=== PATIENT | male | born 1965 | race Caucasian/White ===

== ENCOUNTER → 2016-05-22 | Outpatient (CLI) | payer OTHER ==
[~2016-05-22] MED LIST: ALBUAER2 INH; ATOR-24 PO; BUPR-79 PO; CHOL200010 PO; CHOL20007 PO; CLON0.5T3 PO; CYAN10005 PO; DIPH25CA65 PO; DULO60CA44 PO; FLUT0.15 NAE; GADAVIST IV PRN; HYDR-5688 PO; HYDR1SOL IT; LEUP30IN3; LPT/40 PO; NTRGSL/4 UT; TEST1INJ2 IM; TEST1INJ2 SQ; TRAZ100T29 PO; TRAZ50TA35 PO; VNTHFA/IN INH; WLLSR/150 PO; ZOLP10TA PO; [UNRECOGNIZED DRUG - CODE] IT; [UNRECOGNIZED DRUG - CODE] SC
--- NOTE | 2016-05-22 09:50 | DIAGNOSTIC IMAGING REPORT ---
MRI THE THORACIC SPINE WITHOUT A WITH GADOLINIUM CLINICAL HISTORY: Back pain. History of pain pump catheter. Evaluate for catheter granuloma. COMPARISON STUDY: No previous studies for comparison. FINDINGS: There are no suspicious areas of marrow replacement. No paraspinal masses are visualized. No disc herniations are visualized. There are no pathologically enhancing masses. There is no spinal stenosis. There is a right T4-5 3 mm perineural cyst. The patient's spinal catheter can be visualized to the T8 level. No catheter tip granuloma is visualized. IMPRESSION: 1. No evidence of pathologic marrow replacement 2. No disc herniations identified. No evidence of spinal stenosis 3. Pain pump catheter tip at the T8 level. No catheter tip granuloma is visualized. Electronically signed by: Christian Braswell M.D. 05/22/2016 9:48 AM Dictated Date/Time: 05/22/2016 9:35 AM
--- NOTE | 2016-05-22 13:34 | DIAGNOSTIC IMAGING REPORT ---
CERVICAL SPINE MRI WITH AND WITHOUT CONTRAST HISTORY: Neck pain. 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 COMPARISON STUDY: Cervical spine MRI 12/21/2010. FINDINGS: There is again noted anterior cervical discectomy and fusion from C4 through C7. There is straightening of the cervical spine. Alignment remains intact. No fracture or subluxation. Prevertebral soft tissues and the C1-C2 interval are intact. The visualized posterior fossa is unremarkable. No abnormal enhancement identified within the cervical spine. Mild edema surrounding the right C7-T1 facets is likely due to degenerative change. Tiny foci of increased T2 signal within the cervical spinal cord at the C3-C4 and C4-C5 levels consistent with myelomalacia. This remains unchanged. Minimal disc space narrowing C3-C4. C2-C3: No significant central canal or neural foraminal narrowing. C3-C4: Increase in size in a right paracentral focal disc protrusion which abuts and slightly deforms the right anterior cord. There is associated moderate right and mild left neural foraminal narrowing. The right-sided neural foraminal narrowing has progressed. C4-C5: No significant central canal narrowing. Mild left-sided neural foraminal narrowing, unchanged. C5-C6: No significant central canal narrowing. Mild left-sided neural foraminal narrowing, unchanged. C6-C7: No significant central canal or neural foraminal narrowing. C7-T1: Small broad-based posterior disc osteophyte complex without significant central canal narrowing. There is moderate right-sided neural foraminal narrowing, unchanged. IMPRESSION: 1. Increase in size in the right paracentral focal disc protrusion at C3-C4 which abuts and slightly deforms the right anterior cord. 2. Multilevel bilateral neural foraminal narrowing as described above is not significantly changed. 3. Prior C4-C7 ACDF. 4. No change in the small foci of increased T2 signal within the cervical spinal cord consistent with myelomalacia. No abnormal enhancement. Electronically signed by: Vasu Miramontes M.D. 05/22/2016 1:32 PM Dictated Date/Time: 05/22/2016 1:16 PM
== END | disposition home or self-care (01) ==
LOC: C.MRIBC 06:53
PROVIDERS: ATTEND Anesthesiology
DX: M54.12 Radiculopathy, cervical region (principal); R20.0 Anesthesia of skin; M50.21 Other cervical disc displacement, high cervical region; M48.02 Spinal stenosis, cervical region; R93.7 Abnormal findings on diagnostic imaging of other parts of musculoskeletal system

== ENCOUNTER → 2016-06-20 | Outpatient (CLI) | payer OTHER ==
[~2016-06-20] MED LIST changes: -GADAVIST IV PRN
[2016-06-20 11:12] LABS: HEMATOCRIT 47.5 % (42-52); MEAN CELL VOLUME 91.7 fL (80-100); MEAN CORPUSCULAR HEMOGLOBIN 33.6 pg (25-34); MEAN CORPUSCULAR HGB CONC 36.6 g/dl (32-36); MEAN PLATELET VOLUME 10.4 fL (7.4-10.4); PLATELET COUNT 201 K/uL (130-400); RED BLOOD COUNT 5.18 M/uL (4.7-6.1); WHITE BLOOD COUNT 9.33 K/uL (4.8-10.8)
[2016-06-20 11:21] LABS: BLOOD UREA NITROGEN 10 mg/dl (7-18); BUN/CREATININE RATIO 10.9 (10-20); CALCIUM 8.7 mg/dl (8.5-10.1); CARBON DIOXIDE 28 mmol/L (21-32); CHLORIDE 102 mmol/L (98-107); CREATININE 0.94 mg/dl (0.60-1.40); GLUCOSE 117 mg/dl (70-99); POTASSIUM 4.2 mmol/L (3.5-5.1); SODIUM 137 mmol/L (136-145)
[2016-06-20 11:42] LABS: THYROID STIMULATING HORMONE 0.674 uIu/ml (0.300-4.500)
[2016-06-24 15:17] LABS: ILGF1 Z SCORE MALE 0.3 SD (-2.0 - +2.0)
--- NOTE | 2016-06-26 09:55 | CODING QUERY MEDICAL NECESSITY ---
SUPPORTING DIAGNOSIS NEEDED A supporting diagnosis is required for the test/procedure performed on this patient in order for us to be reimbursed by the patient's insurance. Please provide a supporting diagnosis for the following test/procedure listed below next to the test name along with your signature. *If there is no additional diagnosis for this patient that would support the following test/procedure please document that below next to the test/procedure. Test(s)/Procedure(s) that require a supporting diagnosis: DOS 06/20 * Vitamin D DIAGNOSIS: Provider Signature: Date: Thank you Tiffanie Steel Health Information Management Once completed, please kindly fax back to [phone] For questions please call [phone]
== END | disposition home or self-care (01) ==
LOC: C.LAB1850 09:47
PROVIDERS: ATTEND Internal Medicine Endocrinology, Diabetes & Metabolism
DX: R53.83 Other fatigue (principal); E29.1 Testicular hypofunction; R63.4 Abnormal weight loss; E55.9 Vitamin D deficiency, unspecified

== ENCOUNTER → 2016-07-26 | Day surgery (SDC) | payer OTHER ==
[~2016-07-26] VITALS: Ht 180.3 cm; Wt 91.0 kg
[~2016-07-26] MED LIST changes: +CHN/1 PO; +COSYNTROPIN INJ 1 MCG in SYRINGE 0 ML IV SCH; -DIPH25CA65 PO; -TRAZ100T29 PO
[2016-07-26 07:47] VITALS: BP 131/74; PULSE 70; TEMP 36.7; O2SAT 94; Ht 180.3 cm; Wt 91.0 kg
[2016-07-26 08:35] VITALS: BP 130/74; PULSE 71; TEMP 36.9; O2SAT 93
[2016-07-26 09:06] VITALS: BP 144/71; PULSE 70; TEMP 36.9; O2SAT 95
== END | disposition home or self-care (01) ==
LOC: C.MTU 07:35 → EDSTATUS 08:00
PROVIDERS: ATTEND Internal Medicine Endocrinology, Diabetes & Metabolism
DX: R53.83 Other fatigue (principal); E23.7 Disorder of pituitary gland, unspecified; E23.0 Hypopituitarism

== ENCOUNTER 2016-07-27 12:47 | Emergency (ER) | payer OTHER ==
[~2016-07-27] VITALS: Ht 180.3 cm; Wt 92.0 kg
[~2016-07-27 12:47] MED LIST changes: -ATOR-24 PO; -BUPR-79 PO; -CHN/1 PO; -CHOL20007 PO; -COSYNTROPIN INJ 1 MCG in SYRINGE 0 ML IV SCH; -HYDR-5688 PO; -HYDR1SOL IT; -LEUP30IN3; -TEST1INJ2 IM; -VNTHFA/IN INH; -[UNRECOGNIZED DRUG - CODE] SC
[2016-07-27 12:51] VITALS: TEMP 36.9; Ht 180.3 cm; Wt 92.0 kg
[2016-07-27] MEDS ORDERED: HYDROmorphone INJ 2 MG/ML SYR/VIAL IM STA (13:15)
--- NOTE | 2016-07-27 13:23 | EMERGENCY ROOM VISIT NOTE ---
History Report prepared by Jamee: Myla Douglas Under the Supervision of: Dr. Varghese Magdaleno D.O. First contact with patient: 12:59 Chief Complaint: NECK PAIN Stated Complaint: NECK PAIN History of Present Illness The patient is a 50 year old male who presents to the Emergency Room with complaints of persistent neck pain starting 3 months ago. He rates his discomfort as a 9/10 in severity. He was dropped off by a friend because he is unable to drive from the pain. An MRI has revealed that he has pinched nerves in his neck. He has had 8 neck surgeries with spinal cord stimulators put in. He has contacted surgeons, but they have turned him down. He called pain management this morning, but they said that there was nothing they could do and sent him to the ED. He reports numbness in head and numbness in his left arm. Source of History: patient Onset: 3 months ago Position: neck Symptom Intensity: 9/10 Timing: other (persistent) Associated Symptoms: + numbness (in head and left arm) Review of Systems See HPI for pertinent positives & negatives. A total of 10 systems reviewed and were otherwise negative. Past Medical & Surgical Medical Problems: (1) Neck pain Family History FH: ID (myocardial infarction) Social History Smoking Status: Current Every Day Smoker Drug Use: other Marital Status: Housing Status: lives with family Occupation Status: disabled Current/Historical Medications Scheduled Atorvastatin (Lipitor), 40 MG PO HS Bupropion Hcl (Wellbutrin Sr), 150 MG PO QAM Cholecalciferol (Vitamin D), 2 TAB PO QAM Cyanocobalamin (Vitamin B-12), 1,000 MCG PO QAM Duloxetine Hcl (Cymbalta), 60 MG PO QAM Hydromorphone Hcl (Hydromorphone Hcl), IT CONTINOUS Nitroglycerin (Nitrostat), 0.4 MG UT PRN Testosterone Cypionate (Testosterone Cypionate), 100 SQ WK Trazodone Hcl (Trazodone), 50 MG PO HS Scheduled PRN Albuterol (Ventolin), 1-2 PUFFS INH Q4 PRN for Wheezing Clonazepam (Klonopin), 1-2 TAB PO DAILY PRN for Anxiety Fluticasone Propionate (Nasal) (Flonase Allergy Relief), 1 SPRAY BRIANNE DAILY PRN for PRN Zolpidem Tartrate (Ambien), 10 MG PO HS PRN for Sleep Allergies Coded Allergies: NO KNOWN DRUG ALLERGIES (Verified Allergy, Unknown, ., 07/26/16) Physical Exam Vital Signs Date Time Temp Pulse Resp B/P Pulse Ox O2 Delivery O2 Flow Rate FiO2 07/27/16 12:51 36.9 93 18 183/85 94 Room Air Physical Exam CONSTITUTIONAL/VITAL SIGNS: Reviewed / noted above. GENERAL: Non-toxic in appearance. INTEGUMENTARY: Warm, dry, and [place]. HEAD: Normocephalic. EYES: without scleral icterus or trauma. ENT/OROPHARYNX: clear and moist. LYMPHADENOPATHY/NECK: Is supple without lymphadenopathy or meningismus. RESPIRATORY: Lungs clear and equal. CARDIOVASCULAR: Regular rate and rhythm. GI/ABDOMEN: Soft and nontender. No organomegaly or pulsatile mass. No rebound or guarding. Normal bowel sounds. EXTREMITIES: Warm and well perfused. BACK: No CVA tenderness. NEUROLOGICAL: Intact without focal deficits. PSYCHIATRIC: normal affect. MUSCULOSKELETAL: Normally developed with good muscle tone. Medical Decision & Procedures ED Course 1300: Previous medical records were reviewed. The patient was evaluated in room B9. A complete history and physical examination was performed. 1311: I discussed the patient's case with AD[facility]illi[facility] - Pain Management. He is OK with an IM injection of Dilaudid. 1315: Dilaudid Inj 2 mg IM. 1317: On reevaluation, the patient is resting comfortably. I discussed the results and findings with the patient. He verbalized agreement of the treatment plan. He was discharged home. Medical Decision Differential considered: chronic condition, infection, trauma, herniated disc. This is a 50-year-old male who presents to the ED with a chief complaint of chronic cervical pain. The patient has a history of this. He states that his symptoms have worsened since April. He had an MRI of the cervical spine and has been evaluated by spine surgery in [place]. They had nothing to offer him. He is currently seeing Dr. Cherry for his pain and has an intrathecal hydromorphone pump. This has recently been increased. The patient came here after contacting pain management. They offered him an increasing in his pump and a course of steroids but he was not interested in that, according to Dr. Cherry. Dr. Cherry was okay with me giving him a shot of Dilaudid today. The patient states that he has a ride. He is calling a friend pick him up. He states that his friend dropped him off. He is felt to be stable for discharge. Outpatient follow-up with Dr. Cherry. Consults Time Called: 1306 Consulting Physician: Chilo Cherry PA-C [facility] [place] - Pain Management Returned Call: [phone] Discussed the patient's case. He is OK with an IM injection of Dilaudid. Impression Primary Impression: Chronic cervical pain Scribe Attestation The scribe's documentation has been prepared under my direction and personally reviewed by me in its entirety. I confirm that the note above accurately reflects all work, treatment, procedures, and medical decision making performed by me. Departure Information Dispostion Home / Self-Care Referrals Lucian Mccann M.D. (PCP) Patient Instructions My [facility] Additional Instructions Follow-up with your doctors for continued care of your symptoms.
[2016-07-27 13:48] VITALS: BP 191/98; PULSE 84; O2SAT 95
[2016-11-08] MEDS ORDERED: LEUP30IN3 (08:35)
[2017-01-03] MEDS ORDERED: HYDR-5688 PO (09:11)
[2017-03-25] MEDS ORDERED: CHN/1 PO (10:28)
== END 2016-07-27 13:52 | disposition home or self-care (01) ==
LOC: C.EDB 12:49
DX: M54.2 Cervicalgia (principal); F17.200 Nicotine dependence, unspecified, uncomplicated; Z79.899 Other long term (current) drug therapy; Z82.49 Family history of ischemic heart disease and other diseases of the circulatory system

== ENCOUNTER → 2016-07-30 | Day surgery (SDC) | payer OTHER ==
[2016-07-24 07:35] VITALS: Ht 180.3 cm; Wt 90.9 kg
[~2016-07-30] VITALS: Ht 180.3 cm; Wt 90.9 kg
[~2016-07-30] MED LIST changes: +ATOR-24 PO; +BUPR-79 PO; +CHN/1 PO; +CHOL20007 PO; +HYDR-5688 PO; +HYDR1SOL IT; +LEUP30IN3; +LIDOCAINE HCL 2% 2 ML VIAL (20MG/ML) ONE; +ONDANSETRON INJ 2 MG/ML 2 ML VIAL IV PRN; +PROPOFOL IV EMULSION 10 MG/ML 20 ML VIAL IV ONE; +TEST1INJ2 IM; +VNTHFA/IN INH; +[UNRECOGNIZED DRUG - CODE] SC
--- NOTE | 2016-07-30 08:09 | Endo History and Physical ---
History & Physical Date of Service: Jul 30, 2016. Chief Complaint: Follow-up for an esophageal mass Referring Physician: Dr. 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 patient also with frequent difficulty swallowing which has been attibuted to his prior neck surgeries. Past Medical History Arthritis, Asthma, Male Genitourinary Prob., Reflux, High Cholesterol Past Surgical History Hx Cardiac Surgery: No Hx Internal Defibrillator: No Hx Pacemaker: No Hx Abdominal Surgery: Yes (INGUINAL HERNIA, IMPLANTED PAIN PUMP) Hx Post-Op Nausea and Vomiting: No Hx Cancer Surgery: No Hx Thoracic Surgery: No Hx Orthopedic: Yes (8 TOTAL CERVICAL FUSIONS/DISCECTOMY (C3-C7), LEFT KNEE ARTHROSCOPY) Hx Urinary Tract Surgery: No Family History None Social History Smoking Status: Current Every Day Smoker Hx Substance Use: No Hx Alcohol Use: No Allergies Coded Allergies: NO KNOWN DRUG ALLERGIES (Verified Allergy, Unknown, ., 07/27/16) Current Medications Reported Home Medications Medications Dose Route/Sig Max Daily Dose Days Date Category Trazodone (Trazodone HCl) 50 Mg Tab 50 Mg PO HS 07/26/16 Reported Nitrostat (Nitroglycerin) 0.4 Mg Tab 0.4 Mg UT PRN 07/24/16 Reported Flonase Allergy Relief (Fluticasone Propionate (Nasal)) 50 Mcg/Act Spr 1 [place] BRIANNE DAILY PRN 07/24/16 Reported Klonopin (Clonazepam) 0.5 Mg Tab 1-2 Tab PO DAILY PRN 12/29/15 Reported Hydromorphone Hcl 10 Mg/Ml Inj IT CONTINOUS 10/05/15 Reported Testosterone Cypionate 200 Mg/Ml Inj 100 SQ WK 07/12/15 Reported Vitamin B-12 (Cyanocobalamin) 1,000 Mcg Tab 1,000 Mcg PO QAM 07/08/15 Reported Lipitor (Atorvastatin) 40 Mg Tab 40 Mg PO HS 04/26/15 Reported Wellbutrin Sr (Bupropion Hcl) 150 Mg Tabcr 150 Mg PO QAM 04/26/15 Reported Vitamin D (Cholecalciferol) 2,000 Unit Cap 2 Tab PO QAM 04/26/15 Reported Ventolin (Albuterol) Inh 1-2 Puffs INH Q4 PRN 5 10/21/14 Reported Ambien (Zolpidem Tartrate) 10 Mg Tab 10 Mg PO HS PRN 09/22/13 Reported Cymbalta (Duloxetine Hcl) 60 Mg Cap 60 Mg PO QAM 09/22/13 Reported Vital Signs Weight (Kilograms): 90.91 Height (Feet): 5 Height (Inches): 11 Physical Exam General Appearance: no apparent distress Respiratory/Chest: Auscultation: breath sounds normal Cardiovascular: Heart Auscultation: RRR Abdomen: Inspection & Palpation: soft Assessment and Plan EGD for surveillance of an esophageal granular cell tumor. We will also plan for an empiric dilation due to his frequent dysphagia. Plan EGD today
--- NOTE | 2016-07-30 08:52 | Discharge Instructions ---
Endoscopy Patient Instructions Date / Procedure(s) Performed Jul 30, 2016. EGD Allergy Information Coded Allergies: NO KNOWN DRUG ALLERGIES (Verified Allergy, Unknown, ., 07/27/16) Discharge Date / Findings Jul 30, 2016. Hiatal hernia Mild esophagitis Medication Instructions Reported Home Medications Medications Dose Route/Sig Max Daily Dose Days Date Category Trazodone (Trazodone HCl) 50 Mg Tab 50 Mg PO HS 07/26/16 Reported Nitrostat (Nitroglycerin) 0.4 Mg Tab 0.4 Mg UT PRN 07/24/16 Reported Flonase Allergy Relief (Fluticasone Propionate (Nasal)) 50 Mcg/Act Spr 1 [place] BRIANNE DAILY PRN 07/24/16 Reported Klonopin (Clonazepam) 0.5 Mg Tab 1-2 Tab PO DAILY PRN 12/29/15 Reported Hydromorphone Hcl 10 Mg/Ml Inj IT CONTINOUS 10/05/15 Reported Testosterone Cypionate 200 Mg/Ml Inj 100 SQ WK 07/12/15 Reported Vitamin B-12 (Cyanocobalamin) 1,000 Mcg Tab 1,000 Mcg PO QAM 07/08/15 Reported Lipitor (Atorvastatin) 40 Mg Tab 40 Mg PO HS 04/26/15 Reported Wellbutrin Sr (Bupropion Hcl) 150 Mg Tabcr 150 Mg PO QAM 04/26/15 Reported Vitamin D (Cholecalciferol) 2,000 Unit Cap 2 Tab PO QAM 04/26/15 Reported Ventolin (Albuterol) Inh 1-2 Puffs INH Q4 PRN 5 10/21/14 Reported Ambien (Zolpidem Tartrate) 10 Mg Tab 10 Mg PO HS PRN 09/22/13 Reported Cymbalta (Duloxetine Hcl) 60 Mg Cap 60 Mg PO QAM 09/22/13 Reported Provider Instructions Activity Restrictions - No exercising or heavy lifting for 24 hours. - Do not drink alcohol the day of the procedure. - Do not drive a car or operate machinery until the day after the procedure. - Do not make any important decisions or sign important papers in 24 hours after the procedure. Following Day: - Return to full activity which may include returning to work/school. Diet Start your diet with liquids and light foods (jello, soup, juice, toast). Then eat your usual diet if not nauseated. Treatment For Common After Affects For mild abdominal pain, bloating, or excessive gas: - Rest - Eat lightly - Lie on right side Follow-Up Information Follow-up with DR. Dodson in 1 year Try Omeprazole 20 mg per day Anesthesia Information What You Should Know You have had a procedure that required some medicine to reduce anxiety and discomfort. This treatment is called moderate sedation. After receiving the treatment, you may be sleepy, but you will be able to breathe on your own. The effects of the treatment may last for several hours. Follow these instructions along with Activity/Diet recommendations noted above: * Do NOT do anything where dizziness or clumsiness would be dangerous. * Rest quietly at home today, then you can be up and about tomorrow. * Have a responsible person stay with you the rest of today. * You may have had an I.V. today. If so, you may take the dressing off later today. Recommendations Call your doctor if: * Trouble breathing * Continuous vomiting for more than 24 hours * Temperature above 101 degrees * Severe abdominal pain or bloating * Pain not relieved by pain medicine ordered * There is increased drainage or redness from any incision * A large amount of rectal bleeding greater than 2-3 tablespoons. (If you had a polyp/s removed or have hemorrhoids, a small amount of blood - from the rectum is to be expected.) * You have any unanswered questions or concerns. IN THE EVENT OF A SERIOUS EMERGENCY, GO TO THE NEAREST EMERGENCY ROOM Your discharge instructions were prepared by provider Karl Ayala. Patient Instructions Signature Page Jean Pierre Finn Patient (or Guardian) Signature/Date: I have read and understand the instructions given to me by my caregivers. Caregiver/RN/Doctor Signature/Date: The above-named patient and/or guardian has received patient instructions on this date. + Original Patient Signature Page (only) stays with chart. Please make copy for patient.
[2016-07-30 09:20] VITALS: BP 137/82; PULSE 72; O2SAT 97
--- NOTE | 2016-07-30 09:21 | Anesthesiology Progress Note ---
Anesthesia Post Op Note Date & Time Jul 30, 2016 at 09:21 Vital Signs Pain Intensity: 0 Vital Signs Past 12 Hours Date Time Temp Pulse Resp B/P Pulse Ox O2 Delivery O2 Flow Rate FiO2 07/30/16 09:05 72 18 138/67 96 Room Air 07/30/16 08:50 72 18 141/75 96 Room Air 07/30/16 08:15 36.7 73 20 131/67 96 Room Air Notes Mental Status: alert / awake / arousable, participated in evaluation Pt Amnestic to Procedure: Yes Nausea / Vomiting: adequately controlled Pain: adequately controlled Airway Patency, RR, SpO2: stable & adequate BP & HR: stable & adequate Hydration State: stable & adequate Anesthetic Complications: no major complications apparent Pt doing very well.
--- NOTE | 2016-07-30 10:43 | GI REPORT ---
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 Estimated blood loss: Minimal. Estimated Blood Loss: Estimated blood loss was minimal. Procedure: Pre-Anesthesia Assessment: - Prior to the procedure, a History and Physical was performed, and patient medications, allergies and sensitivities were reviewed. The patient's tolerance of previous anesthesia was reviewed. - The risks and benefits of the procedure and the sedation options and risks were discussed with the patient. All questions were answered and informed consent was obtained. - Patient identification and proposed procedure were verified prior to the procedure by the physician, the nurse and the cement grinding mill operator. The procedure was verified in the procedure room. - Pre-procedure physical examination revealed no contraindications to sedation. - ASA Grade Assessment: III - A patient with severe systemic disease. - After reviewing the risks and benefits, the patient was deemed in satisfactory condition to undergo the procedure. - The anesthesia plan was to use monitored anesthesia care (MAC). - Immediately prior to administration of medications, the patient was re-assessed for adequacy to receive sedatives. - The heart rate, respiratory rate, oxygen saturations, blood pressure, adequacy of pulmonary ventilation, and response to care were monitored throughout the procedure. - The physical status of the patient was re-assessed after the procedure. After obtaining informed consent, the endoscope was passed under direct vision. Throughout the procedure, the patient's blood pressure, pulse, and oxygen saturations were monitored continuously. The scope was introduced through the mouth, and advanced to the third part of duodenum. The upper GI endoscopy was accomplished without difficulty. The patient tolerated the procedure well. Findings: The upper third of the esophagus and middle third of the esophagus were normal. LA Grade A (one or more mucosal breaks less than 5 mm, not extending between tops of 2 mucosal folds) esophagitis with no bleeding was found at the gastroesophageal junction. Biopsies were taken with a cold forceps for histology. Estimated blood loss was minimal. There was no evidence of a recurrent granular cell tumor. A mild Schatzki ring (acquired) was found at the gastroesophageal junction. A guidewire was placed and the scope was withdrawn. Dilation was performed with a Savary dilator with mild resistance at 54 Fr. The endoscope was then reinserted to evaluate the success of the procedure. Estimated blood loss was minimal. A small hiatus hernia was found. The proximal extent of the gastric folds (end of tubular esophagus) was 42 cm from the incisors. The hiatal narrowing was 43 cm from the incisors. The Z-line was 42 cm from the incisors. Diffuse mild inflammation characterized by erythema and granularity was found in the entire examined stomach. The examined duodenum was normal. Impression: - Normal upper third of esophagus and middle third of esophagus. - LA Grade A reflux esophagitis. Biopsied. - Mild Schatzki ring. Dilated to 54 Fr today. - Small hiatus hernia. - Gastritis. - Normal examined duodenum. Recommendation: - Discharge patient to home (ambulatory). - Advance diet as tolerated today. - Observe patient's clinical course following today's procedure with therapeutic intervention. - Use Prilosec (omeprazole) 20 mg PO daily. - Repeat EGD in 1 year. Karl Ayala D.O. Karl Ayala DO 07/30/2016 8:59:29 AM This report has been signed electronically. Note Initiated On: 07/30/2016 8:35 AM I attest to the content of the Intraoperative Record and orders documented therein, exceptions below
== END | disposition home or self-care (01) ==
LOC: C.GI 07:22
PROVIDERS: ATTEND Internal Medicine Gastroenterology
DX: K22.2 Esophageal obstruction (principal); K21.0 Gastro-esophageal reflux disease with esophagitis; K44.9 Diaphragmatic hernia without obstruction or gangrene; K29.70 Gastritis, unspecified, without bleeding; M19.90 Unspecified osteoarthritis, unspecified site; E78.5 Hyperlipidemia, unspecified; J45.909 Unspecified asthma, uncomplicated; Z98.1 Arthrodesis status

== ENCOUNTER → 2016-08-27 | Outpatient (CLI) | payer OTHER ==
[~2016-08-27] MED LIST changes: -LIDOCAINE HCL 2% 2 ML VIAL (20MG/ML) ONE; -ONDANSETRON INJ 2 MG/ML 2 ML VIAL IV PRN; -PROPOFOL IV EMULSION 10 MG/ML 20 ML VIAL IV ONE
== END | disposition home or self-care (01) ==
LOC: C.LAB1850 07:26
PROVIDERS: ATTEND Internal Medicine Endocrinology, Diabetes & Metabolism
DX: E23.0 Hypopituitarism (principal)

== ENCOUNTER → 2016-10-17 | Outpatient (CLI) | payer OTHER | END | disposition home or self-care (01) | LOC: C.LAB 07:21 | PROVIDERS: ATTEND Internal Medicine Endocrinology, Diabetes & Metabolism | DX: E23.7 Disorder of pituitary gland, unspecified (principal) ==

== ENCOUNTER → 2016-10-29 | Outpatient (CLI) | payer OTHER ==
[~2016-10-29] MED LIST changes: -CHN/1 PO
== END | disposition home or self-care (01) ==
LOC: C.LAB1850 07:23
PROVIDERS: ATTEND Internal Medicine Endocrinology, Diabetes & Metabolism
DX: R53.83 Other fatigue (principal); E23.0 Hypopituitarism; N52.9 Male erectile dysfunction, unspecified

== ENCOUNTER 2016-12-16 09:14 | Emergency (ER) | payer OTHER ==
[~2016-12-16] VITALS: Ht 180.3 cm; Wt 84.5 kg
[~2016-12-16 09:14] MED LIST changes: -ATOR-24 PO; -BUPR-79 PO; -CHOL20007 PO; -HYDR-5688 PO; -HYDR1SOL IT; -TEST1INJ2 IM; -VNTHFA/IN INH; -[UNRECOGNIZED DRUG - CODE] SC
[2016-12-16 09:17] VITALS: TEMP 36.9; Ht 180.3 cm; Wt 84.5 kg
[2016-12-16] MEDS ORDERED: SODIUM CHLORIDE 0.9% 1000ML 1,000 ML IV STA (09:36)
[2016-12-16] MEDS ORDERED: HYDR-5688 PO ×2 (09:42→17:03)
[2016-12-16] MEDS ORDERED: [UNRECOGNIZED DRUG - CODE] SC ×2 (09:42→17:03)
[2016-12-16] MEDS ORDERED: VNTHFA/IN INH ×2 (09:42→17:03)
[2016-12-16 10:01] LABS: BASO % 0.4 %; BASO ABS # 0.03 K/uL (0-0.2); COMPLETE YES; EOS % 1.2 %; IG% 0.2 %; LYMPH % 21.3 %; LYMPH ABS # 1.78 K/uL (1.2-3.4); MEAN CELL VOLUME 93.6 fL (80-100); MEAN CORPUSCULAR HEMOGLOBIN 35.5 pg (25-34); MEAN CORPUSCULAR HGB CONC 37.9 g/dl (32-36); MONO % 5.7 %; NEUT % 71.2 %; PLATELET COUNT 186 K/uL (130-400); RED BLOOD COUNT 5.13 M/uL (4.7-6.1); WHITE BLOOD COUNT 8.35 K/uL (4.8-10.8)
--- NOTE | 2016-12-16 10:10 | DIAGNOSTIC IMAGING REPORT ---
SINGLE VIEW CHEST CLINICAL HISTORY: Generalized weakness. Change in mental status. FINDINGS: 2 AP, portable, upright chest radiographs are compared to study dated 10/21/2014 and correlated with chest CT dated 10/05/2015. The examination is degraded by portable technique and patient rotation. The cardiomediastinal silhouette is unremarkable. Emphysema and chronic interstitial thickening are similar to previous. No airspace consolidation, pleural effusion, or pneumothorax is seen. The bony thorax is grossly intact. Fusion hardware is seen in the lower cervical spine. An intrathecal catheter projects over the lower thoracic spine. The catheter is not well assessed. IMPRESSION: Emphysema with no acute cardiopulmonary abnormality. Electronically signed by: Bentley Guzman M.D. 12/16/2016 10:09 AM Dictated Date/Time: 12/16/2016 10:06 AM
[2016-12-16 10:11] LABS: PROTHROMBIN TIME (PATIENT) 10.7 SECONDS (9.0-12.0)
[2016-12-16 10:19] LABS: ALT/SGPT 29 U/L (12-78); BLOOD UREA NITROGEN 10 mg/dl (7-18); CARBON DIOXIDE 28 mmol/L (21-32); CHLORIDE 107 mmol/L (98-107); CREATININE 0.82 mg/dl (0.60-1.40); GLUCOSE 165 mg/dl (70-99); MAGNESIUM 1.8 mg/dl (1.8-2.4); POTASSIUM 4.1 mmol/L (3.5-5.1); SODIUM 139 mmol/L (136-145)
[2016-12-16 10:27] LABS: ALKALINE PHOSPHATASE 104 U/L (45-117); AST/SGOT 17 U/L (15-37); CKMB/CK RATIO 1.8 (0-3.0); THYROID STIMULATING HORMONE 0.214 uIu/ml (0.300-4.500)
[2016-12-16 11:57] LABS: URINE APPEARANCE CLEAR (CLEAR); URINE BILIRUBIN NEG (NEG); URINE COLOR YELLOW; URINE EPITHELIAL CELL AUTO 0-5 /lpf (0-5); URINE NITRITE NEG (NEG); URINE SPECIFIC GRAVITY 1.006 (1.000-1.030); UROBILINOGEN NEG (NEG); ZZUR CULT IF INDIC CLEAN CATCH NO
[2016-12-16 11:58] LABS: MANUAL MICROSCOPIC REQUIRED? NO; REVIEW REQ? NO
[2016-12-16 12:12] LABS: BENZODIAZEPINE, URINE NEG (NEG); COCAINE,URINE NEG (NEG); PHENCYCLIDINE, URINE NEG (NEG)
[2016-12-16] MEDS ORDERED: ONDANSETRON INJ 2 MG/ML 2 ML VIAL IV STA (13:15)
--- NOTE | 2016-12-16 13:18 | EMERGENCY ROOM VISIT NOTE ---
History Report prepared by Jamee: Myla Douglas Under the Supervision of: Dr. Varghese Magdaleno D.O. First contact with patient: 09:31 Chief Complaint: WEAKNESS Stated Complaint: WEAK, DOES NOT FEEL RIGHT, PAIN PUMP ABNORMAL History of Present Illness The patient is a 51 year old male who presents to the Emergency Room with complaints of persistent weakness starting last night. The patient feels too weak to get around today. He has never experienced this before. He notes that he woke up later than usual today. He is shakier than normal. He has more neck pain than usual. He denies any nausea or vomiting. The patient has a pain pump due to chronic neck pain. He states that the pump made an alarm noise. He is concerned that the pump is malfunctioning and he is going through withdrawal. He states that he is supposed to call pain management if his pump alarm went off , but he came into the ED because he was feeling so unwell. Source of History: patient Onset: last night Position: other (global) Quality: other (weakness) Timing: other (persistent) Associated Symptoms: + neck pain, No nausea, No vomiting Note: Pt reports shakiness. Review of Systems See HPI for pertinent positives & negatives. A total of 10 systems reviewed and were otherwise negative. Past Medical & Surgical Medical Problems: (1) Neck pain Family History FH: [place] (myocardial infarction) Social History Smoking Status: Current Every Day Smoker Drug Use: other Marital Status: Housing Status: lives with family Occupation Status: disabled Current/Historical Medications Scheduled Atorvastatin (Lipitor), 40 MG PO HS Bupropion Hcl (Wellbutrin Sr), 150 MG PO QAM Cholecalciferol (Vitamin D), 2 TAB PO QAM Cyanocobalamin (Vitamin B-12), 1,000 MCG PO QAM Duloxetine Hcl (Cymbalta), 60 MG PO QAM Hydromorphone Hcl (Hydromorphone Hcl), IT CONTINOUS Nitroglycerin (Nitrostat), 0.4 MG UT PRN Somatropin (Nutropin Aq Nuspin 10), 10 MG INJ DAILY@1800 Testosterone Cypionate (Testosterone Cypionate), 100 SQ WK Trazodone Hcl (Trazodone), 50 MG PO HS Scheduled PRN Albuterol Hfa (Ventolin Hfa), 1-2 PUFFS INH Q4 PRN for SOB/Wheezing Clonazepam (Klonopin), 1-2 TAB PO DAILY PRN for Anxiety Fluticasone Propionate (Nasal) (Flonase Allergy Relief), 1 SPRAY BRIANNE DAILY PRN for PRN Hydrocodone/Acetaminophen 5MG/325MG ([place] 5MG/325MG), 1 TABLET PO UD PRN for Pain Allergies Coded Allergies: NO KNOWN DRUG ALLERGIES (Verified Allergy, Unknown, ., 12/16/16) Physical Exam Vital Signs Date Time Temp Pulse Resp B/P (MAP) Pulse Ox O2 Delivery O2 Flow Rate FiO2 12/16/16 12:07 60 12/16/16 11:46 86 153/77 97 12/16/16 09:17 36.9 82 20 162/94 98 Room Air Physical Exam CONSTITUTIONAL/VITAL SIGNS: Reviewed / noted above. GENERAL: Non-toxic in appearance. INTEGUMENTARY: Warm, dry, and [place]. HEAD: Normocephalic. EYES: without scleral icterus or trauma. ENT/OROPHARYNX: clear and moist. LYMPHADENOPATHY/NECK: Is supple without lymphadenopathy or meningismus. RESPIRATORY: Lungs clear and equal. CARDIOVASCULAR: Regular rate and rhythm. GI/ABDOMEN: Soft and nontender. No organomegaly or pulsatile mass. No rebound or guarding. Normal bowel sounds. EXTREMITIES: Warm and well perfused. BACK: No CVA tenderness. NEUROLOGICAL: Intact without focal deficits. PSYCHIATRIC: normal affect. MUSCULOSKELETAL: Normally developed with good muscle tone. Medical Decision & Procedures ER Provider Diagnostic Interpretation: X ray results and stated below per my interpretation and radiology interpretation. SINGLE VIEW CHEST CLINICAL HISTORY: Generalized weakness. Change in mental status. FINDINGS: 2 AP, portable, upright chest radiographs are compared to study dated 10/21/2014 and correlated with chest CT dated 10/05/2015. The examination is degraded by portable technique and patient rotation. The cardiomediastinal silhouette is unremarkable. Emphysema and chronic interstitial thickening are similar to previous. No airspace consolidation, pleural effusion, or pneumothorax is seen. The bony thorax is grossly intact. Fusion hardware is seen in the lower cervical spine. An intrathecal catheter projects over the lower thoracic spine. The catheter is not well assessed. IMPRESSION: Emphysema with no acute cardiopulmonary abnormality. Electronically signed by: Bentley Guzman M.D. 12/16/2016 10:09 AM Dictated Date/Time: 12/16/2016 10:06 AM Laboratory Results 12/16/16 09:50 Red Blood Count 5.13, Mean Corpuscular Volume 93.6, Mean Corpuscular Hemoglobin 35.5, Mean Corpuscular Hemoglobin Concent 37.9, Mean Platelet Volume 10.0, Neutrophils (%) (Auto) 71.2, Lymphocytes (%) (Auto) 21.3, Monocytes (%) (Auto) 5.7, Eosinophils (%) (Auto) 1.2, Basophils (%) (Auto) 0.4, Neutrophils # (Auto) 5.94, Lymphocytes # (Auto) 1.78, Monocytes # (Auto) 0.48, Eosinophils # (Auto) 0.10, Basophils # (Auto) 0.03 12/16/16 09:50 Test 12/16/16 09:50 12/16/16 11:40 White Blood Count 8.35 K/uL (4.8-10.8) Red Blood Count 5.13 M/uL (4.7-6.1) Hemoglobin 18.2 g/dL (14.0-18.0) Hematocrit 48.0 % (42-52) Mean Corpuscular Volume 93.6 fL (80-100) Mean Corpuscular Hemoglobin 35.5 pg (25-34) Mean Corpuscular Hemoglobin Concent 37.9 g/dl (32-36) Platelet Count 186 K/uL (130-400) Mean Platelet Volume 10.0 fL (7.4-10.4) Neutrophils (%) (Auto) 71.2 % Lymphocytes (%) (Auto) 21.3 % Monocytes (%) (Auto) 5.7 % Eosinophils (%) (Auto) 1.2 % Basophils (%) (Auto) 0.4 % Neutrophils # (Auto) 5.94 K/uL (1.4-6.5) Lymphocytes # (Auto) 1.78 K/uL (1.2-3.4) Monocytes # (Auto) 0.48 K/uL (0.11-0.59) Eosinophils # (Auto) 0.10 K/uL (0-0.5) Basophils # (Auto) 0.03 K/uL (0-0.2) RDW Standard Deviation 45.5 fL (36.4-46.3) RDW Coefficient of Variation 13.2 % (11.5-14.5) Immature Granulocyte % (Auto) 0.2 % Immature Granulocyte # (Auto) 0.02 K/uL (0.00-0.02) Prothrombin Time 10.7 SECONDS (9.0-12.0) Prothromb Time International Ratio 1.0 (0.9-1.1) Activated Partial Thromboplast Time 26.6 SECONDS (21.0-31.0) Partial Thromboplastin Ratio 1.0 Anion Gap 4.0 mmol/L (3-11) Est Creatinine Clear Calc Drug Dose 112.2 ml/min Estimated GFR () 117.8 Estimated GFR (Non- 101.7 BUN/Creatinine Ratio 12.0 (10-20) Calcium Level 9.0 mg/dl (8.5-10.1) Magnesium Level 1.8 mg/dl (1.8-2.4) Total Bilirubin 0.8 mg/dl (0.2-1) Direct Bilirubin 0.2 mg/dl (0-0.2) Aspartate Amino Transf (AST/SGOT) 17 U/L (15-37) Alanine Aminotransferase (ALT/SGPT) 29 U/L (12-78) Alkaline Phosphatase 104 U/L (45-117) Total Creatine Kinase 79 U/L (39-308) Creatine Kinase MB 1.4 ng/ml (0.5-3.6) Creatine Kinase MB Ratio 1.8 (0-3.0) Troponin I < 0.015 ng/ml (0-0.045) Total Protein 7.2 gm/dl (6.4-8.2) Albumin 3.6 gm/dl (3.4-5.0) Lipase 205 U/L (73-393) Thyroid Stimulating Hormone (TSH) 0.214 uIu/ml (0.300-4.500) Urine Color YELLOW Urine Appearance CLEAR (CLEAR) Urine pH 8.0 (4.5-7.5) Urine Specific [place] 1.006 (1.000-1.030) Urine Protein NEG (NEG) Urine Glucose (UA) NEG (NEG) Urine Ketones NEG (NEG) Urine Occult Blood NEG (NEG) Urine Nitrite NEG (NEG) Urine Bilirubin NEG (NEG) Urine Urobilinogen NEG (NEG) Urine Leukocyte Esterase NEG (NEG) Urine WBC (Auto) 0 /hpf (0-5) Urine RBC (Auto) 0-4 /hpf (0-4) Urine Hyaline Casts (Auto) 0 /lpf (0-5) Urine Epithelial Cells (Auto) 0-5 /lpf (0-5) Urine Bacteria (Auto) NEG (NEG) Urine Opiates Screen POS (NEG) Urine Methadone, Qualitative NEG (NEG) Urine Barbiturates NEG (NEG) Urine Phencyclidine (PCP) Level NEG (NEG) Ur Amphetamine/Methamphetamine NEG (NEG) MDMA (Ecstasy) Screen POS (NEG) Urine Benzodiazepines Screen NEG (NEG) Urine Cocaine Metabolite NEG (NEG) Urine Marijuana (THC) NEG (NEG) Laboratory results as stated above per my review. Medications Administered Medications (Trade) Dose Ordered Sig/Neel Route Start Time Stop Time Status Last Admin Dose Admin Sodium Chloride 1,000 ml @ 999 mls/hr Q1H1M STAT IV 12/16/16 09:36 12/16/16 10:36 DC 12/16/16 10:03 999 MLS/HR ECG Indication: weakness Rate (beats per minute): 67 Rhythm: sinus rhythm Findings: no ectopy, other (no acute injury) ED Course 0933: Previous medical records were reviewed. The patient was evaluated in room B9. A complete history and physical examination was performed. 0936: NSS 1000 ml @ 999 mls/hr IV. 1300: On reevaluation, the patient is doing well. I discussed the results and findings with the patient. He verbalized agreement of the treatment plan. He was discharged home. Medical Decision Differential includes acute coronary syndrome, myocardial infarction, CVA, TIA, anemia, infection, pneumonia, UTI, pyelonephritis, poor nutrition, dehydration, electrolyte disturbance,hypoglycemia. This is a 51-year-old male who presents to the ED with a chief complaint of not feeling well. The patient cannot give a specific reason why he does not feel well but he states that he feels weak and has some shakes. He also complains of some chronic back pain. He states that he heard his pain pump bleed several times this morning. It was 3 consecutive beats in a row. He has not heard it since. The patient's vital signs revealed some mild hypertension. Blood work was performed. CBC is normal, complete metabolic panel was normal, troponin is normal, urine did not show infection and a chest x-ray did not show acute disease. The patient was told the results of the test. I asked him if he wanted me to contact his pain specialist, they stated they would do so. The patient is felt to be stable for discharge. He did have an episode of diarrhea and some nausea prior to discharge. He may have some sort of GI illness starting. Medication Reconcilliation Current Medication List: was personally reviewed by me Blood Pressure Screening Patient's blood pressure: Elevated blood pressure Blood pressure disposition: Elevated BP felt to be situational Impression Primary Impression: Weakness Scribe Attestation The scribe's documentation has been prepared under my direction and personally reviewed by me in its entirety. I confirm that the note above accurately reflects all work, treatment, procedures, and medical decision making performed by me. Departure Information Referrals No Doctor, Assigned (PCP) Patient Instructions [facility]
[2016-12-16 13:35] VITALS: BP 143/74; PULSE 66; O2SAT 98
[2016-12-16] MEDS ORDERED: TRAZ50TA35 PO (17:03)
[2016-12-16] MEDS ORDERED: CHOL20007 PO (17:03)
[2016-12-16] MEDS ORDERED: TEST1INJ2 IM (17:03)
[2016-12-16] MEDS ORDERED: HYDR1SOL IT (17:03)
[2016-12-16] MEDS ORDERED: CLON0.5T3 PO (17:03)
[2016-12-16] MEDS ORDERED: CYAN10005 PO (17:03)
[2016-12-16] MEDS ORDERED: NTRGSL/4 UT (17:03)
[2016-12-16] MEDS ORDERED: DULO60CA44 PO (17:03)
[2016-12-16] MEDS ORDERED: ATOR-24 PO (17:03)
[2016-12-16] MEDS ORDERED: BUPR-79 PO (17:03)
[2016-12-16] MEDS ORDERED: FLUT0.15 NAE (17:03)
[2016-12-19 12:41] LABS: COD UR NEGATIVE NG/ML (CUTOFF=50); HYDROCOD UR 60 NG/ML (CUTOFF=50); HYDROMOR UR NEGATIVE NG/ML (CUTOFF=50); MORPHINE UR 62 NG/ML (CUTOFF=50); NORHYDROCODONE CONF UR 176 NG/ML (CUTOFF=50); OXYMORPH UR NEGATIVE NG/ML (CUTOFF=50)
[2017-01-03] MEDS ORDERED: HYDR-5688 PO (09:11)
== END 2016-12-16 13:40 | disposition home or self-care (01) ==
LOC: C.EDB 09:15
DX: R53.1 Weakness (principal); M54.2 Cervicalgia; G89.29 Other chronic pain; Z79.891 Long term (current) use of opiate analgesic; Z79.899 Other long term (current) drug therapy; Z82.49 Family history of ischemic heart disease and other diseases of the circulatory system

== ENCOUNTER 2016-12-16 15:20 | Inpatient (IN) | payer OTHER ==
[~2016-12-16] VITALS: Ht 180.3 cm; Wt 82.0 kg
[~2016-12-16 15:20] MED LIST changes: +HYDR-5688 PO; +VNTHFA/IN INH; +[UNRECOGNIZED DRUG - CODE] SC
[2016-12-16] MEDS ORDERED: SODIUM CHLORIDE 0.9% 1000ML 1,000 ML IV STA (16:08)
[2016-12-16] MEDS ORDERED: ONDANSETRON INJ 2 MG/ML 2 ML VIAL IV STA (16:08)
[2016-12-16] MEDS ORDERED: HYDROmorphone INJ 1 MG/ML SYR IV STA ×2 (16:08→17:03)
--- NOTE | 2016-12-16 16:23 | EMERGENCY ROOM VISIT NOTE ---
History Report prepared by Jamee: Ute Edwards Under the Supervision of: Dr. Osmani Damian D.O. First contact with patient: 15:52 Chief Complaint: OTHER COMPLAINT Stated Complaint: WITHDRAWAL FROM PAIN PUMP NOT WORKING RIGHT History of Present Illness The patient is a 51 year old male who presents to the Emergency Room with complaints of constant shakes and chills that started this morning. The patient notes that he was in the ED earlier today for the same symptoms. When in the ED , all his tests came back normal and the patient was sent home. The patient then talked to pain management after his discharge because his symptoms continued. Pain management sent the patient back to the ED. The patient believes he is going through withdrawal. He states he has had 8 neck surgeries and had a pain pump put in place 6 years ago. The patient states he has gone through withdrawal before when his medication was changed from Morphine to Dilaudid. He notes he feels exactly the same as he did during that withdrawal. The patient notes that his pain pump has been alarming and beeping throughout the day. He also notes that his pain pump is supposed to be replaced this fall. The patient has nausea and vomiting. Pt denies headache, change in vision, fevers, chest pain, shortness of breath, diarrhea, pain with urination, and melena. Source of History: patient Onset: this morning Timing: constant Associated Symptoms: + chills, + nausea, + vomiting Note: Pt denies headache, change in vision, fevers, chest pain, shortness of breath, diarrhea, pain with urination, and melena. Review of Systems See HPI for pertinent positives & negatives. A total of 10 systems reviewed and were otherwise negative. Past Medical & Surgical Medical Problems: (1) Intractable back pain (2) Neck pain Family History FH: [place] (myocardial infarction) Social History Smoking Status: Current Every Day Smoker Drug Use: other Marital Status: Housing Status: lives with family Occupation Status: disabled Current/Historical Medications Scheduled Atorvastatin (Lipitor), 40 MG PO DAILY Bupropion (Wellbutrin Sr), 150 MG PO QAM Cholecalciferol (Vitamin D3), 2 TAB PO DAILY Cyanocobalamin (Vitamin B-12), 1,000 MCG PO DAILY Duloxetine Hcl (Cymbalta), 60 MG PO DAILY Hydromorphone HCl-Sodium Chlor (Hydromorphone HCl/NaCl 10-0.9 mg/50Ml-%), Unknown Dose IT CONTINOUS Nitroglycerin (Nitrostat), 0.4 MG UT PRN Somatropin (Nutropin Aq Nuspin 10), 10 MG SC QD@1800 Testosterone Cypionate (Testosterone Cypionate), 200 MG IM WK Trazodone Hcl (Trazodone), 50 MG PO HS Scheduled PRN Albuterol Hfa (Ventolin Hfa), 1-2 PUFFS INH Q4 PRN for SOB/Wheezing Clonazepam (Klonopin), 1-2 MG PO DAILY PRN for Anxiety Fluticasone Propionate (Nasal) (Flonase Allergy Relief), 1 SPRAY BRIANNE DAILY PRN for ALLERGIC REACTION Hydrocodone/Acetaminophen 5MG/325MG ([place] 5MG/325MG), 2 TABLETS PO Q4 PRN for Pain Allergies Coded Allergies: NO KNOWN DRUG ALLERGIES (Verified Allergy, Unknown, ., 12/16/16) Physical Exam Vital Signs Date Time Temp Pulse Resp B/P (MAP) Pulse Ox O2 Delivery O2 Flow Rate FiO2 12/16/16 15:42 36.6 51 24 186/86 95 Room Air Physical Exam GENERAL: sitting up in bed in moderate distress, with diffuse shaking OROPHARYNX: no exudate, no erythema, lips, buccal mucosa, and tongue normal and mucous membranes are moist NECK: supple, no nuchal rigidity, no adenopathy, non-tender LUNGS: Clear to auscultation. Normal chest wall mechanics HEART: no murmurs, S1 normal and S2 normal ABDOMEN: abdomen soft, non-tender, normo-active bowel sounds, no masses, no rebound or guarding. old incision in RLQ BACK: Back is symmetrical on inspection and there is no deformity, no midline tenderness, no CVA tenderness. SKIN: no rashes and no bruising UPPER EXTREMITIES: upper extremities are grossly normal. LOWER EXTREMITIES: No pitting edema. NEURO EXAM: Normal sensorium, cranial nerves II-XII grossly intact, normal speech, no gross weakness of arms, no gross weakness of legs. Medical Decision & Procedures Laboratory Results 12/16/16 16:49 Red Blood Count 5.06, Mean Corpuscular Volume 92.9, Mean Corpuscular Hemoglobin 34.8, Mean Corpuscular Hemoglobin Concent 37.4, Mean Platelet Volume 10.1, Neutrophils (%) (Auto) 70.9, Lymphocytes (%) (Auto) 22.6, Monocytes (%) (Auto) 5.8, Eosinophils (%) (Auto) 0.1, Basophils (%) (Auto) 0.4, Neutrophils # (Auto) 5.91, Lymphocytes # (Auto) 1.88, Monocytes # (Auto) 0.48, Eosinophils # (Auto) 0.01, Basophils # (Auto) 0.03 12/16/16 16:49 Test 12/16/16 16:49 White Blood Count 8.33 K/uL (4.8-10.8) Red Blood Count 5.06 M/uL (4.7-6.1) Hemoglobin 17.6 g/dL (14.0-18.0) Hematocrit 47.0 % (42-52) Mean Corpuscular Volume 92.9 fL (80-100) Mean Corpuscular Hemoglobin 34.8 pg (25-34) Mean Corpuscular Hemoglobin Concent 37.4 g/dl (32-36) Platelet Count 213 K/uL (130-400) Mean Platelet Volume 10.1 fL (7.4-10.4) Neutrophils (%) (Auto) 70.9 % Lymphocytes (%) (Auto) 22.6 % Monocytes (%) (Auto) 5.8 % Eosinophils (%) (Auto) 0.1 % Basophils (%) (Auto) 0.4 % Neutrophils # (Auto) 5.91 K/uL (1.4-6.5) Lymphocytes # (Auto) 1.88 K/uL (1.2-3.4) Monocytes # (Auto) 0.48 K/uL (0.11-0.59) Eosinophils # (Auto) 0.01 K/uL (0-0.5) Basophils # (Auto) 0.03 K/uL (0-0.2) RDW Standard Deviation 44.7 fL (36.4-46.3) RDW Coefficient of Variation 13.2 % (11.5-14.5) Immature Granulocyte % (Auto) 0.2 % Immature Granulocyte # (Auto) 0.02 K/uL (0.00-0.02) Anion Gap 9.0 mmol/L (3-11) Est Creatinine Clear Calc Drug Dose 100.0 ml/min Estimated GFR () 110.4 Estimated GFR (Non- 95.3 BUN/Creatinine Ratio 12.4 (10-20) Calcium Level 9.2 mg/dl (8.5-10.1) Total Bilirubin 1.0 mg/dl (0.2-1) Direct Bilirubin 0.2 mg/dl (0-0.2) Aspartate Amino Transf (AST/SGOT) 18 U/L (15-37) Alanine Aminotransferase (ALT/SGPT) 29 U/L (12-78) Alkaline Phosphatase 104 U/L (45-117) Total Protein 7.2 gm/dl (6.4-8.2) Albumin 3.8 gm/dl (3.4-5.0) Lipase 77 U/L (73-393) Laboratory results per my review. Medications Administered Medications (Trade) Dose Ordered Sig/Neel Route Start Time Stop Time Status Last Admin Dose Admin Sodium Chloride 1,000 ml @ 999 mls/hr Q1H1M STAT IV 12/16/16 16:08 12/16/16 17:08 DC 12/16/16 16:57 999 MLS/HR Ondansetron HCl (Zofran Inj) 4 mg NOW STAT IV 12/16/16 16:08 12/16/16 16:10 DC 12/16/16 16:08 4 MG Hydromorphone HCl (Dilaudid Inj) 1 mg NOW STAT IV 12/16/16 16:08 12/16/16 16:10 DC 12/16/16 16:58 1 MG Hydromorphone HCl (Dilaudid Inj) 1 mg NOW STAT IV 12/16/16 17:03 12/16/16 17:05 DC 12/16/16 17:52 1 MG Hydromorphone HCl (Dilaudid Young Adult Librarian) 25 mg PRN PRN IV 12/16/16 17:30 12/30/16 17:29 12/16/16 19:54 25 MG Sodium Chloride 1,000 ml @ 15 mls/hr Q24H IV 12/16/16 17:23 01/15/17 17:22 12/16/16 19:48 15 MLS/HR ED Course ED COURSE: Vital signs were reviewed and showed hypertensive and bradycardic The patients medical record was reviewed The above diagnostic studies were performed and reviewed. ED treatments and interventions as stated above. 1602: The patient was evaluated in room B12B. A complete history and physical examination was performed. 1608: Dilaudid Inj 1 mg IV, Zofran 4 mg IV, Sodium Chloride 1000ml @ 999 mls/ hr IV. 1640: I reviewed the patient's case with Dr Parra. 1703: Dilaudid Inj 1 mg IV. 1705: I reviewed the patient's case with Dr. Rinaldi. He will evaluate the patient for further management. 1720: Upon reevaluation, the patient is resting comfortably.I discussed my findings with the patient and he understands and agrees with the treatment plan. Based on the patients age, coexisting illnesses, exam and lab findings the decision to treat as an inpatient was made.The patient will be evaluated for further management. Medical Decision Differential diagnoses includes but is not limited to gastritis, peptic ulcer disease, GERD, gallbladder disease, pancreatitis, small bowel obstruction, acute coronary syndrome, pericarditis, ischemic bowel, irritable bowel disease, irritable bowel syndrome, appendicitis, diverticulitis, malignancy, hernia, urinary tract infection, torsion, [/ectopic (if female)], perforation, trauma, infectious. Patient is a 51-year-old male who seen here earlier today for diffuse weakness. He returns again today noting that he feels like he is withdrawing. He has a Dilaudid pump in his right lower quadrant for chronic neck pain. He follows with pain management. CBC along with BMP, LFTs, bilirubin and lipase is unremarkable. He is given 2 mg IV Dilaudid and had improvement of his symptoms. I discussed this case with pain management and internal medicine. He is admitted for withdrawal from narcotics likely secondary to a malfunction with his Dilaudid pump. Medication Reconcilliation Current Medication List: was personally reviewed by me Blood Pressure Screening Patient's blood pressure: Elevated blood pressure Blood pressure disposition: Elevated BP felt to be situational Consults Time Called: 1638 Consulting Physician: Dr. Parra Returned Call: [phone] We discussed the patient's case. . Additional Consults: Time Called: 170 Consulted Physician: Dr. Rinaldi Returned Call: 170 Impression Primary Impression: Narcotic withdrawal Scribe Attestation The scribe's documentation has been prepared under my direction and personally reviewed by me in its entirety. I confirm that the note above accurately reflects all work, treatment, procedures, and medical decision making performed by me. Departure Information Dispostion Being Evaluated By Hospitalist Referrals No Doctor, Assigned (PCP) Patient Instructions My [facility]
[2016-12-16] MEDS ORDERED: TRAZ50TA35 PO (17:03)
[2016-12-16] MEDS ORDERED: FLUT0.15 NAE (17:03)
[2016-12-16] MEDS ORDERED: TEST1INJ2 IM (17:03)
[2016-12-16] MEDS ORDERED: HYDR1SOL IT (17:03)
[2016-12-16] MEDS ORDERED: CLON0.5T3 PO (17:03)
[2016-12-16] MEDS ORDERED: ATOR-24 PO (17:03)
[2016-12-16] MEDS ORDERED: CYAN10005 PO (17:03)
[2016-12-16] MEDS ORDERED: BUPR-79 PO (17:03)
[2016-12-16] MEDS ORDERED: VNTHFA/IN INH (17:03)
[2016-12-16] MEDS ORDERED: NTRGSL/4 UT (17:03)
[2016-12-16] MEDS ORDERED: [UNRECOGNIZED DRUG - CODE] SC (17:03)
[2016-12-16] MEDS ORDERED: CHOL20007 PO (17:03)
[2016-12-16] MEDS ORDERED: HYDR-5688 PO (17:03)
[2016-12-16] MEDS ORDERED: DULO60CA44 PO (17:03)
[2016-12-16 17:11] LABS: BASO % 0.4 %; BASO ABS # 0.03 K/uL (0-0.2); COMPLETE YES; EOS % 0.1 %; IG% 0.2 %; LYMPH % 22.6 %; LYMPH ABS # 1.88 K/uL (1.2-3.4); MEAN CELL VOLUME 92.9 fL (80-100); MEAN CORPUSCULAR HEMOGLOBIN 34.8 pg (25-34); MEAN CORPUSCULAR HGB CONC 37.4 g/dl (32-36); MEAN PLATELET VOLUME 10.1 fL (7.4-10.4); MONO % 5.8 %; NEUT % 70.9 %; PLATELET COUNT 213 K/uL (130-400); RED BLOOD COUNT 5.06 M/uL (4.7-6.1); WHITE BLOOD COUNT 8.33 K/uL (4.8-10.8)
[2016-12-16] MEDS ORDERED: SODIUM CHLORIDE 0.9% 1000ML 1,000 ML IV SCH (17:23)
[2016-12-16 17:29] LABS: BUN/CREATININE RATIO 12.4 (10-20); CALCIUM 9.2 mg/dl (8.5-10.1); CREATININE 0.92 mg/dl (0.60-1.40); POTASSIUM 3.9 mmol/L (3.5-5.1)
[2016-12-16] MEDS ORDERED: NALOXONE HCL 0.4 MG/1 ML VIAL/CARP IV PRN (17:30)
[2016-12-16] MEDS ORDERED: ONDANSETRON INJ 2 MG/ML 2 ML VIAL IV PRN (17:30)
[2016-12-16] MEDS ORDERED: ALUMINUM/MAGNESIUM/SIMETH (MAALOX MAX) 30 ML UDC PO PRN (17:30)
[2016-12-16] MEDS ORDERED: ACETAMINOPHEN 325 MG TAB PO PRN (17:30)
[2016-12-16] MEDS ORDERED: POLYETHYLENE (MIRALAX) 17 GM PACK PO PRN (17:30)
[2016-12-16] MEDS ORDERED: FLUTICASONE PROPIONATE NA SPR 16 GM BTL NAE PRN (17:30)
[2016-12-16] MEDS ORDERED: CLONAZEPAM 1 MG TAB PO PRN (17:30)
[2016-12-16] MEDS ORDERED: NITROGLYCERIN 0.4 MG SL PER TAB CHARGE UT PRN (17:30)
[2016-12-16] MEDS ORDERED: ALBUTEROL HFA 8 GM INHALER INH PRN (17:30)
[2016-12-16] MEDS ORDERED: HYDROmorphone INJ 0.5 MG/0.5 ML SYR IV STA (17:34)
--- NOTE | 2016-12-16 17:47 | History and Physical ---
History & Physical Date & Time of Service: Dec 16, 2016 at 17:39 Chief Complaint: Withdrawal From Pain Pump Not Working Right Primary Care Physician: No Doctor, Assigned History of Present Illness This patient has a chronic pain patient of Dr. Devi's was intrathecal pain pump usually giving him hydromorphone 0.508 mg a day. The patient awoke this morning and developed withdrawal symptoms and then intractable pain. Patient was seen in the ED given some Dilaudid with some resolution of the symptoms. He was having nausea and vomiting this morning he has intense neck pain currently he is however awake and alert and can give a coherent history. He was scheduled to have his pain pump replaced however this was postponed due to medical illness. In the room easily abdominal pain he believes from vomiting he is shaking uncontrollably having focal suboccipital neck pain 10 out of 10 Past Medical/Surgical History Medical Problems: (1) Neck pain Status: Chronic Family History FH: [place] (myocardial infarction) Family history is positive for heart disease Social History Smoking Status: Current Every Day Smoker Drug Use: other Marital Status: Occupational Status: disabled Immunizations History of Influenza Vaccine: No History of Tetanus Vaccine?: No History of Pneumococcal: No History of Hepatitis B Vaccine: Yes Multi-Drug Resistant Organisms History of MDRO: No Allergies Coded Allergies: NO KNOWN DRUG ALLERGIES (Verified Allergy, Unknown, ., 12/16/16) Home Medications Scheduled Atorvastatin (Lipitor), 40 MG PO DAILY Bupropion (Wellbutrin Sr), 150 MG PO QAM Cholecalciferol (Vitamin D3), 2 TAB PO DAILY Cyanocobalamin (Vitamin B-12), 1,000 MCG PO DAILY Duloxetine Hcl (Cymbalta), 60 MG PO DAILY Hydromorphone HCl-Sodium Chlor (Hydromorphone HCl/NaCl 10-0.9 mg/50Ml-%), Unknown Dose IT CONTINOUS Nitroglycerin (Nitrostat), 0.4 MG UT PRN Somatropin (Nutropin Aq Nuspin 10), 10 MG SC QD@1800 Testosterone Cypionate (Testosterone Cypionate), 200 MG IM WK Trazodone Hcl (Trazodone), 50 MG PO HS Scheduled PRN Albuterol Hfa (Ventolin Hfa), 1-2 PUFFS INH Q4 PRN for SOB/Wheezing Clonazepam (Klonopin), 1-2 MG PO DAILY PRN for Anxiety Fluticasone Propionate (Nasal) (Flonase Allergy Relief), 1 SPRAY BRIANNE DAILY PRN for ALLERGIC REACTION Hydrocodone/Acetaminophen 5MG/325MG ([place] 5MG/325MG), 2 TABLETS PO Q4 PRN for Pain Review of Systems ROS: well nourished well developed, appears to be intensely uncomfortable shaking uncontrollably No double vision blurry vision No problems with speech or swallowing No palpitations, chest pain or pressure No Wheezing but is to Diffuse abdominal pain prehospital nausea vomiting no diarrhea No burning urine urine frequency or changes in color focal neck pain or diffuse muscle pain No skin rashes or oral lesions No unusual bruising or bleeding No numbness or loss of strength No changes in memory or confusion Physical Exam Vital Signs Date Time Temp Pulse Resp B/P (MAP) Pulse Ox O2 Delivery O2 Flow Rate FiO2 12/16/16 15:42 36.6 51 24 186/86 95 Room Air General Appearance: WD/WN, + moderate distress, + severe distress Head: normocephalic, atraumatic Eyes: PERRL, EOMI ENT: hearing grossly normal, pharynx normal Neck: supple, thyroid normal Respiratory/Chest: chest non-tender, lungs clear, normal breath sounds Cardiovascular: no murmur, + tachycardia Abdomen/GI: normal bowel sounds, soft, + tenderness Back: no CVA tenderness, + muscle spasm Extremities/Musculoskelatal: no pedal edema, normal range of motion Neurologic/Psych: alert, oriented x 3 Diagnostics Laboratory Results Results Past 24 Hours Test 12/16/16 16:49 Range/Units White Blood Count 8.33 4.8-10.8 K/uL Red Blood Count 5.06 4.7-6.1 M/uL Hemoglobin 17.6 14.0-18.0 g/dL Hematocrit 47.0 42-52 % Mean Corpuscular Volume 92.9 80-100 fL Mean Corpuscular Hemoglobin 34.8 25-34 pg Mean Corpuscular Hemoglobin Concent 37.4 32-36 g/dl Platelet Count 213 130-400 K/uL Mean Platelet Volume 10.1 7.4-10.4 fL Neutrophils (%) (Auto) 70.9 % Lymphocytes (%) (Auto) 22.6 % Monocytes (%) (Auto) 5.8 % Eosinophils (%) (Auto) 0.1 % Basophils (%) (Auto) 0.4 % Neutrophils # (Auto) 5.91 1.4-6.5 K/uL Lymphocytes # (Auto) 1.88 1.2-3.4 K/uL Monocytes # (Auto) 0.48 0.11-0.59 K/uL Eosinophils # (Auto) 0.01 0-0.5 K/uL Basophils # (Auto) 0.03 0-0.2 K/uL RDW Standard Deviation 44.7 36.4-46.3 fL RDW Coefficient of Variation 13.2 11.5-14.5 % Immature Granulocyte % (Auto) 0.2 % Immature Granulocyte # (Auto) 0.02 0.00-0.02 K/uL Sodium Level 141 136-145 mmol/L Potassium Level 3.9 3.5-5.1 mmol/L Chloride Level 108 98-107 mmol/L Carbon Dioxide Level 24 21-32 mmol/L Anion Gap 9.0 3-11 mmol/L Blood Urea Nitrogen 11 7-18 mg/dl Creatinine 0.92 0.60-1.40 mg/dl Est Creatinine Clear Calc Drug Dose 100.0 ml/min Estimated GFR () 110.4 Estimated GFR (Non- 95.3 BUN/Creatinine Ratio 12.4 10-20 Random Glucose 140 70-99 mg/dl Calcium Level 9.2 8.5-10.1 mg/dl Total Bilirubin 1.0 0.2-1 mg/dl Direct Bilirubin 0.2 0-0.2 mg/dl Aspartate Amino Transf (AST/SGOT) 18 15-37 U/L Alanine Aminotransferase (ALT/SGPT) 29 12-78 U/L Alkaline Phosphatase 104 45-117 U/L Total Protein 7.2 6.4-8.2 gm/dl Albumin 3.8 3.4-5.0 gm/dl Lipase 77 73-393 U/L Diagnostic Radiology At time of admission his CBC was returned with a normal CBC chemistry panel is pending Impression Assessment and Plan 51-year-old male with apparent pain pump failure with opiate withdrawal Patient will be admitted to our facility for pain pump change this point time will be on a Dilaudid AEROPLANE PILOT, patient from the clonidine patch, scheduled Vistaril , Klonopin for anxiety Zofran and Phenergan for nausea. electrolytes will be reviewed patiently until the morning for apparent pain pump change VTE Prophylaxis VTE Risk Assessment Done? Y/N: Yes Risk Level: Moderate
[2016-12-16] MEDS: HYDROmorphone HCL 0.5MG/ML 50 ML CASSETTE IV PRN ×2 (19:54→23:13)
[2016-12-16 20:00] VITALS: BP 183/77; PULSE 45; TEMP 37; O2SAT 97
[2016-12-16] MEDS ORDERED: CLONIDINE HCL 0.1 MG/24 HR TRANSDERM SYS TD SCH (20:00)
[2016-12-16] MEDS: PROMETHAZINE HCL INJ 12.5 MG in SODIUM CHLORIDE 0.9% 50ML 50 ML IV PRN (20:02)
[2016-12-16] MEDS: hydrOXYzine HCL 25 MG TAB PO SCH ×2 (20:07→23:24)
[2016-12-16] MEDS: DOCUSATE SODIUM 100 MG CAP PO SCH (20:10)
[2016-12-16 20:12] VITALS: BP 184/71; PULSE 52; TEMP 37.2; Ht 180.3 cm; Wt 82.0 kg
[2016-12-16 20:57] VITALS: BP 163/72; PULSE 53; O2SAT 95
[2016-12-16] MEDS: TRAZODONE HCL 50 MG TAB PO SCH (21:06)
[2016-12-16 21:54] VITALS: BP 114/65; PULSE 73; O2SAT 93
[2016-12-16 23:00] VITALS: BP 152/78; PULSE 72; TEMP 37.7; O2SAT 94
[2016-12-16 23:04] VITALS: TEMP 37.3
[2016-12-16] MEDS: INCREMENTAL PCA TITRATION SCH (23:25)
[2016-12-16] MEDS: CHECK CLONIDINE PATCH PLACEMENT SCH (23:25)
[2016-12-17] VITALS (13 sets, daily range): BP systolic 100–174; BP diastolic 54–83; PULSE 14–83; TEMP 36.5–37.8; O2SAT 94–99
[2016-12-17 03:53] LABS: URINE APPEARANCE CLEAR (CLEAR); URINE BILIRUBIN NEG (NEG); URINE COLOR DK YELLOW; URINE NITRITE NEG (NEG); URINE PH 5.5 (4.5-7.5); URINE SPECIFIC GRAVITY 1.024 (1.000-1.030); UROBILINOGEN NEG (NEG); ZZUR CULT IF INDIC CLEAN CATCH NO
[2016-12-17 04:07] LABS: MANUAL MICROSCOPIC REQUIRED? NO; REVIEW REQ? NO
[2016-12-17] MEDS: hydrOXYzine HCL 25 MG TAB PO SCH ×4 (05:56→23:34)
[2016-12-17 06:46] LABS: BUN/CREATININE RATIO 14.9 (10-20); CALCIUM 8.2 mg/dl (8.5-10.1); CREATININE 0.84 mg/dl (0.60-1.40); POTASSIUM 3.8 mmol/L (3.5-5.1)
[2016-12-17] MEDS: HYDROmorphone HCL 0.5MG/ML 50 ML CASSETTE IV PRN ×4 (07:05→15:02)
[2016-12-17] MEDS: CHECK CLONIDINE PATCH PLACEMENT SCH ×2 (07:10→16:00)
[2016-12-17] MEDS: INCREMENTAL PCA TITRATION SCH (07:11)
[2016-12-17 07:38] LABS: HEMATOCRIT 45.5 % (42-52); MEAN CELL VOLUME 95.4 fL (80-100); MEAN CORPUSCULAR HEMOGLOBIN 34.4 pg (25-34); MEAN PLATELET VOLUME 10.2 fL (7.4-10.4); PLATELET COUNT 195 K/uL (130-400); RED BLOOD COUNT 4.77 M/uL (4.7-6.1)
[2016-12-17] MEDS: PROMETHAZINE HCL INJ 12.5 MG in SODIUM CHLORIDE 0.9% 50ML 50 ML IV PRN (07:45)
[2016-12-17] MEDS: BuPROPion SR 150 MG TABCR PO SCH (07:47)
[2016-12-17] MEDS: DULOXETINE HCL 60 MG CAP PO SCH (07:47)
[2016-12-17] MEDS: CYANOCOBALAMIN 500 MCG TAB (VIT B-12) PO SCH (07:47)
[2016-12-17] MEDS: ATORVASTATIN 40 MG TAB PO SCH (07:47)
[2016-12-17] MEDS: DOCUSATE SODIUM 100 MG CAP PO SCH ×2 (07:48→20:19)
--- NOTE | 2016-12-17 10:14 | Hospitalist Progress Note ---
Hospitalist Progress Note Date of Service Dec 17, 2016. (Hailee Mojica ., MARIANC) Subjective Pt evaluation today including: conversation w/ patient, physical exam, chart review, lab review, review of inpatient medication list Pain: 7/10 sharp neck pain PO Intake: NPO Voiding: no voiding problems Patient still complains of being in withdrawal, but his symptoms are improved from yesterday. 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 He also complains of chills, sweats, and nausea, although he states that today he has not vomited yet. He also complains of shaking but states this has improved. The patient is being kept NPO for pain pump replacement today. The patient denies fevers, chest pain , palpitations, claudication, cough, wheezing, shortness of breath, vomiting, abdominal pain, dysuria, hematuria, urinary retention, paralysis, weakness, numbness and tingling. Additional Comments: See HPI for pertinent positives and negatives. All other systems reviewed and negative. (Hailee Mojica ., JENNI-C) Objective Vital Signs Date Time Temp Pulse Resp B/P (MAP) Pulse Ox O2 Delivery O2 Flow Rate FiO2 12/17/16 08:33 36.9 56 16 142/54 (83) 96 Room Air 12/17/16 07:49 37.4 61 16 174/67 (102) 97 Room Air 12/17/16 07:25 Room Air 12/17/16 05:49 61 100/56 (71) 12/17/16 04:13 37.2 61 17 134/70 (91) 94 Room Air 12/17/16 00:05 37.8 62 16 143/63 (89) 95 Room Air 12/16/16 23:15 Room Air 12/16/16 23:04 37.3 12/16/16 23:00 37.7 72 16 152/78 (102) 94 Room Air 12/16/16 21:54 73 16 114/65 (81) 93 Room Air 12/16/16 20:57 53 16 163/72 (102) 95 Room Air 12/16/16 20:12 37.2 52 16 184/71 Room Air 12/16/16 20:00 37.0 45 18 183/77 (112) 97 Room Air 12/16/16 18:48 72 16 98 12/16/16 17:42 55 24 132/75 95 Room Air 12/16/16 15:42 36.6 51 24 186/86 95 Room Air (Hailee Mojica PA-C) Physical Exam Notes: General appearance: +Mild distress. Well-developed, well-nourished Head: Normocephalic, atraumatic Eyes: Normal inspection, PERRL, EOMI ENT: Normal ENT inspection, hearing grossly normal, pharynx normal Neck: Supple, no JVD, trachea midline Respiratory/Chest: Lungs clear to auscultation, normal breath sounds, no respiratory distress Cardiovascular: Regular rate & rhythm, no gallop, no murmur Abdomen/GI: Normal bowel sounds, non-tender, soft Extremities/Musculoskeletal: Normal inspection, no calf tenderness, no pedal edema Neurological/Psych: +Tremors. Alert, normal mood/affect, oriented x 3 Skin: Normal color, warm/dry, no rash (Hailee Mojica ., JENNI-C) Laboratory Results Last 24 Hours Test 12/16/16 16:49 12/17/16 03:35 12/17/16 05:31 White Blood Count 8.33 K/uL 10.10 K/uL Red Blood Count 5.06 M/uL 4.77 M/uL Hemoglobin 17.6 g/dL 16.4 g/dL Hematocrit 47.0 % 45.5 % Mean Corpuscular Volume 92.9 fL 95.4 fL Mean Corpuscular Hemoglobin 34.8 pg 34.4 pg Mean Corpuscular Hemoglobin Concent 37.4 g/dl 36.0 g/dl Platelet Count 213 K/uL 195 K/uL Mean Platelet Volume 10.1 fL 10.2 fL Neutrophils (%) (Auto) 70.9 % Lymphocytes (%) (Auto) 22.6 % Monocytes (%) (Auto) 5.8 % Eosinophils (%) (Auto) 0.1 % Basophils (%) (Auto) 0.4 % Neutrophils # (Auto) 5.91 K/uL Lymphocytes # (Auto) 1.88 K/uL Monocytes # (Auto) 0.48 K/uL Eosinophils # (Auto) 0.01 K/uL Basophils # (Auto) 0.03 K/uL RDW Standard Deviation 44.7 fL 46.6 fL RDW Coefficient of Variation 13.2 % 13.4 % Immature Granulocyte % (Auto) 0.2 % Immature Granulocyte # (Auto) 0.02 K/uL Sodium Level 141 mmol/L 142 mmol/L Potassium Level 3.9 mmol/L 3.8 mmol/L Chloride Level 108 mmol/L 108 mmol/L Carbon Dioxide Level 24 mmol/L 25 mmol/L Anion Gap 9.0 mmol/L 9.0 mmol/L Blood Urea Nitrogen 11 mg/dl 13 mg/dl Creatinine 0.92 mg/dl 0.84 mg/dl Est Creatinine Clear Calc Drug Dose 100.0 ml/min 109.5 ml/min Estimated GFR () 110.4 116.7 Estimated GFR (Non- 95.3 100.7 BUN/Creatinine Ratio 12.4 14.9 Random Glucose 140 mg/dl 110 mg/dl Calcium Level 9.2 mg/dl 8.2 mg/dl Total Bilirubin 1.0 mg/dl Direct Bilirubin 0.2 mg/dl Aspartate Amino Transf (AST/SGOT) 18 U/L Alanine Aminotransferase (ALT/SGPT) 29 U/L Alkaline Phosphatase 104 U/L Total Protein 7.2 gm/dl Albumin 3.8 gm/dl Lipase 77 U/L Urine Color DK YELLOW Urine Appearance CLEAR Urine pH 5.5 Urine Specific [place] 1.024 Urine Protein NEG Urine Glucose (UA) TRACE Urine Ketones 1+ Urine Occult Blood NEG Urine Nitrite NEG Urine Bilirubin NEG Urine Urobilinogen NEG Urine Leukocyte Esterase NEG Urine WBC (Auto) 1-5 /hpf Urine RBC (Auto) 0-4 /hpf Urine Hyaline Casts (Auto) 1-5 /lpf Urine Epithelial Cells (Auto) 5-10 /lpf Urine Bacteria (Auto) NEG (Hailee Mojica, PA-C) Assessment and Plan 51 y/o male with a history of cervicalgia and cervical radiculopathy with an intrathecal pain pump, anxiety and depression, asthma, HLD and insomnia who presents with pain pump failure and opiate withdrawal. Pain pump failure, cervicalgia, opiate withdrawal--stable, withdrawal symptoms are improving -Admit to med/surg -Pain management consulted, appreciate recs -Continue Dilaudid [employer] DEVELOPER pump. Pt requesting a slight increase in dose, basal dose increased to 0.5 mg -Continue Klonopin 1 mg PO q8h prn anxiety and Vistaril 25 mg PO q6h -Continue Zofran 4 mg IV q6h prn and Phenergan 12.5 mg IV q6h prn nausea Anxiety and depression -Continue Wellbutrin 150 mg PO qd, Cymbalta 60 mg PO qd Asthma -Continue albuterol inhaler prn HLD -Continue Lipitor 40 mg PO qd Insomnia -Continue trazodone 50 mg PO qhs DVT prophylaxis -Hold chemical prophylaxis due to surgery today -SCDs Code Status -Level I, FULL RESUSCITATION STATUS (Hailee Mojica ., PA-C) PA Physician Supervision Note: I interviewed and examined the patient. Discussed with Hailee Mojica PAC and agree with findings and plan as documented in the note. Any exceptions or clarifications are listed here: None Patient seen this morning and has a slight need for titration of his Dilaudid [employer] H[employer] DEVELOPER, he is scheduled for the or to revise his Dilaudid intrathecal pump signed vital signs shows slight bradycardia and hypotension hence holding Catapres Cardiac exam is regular lungs are clear he is slightly tremulous Definitive procedure to revise his Dilaudid pump until then continue [employer] H[employer] DEVELOPER Documented By: Saad May (Saad May M.D.)
--- NOTE | 2016-12-17 11:12 | Pain Management Consultation ---
Pain Management Consultation Date of Consultation Dec 17, 2016. Reason for Consultation End of life intrathecal pump management Pain Location 1 - History Jean Pierre Finn is a 51-year-old male well known to the [facility] pain management office. He has a history of cervical postlaminectomy syndrome status post cervical spine fusion C4 through 7 with multiple revisions. He's had a intrathecal pump for a number of years and yesterday experience symptoms of opiate withdrawal including nausea, vomiting, diarrhea, fatigue, intractable cervicalgia, and shaking. He has not had symptoms of opiate withdrawal prior to yesterday. His intrathecal pump had been maintaining his pain in an adequate fashion recently. He did attempt to use 2 tablets of hydrocodone 5/ 325 mg at home prior to returning to the emergency room how very he promptly vomited these tablets and then re-presented to the [facility] emergency room at my request to the pain management service. I did interrogate his intrathecal pump today and it had appeared to recover from safe mode and now is being maintained at a minimal rate of hydromorphone 0.3 mg per day. HEIDI is listed at 5 months. I was not able to access the intrathecal pump logs as interrogation with the intrathecal pump was very limited due to I suspect battery life. He reports adequate efficacy of his pain with hydromorphone HOMEBIRTH MIDWIFE at this time. He has no other constitutional complaints reports that his opiate withdrawal symptoms are tolerable at this time. He denies any new neurologic deficits, bowel or bladder incontinence, motor weakness, foot drop, or falls at this time. Past Medical/Surgical History (1) Cervical post-laminectomy syndrome (2) S/P cervical spinal fusion (3) History of inguinal hernia repair (4) H/O cataract extraction (5) Intractable back pain (6) Narcotic withdrawal (7) Neck pain Family History FH: [place] (myocardial infarction) Family Hx Review: history personally reviewed by me Social / Work History Smoking Status: Current every day smoker (1-2 [id number]) Smokeless Tobacco Use: No Alcohol Use: none Drug Use: none Marital Status: Housing Status: lives with family Occupation: disabled Allergies Coded Allergies: NO KNOWN DRUG ALLERGIES (Verified Allergy, Unknown, ., 12/16/16) Medications Current Inpatient Medications Medications (Trade) Dose Ordered Sig/Neel Route Start Time Stop Time Status Last Admin Dose Admin Albuterol (Ventolin Hfa Inhaler) 2 puffs Q4 PRN INH 12/16/16 17:30 01/15/17 17:29 Atorvastatin Calcium (Lipitor Tab) 40 mg DAILY PO 12/17/16 09:00 01/16/17 08:59 12/17/16 07:47 40 MG Bupropion HCl (Wellbutrin-Sr Tab) 150 mg QAM PO 12/17/16 09:00 01/16/17 08:59 12/17/16 07:47 150 MG Cyanocobalamin (Vitamin B-12 Tab) 1,000 mcg DAILY PO 12/17/16 09:00 01/16/17 08:59 12/17/16 07:47 1,000 MCG Duloxetine HCl (Cymbalta Cap) 60 mg DAILY PO 12/17/16 09:00 01/16/17 08:59 12/17/16 07:47 60 MG Fluticasone Propionate (Flonase Nasal [place]) 2 sprays DAILY PRN BRIANNE 12/16/16 17:30 01/15/17 17:29 Nitroglycerin (Nitrostat Tab) 0.4 mg UD PRN UT 12/16/16 17:30 01/15/17 17:29 Trazodone HCl (Desyrel Tab) 50 mg HS PO 12/16/16 21:00 01/15/17 20:59 12/16/16 21:06 50 MG Clonazepam (Klonopin Tab) 1 mg Q8 PRN PO 12/16/16 17:30 01/15/17 17:29 Clonidine HCl (Ncxpinnj-Xoi-3 0.1mg/24hr Patch) 1 patch Silverman@1999 TD 12/16/16 20:00 01/15/17 19:59 Miscellaneous (Remove Clonidine Patch) 1 ea Silverman@1958 N/A 12/23/16 19:59 01/22/17 19:58 Miscellaneous Information (Check Clonidine Patch Placement) 1 ea QS N/A 12/17/16 00:00 01/16/17 00:00 Naloxone HCl (Narcan Inj) 0.1 mg Q5M PRN IV 12/16/16 17:30 01/15/17 17:29 Miscellaneous Information (Incremental HOMEBIRTH MIDWIFE Titration) 1 ea QS N/A 12/17/16 00:00 01/16/17 00:00 Hydromorphone HCl (Dilaudid Steel Erector Apprentice) 25 mg PRN PRN IV 12/16/16 17:30 12/30/16 17:29 12/17/16 10:13 25 MG Docusate Sodium (coLACE CAP) 100 mg BID PO 12/16/16 21:00 01/15/17 20:59 Sodium Chloride 1,000 ml @ 15 mls/hr Q24H IV 12/16/16 17:23 01/15/17 17:22 12/16/16 19:48 15 MLS/HR Hydroxyzine HCl (Vistaril Tab) 25 mg Q6 PO 12/16/16 18:00 01/15/17 17:59 12/16/16 23:24 25 MG Acetaminophen (Tylenol Tab) 650 mg Q4H PRN PO 12/16/16 17:30 01/15/17 17:29 Al Hydrox/Mg Hydrox/Simethicone (Maalox Max Susp) 15 ml Q4H PRN PO 12/16/16 17:30 01/15/17 17:29 Polyethylene (Miralax Powder Packet) 17 gm DAILY PRN PO 12/16/16 17:30 01/15/17 17:29 Ondansetron HCl (Zofran Inj) 4 mg Q6H PRN IV 12/16/16 17:30 01/15/17 17:29 Promethazine HCl 12.5 mg/Sodium Chloride 50.5 ml @ 204 mls/hr Q6H PRN IV 12/16/16 17:45 01/15/17 17:44 12/17/16 07:45 204 MLS/HR Review of Systems 10 point review of systems was otherwise negative aside from HPI Physical Exam Height & Weight: Height 5 feet, 11.00 inches. Weight 82.000 (Kilograms) 180 (Pounds) Last Vital Signs Documentation Date Time Temp Pulse Resp B/P (MAP) Pulse Ox O2 Delivery O2 Flow Rate FiO2 12/17/16 08:33 36.9 56 16 142/54 (83) 96 Room Air Exam: Awake alert noted 3 appearing in mild distress on today's exam, and cooperative. He is of normal weight and well conditioned HEENT pupils equal round and reactive to light Neck has a well-healed surgical incision, tender to palpation over his entire cervical spine. He has slightly decreased extension but adequate flexion of his cervical spine. He has moderate spasm over bilateral paravertebrals cervical spine musculature CV regular rate and rhythm Lungs no audible wheezes or rhonchi Abdomen soft and nontender nondistended has a intrathecal pump present in the right lower quadrant Intrathecal catheter site is unremarkable He has grossly 5 out of 5 strength in all external raise equal throughout with intact sensation gait is within normal limits Cranial nerves are grossly intact Laboratory Laboratory Review: results personally reviewed by me Laboratory Results (Last CBC): 12/17/16 05:31 Past Records Previous Records: personally reviewed by me Assessment 1. End of life intrathecal pump 2. Cervical radiculopathy 3. Myofascial pain. 4. Cervical post-laminectomy syndrome. 5. Chronic intractable pain secondary to above requiring implantation of intrathecal pump and catheter delivery system. Recommendations 1. The patient will remain nothing by mouth until a replacement pump is put in later today. The patient was counseled extensively on the risks, benefits and possible consultations of a intrathecal pump replacement with possible catheter revision. He understands and signed a consent form. 2. Recommend remaining on IV HOMEBIRTH MIDWIFE hydromorphone until intrathecal pump is replaced. After that occurs patient will be converted to oral hydrocodone for when necessary breakthrough pain. 3. Expect discharge tomorrow morning pending outcome of procedure. 4. Thank you for this consultation 5. Appreciate hospitalist's input with this patient's care.
[2016-12-17] MEDS ORDERED: BUPIVACAINE/EPINEPHRINE 0.25% 10 ML VIAL ONE (15:37)
[2016-12-17] MEDS ORDERED: BACITRACIN 50000 UNIT VIAL ONE (15:37)
[2016-12-17] MEDS ORDERED: LIDO 2%/EPINEPHRINE 1:100000 20 ML VIAL INFIL ONE (15:37)
[2016-12-17] MEDS ORDERED: ROCURONIUM BROMIDE 10 MG/ML 5 ML VIAL IV ONE (16:06)
[2016-12-17] MEDS ORDERED: LIDOCAINE HCL 2% 2 ML VIAL (20MG/ML) ONE (16:06)
[2016-12-17] MEDS ORDERED: PROPOFOL IV EMULSION 10 MG/ML 20 ML VIAL IV ONE (16:06)
[2016-12-17] MEDS ORDERED: MIDAZOLAM HCL 1 MG/ML 2ML VIAL ONE (16:07)
[2016-12-17] MEDS ORDERED: FENTANYL CITRATE INJ 50 MCG/1 ML 2 ML VIAL ONE ×2 (16:07→17:24)
[2016-12-17] MEDS ORDERED: GLYCOPYRROLATE INJ 0.2 MG/ML VIAL ONE (17:01)
[2016-12-17] MEDS ORDERED: CEFAZOLIN SOD 1 GM VIAL ONE ×2 (17:10→17:21)
[2016-12-17] MEDS ORDERED: DEXAMETHASONE SOD INJ 4 MG/ML VIAL ONE (17:22)
[2016-12-17] MEDS ORDERED: ONDANSETRON INJ 2 MG/ML 2 ML VIAL ONE (17:22)
[2016-12-17] MEDS ORDERED: FENTANYL CITRATE INJ 50 MCG/1 ML 2 ML VIAL IV PRN (17:45)
[2016-12-17] MEDS ORDERED: ATROPINE SULFATE 0.1 MG/ML 5ML SYR IV PRN (17:45)
[2016-12-17] MEDS ORDERED: PROMETHAZINE HCL INJ 6.25 MG in SODIUM CHLORIDE 0.9% 50ML 50 ML IV PRN (17:45)
[2016-12-17] MEDS ORDERED: EpHEDrine SULFATE INJ 50 MG/ML AMP IV PRN (17:45)
[2016-12-17] MEDS ORDERED: ONDANSETRON INJ 2 MG/ML 2 ML VIAL IV PRN (17:45)
[2016-12-17] MEDS: LACTATED RINGER'S 1000ML 1,000 ML IV SCH (18:20)
--- NOTE | 2016-12-17 18:20 | [facility] Operative Report ---
Operative Report Operative Date Dec 17, 2016. Pre-Operative Diagnosis End of life Intrathecal pump battery. Post-Operative Diagnosis same as preop Procedure(s) Performed Intrathecal Pain Pump Exchange Surgeon Dr. Manjit Parra Chief Pharmacist Surgeon(s) none Estimated Blood Loss 15mL Findings End of life pump Specimens A. Explanted Intrathecal pump Drains None Anesthesia General/LMA Disposition Recovery Room / PACU Description of Procedure PROCEDURE PERFORMED: Intrathecal pump replacement PREOPERATIVE DIAGNOSIS: End of life intrathecal pump POSTOPERATIVE DIAGNOSIS: Same. COMPLICATIONS: None. SURGEON: Dr. Beatrice Parra. ANESTHESIA: General/LMA. MATERIAL FORWARDED TO THE LAB: Explanted pump. EBL: 15 ml IMPLANTED PUMP SIZE: 20 mL. MEDICATIONS PLACED IN THE PUMP: Hydromorphone 5 mg per mL concentration INDICATIONS: The patient had an end of life pump with less than 1 month prior to system failure, thus requiring replacement. The patient was explained the risks, benefits, alternatives of the procedure and agreed to proceed as above. Informed consent was obtained and witnessed. A time out was performed after the patient was brought into the Operating Room. Antibiotics were given. The patient was then induced with general anesthesia without complications and was placed in the supine. The skin was prepped with DuraPrep and Betadine and draped in sterile fashion. The existing pump was identified and using a scalpel , electro cautery, and blunt dissection, the existing pump was exposed. The four retaining sutures were removed and the old pump was explanted. The catheter was disconnected from the old pump and free flowing CSF was noted. 0 cc of CSF was aspirated from the catheter. The new pump was opened and prepared according to [employer] standards and was filled with 11 mL of new medication of same type and concentration. The pump catheter was secured to the new pump and secured. The catheter access port was accessed and revealed free flowing CSF. Next, the pocket was irrigated with sterile normal saline with bacitracin. Hemostasis was checked. The new pump was placed into the pocket in the 12 O'clock position. The intrathecal pump was anchored in the pocket with 4-0 Prolene sutures. Both wounds were irrigated with bacitracin-containing normal saline. Both wounds were closed in similar fashion using continuous 0 V lock suture for deeper layer and running 3-0 V lock suture for subcuticular layer. Prineo to the skin. 4 x 4 gauze and pressure dressing was applied to both sites. Abdominal binder was placed. At the conclusion of the procedure, the pump was re-interrogated and reprogrammed to deliver 0.5599 mg per day. The patient was allowed to emerge from general anesthesia and transported to the recovery room in stable condition uneventfully. The patient will follow up at [facility] pain clinic within 7 days for a wound check and then plan to have the raquel removed at day 14. I attest to the content of the Intraoperative Record and any orders documented therein. Any exceptions are noted below.
[2016-12-17] MEDS ORDERED: NALOXONE HCL 0.4 MG/1 ML VIAL/CARP IV PRN (18:30)
[2016-12-17] MEDS ORDERED: ONDANSETRON INJ 8 MG in DEXTROSE 5% 50ML 50 ML IV PRN (18:30)
[2016-12-17] MEDS ORDERED: NURSING VERBAL MED ORDER ONE (18:45)
--- NOTE | 2016-12-17 19:09 | Anesthesiology Progress Note ---
Anesthesia Post Op Note Date & Time Dec 17, 2016 at 19:09 Vital Signs Pain Intensity: 2 Vital Signs Past 12 Hours Date Time Temp Pulse Resp B/P (MAP) Pulse Ox O2 Delivery O2 Flow Rate FiO2 12/17/16 19:00 36.3 80 12 155/97 98 Nasal Cannula 2 12/17/16 18:55 163/90 12/17/16 18:52 74 13 98 12/17/16 18:52 75 13 12/17/16 18:50 161/89 12/17/16 18:47 75 24 12/17/16 18:47 75 24 96 12/17/16 18:46 156/78 12/17/16 18:42 71 16 12/17/16 18:42 72 16 100 12/17/16 18:41 74 14 12/17/16 18:41 74 14 167/79 100 12/17/16 18:36 68 15 155/84 100 12/17/16 18:36 68 15 12/17/16 18:31 67 15 12/17/16 18:31 67 15 100 12/17/16 18:30 159/84 12/17/16 18:26 68 19 12/17/16 18:26 67 19 100 12/17/16 18:25 148/83 12/17/16 18:22 135/78 12/17/16 18:21 68 16 12/17/16 18:21 68 16 100 12/17/16 18:21 36.3 67 16 135/78 100 Oxymask 10 12/17/16 14:57 36.8 67 18 130/71 (90) 96 Room Air 12/17/16 11:34 55 16 136/67 (90) 95 Room Air 12/17/16 08:33 36.9 56 16 142/54 (83) 96 Room Air 12/17/16 07:49 37.4 61 16 174/67 (102) 97 Room Air 12/17/16 07:25 Room Air Notes Mental Status: alert / awake / arousable, participated in evaluation Pt Amnestic to Procedure: Yes Nausea / Vomiting: adequately controlled Pain: adequately controlled Airway Patency, RR, SpO2: stable & adequate BP & HR: stable & adequate Hydration State: stable & adequate Anesthetic Complications: no major complications apparent
[2016-12-17] MEDS: HYDROCODONE/ACETAMOPHEN 5/325MG TAB PO PRN ×2 (19:35→23:34)
[2016-12-17] MEDS ORDERED: CEFTRIAXONE SOD INJ 1 GM in DEXTROSE 5% ADD-VANTAGE 50ML 50 ML IV SCH (20:00)
[2016-12-17] MEDS: TRAZODONE HCL 50 MG TAB PO SCH (20:19)
[2016-12-18] MEDS ORDERED: CLONIDINE HCL 0.1 MG/24 HR TRANSDERM SYS TD SCH
[2016-12-18 03:34] VITALS: BP 148/82; PULSE 72; TEMP 37; O2SAT 97
[2016-12-18] MEDS: HYDROCODONE/ACETAMOPHEN 5/325MG TAB PO PRN ×2 (03:42→07:22)
[2016-12-18] MEDS: hydrOXYzine HCL 25 MG TAB PO SCH (05:31)
[2016-12-18 06:07] LABS: HEMATOCRIT 46.2 % (42-52); MEAN CORPUSCULAR HGB CONC 37.7 g/dl (32-36); MEAN PLATELET VOLUME 10.2 fL (7.4-10.4); PLATELET COUNT 223 K/uL (130-400); RED BLOOD COUNT 4.97 M/uL (4.7-6.1)
[2016-12-18 06:44] LABS: BUN/CREATININE RATIO 13.5 (10-20); CALCIUM 8.2 mg/dl (8.5-10.1); CREATININE 0.83 mg/dl (0.60-1.40)
[2016-12-18 07:04] VITALS: BP 160/74; PULSE 56; TEMP 36.7; O2SAT 97
[2016-12-18] MEDS: LACTATED RINGER'S 1000ML 1,000 ML IV SCH (07:08)
[2016-12-18 07:20] VITALS: O2SAT 98
[2016-12-18] MEDS: ATORVASTATIN 40 MG TAB PO SCH (07:22)
[2016-12-18] MEDS: BuPROPion SR 150 MG TABCR PO SCH (07:22)
[2016-12-18] MEDS: DULOXETINE HCL 60 MG CAP PO SCH (07:23)
[2016-12-18] MEDS: DOCUSATE SODIUM 100 MG CAP PO SCH (07:23)
[2016-12-18] MEDS: CYANOCOBALAMIN 500 MCG TAB (VIT B-12) PO SCH (07:23)
[2016-12-18] MEDS ORDERED: CHECK CLONIDINE PATCH PLACEMENT SCH (08:00)
[2016-12-18 08:29] VITALS: BP 160/74; PULSE 56; TEMP 36.7; O2SAT 98
--- NOTE | 2016-12-18 08:35 | Discharge Instructions ---
Discharge Instructions Date of Service Dec 18, 2016. Visit Reason for Visit: Intractable Back Pain Discharge Discharge Diagnosis / Problem: End of life intrathecal pump Discharge Goals Goal(s): Decrease discomfort, Increase independence Medications Restart Stopped Medication(s): [place] 5/325mg 1 by mouth every 6 hrs as needed for pain. A prescription was provided to you for #45 tablets Activity Recommendations Activity Limitations: per Instructions/Follow-up section Exercise/Sports Limitations: until after follow-up appointment Shower/Bathe: may shower/bathe in 3 days, keep incision dry (do not take baths/ hot tub soaks. Do not let water run on incision) Driving or Machine Use: after f/u appointment no lifting greater than 20lbs lifting must change dressing daily look for signs of infection, bleeding, drainage daily be aware of signs of withdrawal Anesthesia . Post Anesthesia Instructions: If you have had General Anesthesia or IV Sedation: * Do not drive today. * Resume driving when surgeon permits. * Do not make important decisions or sign legal documents today. * Call surgeon for: 1. Temperature elevations greater than 101 degrees F. 2. Uncontrollable pain. 3. Excessive bleeding. 4. Persistent nausea and vomiting. 5. Medication intolerance (nausea, vomiting or rash). * For nausea and vomiting use only clear liquids such as: tea, soda, bouillon until nausea subsides, then gradually increase diet as tolerated. * If you have any concerns or questions, call your surgeon's office. If physician is unavailable and it is an emergency, call 911 or go to the nearest emergency room. . Diet Recommendations Recommended Home Diet: no limitations, resume previous diet Procedures Procedures Performed: Intrathecal Pain Pump Exchange Pending Studies Studies pending at discharge: no Medical Emergencies . Who to Call and When: Medical Emergencies: If at any time you feel your situation is an emergency, please call 911 immediately. Call [facility] if any non-emergency questions, . Non-Emergent Contact Non-Emergency issues call your: Primary Care Provider Call Non-Emergent contact if: you have a fever, your pain is not controlled, your pain is unusual for you, your pain is concerning you, wound has increased drainage, wound has increased redness, wound has increased pain, you have any medication questions pain physician . . "Provider Documentation" section prepared by Isabel Hartmann. . [facility] Drug Monitoring Program Search Results: patient reviewed within database, no issues identified
--- NOTE | 2016-12-18 08:52 | Discharge Summary ---
Discharge Summary Date of Service Dec 18, 2016. Discharge Summary Admission Date: Dec 16, 2016 at 17:30 Discharge Date: Dec 18, 2016 Discharge Disposition: Home Principal Diagnosis: End of life intrathecal pump Procedures: Replacement intrathecal pump, analysis and re-programming Vaccinations: none Consultations: none Pending Studies/Follow-Up: none Admission Information HPI (per Admitting provider): This patient has a chronic pain patient of Dr. Devi's was intrathecal pain pump usually giving him hydromorphone 0.508 mg a day. The patient awoke this morning and developed withdrawal symptoms and then intractable pain. Patient was seen in the ED given some Dilaudid with some resolution of the symptoms. He was having nausea and vomiting this morning he has intense neck pain currently he is however awake and alert and can give a coherent history. He was scheduled to have his pain pump replaced however this was postponed due to medical illness. In the room easily abdominal pain he believes from vomiting he is shaking uncontrollably having focal suboccipital neck pain 10 out of 10. This resolved with replacement of his intrathecal pump replacement. He had an uncomplicated hospital stay. Physical Exam (per Admitting): General Appearance: WD/WN, + moderate distress, + severe distress Head: normocephalic, atraumatic Eyes: PERRL, EOMI ENT: hearing grossly normal, pharynx normal Neck: supple, thyroid normal Respiratory/Chest: chest non-tender, lungs clear, normal breath sounds Cardiovascular: no murmur, + tachycardia Abdomen/GI: normal bowel sounds, soft, + tenderness Back: no CVA tenderness, + muscle spasm Extremities/Musculoskelatal: no pedal edema, normal range of motion Neurologic/Psych: alert, oriented x 3 Physical Exam (per Admitting): at discharge: AAOx3 in NAD eating breakfast PERRL CV RRR lung no audible wheezes RLQ incision clean, dry, prineo/raquel intact. No erythema/drainage GRIGGS equal with 5/5 strength grossly. gait NL Hospital Course (1) Chest pain (2) Chest pain (3) Visual disturbance (4) Visual disturbance (5) Headache (6) Narcotic withdrawal (7) Cervical post-laminectomy syndrome (8) Intractable back pain (9) Neck pain (10) S/P cervical spinal fusion (11) History of inguinal hernia repair (12) H/O cataract extraction uncomplicated intrathecal pump replacement occurred 8/21/17 with complete resolution of withdrawal symptoms. The patient noted no complications overnight and was discharged home in stable condition. Total time spent on discharge = 30min This includes examination of the patient, discharge planning, medication reconciliation, and communication with other providers. Discharge Instructions followup with [facility] jan 04 at 9:45 for post procedure and on for a pump refill 01/29/17 at 10am. Problem Qualifiers (1) Headache: Headache chronicity pattern: chronic headache Intractability: not intractable (2) H/O cataract extraction: Laterality: unspecified laterality Qualified Codes: Z98.49 - Cataract extraction status, unspecified eye
--- NOTE | 2016-12-18 18:07 | Progress Note ---
Subjective Date of Service: Dec 18, 2016. Subjective Pt evaluation today including: conversation w/ patient, physical exam, chart review, lab review, conversation w/ communications consultant (pain management - Dr. Hartmann) Pain: none - feels very good today PO Intake: normal Voiding: no voiding problems no issues overnight feels good denies prior h/o HTN no further nausea, abd pain, sweats, shakiness, etc wearing abdominal binder s/p exchange of intrathecal pain pump Problem List Medical Problems: (1) Bee sting reaction Status: Acute (2) Chronic cervical pain Status: Acute (3) Gastritis and duodenitis Status: Acute (4) Hyperglycemia Status: Acute (5) Weakness Status: Acute (6) Weight loss Status: Acute Review of Systems Constitutional: No fever Respiratory: No shortness of breath Cardiac: No chest pain Abdomen: No pain Objective Vital Signs Date Time Temp Pulse Resp B/P (MAP) Pulse Ox O2 Delivery O2 Flow Rate FiO2 12/18/16 08:29 36.7 56 20 98 Room Air 12/18/16 07:20 98 Room Air 12/18/16 07:04 36.7 56 20 160/74 (102) 97 Room Air 12/18/16 03:34 37.0 72 16 148/82 (104) 97 Room Air 12/17/16 23:20 37.1 66 16 143/76 (98) 96 Room Air 12/17/16 23:15 Room Air 12/17/16 22:26 36.8 71 16 157/79 (105) 99 Nasal Cannula 1.0 12/17/16 21:15 36.5 77 12 152/65 (94) 99 Nasal Cannula 1.0 12/17/16 20:26 36.5 80 16 159/77 (104) 97 Nasal Cannula 2.0 12/17/16 20:00 36.9 83 18 150/83 (105) 99 Nasal Cannula 2.0 12/17/16 19:15 36.6 80 20 151/80 (103) 97 Nasal Cannula 12/17/16 19:15 Nasal Cannula 2.0 12/17/16 19:15 97 Nasal Cannula 2.0 12/17/16 19:06 67 19 12/17/16 19:06 66 19 97 12/17/16 19:01 80 14 155/97 97 12/17/16 19:01 80 14 12/17/16 19:00 161/94 12/17/16 19:00 36.3 80 12 155/97 98 Nasal Cannula 2 12/17/16 18:57 161/84 12/17/16 18:56 80 20 12/17/16 18:56 79 20 98 12/17/16 18:55 163/90 12/17/16 18:52 74 13 98 12/17/16 18:52 75 13 12/17/16 18:50 161/89 12/17/16 18:47 75 24 12/17/16 18:47 75 24 96 12/17/16 18:46 156/78 12/17/16 18:42 71 16 12/17/16 18:42 72 16 100 12/17/16 18:41 74 14 12/17/16 18:41 74 14 167/79 100 12/17/16 18:36 68 15 155/84 100 12/17/16 18:36 68 15 12/17/16 18:31 67 15 12/17/16 18:31 67 15 100 12/17/16 18:30 159/84 12/17/16 18:26 68 19 12/17/16 18:26 67 19 100 12/17/16 18:25 148/83 12/17/16 18:22 135/78 12/17/16 18:21 68 16 12/17/16 18:21 68 16 100 12/17/16 18:21 36.3 67 16 135/78 100 Oxymask 10 Physical Exam General Appearance: no apparent distress ENT: pharynx normal Neck: no JVD Respiratory/Chest: lungs clear, no respiratory distress, no accessory muscle use Cardiovascular: regular rate, rhythm, no gallop, no murmur Abdomen: normal bowel sounds, non tender, soft, no organomegaly, + pertinent finding (dressing in place just to right of midline; pain pump palpable under the skin; dressing was NOT removed to examine incision) Extremities: no pedal edema Neurologic/Psychiatric: alert, oriented x 3 Laboratory Results Last 24 Hours Test 12/18/16 05:33 White Blood Count 12.70 K/uL Red Blood Count 4.97 M/uL Hemoglobin 17.4 g/dL Hematocrit 46.2 % Mean Corpuscular Volume 93.0 fL Mean Corpuscular Hemoglobin 35.0 pg Mean Corpuscular Hemoglobin Concent 37.7 g/dl RDW Standard Deviation 45.2 fL RDW Coefficient of Variation 13.2 % Platelet Count 223 K/uL Mean Platelet Volume 10.2 fL Sodium Level 137 mmol/L Potassium Level 4.0 mmol/L Chloride Level 106 mmol/L Carbon Dioxide Level 25 mmol/L Anion Gap 6.0 mmol/L Blood Urea Nitrogen 11 mg/dl Creatinine 0.83 mg/dl Est Creatinine Clear Calc Drug Dose 110.8 ml/min Estimated GFR () 117.3 Estimated GFR (Non- 101.2 BUN/Creatinine Ratio 13.5 Random Glucose 90 mg/dl Calcium Level 8.2 mg/dl Assessment and Plan 51yo male with: 1. Pain pump failure - POD #1 s/p exchange of intrathecal pump. He has had a pump for 5+ years due to chronic cervicalgia. Unfortunately, since the pump failed, he suffered from opiate withdrawal but this is now fully resolved. I appreciate the post-op instructions and management as laid out by Dr. Isabel Hartmann. He has f/u in early December with pain management. 2. Anxiety and depression -Continue Wellbutrin 150 mg PO qd, Cymbalta 60 mg PO qd 3. Asthma - not in exacerbation -Continue albuterol inhaler prn 4. HLD - continue Lipitor 40 mg PO qd 5. Insomnia -Continue trazodone 50 mg PO qhs 6. elevated BP w/o dx of HTN - several of his elevated BP readings during this stay could have been 2nd to pain , the withdrawal process, anxiety, etc. [id number], this needs follow-up. I counseled him on normal vs pre-HTN range readings vs HTN range readings. I encouraged him to check his BPs at a local pharmacy and to f/u with his PCP for this. no meds were started prior to discharge. 7. mild leukocytosis - he received IV steroids yesterday pre-op and there is a high likelihood the elevation is due to such. He has no symptoms or signs of infection today. patient to d/c home today f/u PCP within 1 week f/u pain management within 2 weeks Discharge planning: home
[2017-01-03] MEDS ORDERED: HYDR-5688 PO (09:11)
== END 2016-12-18 10:06 | disposition home or self-care (01) | DRG 92 ==
LOC: C.EDB 15:21 → C.MSN 17:30 → ENRESERV 17:52
PROVIDERS: ADMIT Internal Medicine; ATTEND Internal Medicine
PROC: 0JW Subcutaneous Tissue and Fascia, Revision (ICD-10-PCS; principal; 2016-12-17 08:30)
DX: T85.695A Other mechanical complication of other nervous system device, implant or graft, initial encounter (principal); F11.23 Opioid dependence with withdrawal; M54.2 Cervicalgia; G89.29 Other chronic pain; M96.1 Postlaminectomy syndrome, not elsewhere classified; M79.1 Myalgia; F41.9 Anxiety disorder, unspecified; F32.9 Major depressive disorder, single episode, unspecified; J45.909 Unspecified asthma, uncomplicated; E78.5 Hyperlipidemia, unspecified; G47.00 Insomnia, unspecified; Z79.899 Other long term (current) drug therapy; F17.210 Nicotine dependence, cigarettes, uncomplicated; R53.1 Weakness; Z82.49 Family history of ischemic heart disease and other diseases of the circulatory system

== ENCOUNTER → 2017-01-31 | Outpatient (CLI) | payer OTHER ==
[~2017-01-31] MED LIST changes: -ALBUAER2 INH; +ATOR-24 PO; +BUPR-79 PO; -CHOL200010 PO; +CHOL20007 PO; +HYDR1SOL IT; -LEUP30IN3; -LPT/40 PO; +TEST1INJ2 IM; -TEST1INJ2 SQ; -WLLSR/150 PO; -ZOLP10TA PO; -[UNRECOGNIZED DRUG - CODE] IT
[2017-01-31 09:39] LABS: HEMATOCRIT 46.1 % (42-52); MEAN CELL VOLUME 93.9 fL (80-100); MEAN CORPUSCULAR HEMOGLOBIN 34.8 pg (25-34); MEAN CORPUSCULAR HGB CONC 37.1 g/dl (32-36); MEAN PLATELET VOLUME 10.8 fL (7.4-10.4); PLATELET COUNT 223 K/uL (130-400); RED BLOOD COUNT 4.91 M/uL (4.7-6.1)
[2017-02-03 18:16] LABS: ILGF1 Z SCORE MALE 1.4 SD (-2.0 - +2.0)
== END | disposition home or self-care (01) ==
LOC: C.LAB1850 07:34
PROVIDERS: ATTEND Internal Medicine Endocrinology, Diabetes & Metabolism
DX: R53.83 Other fatigue (principal); E23.0 Hypopituitarism; N52.9 Male erectile dysfunction, unspecified

== ENCOUNTER → 2017-03-20 | Outpatient (CLI) | payer OTHER ==
[2017-03-20 10:05] LABS: ALT/SGPT 28 U/L (12-78); AST/SGOT 17 U/L (15-37); BLOOD UREA NITROGEN 9 mg/dl (7-18); BUN/CREATININE RATIO 10.2 (10-20); CALCIUM 8.7 mg/dl (8.5-10.1); CARBON DIOXIDE 28 mmol/L (21-32); CHLORIDE 104 mmol/L (98-107); CREATININE 0.89 mg/dl (0.60-1.40); GLUCOSE 125 mg/dl (70-99); POTASSIUM 4.4 mmol/L (3.5-5.1); SODIUM 137 mmol/L (136-145)
[2017-03-20 10:10] LABS: CHOLESTEROL 109 mg/dl (0-200); CHOLESTEROL/HDL RATIO 2.1; HDL CHOLESTEROL 51 mg/dl; LDL CHOLESTEROL CALCULATED 47 mg/dl; TRIGLYCERIDES 53 mg/dl (0-150); VERY LOW DENSITY LIPOPROT CALC 11 mg/dl
== END | disposition home or self-care (01) ==
LOC: C.LAB1850 08:34
PROVIDERS: ATTEND Urology
DX: F52.32 Male orgasmic disorder (principal); E53.8 Deficiency of other specified B group vitamins; I10 Essential (primary) hypertension; E78.5 Hyperlipidemia, unspecified

== ENCOUNTER → 2017-03-25 | Outpatient (CLI) | payer OTHER ==
[~2017-03-25] MED LIST changes: +CHN/1 PO
[2017-03-25 13:25] LABS: BASO % 0.6 %; BASO ABS # 0.05 K/uL (0-0.2); COMPLETE YES; EOS % 0.6 %; IG% 0.2 %; LYMPH % 29.3 %; LYMPH ABS # 2.38 K/uL (1.2-3.4); MEAN CELL VOLUME 95.4 fL (80-100); MEAN CORPUSCULAR HEMOGLOBIN 33.8 pg (25-34); MEAN CORPUSCULAR HGB CONC 35.5 g/dl (32-36); MONO % 6.3 %; PLATELET COUNT 189 K/uL (130-400); RED BLOOD COUNT 4.61 M/uL (4.7-6.1); WHITE BLOOD COUNT 8.12 K/uL (4.8-10.8)
== END | disposition home or self-care (01) ==
LOC: C.LABBC 11:05
PROVIDERS: ATTEND Anesthesiology
DX: T81.4XXA Infection following a procedure, initial encounter (principal); Y84.9 Medical procedure, unspecified as the cause of abnormal reaction of the patient, or of later complication, without mention of misadventure at the time of the procedure

== ENCOUNTER → 2017-03-26 | Outpatient (CLI) | payer OTHER ==
[2017-03-26 13:16] LABS: URINE APPEARANCE CLEAR (CLEAR); URINE BILIRUBIN NEG (NEG); URINE COLOR YELLOW; URINE NITRITE NEG (NEG); URINE SPECIFIC GRAVITY > 1.045 (1.000-1.030); UROBILINOGEN NEG (NEG)
[2017-03-26 13:24] LABS: MANUAL MICROSCOPIC REQUIRED? NO; REVIEW REQ? NO
== END | disposition home or self-care (01) ==
LOC: C.LABBC 10:58
PROVIDERS: ATTEND Physician Assistant Medical
DX: R30.0 Dysuria (principal)

== ENCOUNTER → 2017-03-26 | Outpatient (CLI) | payer OTHER ==
[~2017-03-26] MED LIST changes: +OPTIRAY 320 IV PRN
--- NOTE | 2017-03-26 07:52 | DIAGNOSTIC IMAGING REPORT ---
ABDOMEN AND PELVIS CT WITH IV CONTRAST CT DOSE: 581.99 mGy.cm HISTORY: INFECTION AT PUMP SITE, IV ONLY TECHNIQUE: Multiaxial CT images of the abdomen and pelvis were performed following the use of intravenous contrast. A dose lowering technique was utilized adhering to the principles of ALARA. COMPARISON STUDY: Abdomen and pelvis CT 10/05/2015. FINDINGS: The lung bases are clear. No pneumoperitoneum. No pneumatosis. No fractures within the visualized osseous structures. There is a pain pump identified within the subcutaneous fat of the right lower quadrant abdominal wall. The surrounding soft tissues are suboptimally evaluated due to metallic artifact. There is mild subcutaneous fat stranding surrounding this pain pump. Best seen on axial image 206 there is a 1.2 cm peripheral enhancing fluid collection along the superior border of the pain pump. This is concerning for a tiny abscess. The catheter appears to be intact and enters the thecal sac at the L2-L3 level. This extends cephalad into the thoracic spine. The tip is not included on this study. The gallbladder is decompressed. The liver, spleen, adrenal glands, kidneys, and pancreas are unremarkable. No retroperitoneal lymphadenopathy. Mild bladder wall thickening which may be due to underdistention. No bowel wall thickening or obstruction. Normal appendix. Moderate well-formed stool seen throughout the colon. IMPRESSION: 1. There is 1.2 cm peripheral enhancing fluid collection along the superior border of the pain pump within the right lower quadrant abdominal wall. This is concerning for a tiny abscess. There is also mild subcutaneous fat stranding surrounding the pain pump suggestive of a cellulitis. 2. No bowel wall thickening or obstruction. 3. Moderate stool throughout the colon. 4. Normal appendix. 5. Mild bladder wall thickening. Recommend correlation with urinalysis to exclude a cystitis. Electronically signed by: Vasu Miramontes M.D. 03/26/2017 7:51 AM Dictated Date/Time: 03/26/2017 7:44 AM
== END | disposition home or self-care (01) ==
LOC: C.CTS 06:56
PROVIDERS: ATTEND Anesthesiology
DX: T81.4XXA Infection following a procedure, initial encounter (principal); Y84.9 Medical procedure, unspecified as the cause of abnormal reaction of the patient, or of later complication, without mention of misadventure at the time of the procedure

== ENCOUNTER → 2017-04-16 | Outpatient (CLI) | payer OTHER ==
[~2017-04-16] MED LIST changes: -CHN/1 PO; -OPTIRAY 320 IV PRN
== END | disposition home or self-care (01) ==
LOC: C.LABBC 11:49
PROVIDERS: ATTEND Physician Assistant
DX: L76.34 Postprocedural seroma of skin and subcutaneous tissue following other procedure (principal)

== ENCOUNTER → 2017-05-08 | Outpatient (CLI) | payer OTHER | END | disposition home or self-care (01) | LOC: C.LAB1850 08:56 | PROVIDERS: ATTEND Internal Medicine Endocrinology, Diabetes & Metabolism | DX: E23.7 Disorder of pituitary gland, unspecified (principal) ==

== ENCOUNTER → 2017-05-13 | Outpatient (CLI) | payer OTHER ==
--- NOTE | 2017-05-13 13:35 | DIAGNOSTIC IMAGING REPORT ---
MRI OF THE BRAIN COMBO; MRI OF THE PITUITARY GLAND CLINICAL HISTORY: Hypogonadism. COMPARISON STUDY: MRI of the brain dated 09/02/2015 and 09/09/2014. TECHNIQUE: MRI of the brain was performed utilizing various T1 and T2-weighted sequences in the axial, sagittal, and coronal planes. Contrast-enhanced sequences were acquired following the administration of 9 cc of Gadavist. High-resolution and dynamic postcontrast imaging of the pituitary gland is performed. FINDINGS: Brain parenchyma: There is mild subcortical and periventricular microangiopathic disease. There is no hemorrhage or mass effect. There is no restricted diffusion to suggest acute ischemia. No enhancing mass lesion is identified on the postcontrast images. Yao-white matter differentiation is preserved. No extra-axial fluid collection is seen. The cerebellar tonsils are normal in configuration. Ventricles, sulci, and cisterns: Normal in configuration. Pituitary and sella: Pituitary gland is normal in morphology. There is no evidence of pituitary lesion on the dynamic postcontrast images. The infundibulum is midline. Intracranial vasculature: Normal flow voids are maintained at the skull base. Orbits: The bony orbits are grossly intact. Orbital contents are normal in appearance noting bilateral ocular lens implants. Sinuses and mastoids: Clear. Calvarium: Unremarkable. Cervical cord: Partially visualized cervical spinal cord is normal in morphology and signal intensity. IMPRESSION: 1. No acute intracranial abnormality. 2. The pituitary gland is normal in appearance. Electronically signed by: Bentley Guzman M.D. 05/13/2017 1:34 PM Dictated Date/Time: 05/13/2017 1:29 PM
== END | disposition home or self-care (01) ==
LOC: C.MRIBC 11:41
PROVIDERS: ATTEND Internal Medicine Endocrinology, Diabetes & Metabolism
DX: E23.0 Hypopituitarism (principal)

== ENCOUNTER → 2017-06-11 | Outpatient (CLI) | payer OTHER ==
[~2017-06-11] MED LIST changes: +thyroid medication
--- NOTE | 2017-06-11 14:54 | DIAGNOSTIC IMAGING REPORT ---
ABDOMEN 2VIEW W/PA CHEST RTN HISTORY: 51 years-old Male R10.9 Abdominal pain of multiple [id number] acute generalized abdominal pain COMPARISON: Chest radiograph 03/01/2017, CT abdomen and pelvis 03/26/2017 TECHNIQUE: PA view the chest with erect and supine views of the abdomen FINDINGS: Cardiomediastinal and hilar silhouettes are within normal limits. There is no pneumothorax, pleural effusion, focal airspace consolidation or overt pulmonary edema. Bones of the chest appear grossly intact. Mild levoscoliosis of the mid to lower thoracic spine. Fusion hardware of the lower cervical spine is noted. No pneumoperitoneum on the upright projection. Battery pack with spinal stimulator lead is noted overlying the mid thoracic and lumbar spine. Bowel gas pattern is nonobstructive. No pneumoperitoneum on the upright projection. No definite urolith identified. Calcifications of the pelvis suggest phleboliths. Degenerative changes are seen within the spine and bilateral hips. IMPRESSION: 1. Nonobstructive bowel gas pattern without pneumoperitoneum. 2. No acute process of the chest. The above report was generated using voice recognition software. It may contain grammatical, syntax or spelling errors. Electronically signed by: Spencer Gonzales M.D. 06/11/2017 2:53 PM Dictated Date/Time: 06/11/2017 2:50 PM
[2017-06-11 15:31] LABS: BASO % 0.7 %; BASO ABS # 0.06 K/uL (0-0.2); EOS % 1.5 %; EOS ABS # 0.12 K/uL (0-0.5); HEMATOCRIT 45.1 % (42-52); HEMOGLOBIN 16.4 g/dL (14.0-18.0); IG# 0.02 K/uL (0.00-0.02); LYMPH % 34.6 %; LYMPH ABS # 2.81 K/uL (1.2-3.4); MEAN CELL VOLUME 93.8 fL (80-100); MEAN CORPUSCULAR HEMOGLOBIN 34.1 pg (25-34); MEAN CORPUSCULAR HGB CONC 36.4 g/dl (32-36); MEAN PLATELET VOLUME 10.3 fL (7.4-10.4); MONO ABS # 0.57 K/uL (0.11-0.59); NEUT ABS # 4.55 K/uL (1.4-6.5); PLATELET COUNT 213 K/uL (130-400); RED CELL DISTRIBUTION WIDTH CV 13.6 % (11.5-14.5); RED CELL DISTRIBUTION WIDTH SD 47.2 fL (36.4-46.3); WHITE BLOOD COUNT 8.13 K/uL (4.8-10.8)
[2017-06-11 15:44] LABS: ALBUMIN 3.8 gm/dl (3.4-5.0); ALT/SGPT 20 U/L (12-78); BLOOD UREA NITROGEN 11 mg/dl (7-18); CALCIUM 8.7 mg/dl (8.5-10.1); CARBON DIOXIDE 27 mmol/L (21-32); CREATININE 0.91 mg/dl (0.60-1.40); GLUCOSE 130 mg/dl (70-99); SODIUM 136 mmol/L (136-145)
[2017-06-11 15:55] LABS: ALKALINE PHOSPHATASE 105 U/L (45-117); AST/SGOT 13 U/L (15-37); TOTAL PROTEIN 7.4 gm/dl (6.4-8.2)
== END | disposition home or self-care (01) ==
LOC: C.RAD1850 14:04
PROVIDERS: ATTEND Internal Medicine
DX: R10.9 Unspecified abdominal pain (principal); R53.83 Other fatigue

== ENCOUNTER → 2017-07-10 | Outpatient (CLI) | payer OTHER | END | disposition home or self-care (01) | LOC: C.LAB1850 08:00 | PROVIDERS: ATTEND Internal Medicine Endocrinology, Diabetes & Metabolism | DX: E23.7 Disorder of pituitary gland, unspecified (principal) ==

== ENCOUNTER 2017-08-05 17:23 | Emergency (ER) | payer OTHER ==
[~2017-08-05] VITALS: Ht 170.2 cm; Wt 83.4 kg
[2017-08-05 17:29] VITALS: TEMP 36.7; Ht 170.2 cm; Wt 83.4 kg
[2017-08-05 18:44] VITALS: BP 168/81; PULSE 67; O2SAT 95
[2017-08-05] MEDS ORDERED: NORCO 5/325MG HOME PACK PO ONE (18:45)
--- NOTE | 2017-08-05 18:47 | EMERGENCY ROOM VISIT NOTE ---
History First contact with patient: 17:57 Chief Complaint: HEADACHE Stated Complaint: LEFT SIDE HEAD NUMB, PAIN GOING UP SIDE OF HEAD History of Present Illness The patient is a 51 year old male who presents to the Emergency Room with complaints of abrupt onset of left-sided neck pain radiating into the left scalp and left upper extremity. The patient reports a history of chronic neck pain, and is currently under the management of the [facility]. The patient reports that he has an intrathecal pump. He came to the emergency department to make certain that he is not having a stroke. He did not try to call the answering service for the pain clinic. The patient denies any difficulty with speech, swallowing, left facial numbness, weakness or other left -sided weakness. He denies any recent injury to the neck. He also denies any recent fever. The patient reports that he currently only uses the intrathecal pump for pain management. He denies having any additional home analgesics. He rates his discomfort a 10 out of 10. Review of Systems 10 system review was performed and was negative except for pertinent positives and negatives as indicated in history of present illness Past Medical/Surgical History Medical Problems: (1) Cervical post-laminectomy syndrome (2) Chest pain (3) Chest pain (4) Headache (5) Intractable back pain (6) Narcotic withdrawal (7) Neck pain (8) Visual disturbance (9) Visual disturbance Surgical Problems: (1) H/O cataract extraction (2) History of inguinal hernia repair (3) S/P cervical spinal fusion Family History FH: SD (myocardial infarction) Social History Smoking Status: Never Smoker Alcohol Use: occasionally Drug Use: other Marital Status: Housing Status: lives with family Occupation Status: disabled Current/Historical Medications Scheduled Atorvastatin (Lipitor), 40 MG PO DAILY Bupropion (Wellbutrin Sr), 150 MG PO QAM Cholecalciferol (Vitamin D3), 2 TAB PO DAILY Cyanocobalamin (Vitamin B-12), 1,000 MCG PO DAILY Duloxetine Hcl (Cymbalta), 60 MG PO DAILY Hydromorphone HCl-Sodium Chlor (Hydromorphone HCl/NaCl 10-0.9 mg/50Ml-%), Unknown Dose IT CONTINOUS Nitroglycerin (Nitrostat), 0.4 MG UT PRN Somatropin (Nutropin Aq Nuspin 10), 10 MG SC QD@1800 Testosterone Cypionate (Testosterone Cypionate), 200 MG IM WK Trazodone Hcl (Trazodone), 50 MG PO HS Scheduled PRN Albuterol Hfa (Ventolin Hfa), 1-2 PUFFS INH Q4 PRN for SOB/Wheezing Clonazepam (Klonopin), 1-2 MG PO DAILY PRN for Anxiety Fluticasone Propionate (Nasal) (Flonase Allergy Relief), 1 SPRAY BRIANNE DAILY PRN for ALLERGIC REACTION Hydrocodone/Acetaminophen 5MG/325MG ([place] 5MG/325MG), 1 TAB PO BID PRN for Pain Miscellaneous Medications [thyroid medication] Physical Exam Vital Signs Date Time Temp Pulse Resp B/P (MAP) Pulse Ox O2 Delivery O2 Flow Rate FiO2 08/05/17 17:29 36.7 70 16 173/88 95 Room Air Physical Exam CONSTITUTIONAL: Healthy and well nourished. Alert and oriented X 3 with positive affect. Patient appears in moderate discomfort from pain. HEENT: Normocephalic, atraumatic. Pupils equal, round and reactive. No facial droop noted. NECK: The patient has extremely limited range of motion of the neck. No soft tissue edema or erythema noted. No palpable muscle spasms. Prior surgical incision is noted with good wound healing. RESPIRATORY: Clear to auscultation bilaterally with no wheezing, crackles, rhonchi or stridor. CARDIOVASCULAR: Regular rate and rhythm with no murmurs, rubs or gallops. MUSCULOSKELETAL: Equal handgrip bilaterally. Distal pulses are intact. INTEGUMENTARY: No rash or other significant dermatologic conditions noted. NEUROLOGIC: Left hand and fingers are sensory intact. Cranial nerves II through XII grossly intact. Facial sensations are intact. Medical Decision & Procedures ED Course Patient history and physical exam were performed. Nurse's notes were reviewed. Vital signs were reviewed, showing an elevated blood pressure 173/88, which I suspect is likely secondary to pain. I also reviewed prior medical records, showing that the patient had an intrathecal pump refill at the clinic on . Patient is currently being administered hydromorphone 0.6759 mg per day simple continuous rate, with a maximum daily dose of 1.0884 mg per day with the use of PTM. The patient reports that he has already utilized his PTM dosing. At this point, I contacted and spoke with Dr. Parra who recommended that the patient call his office tomorrow for a cervical injection. He has requested no additional NSAIDs or corticosteroids at this time. He recommended providing a [place] home pack with instructions for use, and he will see the patient in the office tomorrow. I did discuss this with the patient who was happy with plan of care. The patient did take 1 of his [place] prior to discharge. The patient was happy with plan of care, and rated his discomfort an 8 out of 10 at the conclusion of my exam. The patient was also seen and examined by Dr. Field, ED attending physician, who agrees with workup and plan of care. Medical Decision The patient does not have any clinical findings suggestive of CVA. I also do not suspect carotid thrombus, acute fracture, meningitis or other acute etiologies of the neck. Patient does have a history of chronic cervicalgia secondary to cervical postlaminectomy syndrome. [place] Drug Monitoring Program Search Results: patient reviewed within database, no issues identified Medication Reconcilliation Current Medication List: was personally reviewed by me Blood Pressure Screening Patient's blood pressure: Normal blood pressure Impression Primary Impression: Radiculitis of left cervical region Departure Information Dispostion Home / Self-Care Referrals Upendra. Parra M.D. (Family) Forms HOME CARE DOCUMENTATION FORM, IMPORTANT VISIT INFORMATION Patient Instructions My [facility] Additional Instructions Call the pain clinic tomorrow morning for an appointment to see Dr. Parra for an injection. You have been provided a home pack for hydrocodone 5/325 -take 1 pill every 6 hours as needed for pain.
--- NOTE | 2017-08-06 02:30 | EMERGENCY ROOM VISIT NOTE ---
ED Visit Note First contact with patient: 17:57 I have personally evaluated and examined this patient. I agree with assessment and plan of Nam Valdovinos PA-C.
== END 2017-08-05 18:48 | disposition home or self-care (01) ==
LOC: C.EDB 17:24 → C.EDD 18:48
DX: M54.10 Radiculopathy, site unspecified (principal); M54.2 Cervicalgia; G89.29 Other chronic pain; Z79.899 Other long term (current) drug therapy

== ENCOUNTER → 2017-09-03 | Outpatient (CLI) | payer OTHER ==
[~2017-09-03] MED LIST changes: -thyroid medication
--- NOTE | 2017-09-03 14:22 | DIAGNOSTIC IMAGING REPORT ---
L HAND MIN 3 VIEWS ROUTINE CLINICAL HISTORY: 52 years-old Male presenting with S69.90XA Finger injury left attn. Finger 4th [id number]. TECHNIQUE: Frontal, oblique, and lateral views of the left hand were obtained. COMPARISON: 02/16/2016. FINDINGS: The left fourth finger is normal. No acute fracture or malalignment. No advanced degenerative change. No radiographic soft tissue abnormality. IMPRESSION: No acute osseous injury. Electronically signed by: Roverto Campbell M.D. 09/03/2017 2:21 PM Dictated Date/Time: 09/03/2017 2:19 PM
== END | disposition home or self-care (01) ==
LOC: C.RAD1850 13:52
PROVIDERS: ATTEND Internal Medicine
DX: S69.90XA Unspecified injury of unspecified wrist, hand and finger(s), initial encounter (principal); X58.XXXA Exposure to other specified factors, initial encounter

== ENCOUNTER → 2017-09-09 | Outpatient (CLI) | payer OTHER | END | disposition home or self-care (01) | LOC: C.LAB1850 09:15 | PROVIDERS: ATTEND Internal Medicine Endocrinology, Diabetes & Metabolism | DX: E23.0 Hypopituitarism (principal) ==

== ENCOUNTER → 2017-12-04 | Outpatient (CLI) | payer OTHER ==
[~2017-12-04] MED LIST changes: -CLON0.5T3 PO; -HYDR-5688 PO; -HYDR1SOL IT; +KLN/5 PO; +LISI-725 PO; +METO-157 PO; +MORP-158 PO; +MORP15TA PO; +NITR0.4S74 SL; -NTRGSL/4 UT; +PRLSR20 PO; +SILD1TAB39 PO; +TAPE1TAB10 PO; -TRAZ50TA35 PO; -[UNRECOGNIZED DRUG - CODE] SC; +[UNRECOGNIZED DRUG - CODE] SQ
[2017-12-04 17:02] LABS: BASO % 0.6 %; BASO ABS # 0.06 K/uL (0-0.2); HEMATOCRIT 41.2 % (42-52); HEMOGLOBIN 15.2 g/dL (14.0-18.0); IG# 0.02 K/uL (0.00-0.02); LYMPH % 29.5 %; LYMPH ABS # 2.97 K/uL (1.2-3.4); MEAN CELL VOLUME 95.2 fL (80-100); MEAN CORPUSCULAR HEMOGLOBIN 35.1 pg (25-34); MEAN CORPUSCULAR HGB CONC 36.9 g/dl (32-36); MEAN PLATELET VOLUME 10.3 fL (7.4-10.4); NEUT % 61.7 %; NEUT ABS # 6.22 K/uL (1.4-6.5); PLATELET COUNT 211 K/uL (130-400); RED CELL DISTRIBUTION WIDTH CV 13.5 % (11.5-14.5); RED CELL DISTRIBUTION WIDTH SD 47.4 fL (36.4-46.3); WHITE BLOOD COUNT 10.07 K/uL (4.8-10.8)
[2017-12-04 17:19] LABS: ALBUMIN 3.8 gm/dl (3.4-5.0); ALKALINE PHOSPHATASE 93 U/L (45-117); ALT/SGPT 26 U/L (12-78); AST/SGOT 11 U/L (15-37); BLOOD UREA NITROGEN 9 mg/dl (7-18); CALCIUM 8.4 mg/dl (8.5-10.1); CARBON DIOXIDE 25 mmol/L (21-32); CREATININE 0.97 mg/dl (0.60-1.40); GLUCOSE 187 mg/dl (70-99); POTASSIUM 3.7 mmol/L (3.5-5.1); SODIUM 136 mmol/L (136-145); TOTAL PROTEIN 7.2 gm/dl (6.4-8.2); TRANSFERRIN 219 mg/dl (200-360)
== END | disposition home or self-care (01) ==
LOC: C.LABBC 15:17
PROVIDERS: ATTEND Internal Medicine
DX: R53.83 Other fatigue (principal)

== ENCOUNTER 2024-01-04 08:27 | Inpatient (IN) ==
--- OUTSIDE RECORDS SUMMARY | 2024-01-04 08:31 | External Medical Summary | Summary of Care ---
Author Name Unknown Organization [facility] Address [address] [place] [address] Phone [phone] Care Team Providers Care Biological Inspector Name Role Phone Pro, Lucian Johnson MD Primary Care Provider [phone]- [phone] Reason for Visit * Reason Comments Back Pain * Auth/Cert Specialty Diagnoses / Procedures Referred By Kaylie t Referred To Contact [facility] [address] [place] [address] Phone: [phone] Emergency Medicine [facility] [address] [place] [address] Referral ID Status Reason Start Date Expiration Date Visits Re quested Visits Authorized [id number] Encounter Details Date Type Department Care Team (Late st Contact Info) Description 12/31/2023 6:20 AM EDT - 12/31/2023 8:17 AM EDT Emergency [facility] Emergency Department ([facility]) [address] [place] [id number] Bryce Leung MD [address] [place] [address] [phone] Lumbar radiculopathy (Primary Dx) Discharge Disposition: Home - Self Care Allergies Active Allergy Reactions Criticality Noted Date Comments Gabapentin 05/09/2022 Other reaction(s): Swelling Iodinated Contrast Media Edema Other 08/20/2020 documented as of this encounter (statuses as of 12/31/2023) Medications Medication Sig Dispensed Refills Start Date End Date Status CYMBALTA 60 MG PO CPEPIndications:Deg eneration of cervical intervertebral disc 1 po daily- for depression and pain 30 0 09/25/2005 Active HYDROmorphone (DILAUDID-HP) 500 MG/50ML SOLNIndications:inf used pain pump once. Indications: infused pain pump Active Testosterone Cypionate 200 MG/ML KITIndications:inje ct 1/2 ml weekly as directed Inject 200 mg into a large muscle once a week. Indications: inject 1/2 ml weekly as directed Active buPROPion extended release, SR, (WELLBUTRIN SR) 150 MG TB12 Take 1 Tablet by mouth in the morning and 1 Tablet before bedtime. Active Cholecalciferol (VITAMIN D3) 2000 UNITS TabletIndications:t tereso 2 tabs daily Take 1 Tablet by mouth in the morning. Active nitroglycerin 0.4 MG/SPRAY sprayIndications:us e 1 spray under the tongue as needed for chest pain Place 1 [place] under the tongue every 5 minutes as needed for Pain, Chest. Active Cyanocobalamin (VITAMIN B-12) 1000 MCG Tablet Take 1 Tablet by mouth in the morning. Active Hydrocodone-Acetami nophen 10-325 MG per tablet Take 1 Tab by mouth every 4 hours as needed for Pain. Active polyethylene glycol 3350 (MIRALAX) 255 gram powder Take 17 g by mouth as needed. Active bisacodyl (DULCOLAX) 5 MG TBEC Take 1 Tablet by mouth daily as needed for Constipation. Active traZODone (DESYREL) 50 MG Tablet take 1 to 2 tablets by mouth at bedtime if needed for sleep 0 04/30/2016 Active atorvaSTATin (LIPITOR) 40 MG Tablet Take 40 mg by mouth at bedtime. 0 07/09/2016 Active lidocaine-prilocain e (EMLA) 2.5-2.5 % cream 07/09/2016 Active clonazePAM (KLONOPIN) 1 MG Tablet 06/18/2016 Active lisinopril (PRINIVIL) 20 MG Tablet 02/03/2018 Active oxyCODONE (OXY IR) 5 MG immediate release tablet 02/12/2018 Active testosterone cypionate (DEPOTESTOSTERONE CYPIONATE) 200 MG/ML injection 01/16/2018 Active clonazePAM 0.5 MG Oral Tablet (KlonoPIN) Take 1 tablet by mouth twice a day As Needed for Anxiety 30 Tablet 04/10/2022 Active Testosterone Cypionate 100 MG/ML Intramuscular Solution (Depo-Testosterone) Inject 100mg (1ml) once per week on Sundays 10 mL 5 04/25/2022 Active buPROPion HCl ER (XL) 150 MG Oral Tablet Extended Release 24 Hour (Wellbutrin XL) 150 mg (1 tablet) orally daily in the morning 30 Tablet 04/25/2022 Active Naloxone HCl 4 MG/0.1ML Nasal Liquid (Narcan Nasal) instill 4 mg intranasally every 2 minutes As Needed for for accidental overdose from pain pump; spray 1 dose into ONE nostril; alternate nostrils w each dose until help arrives 2 Each 05/09/2022 Active busPIRone HCl 15 MG Oral Tablet (Buspar) 15 mg orally twice a day 60 Tablet 2 05/11/2022 Active Lisinopril 40 MG Oral Tablet TAKE 1 TABLET BY MOUTH DAILY IN THE MORNING 90 Tablet 1 05/22/2022 Active Omeprazole 20 MG Oral Capsule Delayed Release (PriLOSEC) Take 1 Capsule by mouth every night at bedtime. 34 Capsule 06/28/2022 Active Levothyroxine Sodium 100 MCG Oral Tablet (Levoxyl) TAKE 1 TABLET BY MOUTH DAILY IN THE MORNING FOR 90 DAYS. 90 Tablet 3 07/23/2022 Active oxyCODONE-Acetamino phen 5-325 MG Oral Tablet (Percocet) Take 1 tab orally every 6 hours As Needed for pain 12 Tablet 09/28/2022 Active Additional Information Patient not taking.Reported on 03/17/2023 Albuterol Sulfate HFA 108 (90 Base) MCG/ACT Inhalation Aerosol Solution INHALE 1 TO 2 puffS BY MOUTH As Needed for Shortness Of Breath Or Wheezing 18 g 2 10/04/2022 Active busPIRone HCl 15 MG Oral Tablet (Buspar) Take 1 tablet by mouth twice a day As Needed for anxiety 60 Tablet 11/13/2022 Active traZODone HCl 50 MG Oral Tablet (Desyrel) Take 1 to 2 tablets by mouth at bedtime as needed for insomnia 60 Tablet 11/13/2022 Active Atorvastatin Calcium 40 MG Oral Tablet (Lipitor) Take 1 tablet by mouth at bedtime 90 Tablet 3 11/21/2022 Active busPIRone HCl 15 MG Oral Tablet (Buspar) Take 1/2 tablet (7.5mg) by mouth twice a day 30 Tablet 2 11/23/2022 Active Cephalexin 500 MG Oral Capsule (Keflex) 500 mg orally twice a day take 1 tablet twice daily the day before, day of, and day after the procedure. Enough for 3 separate procedures 18 Capsule 12/04/2022 Active QUEtiapine Fumarate 25 MG Oral Tablet (SEROquel) Take1 tablet by mouth 8 hours as needed for severe anxiety, agitation, or insomnia 30 Tablet 12/12/2022 Active Testosterone Cypionate 100 MG/ML Intramuscular Solution 100 mg (1ml) intramuscularly once weekly Saturday 10 mL 5 12/19/2022 Active clonazePAM 0.5 MG Oral Tablet (KlonoPIN) Take 1 tablet by mouth every 12 hours as needed for severe anxiety 30 Tablet 03/20/2023 Active Benzonatate 100 MG Oral Capsule (Tessalon Perles) TAKE 1 CAPSULE BY MOUTH 3 TIMES A DAY NEEDED FOR COUGH 30 Capsule 03/28/2023 Active Pulmicort Flexhaler 90 MCG/ACT Inhalation Aerosol Powder Breath Activated (Budesonide) INHALE 1 INHALATION TWICE A DAY FOR 10 DAYS 1 Each 2 03/28/2023 Active Fluticasone Propionate HFA 110 MCG/ACT Inhalation Aerosol (Flovent HFA) INHALE 1 PUFF BY MOUTH TWICE DAILY 12 g 2 03/29/2023 Active Azithromycin 250 MG Oral Tablet (Zithromax) Take 2 tabs by mouth on the first day, then take 1 tab on daily on days two through five. 6 Tablet 04/02/2023 Active Albuterol Sulfate (TO GO ALBUTEROL HFA) IN puff Inhale 1 Puff by mouth in the morning and 1 Puff at noon and 1 Puff in the evening and 1 Puff before bedtime. 1 Each 04/02/2023 Active levoFLOXacin 750 MG Oral Tablet (Levaquin) TAKE 1 TABLET BY MOUTH DAILY FOR 5 DAYS 5 Tablet 04/05/2023 Active Albuterol Sulfate HFA 108 (90 Base) MCG/ACT Inhalation Aerosol Solution Use 2 puffs inhaled as directed As Needed for Shortness Of Breath Or Wheezing 18 g 3 04/11/2023 Active Fluticasone Propionate 50 MCG/ACT Nasal Suspension (Flonase) Use 1 spray intranasally daily; administer into each nostril once daily 16 g 1 04/11/2023 Active Naloxone HCl 4 MG/0.1ML Nasal Liquid (Narcan Nasal) spray 4mg intranasally every 2 minutes As Needed for for accidental overdose from pain pump; spray 1 dose into ONE nostril; alternate nostrils w each dose until help arrives 2 Each 05/16/2023 Active Spiriva Respimat 2.5 MCG/ACT Inhalation Aerosol Solution (Tiotropium [place] Monohydrate) INHALE 2 PUFFS BY MOUTH DAILY 4 g 4 06/05/2023 Active Levothyroxine Sodium 100 MCG Oral Tablet (Levoxyl) Take 100 MCG (1 tablet) orally daily in the morning for 90 days 90 Tablet 3 06/14/2023 Active Lisinopril 40 MG Oral Tablet TAKE 1 TABLET BY MOUTH DAILY IN THE MORNING 90 Tablet 3 07/04/2023 Active Varenicline Tartrate 0.5 MG Oral Tablet (Chantix) Take 0.5 mg (1 tablet) orally daily; administer on days 1, 2, and 3 of therapy 30 Tablet 07/19/2023 Active Varenicline Tartrate 0.5 MG Oral Tablet (Chantix) Take 0.5 mg (1 tablet) orally twice a day; administer on days 4, 5, 6, and 7 of therapy 8 Tablet 07/19/2023 Active Varenicline Tartrate 1 MG Oral Tablet (Chantix) Take 1 mg (1 tablet) orally twice a day; take 1 mg twice a day on day 8 and later 60 Tablet 07/19/2023 Active Testosterone Cypionate 100 MG/ML Intramuscular Solution 100 mg intramuscularly once weekly; Saturday 10 mL 5 07/25/2023 Active Celecoxib 100 MG Oral Capsule (CeleBREX) Take 1 capsule by mouth twice a day for 2 weeks then as needed after that. 60 Capsule 1 08/28/2023 Active Blood Glucose Monitor System w/Device Kit Test three times a day 1 Kit 09/25/2023 Active Pharmacist Choice Lancets test blood sugar 3 x daily 300 Each 3 09/25/2023 Active OneTouch Verio In Vitro Strip (Glucose Blood) TEST BLOOD SUGAR 3 TIMES A DAY 300 Strip 3 09/25/2023 Active oxyCODONE-Acetamino phen 5-325 MG Oral Tablet (Percocet) Take 1 tablet orally every 6 hours As Needed for pain 20 Tablet 09/26/2023 Active methylPREDNISolone 16 MG Oral Tablet (Medrol) Take 2 tablets 12 hours prior to exam and 2 tablets 2 hours prior to exam. 4 Tablet 09/09/2023 Active Levothyroxine Sodium 100 MCG Oral Tablet (Levoxyl) TAKE 1 TABLET BY MOUTH DAILY IN THE MORNING 90 Tablet 3 10/10/2023 Active metFORMIN HCl ER 500 MG Oral Tablet Extended Release 24 Hour (Glucophage XR) 1000 mg (2 tablets) orally twice a day 120 Tablet 5 10/25/2023 Active clonazePAM 0.5 MG Oral Tablet (KlonoPIN) TAKE 1 TABLET BY MOUTH EVERY 12 HOURS FOR SEVERE ANXIETY 30 Tablet 11/19/2023 Active predniSONE 10 MG Oral Tablet (Deltasone) TAKE 6 TABS X 2 DAYS, 5 TABS X 2 DAYS, 4 TABS X 2 DAYS, 3 TABS X 2 DAYS, 2 TABS X 2 DAYS THEN 1 TAB X 2 DAYS. 42 Tablet 11/20/2023 Active traMADol HCl 50 MG Oral Tablet (Ultram) Take 1 tablet by mouth every 6 hours As Needed for pain. 20 Tablet 11/28/2023 Active DULoxetine HCl 60 MG Oral Capsule Delayed Release Particles (Cymbalta) Take 1 capsule by mouth every mornling. 30 Capsule 5 12/02/2023 Active traZODone HCl 150 MG Oral Tablet (Desyrel) Take 100-150mg by mouth at bedtime as needed for insomnia. 30 Tablet 5 12/02/2023 Active Atorvastatin Calcium 40 MG Oral Tablet (Lipitor) Take 1 tablet by mouth at bedtime 90 Tablet 3 12/06/2023 Active buPROPion HCl ER (XL) 300 MG Oral Tablet Extended Release 24 Hour (Wellbutrin XL) Take 1 tablet by mouth every morning. 30 Tablet 2 12/27/2023 Active Lidocaine 4 % External Patch (Aspercreme) Place 1 Patch over 12 hours topically on the skin daily. 30 Patch 12/31/2023 Active Cyclobenzaprine HCl 10 MG Oral Tablet (Flexeril) Take 1 Tablet by mouth 3 times a day as needed (back pain) for up to 5 days. 15 Tablet 12/31/2023 01/05/20 24 Active documented as of this encounter (statuses as of 12/31/2023) Active Problems Problem Noted Date Diagnosed Date ADVANCE DIRECTIVE INFORMATION 10/02/2007 Overview: No, Advance Directive brochure given to patient. 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 CERVICAL DISC DEGEN 02/10/2004 Tobacco use disorder 01/08/2000 COCAINE ABUSE-IN REMISS documented as of this encounter (statuses as of 12/31/2023) Immunizations Name Administration Dates Next Due Seasonal Influenza, PF, 6 M & above, IM , (FluLaval or Fluzone) 04/27/2019,03/03/2018 documented as of this encounter Social History Tobacco Use Types Packs/Day Years Used Date Smoking Tobacco: Every Day Cigarettes 2 20 Smokeless Tobacco: Never Comments:1 1/2 packs a day Alcohol Use Standard Drinks/Week Comments No 0 (1 standard drink = 0.6 oz pur e alcohol) Sex and Gender Information Value Date Recorded Sex Assigned at Not on file Gender Identity Not on file Sexual Orientation Not on file Job Start Date Occupation Industry Not on file Not on file Not on file documented as of this encounter Last Filed Vital Signs Vital Sign Reading Time Taken Comments Blood Pressure 122/78 12/31/2023 8:03 AM EDT Pulse 87 12/31/2023 8:03 AM EDT Temperature 36.5 C (97.7 F) 12/31/2023 6:26 AM ED T Respiratory Rate 19 12/31/2023 8:03 AM EDT Oxygen Saturation 99% 12/31/2023 8:03 AM EDT Inhaled Oxygen Concentration - - Weight 76.2 kg (168 lb) 12/31/2023 6:26 AM EDT Height 180.3 cm (5' 11") 12/31/2023 6:26 AM EDT Body Mass Index 23.43 12/31/2023 6:26 AM EDT documented in this encounter Discharge Instructions * Discharge Instructions* Isaebl Lua PA-C - 12/31/2023 8:13 AM EDT Rest, avoiding heavy lifting, gripping, pushing and pulling. Continue all at-home medications, no changes have been made. Use the lidocaine patches in the Flexeril as prescribed. Please carefully review the discharge instructions. Follow up with your digital content specialist as scheduled. Return to the Emergency Deparment if symptoms return, persist, or worsen. documented in this encounter ED Notes * Bryce Leung MD - 12/31/2023 7:35 AM EDT HISTORY OF PRESENT ILLNESS Jean Pierre Finn is a 58 year old male who presents to the ED for evaluation of Back Pain. The patient was seen at 12/31/23 07. 58-year-old male with past medical history significant for dyslipidemia, depression and anxiety, thyroid disease, chronic pain presents to the ER complaining of L-spine painthat radiates across his back and into the left lower extremity. Onset of symptoms was weeks ago. Seen and cared for by [facility]. Recently received intra-articular injections into the left hip, which were ineffective in relievinghis discomfort. Scheduled for an MRI via [facility], but patient is unsure when that was. Also seen at the emergency department at [facility] on Saturday and prescribed [place]. Aggravating factors include movement and palpation. No alleviating factors. No trauma, unintentional weight loss. Denies fecal and urinary incontinence as well as saddle paresthesia. Denies any associated fever and chills. No associated immunosuppression. Does not chronically use steroids. No history of IV drug abuse. Patient is requesting that I figure out this issue today. States that he does not want pain medication and discharge to home. Would like to find out the source of his discomfort stating he can not continue to live like this. Review of Systems Constitutional: Negative for chills, diaphoresis, fatigue and fever. Musculoskeletal: Positive for arthralgias, back pain and gait problem. Skin: Negative for rash. Neurological: Negative for weakness and numbness. The patient's allergies, past history, and medications were reviewed. PHYSICAL EXAM Initial Vitals (see all): BP 167/110 | Pulse 92 | Resp 20 | Temp 97.7 | O2 100 %Weight 76.2 kg | Height 180.3 cm | BMI 23.43 kg/m2 Initial Pain Assessment (see all): 10 (severe pain)/10 ([facility] Scale 0-10) Physical Exam Vitals and nursing note reviewed. Constitutional: General: He is awake. Appearance: He is not ill-appearing, toxic-appearing or diaphoretic. Comments: Visibly uncomfortable male Cardiovascular: Rate and Rhythm: Normal rate and regular rhythm. Heart sounds: Normal heart sounds. Pulmonary: Effort: Pulmonary effort is normal. Breath sounds: Normal breath sounds and air entry. Abdominal: General: Bowel sounds are normal. Palpations: Abdomen is soft. Tenderness: There is no abdominal tenderness. Musculoskeletal: Thoracic back: Normal. Lumbar back: Tenderness and bony tenderness present. Negative right straight leg raise test and negative left straight leg raise test. Right hip: Decreased range of motion (Lacking full external rotation). Left hip: Decreased range of motion (lacking full external rotation). Comments: Bilateral lower extremities with sensation intact to light touch and brisk capillary refill. Strength +5/5 and equal bilaterally. DTRs +2 and equal bilaterally. Skin: General: Skin is warm and dry. Capillary Refill: Capillary refill takes less than 2 seconds. Neurological: Mental Status: He is alert and oriented to person, place, and time. Psychiatric: Behavior: Behavior is cooperative. PROCEDURES AND TREATMENTS ED Orders | ED Results MEDICAL DECISION MAKING Nursing notes and vital signs were reviewed. ED Course as of 12/31/23 0814 SatDec 31, 2023 0758 Patient ambulated to the bathroom without any difficulty, escorted by his . [JT] 0810 Patient states he is feeling slightly better. Pain is improving. Agreeable to discharge with continuation of all at-home medications. Lidocaine patches and Flexeril prescribed. Encouraged patient to follow up on an outpatient basis with his orthopedist. Educated on strict return to ED instructions. Understanding verbalized by patient. [JT] ED Course User Index [JT] Isabel Lua PA-C Differential Diagnoses Based on my history, physical exam, and evaluation, the differential includes, but is not limited, to the following diagnoses: DJD, lumbar radiculopathy, chronic pain, muscle spasms. Risk OTC drugs. Prescription drug management. Clinical Impressions Lumbar radiculopathy Disposition Discharged. The patient's condition at disposition was: stable. - rest. - continue all at-home medications. - follow up with ortho as scheduled. -Educated on strict return to ED instructions. Understanding verbalized by patient. Discharge Medications Disp Refills Start End Lidocaine 4 % External Patch (Aspercreme) 30 Patch 0 12/31/2023 -- Sig - Route: Place 1 Patch over 12 hours topically on the skin daily. - Transdermal Class: ePrescribing Renewals Renewal requests to authorizing provider (Isabel Lua PA-C) <b>prohibited</b> Cyclobenzaprine HCl 10 MG Oral Tablet (Flexeril) 15 Tablet 0 12/31/2023 01/05/2024 Sig - Route: Take 1 Tablet by mouth 3 times a day as needed (back pain) for up to 5 days. - Oral Class: ePrescribing Renewals Renewal requests to authorizing provider (Isabel Lua PA-C) <b>prohibited</b> -Educated on risks, benefits, side effects, and administration of medications. Bryce Leung was the attending physician who supervised the care of this patient. Isabel Lua PA-C ATTENDING ATTESTATION I have discussed the patient's management with the provider listed above and agree with the note, findings, and plan of care. I personally made/approved the management plan and take responsibility for patient management. * Chilo Ardon RN - 12/31/2023 6:22 AM EDT Pt presents to ED with back pain rated 10/10. Pt states pain is in lumbar spine. Pt states hx of this, denies loss of bladder or bowel, states he has been having difficulty urinating, states he can only go a little bit at a time. Pt states recent prostate exam and they found nothing significant. Ptreports taking percocet and tramadol without relief. documented in this encounter Miscellaneous Notes * ED Field Service Poultry Technician Note - Caroline Sánchez RN - 12/31/2023 8:17 AM EDT Patient VS taken and patient given ED discharge sheet. Provider and this nurse reviewed discharge instructions with patient who verbalized understanding of instructions. Patient voiced no questions and ambulated out of ED with a steady gait. * Pt Handout (on AVS) - Isabel Lua PA-C - 12/31/2023 8:13 AM EDT Images from the original note were not included. [id number] Back Pain (Acute or Chronic) Back pain is one of the most common problems. The good news is that most people feel better in 1 to2 weeks, and most of the rest in 1 to 2 months. Most people can remain active. People who have pain describe it differently?not everyone is the same. The pain can be sharp, stabbing, shooting, aching, cramping or burning. Movement, standing, bending, lifting, sitting, or walking may worsen pain. It can be limited to one spot or area, or it can be more generalized. It can spread upwards, to the front, or go down your arms or legs (sciatica). It can cause muscle spasm. Most of the time, mechanical problems with the muscles or spine cause the pain. Mechanical problemsare usually caused by an injury to the muscles or ligaments. Illness can cause back pain, but it's usually not caused by a serious illness. Mechanical problems include: Physical activity such as sports, exercise, work, or normal activity Overexertion, lifting, pushing, pulling incorrectly or too aggressively Sudden twisting, bending, or stretching from an accident, or accidental movement Poor posture Stretching or moving wrong, without noticing pain at the time Poor coordination, lack of regular exercise (check with your doctor about this) Spinal disc disease or arthritis Stress Pain can also be related to , or illness such as appendicitis, bladder or kidney infections, kidney stones, and pelvic infections. Acute back pain usually gets better in 1 to 2 weeks. Back pain related to disk disease, arthritis in the spinal joints, or narrowing of the spinal canal (spinal stenosis) can become chronic and last for months or years. Unless you had a physical injury such as a car accident or fall, X-rays are usually not needed for the first assessment of back pain. If pain continues and does not respond to medical treatment, you may need X-rays and other tests. Home care Try this home care advice: When in bed, try to find a position of comfort. A firm mattress is best. Try lying flat on your back with pillows under your knees. You can also try lying on your side with your knees bent up toward your chest and a pillow between your knees. At first, don't try to stretch out the sore spots. If there is a strain, it's not like the good soreness you get after exercising without an injury. In this case, stretching may make it worse. Don't sit for long periods, as in a long car ride or during other travel. This puts more stress on the lower back than standing or walking. During the first 24 to 72 hours after an acute injury or flare up of chronic back pain, apply anice pack to the painful area for 20 minutes and then remove it for 20 minutes. Do this over a period of 60 to 90 minutes or several times a day. This will reduce swelling and pain. Wrap the ice pack in a thin towel or plastic to protect your skin. You can start with ice, then switch to heat. Heat (hot shower, hot bath, or heating pad) reducespain and works well for muscle spasms. Heat can be applied to the painful area for 20 minutes then remove it for 20 minutes. Do this over a period of 60 to 90 minutes or several times a day. Don't sleep on a heating pad. It can lead to skin strickland or tissue damage. You can alternate ice and heat therapy. Talk with your doctor about the best treatment for your back pain. Therapeutic massage can help relax the back muscles without stretching them. Be aware of safe lifting methods. Don't lift anything without stretching first. Medicines Talk to your doctor before using medicine, especially if you have other medical problems or are taking other medicines. You may use [id number] medicine as directed on the bottle to control pain, unless another pain medicine was prescribed. Talk with your healthcare provider before using these medicines if youhave chronic conditions such as diabetes, liver or kidney disease, stomach ulcers, or digestive bleeding. Also talk with your provider if you take blood thinners. Be careful if you are given a prescription medicines, narcotics, or medicine for muscle spasms. They can cause drowsiness, affect your coordination, reflexes, and judgment. Don't drive or operate heavy machinery. Follow-up care Follow up with your healthcare provider, or as advised. If X-rays were taken, you will be told of any new findings that may affect your care. Call 911 Call 911 if any of the following occur: Trouble breathing Confusion Very drowsy or trouble awakening Fainting or loss of consciousness Rapid or very slow heart rate Loss of bowel or bladder control When to seek medical advice Call your healthcare provider right away if any of these occur: Pain gets worse or spreads to your legs Your bowel or bladder control changes Fever Blood in your urine Weakness or numbness in one or both legs Numbness in the groin or genital area Last Reviewed Date: 04/29/202119990356-0804 [employer]. All rights reserved. This information is not intended as a substitute for professional medical care. Always follow your healthcare professional's instructions. * Pt Handout (on AVS) - Isabel Lua PA-C - 12/31/2023 8:13 AM EDT Images from the original note were not included. [id number] Understanding Lumbar Radiculopathy (Sciatica) Lumbar radiculopathy is caused by irritation or inflammation of a nerve root in the lower back. It's also called sciatica. It causes symptoms that spread out from the back down to one or both legs. To understand this condition, it helps to understand the parts of the spine: Vertebrae. The spine is made up of 24 small bones called vertebrae which are stacked on top of each other. The lumbar spine contains 5 vertebrae near the bottom of your spine. Disks. These are soft pads of tissue between the vertebrae. They act as shock absorbers and spacers for the spine. Spinal canal. This is a tunnel formed within the stacked vertebrae. Its main function is to protect the spinal cord which travels throughout the length of the spine. Spinal cord. This is a long bundle of nerves that run down your back through the spinal canal inthe vertebrae. Spinal nerves. They branch-off the spinal canal and travel out to different parts of the body. As they leave the spinal canal, these nerves pass through openings (called foramen) between the vertebrae. The nerve root is the part of the nerve that is closest to the spinal canal. Sciatic nerve. This is a large nerve formed from several nerve roots in the lower back. This nerve extends down the buttock and down the back of the leg to the foot. With lumbar radiculopathy, nerve roots in the lower back become irritated. This leads to pain and symptoms. The sciatic nerve is commonly affected, so the condition is often called sciatica. What causes lumbar radiculopathy? Aging, injury, poor posture, extra body weight, and other issues can lead to problems in the lower back. These problems may then irritate nerve roots. They include: Damage to a disk in the lumbar spine. The damaged disk may then press on nearby nerve roots. Degeneration from wear and tear, and aging. This can lead to narrowing (stenosis) of the openings between the vertebrae. The narrowed openings press on nerve roots as they leave the spinal canal. Unstable spine. This is when a vertebra slips forward. It can then press on a nerve root. Other, less common things such as infection or a tumor can put pressure on nerves in the lower back. Symptoms of lumbar radiculopathy These include: Shooting pain in the lower back Pain, numbness, tingling, or muscle weakness that travels into the buttocks, hip, groin, or leg Muscle spasms in the low back, or leg Treatment for lumbar radiculopathy In most cases, treatment depends on the cause and severity of symptoms. Your healthcare provider will first try treatments that help ease symptoms. These may include: Prescription and rqac-[id number] pain medicines These help ease pain, swelling, and irritation. Limits on positions and activities that increase pain. But lying in bed or avoiding all movementis only advised for a short time if necessary. Physical therapy, including exercises and stretches. This helps decrease pain and increase movement and function. Steroid shots into the lower back. This may help ease symptoms for a time. Weight-loss. If you're overweight, losing extra pounds may help ease symptoms. In some cases, you may need surgery to fix the underlying problem. This depends on the cause, the symptoms, and how long the pain has lasted. In cases where symptoms don't get better, imaging studies, electromyography, and nerve conduction studies can help make a diagnosis. Severe symptoms require imaging or urgent surgery. Possible complications Over time, an irritated and inflamed nerve may become damaged. This may lead to long-lasting (permanent) numbness or weakness in your legs and feet. Other complications include loss of function, decreased quality of life, chronic pain and muscle shrinking. If symptoms change suddenly or get worse, tell your healthcare provider. When to call your healthcare provider Call your healthcare provider right away if you have any of these: New pain or pain that gets worse New or increasing weakness, tingling, or numbness in your leg or foot Problems controlling your bladder or bowel Last Reviewed Date: 07/29/202319999108-1171 [employer]. All rights reserved. This information is not intended as a substitute for professional medical care. Always follow your healthcare professional's instructions. documented in this encounter Plan of Treatment Scheduled Procedures Name Priority Associated Diagnoses Date/Ti me COLONOSCOPY FLEXIBLE PROXIMA L DIAGNOSTIC Recall Encounter for screening colonoscopy Health Maintenance Due Date Last Done Comments Pneumococcal Vaccine: Pediatrics (0 to 5 Years) and At-Risk Patients (6 to 64 Years) (1 of 2 - PCV) 1970 Depression Screening 1976 Hepatitis C Screening 1982 Hepatitis B Vaccine (1 of 3 - 19+ 3-dose series) 08/14/1983 DTap/Tdap Vaccines (1 - Tdap) 04/30/1996 04/29/1996, 04/29/1996 Cologuard 2009 Fecal Occult Blood Test 2009 Sigmoidoscopy 2009 Lipid Panel 06/20/2014 06/20/2009, 05/31, 06/20/2009, Additional history exists Lung Cancer Screening 2014 Zoster Vaccines (1 of 2) 2014 TSH 11/09/2016 11/10/2015, 06/20/2009 Colonoscopy 08/25/2020 08/26/2015, 08/26/2015 Colorectal Cancer Screening 08/25/2020 COVID-19 Vaccine ( season) 2023 12/19/2020, 11/28/2020 Influenza Vaccine (FLU shot) (#1) 2023 04/27/2019, 03/03/2018 RETIRED - COLONOSCOPY-EVERY 5 YRS AGES 18-100 Discontinued 08/26/2015, 08/26/2015 HPV (Gardasil) Vaccine Aged Out No lo nger eligible based on patient's age to complete this topic MENINGOCOCCAL (MENACTRA/MENVEO) Aged Out No longer eligible based on patient's age to complete this topic documented as of this encounter Medical Devices Implanted Type Area Ovens Supervisor Device Identifier Shelf Expiration Date Model / Serial / Lot Lens 23.0 [id number] - [id number] - [id number] Implanted:Qty: 1 on 05/12/2015 by Lucian Carranza MD at [facility] Left: Eye [employer] : SURGICAL 05/29/2016 [id number] / [id number] / documented as of this encounter Visit Diagnoses Diagnosis Lumbar radiculopathy- Primary Thoracic or lumbosacral neuritis or radiculitis, unspecified documented in this encounter Administered Medications Inactive Administered Medications - up to 3 most recent administrations Medication Order MAR Action Action Date Dose Rate Site cyclobenzaprine (Flexeril) tab 10 mg 10 mg, Oral, ONCE, On Sat12/31/23 at 0815, For 1 dose Given 12/31/2023 7:43 AM EDT 10 mg Lidocaine (Aspercreme) 4 % patch 1 Patch 1 Patch, Transdermal, ONCE, On Sat12/31/23 at 0815, For 1 dose, Apply patch for 12 hours then remove for 12 hours! Remove any Lidocaine patches the patient may currently be wearing prior to applying the new patch Patch Applied 12/31/2023 7:42 AM EDT 1 Patch Back Middle oxyCODONE-acetaminophen 5-325 mg per tab (Percocet) 1 Tablet 1 Tablet, Oral, ONCE, On Sat12/31/23 at 0815, For 1 dose, Maximum of 4 grams (4000 mg) of acetaminophen per day Given 12/31/2023 7:43 AM EDT 1 Tablet predniSONE (Deltasone) tab 50 mg 50 mg, Oral, ONCE, On Sat12/31/23 at 0815, For 1 dose Given 12/31/2023 7:42 AM EDT 50 mg documented in this encounter Active and Recently Administered Medications Times are shown in EDT. Scheduled Medication Order 12/29/2023 12/30/2023 12/31/2023 cyclobenzaprine (Flexeril) tab 10 mg (COMPLETED) 10 mg, Oral, ONCE, On Sat12/31/23 at 0815, For 1 dose 0743 (Given - Provid er: Caroline Alvarado, RN) Lidocaine (Aspercreme) 4 % patch 1 Patch 1 Patch, Transdermal, ONCE, On Sat12/31/23 at 0815, For 1 dose, Apply patch for 12 hours then remove for 12 hours! Remove any Lidocaine patches the patient may currently be wearing prior to applying the new patch 0742 (Patch Applied - Provider: Caroline Sánchez RN)0817 (Due: Patch Removed - Provider: Discharge, Physician - Comment: Time automatically adjusted from order being discontinued) oxyCODONE-acetaminophen 5-325 mg per tab (Percocet) 1 Tablet (COMPLETED) 1 Tablet, Oral, ONCE, On Sat12/31/23 at 0815, For 1 dose, Maximum of 4 grams (4000 mg) of acetaminophen per day 0743 (Given - Provid er: Craoline Sánchez RN) predniSONE (Deltasone) tab 50 mg (COMPLETED) 50 mg, Oral, ONCE, On Sat12/31/23 at 0815, For 1 dose 0742 (Given - Provid er: Caroline Sánchez RN) documented in this encounter Advance Directives * Full Code (Latest Code Status on File) Date Activated Date Inactivated Comments 05/12/2015 6:31 AM 05/12/2015 12:32 PM This order reflects the patients wishes and were consensually agreed upon. Care Teams Biological Inspector Relationship Specialty Start Date End Date Pro, Lucian Johnson MD [address] [place] [address] PCP - General Internal Medicine 08/19/15 documented as of this encounter
--- NOTE | 2024-01-04 08:45 | Emergency Department Note ---
Impression & Plan Acute exacerbation of chronic low back pain, Presence of intrathecal pump, Lumbosacral radiculopathy, Chronic pain ED Provider Note NAME: AMAJRIT SHEA AGE: 58 SEX: M : 1965 ARRIVES VIA: Walk-In INFORMANT: Patient ED PROVIDER(S): Nghia Sy MD CHIEF COMPLAINT: Back, abdominal, hip, leg pain worsening. PLAN: Disposition: Admit MEDICAL DECISION MAKING: The patient is a 58-year-old gentleman with a past medical history of cervical postlaminectomy syndrome, presence of intrathecal pump, osteoarthritis of the left hip, pain contract and follow-up with pain management who presents to the emergency department via walk-in accompanied by his brother for evaluation of worsening intractable back, bilateral hip (left greater than right and bilateral leg pain where he is unable to walk. Patient reports because of his pain has not been having drinking and has been losing 10 pounds over the past several weeks. Patient was seen by his outpatient orthopedic provider and has an MRI scheduled for tomorrow but felt he could not make it until then. The patient was seen in this med department proxy a week ago for similar symptoms and had an unremarkable CT of the pelvis without contrast due to contrast allergy and lab work. Patient denies any fevers but has had chills. He reports intermittent nausea and did have episode of vomiting. He denies urinary retention or loss of bowel control. On evaluation the patient is uncomfortable, diaphoretic with blood pressure 160/70s and heart rate in the 90s and vitals otherwise stable. Appears clinically dry. Patient he is moving all extremities equally with symmetric strength but does have severe pain in his lower back with straight leg raise bilateral extremities. Reflexes within normal limits. There is no clonus. L5 is intact bilaterally. EKG without overt acute ischemia. CXR negative for acute cardiopulmonary process per my personal preliminary review/interpretation. WBC, H/H, and platelets wnl. ESR and CRP 25 and and 2.05, non-specific. Glucose 200s and chemistry with Bicarb of 20 and BUN/Cr 25.4 c/w clinically dry appearance. LFTs unremarkable. Lipase Mildly elevated at 231, nonspecific. Medical Etoh undetectable. CT abd/pelvis and lumbar spine negative for acute abnormalities. Borderline gallbladder wall thickening but with nontender upper abdomen and unremarkable LFTs. Moderate to extensive colonic fecal retention is described. Patient was treated with IVF hydration, IV apap and toradol as well as dexamethasone and Morphine. Given patient's intractable pain, he agrees with plan for admission. Case was discussed with ULYSSES Arellano PAC, and Dr. Prince [facility] hospitalist who will evaluate the patient for admission. Further management per admitting team. Triage Nursing notes reviewed and agree them. Prior/external medical records reviewed Vital Signs: reviewed Differential diagnosis: Musculoskeletal, disc herniation, fracture, metastatic disease, cord compression, discitis, sciatica, cauda equina, infection, aortic disease, renal colic, gastrointestinal, as well as other pathologies. ER treatment provided: See below. Diagnostics interpreted by me: ECG: NSR, 77 bpm, no ectopy, incomplete RBBB, no overt ST elevation or depression. Cardiac Monitoring: An order for continuous cardiac monitoring was placed and demonstrated NSR, 77 bpm, no ectopy. Laboratory studies: See below Imaging studies: See below Consultation(s): Case was discussed with ULYSSES Arellano PAC, and Dr. Prince [facility] hospitalist who will evaluate the patient for admission. HPI: The patient is a 58-year-old gentleman with a past medical history of cervical postlaminectomy syndrome, presence of intrathecal pump, osteoarthritis of the left hip, pain contract and follow-up with pain management who presents to the emergency department via walk-in accompanied by his brother for evaluation of worsening intractable back, bilateral hip (left greater than right and bilateral leg pain where he is unable to walk. Patient reports because of his pain has not been having drinking and has been losing 10 pounds over the past several weeks. Patient was seen by his outpatient orthopedic provider and has an MRI scheduled for tomorrow but felt he could not make it until then. The patient was seen in this med department proxy a week ago for similar symptoms and had an unremarkable CT of the pelvis without contrast due to contrast allergy and lab work. Patient denies any fevers but has had chills. He reports intermittent nausea and did have episode of vomiting. He denies urinary retention or loss of bowel control. ROS: See above HPI for pertinent positives & negatives. A total of 10 systems reviewed and were otherwise negative. VITALS:See Below PHYSICAL EXAMINATION: GENERAL: Awake, alert, uncomfortable-appearing, in no distress HENT: Normocephalic, atraumatic. Oropharynx with dry mucous membranes and otherwise unremarkable. EYES: Normal conjunctiva. Sclera non-icteric. NECK: Supple. No nuchal rigidity. FROM. No JVD. RESPIRATORY: Clear to auscultation. CARDIAC: Regular rate, normal rhythm. Extremities warm and well perfused. Pulses equal. ABDOMEN: Soft, non-distended. No tenderness to palpation. No rebound or guarding. No masses. MUSCULOSKELETAL: Chest examination reveals no tenderness. The back is symmetrical on inspection without obvious abnormality. There is no CVA tenderness to palpation. No joint edema. LOWER EXTREMITIES: Calves are equal size bilaterally and non-tender. No edema. No discoloration. NEURO: No focal sensory or motor deficits noted. CNII-XII grossly intact. Moving all extremities equally with symmetric strength but does have severe pain in his lower back with straight leg raise bilateral extremities. Reflexes within normal limits. There is no clonus. L5 is intact bilaterally. SKIN: No rash or jaundice noted. Nghia Sy MD Past Med/Surg History Problem List (Updated 01/04/24 @ 21:19 by Nghia Sy MD) Chronic pain (Acute) Lumbosacral radiculopathy (Acute) Hyperkalemia Pain, radicular, lumbar Abdominal pain, lower (Acute) Osteoarthritis of left hip Greater trochanteric bursitis of right hip AVN of femur Strain of left hamstring S/P arthroscopy of left shoulder Chronic SI joint pain Other shoulder lesions, left shoulder Rotator cuff tear, left Musculoskeletal pain of left thigh Rotator cuff tendinitis Rotator cuff tear Exertional shortness of breath Chronic cough Allergic rhinitis with postnasal drip COPD with emphysema Lumbosacral radiculitis Controlled type 2 diabetes mellitus Dyslipidemia Dysphagia Abdominal pain Abnormal weight loss COVID-19 (Acute) Acute exacerbation of chronic low back pain (Acute) Lumbar pain Right elbow pain Other bed bug exterminator (current) drug therapy Globus sensation Left-sided temporomandibular joint pain-dysfunction syndrome Left otitis media Allergic rhinitis Sacroiliitis Daytime sleepiness Piriformis syndrome Rotator cuff tear, right Lumbar radicular pain Benign prostate hyperplasia Current smoker Erectile dysfunction Fatigue Growth hormone deficiency Memory changes Pituitary hypogonadism Pituitary hypothyroidism (~12/03/23) Sensorineural hearing loss (SNHL) of both ears Vitamin B12 deficiency Vitamin D deficiency Hypothyroidism (Chronic) Diabetes mellitus (Chronic) Myofascial pain (Chronic) Tobacco dependence (Chronic) Presence of intrathecal pump (Acute) Asthma (Chronic) resuce inhaler only. rarely has to use. HTN (hypertension) Cervical post-laminectomy syndrome Medical History Hypertension Chronic intractable pain low back, cervical pain Benign prostate hyperplasia Vitamin D deficiency Vitamin B 12 deficiency Pituitary hypothyroidism Presence of intrathecal pump hydromorphone Sensorineural hearing loss (SNHL) of both ears Pituitary hypogonadism Growth hormone deficiency Other detention (current) drug therapy Dysphagia Chronic cough "smoker's cough" Exertional shortness of breath Myofascial pain Globus sensation "there's a ledge and sometimes food gets stuck" COPD with emphysema Follows with [facility] pulmonology Asthma stable with use of inhalers Allergic rhinitis History of colon polyps BENIGN History of COVID-19 03/2021. treated at [facility] Emergency room, no inpatient stay. symptoms included: extreme fatigue, Nausea, weakness. Uncontrolled type 2 diabetes mellitus Monitoring with DR Hickman- last seen 07/2023 no current medications Adjustment disorder with anxiety Cervical radiculopathy Sleep apnea pt denies Insomnia with fatigue Anxiety disorder in conditions classified elsewhere Major depressive disorder, recurrent, moderate Pain disorder associated with psychological factors and medical condition Hyperlipidemia Surgical History S/P insertion of intrathecal pump History of colonoscopy S/P epidural steroid injection cervical H/O arthroscopy of shoulder unsure of side. H/O arthroscopic knee surgery unsure of side History of esophagogastroduodenoscopy (EGD) With dilation History of fusion of cervical spine ACDF (multiple) limited ROM H/O cataract extraction not sure which eye History of inguinal hernia repair Family History Brother Lymphoma Mother Coronary heart disease Myocardial infarction Father Coronary heart disease Myocardial infarction Grandmother Coronary heart disease Other Cancer Denies family history of Ovarian cancer Prostate cancer Breast cancer Colorectal cancer Social History Smoking Status: Current every day smoker Tobacco Type: Cigarettes Cigarettes Per Day: 1 ppd x 35 years; Second Hand Exposure: Yes; Do You Dip or Chew Tobacco: No; Tobacco Cessation Education Requested by Patient: No Hx Alcohol Use: Yes Alcohol type: wine and hard liquor Hx Substance Use: No Preferred Language: Guyanese Communication Ability: Effective Visual Impairment: Limited Hearing Ability: Normal Quality Control Projectionist Required: No Beliefs That Will Affect Care: None marital status: Current Living Situation: Spouse Current Living Situation Comment: Lives with spouse current occupational status: disabled Other Information That Helps Us Care for You: No Feels Safe at Home: Yes Safety Concerns: Feels Safe At This Time Seatbelt Use: always Assistive Devices: None Allergies Allergies Allergy/AdvReac Type Severity Reaction Status Date / Time gabapentin [From Neurontin] Allergy Unknown Swelling Verified 01/04/24 12:55 Iodinated Contrast Media Allergy Unknown Difficulty Verified 01/04/24 12:55 Breathing Home Meds Home Medications Medication Instructions Recorded Confirmed Dilaudid Pain Pump 1.5mg/Ml 0.0172 mg intrathecal UD 05/09/21 01/04/24 varenicline 0.5 mg tablet 0 mg PO DAILY 12/12/23 01/04/24 cyclobenzaprine 10 mg tablet 10 mg PO TID PRN Pain/Muscle Spasms 12/31/23 01/04/24 lidocaine 4 % topical patch 1 patch topical Q24H 12/31/23 01/04/24 bupropion HCl 300 mg 24 hr tablet, 300 mg PO DAILY 01/04/24 01/04/24 extended release clonazepam 0.5 mg tablet (Klonopin) 0.5 mg PO BID PRN Anxiety 01/04/24 01/04/24 metformin 500 mg tablet,extended 0 mg PO BID 01/04/24 01/04/24 release 24 hr oxycodone-acetaminophen 5 mg-325 0 tab PO Q6H PRN pain 01/04/24 01/04/24 mg tablet (Percocet) tiotropium bromide 2.5 0 puff inhalation DAILY 01/04/24 01/04/24 mcg/actuation mist for inhalation (Spiriva Respimat) trazodone 150 mg tablet 150 mg PO HS 01/04/24 01/04/24 varenicline 1 mg tablet 0 mg PO BID 01/04/24 01/04/24 Previous Rx's Medication Instructions Recorded duloxetine 60 mg capsule,delayed 60 mg PO QAM #30 caps 11/13/22 release (Cymbalta) albuterol sulfate 90 mcg/actuation 2 puff inhalation UD PRN Shortness 04/11/23 aerosol inhaler Of Breath Or Wheezing #17 grams naloxone 4 mg/actuation nasal 4 mg intranasal Q2M PRN for 05/16/23 spray (Narcan) accidental overdose from pain pump #2 ea lisinopril 40 mg tablet 40 mg PO QAM #90 tabs 07/04/23 testosterone cypionate 100 mg/mL 100 mg IM WK #4 vials 07/25/23 intramuscular oil blood sugar diagnostic (OneTouch #300 ea 09/25/23 Verio test strips) blood-glucose meter (OneTouch #1 ea 09/25/23 Verio Flex Start kit) lancets 33 gauge (OneTouch Delica #300 ea 09/25/23 Plus Lancet) levothyroxine 100 mcg tablet 100 mcg PO QAM 90 days #90 tabs 10/10/23 (Synthroid) tramadol 50 mg tablet 50 mg PO Q6H PRN pain #20 tabs 11/28/23 atorvastatin 40 mg tablet (Lipitor) 40 mg PO HS #90 tabs 12/06/23 Results & Data (ED) Vital Signs Vital Signs - 24 hr 01/04/24 08:30 01/04/24 08:41 01/04/24 08:41 Temperature 36.6 C Temperature Source Oral Pulse Rate 116 H 96 H Pulse Rate from SpO2 Sensor Respiratory Rate 20 Respiratory Effort / Characteristics Non-Labored Spontaneous Respiratory Depth Normal Respiratory Pattern Blood Pressure 164/78 H Blood Pressure [Left Arm] Blood Pressure Mean 106 Blood Pressure Mean [Left Arm] Pulse Oximetry 99 99 Oxygen Delivery Method Room Air Room Air Sepsis Recent Fever Within 48 Hours No Sepsis New/Unexplained Change in Mental Status N/A Sepsis Action Taken by Nursing No Action Required 01/04/24 08:42 01/04/24 09:12 01/04/24 09:15 Temperature Temperature Source Pulse Rate 94 H 81 78 Pulse Rate from SpO2 Sensor 95 H 82 78 Respiratory Rate 24 23 20 Respiratory Effort / Characteristics Respiratory Depth Respiratory Pattern Blood Pressure 144/100 H Blood Pressure [Left Arm] Blood Pressure Mean 114 Blood Pressure Mean [Left Arm] Pulse Oximetry 99 99 99 Oxygen Delivery Method Sepsis Recent Fever Within 48 Hours Sepsis New/Unexplained Change in Mental Status Sepsis Action Taken by Nursing 01/04/24 09:28 01/04/24 09:42 01/04/24 09:57 Temperature Temperature Source Pulse Rate 75 Pulse Rate from SpO2 Sensor 75 Respiratory Rate 18 Respiratory Effort / Characteristics Respiratory Depth Respiratory Pattern Blood Pressure 152/103 H 157/91 H Blood Pressure [Left Arm] Blood Pressure Mean 132 106 Blood Pressure Mean [Left Arm] Pulse Oximetry 97 Oxygen Delivery Method Sepsis Recent Fever Within 48 Hours Sepsis New/Unexplained Change in Mental Status Sepsis Action Taken by Nursing 01/04/24 10:00 01/04/24 10:20 01/04/24 10:20 Temperature Temperature Source Pulse Rate Pulse Rate from SpO2 Sensor Respiratory Rate Respiratory Effort / Characteristics Respiratory Depth Respiratory Pattern Blood Pressure 98/73 L 118/77 118/77 Blood Pressure [Left Arm] Blood Pressure Mean 92 96 96 Blood Pressure Mean [Left Arm] Pulse Oximetry Oxygen Delivery Method Sepsis Recent Fever Within 48 Hours Sepsis New/Unexplained Change in Mental Status Sepsis Action Taken by Nursing 01/04/24 10:21 01/04/24 10:39 01/04/24 10:45 Temperature Temperature Source Pulse Rate 74 72 73 Pulse Rate from SpO2 Sensor 74 73 Respiratory Rate 14 9 L 7 L Respiratory Effort / Characteristics Respiratory Depth Respiratory Pattern Blood Pressure Blood Pressure [Left Arm] Blood Pressure Mean Blood Pressure Mean [Left Arm] Pulse Oximetry 98 98 Oxygen Delivery Method Sepsis Recent Fever Within 48 Hours Sepsis New/Unexplained Change in Mental Status Sepsis Action Taken by Nursing 01/04/24 10:57 01/04/24 10:57 01/04/24 10:58 Temperature Temperature Source Pulse Rate 74 Pulse Rate from SpO2 Sensor 75 Respiratory Rate 19 Respiratory Effort / Characteristics Respiratory Depth Respiratory Pattern Blood Pressure 114/66 119/78 Blood Pressure [Left Arm] Blood Pressure Mean 92 98 Blood Pressure Mean [Left Arm] Pulse Oximetry 98 Oxygen Delivery Method Sepsis Recent Fever Within 48 Hours Sepsis New/Unexplained Change in Mental Status Sepsis Action Taken by Nursing 01/04/24 10:58 01/04/24 11:00 01/04/24 11:00 Temperature Temperature Source Pulse Rate Pulse Rate from SpO2 Sensor Respiratory Rate 20 Respiratory Effort / Characteristics Moaning Respiratory Depth Normal Respiratory Pattern Regular Blood Pressure 119/78 129/83 Blood Pressure [Left Arm] 134/82 Blood Pressure Mean 98 103 Blood Pressure Mean [Left Arm] 99 Pulse Oximetry 98 Oxygen Delivery Method Room Air Sepsis Recent Fever Within 48 Hours Sepsis New/Unexplained Change in Mental Status Sepsis Action Taken by Nursing 01/04/24 11:00 01/04/24 11:02 01/04/24 11:02 Temperature Temperature Source Pulse Rate 78 Pulse Rate from SpO2 Sensor 73 Respiratory Rate 11 L Respiratory Effort / Characteristics Respiratory Depth Respiratory Pattern Blood Pressure 134/82 134/82 Blood Pressure [Left Arm] Blood Pressure Mean 99 99 Blood Pressure Mean [Left Arm] Pulse Oximetry 97 Oxygen Delivery Method Sepsis Recent Fever Within 48 Hours Sepsis New/Unexplained Change in Mental Status Sepsis Action Taken by Nursing 01/04/24 11:30 Temperature Temperature Source Pulse Rate 71 Pulse Rate from SpO2 Sensor Respiratory Rate 23 Respiratory Effort / Characteristics Respiratory Depth Respiratory Pattern Blood Pressure 132/65 Blood Pressure [Left Arm] Blood Pressure Mean 87 Blood Pressure Mean [Left Arm] Pulse Oximetry 94 Oxygen Delivery Method Room Air Sepsis Recent Fever Within 48 Hours Sepsis New/Unexplained Change in Mental Status Sepsis Action Taken by Nursing Laboratory Data Attestation: I reviewed the patient's lab results. 01/04/24 08:50 01/04/24 14:47 Lab Results 01/04/24 01/04/24 01/04/24 Range/Units 08:50 10:42 11:20 WBC 9.98 (4.8-10.8) K/ul RBC 5.10 (4.70-6.10) M/uL Hgb 16.8 (14.0-18.0) g/dl Hct 45.9 (42.0-52.0) % MCV 90.0 (80.0-100.0) fL MCH 32.9 (25.0-34.0) pg MCHC 36.6 H (32.0-36.0) g/dL RDW Std Deviation 41.1 (36.4-46.3) fL RDW Coeff of Salome 12.4 (11.5-14.5) % Plt Count 276 (130-400) K/uL MPV 9.4 (9.4-12.4) fL Immature Gran % (Auto) 0.3 % Neut % (Auto) 59.5 % Lymph % (Auto) 31.2 % Maury % (Auto) 7.4 % Eos % (Auto) 0.9 % Baso % (Auto) 0.7 % Neut # (Auto) 5.94 (1.40-6.50) K/uL Lymph # (Auto) 3.11 (1.20-3.40) K/uL Maury # (Auto) 0.74 H (0.11-0.59) K/uL Eos # (Auto) 0.09 (0.00-0.50) K/uL Baso # (Auto) 0.07 (0.00-0.20) K/uL Immature Gran # (Auto) 0.03 (0.01-0.20) K/uL ESR 25 H (0-20) mm/hr PT 10.3 (9.0-12.0) Seconds INR 0.9 (0.9-1.1) Sodium 131 L (136-145) mmol/L Potassium 5.5 H (3.5-5.1) mmol/L Chloride 98 (98-107) mmol/L Carbon Dioxide 20 L (21-32) mmol/L Anion Gap 13 H (3-11) BUN 33 H (6-23) mg/dl Creatinine 1.30 (0.6-1.4) mg/dl Est Cr Clr Drug Dosing Not Reportable Est GFR ( Amer) 69.2 ml/min Est GFR (Non-Af Amer) 59.7 ml/min BUN/Creatinine Ratio 25.4 H (10-20) Glucose 205 H (70-99(Fasting)) mg/dl Calcium 10.0 (8.6-10.3) mg/dl Phosphorus 2.4 L (2.5-4.9) mg/dl Magnesium 2.3 (1.7-2.4) mg/dl Total Bilirubin 1.0 (0.2-1.0) mg/dl AST 12 L (13-39) U/L ALT 13 (7-52) U/L Alkaline Phosphatase 123 H (34-104) U/L C-Reactive Protein 2.05 H (0-0.5) mg/dl Total Protein 7.7 (6.0-8.3) gm/dl Albumin 4.7 (3.4-5.0) gm/dl Globulin 3.0 (2.5-4.0) gm/dl Albumin/Globulin Ratio 1.6 (0.9-2) Lipase 231 H (11-82) U/L Urine Color Dark Yellow Urine Appearance Clear (Clear) Urine pH 7.5 (4.5-7.5) Ur Specific [place] 1.025 (1.000-1.030) Urine Protein 1+ H (Negative) Urine Glucose (UA) 1+ H (Negative) Urine Ketones 1+ H (Negative) Urine Blood Negative (Negative) Urine Nitrite Negative (Negative) Urine Bilirubin Negative (Negative) Urine Urobilinogen Negative (Negative) Ur Leukocyte Esterase Trace H (Negative) Urine WBC (Auto) 0-5 (0-5) /hpf Urine RBC (Auto) 0-2 (0-2) /hpf U Hyaline Cast (Auto) 3-5 H (0-2) /lpf U Epithel Cells (Auto) 0-2 (0-2) /hpf Urine Bacteria (Auto) None Seen (None Seen) Ethyl Alcohol mg/dL < 10.0 (<10.0) mg/dl Lyme Disease Screen Negative (Negative) Administered Medications Acetaminophen (Acetaminophen 325 Mg Tab) 650 mg PO Q6H ZENY Stop: 02/03/24 13:59 Last Admin: 01/04/24 20:44 Dose: 650 mg Documented By: social work professor: 01/04/24 14:55 Dose: 650 mg Documented By: ABH Atorvastatin Calcium (Atorvastatin 40 Mg Tab) 40 mg PO HS ZENY Stop: 02/03/24 20:59 Last Admin: 01/04/24 20:47 Dose: 40 mg Documented By: MED Dextrose (Dextrose 50% 50 Ml Syringe) 25 - 50 ml IV UD PRN; Protocol PRN Reason: Hypoglycemia Protocol Stop: 02/03/24 12:30 Last Admin: 01/04/24 14:18 Dose: 50 ml Documented By: ABH Enoxaparin Sodium (Enoxaparin Inj 40 Mg/0.4 Ml Syr) 40 mg SQ Q24H ZENY Stop: 02/03/24 20:59 Last Admin: 01/04/24 20:47 Dose: 40 mg Documented By: MED Famotidine (Famotidine 20 Mg Tab) 20 mg PO QAM ZENY Stop: 02/03/24 18:59 Last Admin: 01/04/24 19:56 Dose: 20 mg Documented By: MED Lactated Ringer's (Lr) 1,000 mls @ 100 mls/hr IV .Q10H ZENY Stop: 01/04/24 23:14 Last Admin: 01/04/24 14:55 Dose: 100 mls/hr Documented By: ABH Insulin Aspart (Insulin Aspart Per Unit Charge) 0 units SC ACHS ZENY Stop: 02/03/24 16:29 Last Admin: 01/04/24 20:48 Dose: 2 units Documented By: JACOBO Co-signed By: ASTRID Admin: 01/04/24 17:37 Dose: 4 units Documented By: NAIMA Co-signed By: ERASTO Insulin Glargine (Lantus Per Unit Charge) 5 units SQ BID ZENY Stop: 02/03/24 20:59 Last Admin: 01/04/24 20:48 Dose: 5 units Documented By: MED Co-signed By: ASTRID Ketorolac Tromethamine (Ketorolac 30 Mg/Ml Vial) 30 mg IV Q6H ZENY Stop: 01/06/24 18:59 Last Admin: 01/04/24 19:55 Dose: 30 mg Documented By: JACOBO Morphine Sulfate (Morphine Sulfate 4 Mg/Ml 1 Ml Carp\\Vial) 4 mg IV Q3H PRN PRN Reason: Pain (6,7,8,9,10) Stop: 01/18/24 12:24 Last Admin: 01/04/24 18:12 Dose: 4 mg Documented By: Admin: 01/04/24 14:50 Dose: 4 mg Documented By: NAIMA Nicotine (Nicotine 21 Mg/24 Hr Tdsy) 1 patch [facility] [place] Stop: 02/03/24 12:29 Last Admin: 01/04/24 15:43 Dose: 1 patch Documented By: NAIMA Polyethylene Glycol (Polyethylene (Miralax) 17 Gm Pack) 17 gm PO DAILY [facility] Stop: 02/03/24 12:29 Last Admin: 01/04/24 14:20 Dose: 17 gm Documented By: NAIMA Sennosides (Senna 8.6 Mg Tab) 8.6 mg PO QAM ZENY Stop: 02/03/24 12:29 Last Admin: 01/04/24 14:20 Dose: 8.6 mg Documented By: NAIMA Trazodone HCl (Trazodone Hcl 50 Mg Tab) 150 mg PO HS [facility] Stop: 02/03/24 20:59 Last Admin: 01/04/24 20:43 Dose: 150 mg Documented By: JACOBO Discontinued Medications Dexamethasone Sodium Phosphate (DexamethasonePf 10 Mg/Ml Vial) 10 mg IV NOW ONE Stop: 01/04/24 09:08 Last Admin: 01/04/24 09:17 Dose: 10 mg Documented By: MICHEL Sodium Chloride (Nss) 1,000 mls @ 999 mls/hr IV .Q1H1M ONE Stop: 01/04/24 09:44 Last Infusion: 01/04/24 11:30 Dose: Infused Documented By: Admin: 01/04/24 08:56 Dose: 999 mls/hr Documented By: MICHEL Acetaminophen (Ofirmev) 1,000 mg in 100 mls @ 400 mls/hr IV NOW STA Stop: 01/04/24 09:20 Last Infusion: 01/04/24 09:37 Dose: Infused Documented By: Admin: 01/04/24 09:22 Dose: 400 mls/hr Documented By: MICHEL Insulin Human Regular 10 units (/ Syringe) 10 mls @ 3 mls/sec IV ONE ONE Stop: 01/04/24 13:16 Last Admin: 01/04/24 14:18 Dose: 3 mls/sec Documented By: NAIMA Co-signed By: RAFITA Calcium Gluconate () 1,000 mg in 60 mls @ 240 mls/hr IV NOW STA Stop: 01/04/24 12:13 Last Infusion: 01/04/24 14:59 Dose: Infused Documented By: Admin: 01/04/24 14:29 Dose: 240 mls/hr Documented By: NAIMA Ketorolac Tromethamine (Ketorolac Tromethamine 15 Mg/Ml Vial) 15 mg IV NOW STA Stop: 01/04/24 10:43 Last Admin: 01/04/24 10:53 Dose: 15 mg Documented By: MICHEL Lidocaine (Lidocaine 5% 1 Patch) 1 patch TD NOW STA Stop: 01/04/24 12:30 Last Admin: 01/04/24 15:46 Dose: 1 patch Documented By: NAIMA Morphine Sulfate (Morphine Sulfate 10 Mg/Ml Carp/Vial) 6 mg IV NOW STA Stop: 01/04/24 09:07 Last Admin: 01/04/24 09:21 Dose: 6 mg Documented By: MICHEL Morphine Sulfate (Morphine Sulfate 10 Mg/Ml Carp/Vial) 6 mg IV NOW STA Stop: 01/04/24 10:43 Last Admin: 01/04/24 10:54 Dose: 6 mg Documented By: MICHEL Pregabalin (Pregabalin 25 Mg Cap) 25 mg PO NOW STA Stop: 01/04/24 14:13 Last Admin: 01/04/24 14:20 Dose: 25 mg Documented By: [facility] Imaging Data Radiologist's Impression: Abdomen/Pelvis CT 01/04/24 09:[address] WITHOUT CONTRAST; CT LUMBAR SPINE WITHOUT CONTRAST. CT DOSE: 954.22 mGy.cm HISTORY: Acute abdominal and low back pain status post trauma lumbar, abd, leg pain TECHNIQUE: Multiaxial CT images of the abdomen and pelvis and lumbar spine were performed without contrast. A dose lowering technique was utilized adhering to the principles of ALARA. COMPARISON STUDY: CT thoracic spine 02/26/2023, lumbar spine radiographs 10/15/2022 FINDINGS: CT ABDOMEN/PELVIS: Clear lung bases. No free air. The unenhanced spleen, pancreas and adrenal glands are unremarkable. Probable biliary sludge with borderline gallbladder wall thickening and trace pericholecystic stranding. Unremarkable liver. Mild nonspecific bilateral perinephric stranding. No hydronephrosis. Prostatomegaly. Urinary bladder wall thickening with partial distention. Small fat filled left inguinal hernia. Atherosclerosis of aorta. No lymphadenopathy. No bowel obstruction or bowel wall thickening. Moderate to extensive colonic fecal retention. Unremarkable pancreas. Battery pack in the left anterior abdominal wall intrathecal catheter imaged portions appear intact. No acute fracture identified. LUMBAR SPINE: Severe L5/S1 facet arthrosis. Also mild multilevel spondylotic spurring and intervertebral disc space narrowing. Surgical catheter enters the central canal at level L2-L3. Image portions appear intact. No acute fracture or subluxation identified. IMPRESSION: 1. No acute posttraumatic intra-abdominal or intrapelvic abnormality. 2. No acute fracture or subluxation of the lumbar spine identified. 3. No bowel obstruction or bowel wall thickening. 4. Moderate to extensive colonic fecal retention. 5. Nonspecific borderline gallbladder wall thickening. ACT 112: Negative or not required by law. The above report was generated using voice recognition software. It may contain grammatical, syntax or spelling errors. Electronically signed by: Ray Gonzales M.D. 01/04/2024 11:[address] 01/04/24 09:[address] WITHOUT CONTRAST; CT LUMBAR SPINE WITHOUT CONTRAST. CT DOSE: 954.22 mGy.cm HISTORY: Acute abdominal and low back pain status post trauma lumbar, abd, leg pain TECHNIQUE: Multiaxial CT images of the abdomen and pelvis and lumbar spine were performed without contrast. A dose lowering technique was utilized adhering to the principles of ALARA. COMPARISON STUDY: CT thoracic spine 02/26/2023, lumbar spine radiographs 10/15/2022 FINDINGS: CT ABDOMEN/PELVIS: Clear lung bases. No free air. The unenhanced spleen, pancreas and adrenal glands are unremarkable. Probable biliary sludge with borderline gallbladder wall thickening and trace pericholecystic stranding. Unremarkable liver. Mild nonspecific bilateral perinephric stranding. No hydronephrosis. Prostatomegaly. Urinary bladder wall thickening with partial distention. Small fat filled left inguinal hernia. Atherosclerosis of aorta. No lymphadenopathy. No bowel obstruction or bowel wall thickening. Moderate to extensive colonic fecal retention. Unremarkable pancreas. Battery pack in the left anterior abdominal wall intrathecal catheter imaged portions appear intact. No acute fracture identified. LUMBAR SPINE: Severe L5/S1 facet arthrosis. Also mild multilevel spondylotic spurring and intervertebral disc space narrowing. Surgical catheter enters the central canal at level L2-L3. Image portions appear intact. No acute fracture or subluxation identified. IMPRESSION: 1. No acute posttraumatic intra-abdominal or intrapelvic abnormality. 2. No acute fracture or subluxation of the lumbar spine identified. 3. No bowel obstruction or bowel wall thickening. 4. Moderate to extensive colonic fecal retention. 5. Nonspecific borderline gallbladder wall thickening. ACT 112: Negative or not required by law. The above report was generated using voice recognition software. It may contain grammatical, syntax or spelling errors. Electronically signed by: Ray Gonzales M.D. 01/04/2024 11:36 AM Chest X-Ray 01/04/24 09:10 XR chest 1V portable HISTORY: 58 years-old Male body aches, chills acute fever COMPARISON: 03/28/2023 TECHNIQUE: AP view of the chest FINDINGS: Cardiac silhouette is normal. Edema. Lungs are clear. No pneumothorax or pleural effusion. Cervical spinal fusion hardware. Degenerative changes of the shoulders and spine. IMPRESSION: Emphysema without acute process. ACT 112: Negative or not required by law. The above report was generated using voice recognition software. It may contain grammatical, syntax or spelling errors. Electronically signed by: Ray Gonzales M.D. 01/04/2024 9:30 AM Discharge Plan Visit Data Chief Complaint: Pain (Generalized) Stated Complaint: ABD, LOW BACK AND HIP PAIN, WEAKNESS ED Provider: Nghia Sy Discharge Problem: Acute exacerbation of chronic low back pain, Presence of intrathecal pump, Lumbosacral radiculopathy, Chronic pain Patient Disposition: Admitted As Inpatient Discharge Instructions Interventions: ED Discharge Assessment Last Done: 01/04/24 12:51 Discharge Problem: Chronic pain Qualifiers: Chronic pain type: other chronic pain Qualified Code(s): G89.29 - Other chronic pain
[2024-01-04] MEDS: SODIUM CHLORIDE 0.9% 1,000 ML IV ONE (08:56)
[2024-01-04 09:08] LABS: Basophils # (auto) 0.07 K/uL (0.00-0.20); Basophils % (auto) 0.7 %; Eosinophils # (auto) 0.09 K/uL (0.00-0.50); Eosinophils % (auto) 0.9 %; Hematocrit (blood only) 45.9 % (42.0-52.0); Hemoglobin 16.8 g/dl (14.0-18.0); Immature Granulocytes # (auto) 0.03 K/uL (0.01-0.20); Immature Granulocytes % (auto) 0.3 %; Lymphocytes # (auto) 3.11 K/uL (1.20-3.40); Lymphocytes % (auto) 31.2 %; Mean Corpuscular Hemoglobin 32.9 pg (25.0-34.0); Mean Corpuscular Hgb Conc 36.6 g/dL (32.0-36.0); Mean Platelet Volume 9.4 fL (9.4-12.4); Monocytes # (auto) 0.74 K/uL (0.11-0.59); Monocytes % (auto) 7.4 %; Neutrophils # (auto) 5.94 K/uL (1.40-6.50); Neutrophils % (auto) 59.5 %; Platelet Count 276 K/uL (130-400); RDW Coefficient of Variation 12.4 % (11.5-14.5); RDW Standard Deviation 41.1 fL (36.4-46.3); White Blood Count 9.98 K/ul (4.8-10.8)
[2024-01-04] MEDS: dexAMETHasone**PF** 10 MG/ML VIAL IV ONE (09:17)
[2024-01-04] MEDS: MoRPHine SULFATE 10 MG/ML CARP/VIAL IV STA ×2 (09:21→10:54)
[2024-01-04] MEDS: ACETAMINOPHEN 1,000 MG/100 ML VIAL IV STA (09:22)
[2024-01-04 09:23] LABS: Alanine Aminotransferase 13 U/L (7-52); Albumin Globulin Ratio 1.6 (0.9-2); Albumin Level 4.7 gm/dl (3.4-5.0); Alkaline Phosphatase 123 U/L (34-104); Anion Gap 13 (3-11); Aspartate Aminotransferase 12 U/L (13-39); BUN Creatinine Ratio 25.4 (10-20); Blood Urea Nitrogen 33 mg/dl (6-23); C Reactive Protein 2.05 mg/dl (0-0.5); Carbon Dioxide 20 mmol/L (21-32); Chloride 98 mmol/L (98-107); Est GFR (African American) 69.2 ml/min; Est GFR (Non-African American) 59.7 ml/min; Glucose 205 mg/dl (70-99(Fasting)); Lipase 231 U/L (11-82); Magnesium 2.3 mg/dl (1.7-2.4); Phosphorus 2.4 mg/dl (2.5-4.9); Potassium 5.5 mmol/L (3.5-5.1); Sodium 131 mmol/L (136-145); Total Protein 7.7 gm/dl (6.0-8.3)
--- NOTE | 2024-01-04 09:31 | XRay Report ---
XR chest 1V portable HISTORY: 58 years-old Male body aches, chills acute fever COMPARISON: 03/28/2023 TECHNIQUE: AP view of the chest FINDINGS: Cardiac silhouette is normal. Edema. Lungs are clear. No pneumothorax or pleural effusion. Cervical s goldie fusion hardware. Degenerative changes of the shoulders and spine. IMPRESSION: Emphysema without acute process. ACT 112: Negative or not required by law. The above report was generated using voice recognition software. It may contain grammatical, syntax o r spelling errors. Electronically signed by: Ray Gonzales M.D. 01/04/2024 9:30 AM
[2024-01-04 09:42] LABS: INR 0.9 (0.9-1.1); Prothrombin Time 10.3 Seconds (9.0-12.0)
[2024-01-04] MEDS: KETOROLAC TROMETHAMINE 15 MG/ML VIAL IV STA (10:53)
[2024-01-04 11:37] LABS: Appearance Urine Clear (Clear); Bacteria Urine Automated None Seen (None Seen); Bilirubin Urine Negative (Negative); Blood Urine Negative (Negative); Color Urine Dark Yellow; Epithelial Cell Urine Auto 0-2 /hpf (0-2); Glucose Urine UA 1+ (Negative); Ketones Urine 1+ (Negative); Leukocyte Esterase Urine Trace (Negative); Nitrite Urine Negative (Negative); Protein Urine 1+ (Negative); RBC Urine Automated 0-2 /hpf (0-2); Specific Gravity Urine 1.025 (1.000-1.030); Urobilinogen Urine Negative (Negative); WBC Urine Automated 0-5 /hpf (0-5); pH Urine 7.5 (4.5-7.5)
--- NOTE | 2024-01-04 11:39 | CT Scan Report ---
ABDOMEN AND PELVIS CT WITHOUT CONTRAST; CT LUMBAR SPINE WITHOUT CONTRAST. CT DOSE: 954.22 mGy.cm HISTORY: Acute abdominal and low back pain status post trauma lumbar, abd, leg pain TECHNIQUE: Multiaxial CT images of the abdomen and pelvis and lumbar spine were performed without con trast. A dose lowering technique was utilized adhering to the principles of ALARA. COMPARISON STUDY: CT thoracic spine 02/26/2023, lumbar spine radiographs 10/15/2022 FINDINGS: CT ABDOMEN/PELVIS: Clear lung bases. No free air. The unenhanced spleen, pancreas and adrenal glands are unremarkable. Probable biliary sludge with borderline gallbladder wall thickening and trace peric holecystic stranding. Unremarkable liver. Mild nonspecific bilateral perinephric stranding. No hydron ephrosis. Prostatomegaly. Urinary bladder wall thickening with partial distention. Small fat filled l eft inguinal hernia. Atherosclerosis of aorta. No lymphadenopathy. No bowel obstruction or bowel wall thickening. Moderate to extensive colonic fecal retention. Unremar kable pancreas. Battery pack in the left anterior abdominal wall intrathecal catheter imaged portions appear intact. No acute fracture identified. LUMBAR SPINE: Severe L5/S1 facet arthrosis. Also mild multilevel spondylotic spurring and interverteb ral disc space narrowing. Surgical catheter enters the central canal at level L2-L3. Image portions a ppear intact. No acute fracture or subluxation identified. IMPRESSION: 1. No acute posttraumatic intra-abdominal or intrapelvic abnormality. 2. No acute fracture or subluxation of the lumbar spine identified. 3. No bowel obstruction or bowel wall thickening. 4. Moderate to extensive colonic fecal retention. 5. Nonspecific borderline gallbladder wall thickening. ACT 112: Negative or not required by law. The above report was generated using voice recognition software. It may contain grammatical, syntax o r spelling errors. Electronically signed by: Ray Gonzales M.D. 01/04/2024 11:36 AM
[2024-01-04] MEDS ORDERED: NICOTINE POLACRILEX 2 MG GUM MT PRN (12:17)
[2024-01-04] MEDS ORDERED: PREGABALIN 25 MG CAP PO STA (12:22)
[2024-01-04] MEDS ORDERED: MoRPHine SULFATE 2 MG/ML CARP IV PRN (12:25)
[2024-01-04] MEDS ORDERED: NALOXONE HCL 0.4 MG/1 ML VIAL/CARP IV PRN (12:25)
[2024-01-04] MEDS ORDERED: GLUCOSE 40% GEL 15 GM TUBE PO PRN (12:31)
[2024-01-04] MEDS ORDERED: GLUCAGON FOR INJ 1 MG VIAL SQ PRN (12:31)
[2024-01-04] MEDS ORDERED: GLUCOSE 10 TAB/TUBE PO PRN (12:31)
--- NOTE | 2024-01-04 12:32 | History & Physical Report ---
Date of Service January 04, 2024 Assessment & Plan (1) Pain, radicular, lumbar: Plan: Admit to [facility] telemetry on pulse symmetry Currently stable nontoxic-appearing Presented to the ED due to progressively worsening lumbar back pain with radiation down the posterior left lower extremity to the left knee Denies recent trauma, notes mild paresthesia in the left lower extremity but no weakness or red flag symptoms CT of the abdomen pelvis/lumbar spine without contrast was negative for acute trauma but did note moderate to extensive colonic fecal retention Suspect patient is experiencing some form of spinal stenosis/foraminal stenosis causing his symptoms, it does appear that he has a history of chronic lumbar back pain and SI joint pain Will start 25 mg twice daily Lyrica on exam as he has not tried this in the past and his reaction to get up and was swelling Will continue with scheduled Tylenol, lidocaine patch, and heat As needed morphine for moderate to severe pain As needed Narcan for oversedation or respiratory depression Will try and coordinate with pain management and MRI to obtain MRI of the lumbar spine without contrast for further evaluation, however, per protocol the patient's pain pump will need to be assessed by pain management after the MRI to ensure it still functioning properly PT/OT consults have been placed Fall precautions SQ Lovenox for DVT prophylaxis Heart healthy/DM type II diet AM CBC, CMP, mag, PT/INR (2) Hyperkalemia: Plan: Potassium of 5.5 on arrival, no ECG was available in MUSE at the time of admission, will obtain stat ECG Suspect patient's hyperkalemia is a combination of mild metabolic acidosis on arrival with dehydration and lisinopril use 1 g IV calcium gluconate and 10 units IV insulin were ordered stat at the time of admission as his potassium was not treated well in the emergency department besides 1 L NSS Will repeat potassium level proximately 3 hours for reevaluation Hold lisinopril for now Continue to monitor on telemetry (3) Constipation: Plan: CT abdomen pelvis notes moderate to severe colonic obstruction Likely, narcotic use, limited recent mobility oral intake Will start scheduled MiraLAX and senna on admission along with ongoing hydration Continue to monitor for consistent bowel movements moving forward (4) Chronic intractable pain: Plan: Follows with pain management and has intrathecal cervical Dilaudid pain pump Will continue pain regimen per lumbar back pain plan Consider pain management consult if current regimen is unsuccessful and based on MRI lumbar spine results (5) Hypertension: Plan: Currently stable hold home lisinopril due to hyperkalemia for now (6) Tobacco abuse: Plan: Smoking 1 to 1.5 packs of cigarettes daily Continue to stress cessation Will start nicotine patch and as needed gum (7) COPD with emphysema: Plan: Currently stable on room air Continue as needed albuterol and home Spiriva Incentive spirometry (8) Uncontrolled type 2 diabetes mellitus: Plan: Monitor BSG ACHS, goal is [id number] Patient currently hyperglycemic with glucose of 200 on arrival Hold home metformin for now Was given 10 units IV insulin at the time of admission due to hyperkalemia Will start 5 units twice daily Lantus, correction factor of 50, and carb ratio of 15 ACHS for now Adjust regimen as needed (9) Pituitary hypogonadism: Plan: Continue levothyroxine Plan The patient was discussed with Dr. Prince at the time of the admission History of Present Illness Chief Complaint: Back pain, ambulatory dysfunction Primary Care Provider: Lucian Mccann MD Jean Pierre is a 58-year-old male with a past medical history significant for cervical postlaminectomy syndrome status post intrathecal pain pump, chronic low back and SI joint pain (follows with pain management), tobacco abuse, DM type II, COPD, dyslipidemia, and pituitary hypogonadism who presented to the [facility] ED on 01/04/2024 due to progressive radicular low back pain to the posterior left lower extremity and ambulatory function. Patient remained stable in the ED. Labs were significant for a potassium of 5.5, anion gap of 13 with bicarb of 20, glucose of 205, CRP of 2.05, negative alcohol level, and UA with 1+ protein/glucose/ketones, trace leukocyte esterase, and 35 hyaline cast. Chest x-ray noted emphysema without acute process. Lumbar spine CT and CT of the abdomen pelvis without contrast were read as negative for acute posttraumatic intra-abdominal or intrapelvic abnormality. No acute fracture or subluxation of the lumbar spine identified. No bowel obstruction or bowel thickening. Moderate to extensive colonic fecal retention. Nonspecific borderl ine gallbladder wall thickening. Prior to admission the patient was given 1 g IV Tylenol, 10 mg IV dexamethasone, 50 mg IV Toradol, 1 L NSS, and 2 doses 6 mg IV morphine. Patient was lying in bed in no acute distress at the time of exam. States that over the past 2 weeks the patient has been experiencing progressive lumbar back pain with radiation down the left buttocks and the posterior left lower extremity to the left knee. States that pain is constant but exacerbated with movement. Describes it as sharp/pins/needles and a 10 out of 10 at its worst. Denies weakness in the bilateral lower extremities and states that the ambulatory dysfunction is due to worsening pain when he stands or tries to walk. Denies saddle anesthesia, decreased sensation in the groin, or loss of bowel/bladder function. States that he has been constipated over the past 1 to 2 weeks because his p.o. intake is decreased. Denies recent falls or trauma. Denies recent fever/chills, chest pain, shortness of breath, abdominal pain, nausea/vomiting, dysuria/hematuria, or lower extremity swelling. States that he was scheduled to have an MRI on 01/06/2024 for further evaluation but could not tolerate the pain. Had been using his home Percocet and tramadol for pain, but these were not helping so he has not taken them over the past 4 days. Is smoking 1 to 1/2 packs of cigarettes a day. Denies recent alcohol use. Is a full code and would want his to make medical decisions for him if he cannot make them himself. Please refer to Dr. Prince's attestation for any changes to the treatment plan Allergies Allergy/AdvReac Type Severity Reaction Status Date / Time gabapentin [From Neurontin] Allergy Unknown Swelling Verified 01/04/24 12:55 Iodinated Contrast Media Allergy Unknown Difficulty Verified 01/04/24 12:55 Breathing Home Medications Medication Instructions Recorded Confirmed Type Dilaudid Pain Pump 1.5mg/Ml 0.0172 mg intrathecal UD 05/09/21 01/04/24 History duloxetine 60 mg capsule,delayed 60 mg PO QAM #30 caps 11/13/22 01/04/24 Rx release (Cymbalta) albuterol sulfate 90 mcg/actuation 2 puff inhalation UD PRN Shortness 04/11/23 01/04/24 Rx aerosol inhaler Of Breath Or Wheezing #17 grams naloxone 4 mg/actuation nasal 4 mg intranasal Q2M PRN for 05/16/23 01/04/24 Rx spray (Narcan) accidental overdose from pain pump #2 ea lisinopril 40 mg tablet 40 mg PO QAM #90 tabs 07/04/23 01/04/24 Rx testosterone cypionate 100 mg/mL 100 mg IM WK #4 vials 07/25/23 01/04/24 Rx intramuscular oil blood sugar diagnostic ([facility] #300 ea 09/25/23 12/12/23 Rx Verio test strips) blood-glucose meter (OneTouch #1 ea 09/25/23 12/12/23 Rx Verio Flex Start kit) lancets 33 gauge (JerryTouch Delica #300 ea 09/25/23 12/12/23 Rx Plus Lancet) levothyroxine 100 mcg tablet 100 mcg PO QAM 90 days #90 tabs 10/10/23 01/04/24 Rx (Synthroid) tramadol 50 mg tablet 50 mg PO Q6H PRN pain #20 tabs 11/28/23 01/04/24 Rx atorvastatin 40 mg tablet (Lipitor) 40 mg PO HS #90 tabs 12/06/23 01/04/24 Rx varenicline 0.5 mg tablet 0 mg PO DAILY 12/12/23 01/04/24 History cyclobenzaprine 10 mg tablet 10 mg PO TID PRN Pain/Muscle Spasms 12/31/23 01/04/24 History lidocaine 4 % topical patch 1 patch topical Q24H 12/31/23 01/04/24 History bupropion HCl 300 mg 24 hr tablet, 300 mg PO DAILY 01/04/24 01/04/24 History extended release clonazepam 0.5 mg tablet (Klonopin) 0.5 mg PO BID PRN Anxiety 01/04/24 01/04/24 History metformin 500 mg tablet,extended 0 mg PO BID 01/04/24 01/04/24 History release 24 hr oxycodone-acetaminophen 5 mg-325 0 tab PO Q6H PRN pain 01/04/24 01/04/24 History mg tablet (Percocet) tiotropium bromide 2.5 0 puff inhalation DAILY 01/04/24 01/04/24 History mcg/actuation mist for inhalation (Spiriva Respimat) trazodone 150 mg tablet 150 mg PO HS 01/04/24 01/04/24 History varenicline 1 mg tablet 0 mg PO BID 01/04/24 01/04/24 History Past Med/Surg History Problem List (Updated 01/04/24 @ 21:19 by Nghia Sy MD) Chronic pain (Acute) Lumbosacral radiculopathy (Acute) Hyperkalemia Pain, radicular, lumbar Abdominal pain, lower (Acute) Osteoarthritis of left hip Greater trochanteric bursitis of right hip AVN of femur Strain of left hamstring S/P arthroscopy of left shoulder Chronic SI joint pain Other shoulder lesions, left shoulder Rotator cuff tear, left Musculoskeletal pain of left thigh Rotator cuff tendinitis Rotator cuff tear Exertional shortness of breath Chronic cough Allergic rhinitis with postnasal drip COPD with emphysema Lumbosacral radiculitis Controlled type 2 diabetes mellitus Dyslipidemia Dysphagia Abdominal pain Abnormal weight loss COVID-19 (Acute) Acute exacerbation of chronic low back pain (Acute) Lumbar pain Right elbow pain Other termite inspector (current) drug therapy Globus sensation Left-sided temporomandibular joint pain-dysfunction syndrome Left otitis media Allergic rhinitis Sacroiliitis Daytime sleepiness Piriformis syndrome Rotator cuff tear, right Lumbar radicular pain Benign prostate hyperplasia Current smoker Erectile dysfunction Fatigue Growth hormone deficiency Memory changes Pituitary hypogonadism Pituitary hypothyroidism (~12/03/23) Sensorineural hearing loss (SNHL) of both ears Vitamin B12 deficiency Vitamin D deficiency Hypothyroidism (Chronic) Diabetes mellitus (Chronic) Myofascial pain (Chronic) Tobacco dependence (Chronic) Presence of intrathecal pump (Acute) Asthma (Chronic) resuce inhaler only. rarely has to use. HTN (hypertension) Cervical post-laminectomy syndrome Medical History Hypertension Chronic intractable pain low back, cervical pain Benign prostate hyperplasia Vitamin D deficiency Vitamin B 12 deficiency Pituitary hypothyroidism Presence of intrathecal pump hydromorphone Sensorineural hearing loss (SNHL) of both ears Pituitary hypogonadism Growth hormone deficiency Other mcc (current) drug therapy Dysphagia Chronic cough "smoker's cough" Exertional shortness of breath Myofascial pain Globus sensation "there's a ledge and sometimes food gets stuck" COPD with emphysema Follows with [facility] pulmonology Asthma stable with use of inhalers Allergic rhinitis History of colon polyps BENIGN History of COVID-19 03/2021. treated at [facility] Emergency room, no inpatient stay. symptoms included: extreme fatigue, Nausea, weakness. Uncontrolled type 2 diabetes mellitus Monitoring with DR Hickman- last seen 07/2023 no current medications Adjustment disorder with anxiety Cervical radiculopathy Sleep apnea pt denies Insomnia with fatigue Anxiety disorder in conditions classified elsewhere Major depressive disorder, recurrent, moderate Pain disorder associated with psychological factors and medical condition Hyperlipidemia Surgical History S/P insertion of intrathecal pump History of colonoscopy S/P epidural steroid injection cervical H/O arthroscopy of shoulder unsure of side. H/O arthroscopic knee surgery unsure of side History of esophagogastroduodenoscopy (EGD) With dilation History of fusion of cervical spine ACDF (multiple) limited ROM H/O cataract extraction not sure which eye History of inguinal hernia repair Family History Brother Lymphoma Mother Coronary heart disease Myocardial infarction Father Coronary heart disease Myocardial infarction Grandmother Coronary heart disease Other Cancer Denies family history of Ovarian cancer Prostate cancer Breast cancer Colorectal cancer Social History Smoking Status: Current every day smoker Tobacco Type: Cigarettes Cigarettes Per Day: 1 ppd x 35 years; Second Hand Exposure: Yes; Do You Dip or Chew Tobacco: No; Tobacco Cessation Education Requested by Patient: No Hx Alcohol Use: Yes Alcohol type: wine and hard liquor Hx Substance Use: No Preferred Language: Nepali Communication Ability: Effective Visual Impairment: Limited Hearing Ability: Normal Customer Service And Sales Consultant Required: No Beliefs That Will Affect Care: None marital status: Current Living Situation: Spouse Current Living Situation Comment: Lives with spouse current occupational status: disabled Other Information That Helps Us Care for You: No Feels Safe at Home: Yes Safety Concerns: Feels Safe At This Time Seatbelt Use: always Assistive Devices: None Physical Exam Physical Exam: Physical Exam: General: In mild distress due to pain, stated age, chronically ill-appearing but nontoxic HEENT: Normocephalic, atraumatic, no scleral icterus, pupils around round, symmetrical, and reactive to light, m mucus membranes, trachea midline, no thyromegaly Chest/Pulm: No respiratory distress, symmetrical chest expansion, scattered expiratory wheezing Cardiac: RRR, no murmurs noted Abdomen: Negative for ascites and bruising, patient with pain pump located in the left lower quadrant without signs of infection, right lower quadrant scar from previous pain pump removal is intact without signs infection, normoactive bowel sounds, soft, non-tender to palpation throughout Musculoskeletal: Patient able to move bilateral upper and lower extremities voluntarily without limitation, no acute trauma on inspection and palpation of the entire spine, patient does have pain on direct palpation over the central lumbar spine and left SI joint, no erythema or warmth/fluctuance on palpation > Patient with a significant reproducible pain in the lumbar spine and posterior left lower extremity with bilateral straight leg raise left > right Extremities: Radial, dorsalis pedis, and posterior tibial pulses are intact and symmetrical, no edema noted in the BL LE's Skin: Warm, dry, no rashes , lesions, or scars noted Neuro: Alert and oriented to person, place, month, year, and president, no focal defects, patient with mildly decreased strength in the left lower extremity on flexion of the left hip compared to right lower extremity due to pain, mildly decreased sensation in the left lower extremity in the posterior thigh compared to right lower extremity, no tremors noted Psych: Mild distress, but polite and cooperative during the exam Results & Data Results & Data Vital Signs (Past 12 Hours) Vital Signs Temp Pulse Resp BP BP Pulse Ox O2 Del Method 01/04/24 11:02 134/82 01/04/24 11:02 134/82 01/04/24 11:00 78 11 L 97 01/04/24 11:00 129/83 01/04/24 11:00 20 134/82 98 Room Air 01/04/24 10:58 119/78 01/04/24 10:58 119/78 01/04/24 10:57 114/66 01/04/24 10:57 74 19 98 01/04/24 10:45 73 7 L 98 01/04/24 10:39 72 9 L 01/04/24 10:21 74 14 98 01/04/24 10:20 118/77 01/04/24 10:20 118/77 01/04/24 10:00 98/73 L 01/04/24 09:57 75 18 97 01/04/24 09:42 157/91 H 01/04/24 09:28 152/103 H 01/04/24 09:15 78 20 99 01/04/24 09:12 81 23 99 01/04/24 08:42 94 H 24 144/100 H 99 01/04/24 08:41 99 Room Air 01/04/24 08:41 96 H 01/04/24 08:30 36.6 C 116 H 20 164/78 H 99 Room Air Laboratory Results Abnormal lab results 01/04/24 01/04/24 Range/Units 08:50 11:20 MCHC 36.6 H (32.0-36.0) g/dL [place] # (Auto) 0.74 H (0.11-0.59) K/uL ESR 25 H (0-20) mm/hr Sodium 131 L (136-145) mmol/L Potassium 5.5 H (3.5-5.1) mmol/L Carbon Dioxide 20 L (21-32) mmol/L Anion Gap 13 H (3-11) BUN 33 H (6-23) mg/dl BUN/Creatinine Ratio 25.4 H (10-20) Glucose 205 H (70-99(Fasting)) mg/dl Phosphorus 2.4 L (2.5-4.9) mg/dl AST 12 L (13-39) U/L Alkaline Phosphatase 123 H (34-104) U/L C-Reactive Protein 2.05 H (0-0.5) mg/dl Lipase 231 H (11-82) U/L Urine Protein 1+ H (Negative) Urine Glucose (UA) 1+ H (Negative) Urine Ketones 1+ H (Negative) Ur Leukocyte Esterase Trace H (Negative) U Hyaline Cast (Auto) 3-5 H (0-2) /lpf Diagnostic Findings Abdomen/Pelvis CT 01/04/24 09:[address] WITHOUT CONTRAST; CT LUMBAR SPINE WITHOUT CONTRAST. CT DOSE: 954.22 mGy.cm HISTORY: Acute abdominal and low back pain status post trauma lumbar, abd, leg pain TECHNIQUE: Multiaxial CT images of the abdomen and pelvis and lumbar spine were performed without contrast. A dose lowering technique was utilized adhering to the principles of ALARA. COMPARISON STUDY: CT thoracic spine 02/26/2023, lumbar spine radiographs 10/15/2022 FINDINGS: CT ABDOMEN/PELVIS: Clear lung bases. No free air. The unenhanced spleen, pancreas and adrenal glands are unremarkable. Probable biliary sludge with borderline gallbladder wall thickening and trace pericholecystic stranding. Unremarkable liver. Mild nonspecific bilateral perinephric stranding. No hydronephrosis. Prostatomegaly. Urinary bladder wall thickening with partial distention. Small fat filled left inguinal hernia. Atherosclerosis of aorta. No lymphadenopathy. No bowel obstruction or bowel wall thickening. Moderate to extensive colonic fecal retention. Unremarkable pancreas. Battery pack in the left anterior abdominal wall intrathecal catheter imaged portions appear intact. No acute fracture identified. LUMBAR SPINE: Severe L5/S1 facet arthrosis. Also mild multilevel spondylotic spurring and intervertebral disc space narrowing. Surgical catheter enters the central canal at level L2-L3. Image portions appear intact. No acute fracture or subluxation identified. IMPRESSION: 1. No acute posttraumatic intra-abdominal or intrapelvic abnormality. 2. No acute fracture or subluxation of the lumbar spine identified. 3. No bowel obstruction or bowel wall thickening. 4. Moderate to extensive colonic fecal retention. 5. Nonspecific borderline gallbladder wall thickening. ACT 112: Negative or not required by law. The above report was generated using voice recognition software. It may contain grammatical, syntax or spelling errors. Electronically signed by: Ray Gonzales M.D. 01/04/2024 11:[address] 01/04/24 09:[address] WITHOUT CONTRAST; CT LUMBAR SPINE WITHOUT CONTRAST. CT DOSE: 954.22 mGy.cm HISTORY: Acute abdominal and low back pain status post trauma lumbar, abd, leg pain TECHNIQUE: Multiaxial CT images of the abdomen and pelvis and lumbar spine were performed without contrast. A dose lowering technique was utilized adhering to the principles of ALARA. COMPARISON STUDY: CT thoracic spine 02/26/2023, lumbar spine radiographs 10/15/2022 FINDINGS: CT ABDOMEN/PELVIS: Clear lung bases. No free air. The unenhanced spleen, pancreas and adrenal glands are unremarkable. Probable biliary sludge with borderline gallbladder wall thickening and trace pericholecystic stranding. Unremarkable liver. Mild nonspecific bilateral perinephric stranding. No hydronephrosis. Prostatomegaly. Urinary bladder wall thickening with partial distention. Small fat filled left inguinal hernia. Atherosclerosis of aorta. No lymphadenopathy. No bowel obstruction or bowel wall thickening. Moderate to extensive colonic fecal retention. Unremarkable pancreas. Battery pack in the left anterior abdominal wall intrathecal catheter imaged portions appear intact. No acute fracture identified. LUMBAR SPINE: Severe L5/S1 facet arthrosis. Also mild multilevel spondylotic spurring and intervertebral disc space narrowing. Surgical catheter enters the central canal at level L2-L3. Image portions appear intact. No acute fracture or subluxation identified. IMPRESSION: 1. No acute posttraumatic intra-abdominal or intrapelvic abnormality. 2. No acute fracture or subluxation of the lumbar spine identified. 3. No bowel obstruction or bowel wall thickening. 4. Moderate to extensive colonic fecal retention. 5. Nonspecific borderline gallbladder wall thickening. ACT 112: Negative or not required by law. The above report was generated using voice recognition software. It may contain grammatical, syntax or spelling errors. Electronically signed by: Ray Gonzales M.D. 01/04/2024 11:36 AM Chest X-Ray 01/04/24 09:10 XR chest 1V portable HISTORY: 58 years-old Male body aches, chills acute fever COMPARISON: 03/28/2023 TECHNIQUE: AP view of the chest FINDINGS: Cardiac silhouette is normal. Edema. Lungs are clear. No pneumothorax or pleural effusion. Cervical spinal fusion hardware. Degenerative changes of the shoulders and spine. IMPRESSION: Emphysema without acute process. ACT 112: Negative or not required by law. The above report was generated using voice recognition software. It may contain grammatical, syntax or spelling errors. Electronically signed by: Ray Gonzales M.D. 01/04/2024 9:30 AM Code Status & VTE Plan Code Status Full code VTE Prophylaxis Plan VTE Prophylaxis will be ordered: Yes Supervising Physician Co-Signing Physician Notes I personally saw and examined the patient. I verified all eckert points and agree with Varghese Jovel PA-C with the following exceptions and/or additions: 58 year old male with acute on chronic back pain with radicular pain going down both legs. He now feels he is unable to get around at home to perform activities of daily living due to the intense pain. O/E HS RRR, no murmurs, Chest CTAB, Abdo SNT, b/l lower extremity 5/5 power without foot drop. A/P Back pain with lumbar radiculopathy - acetaminophen ZENY, Add Toradol ZENY, morphine 2-4mg IV PRN, Added Lyrica as above (increase as tolerated). Lumbar spine MRI - depending on findings consider ortho spine consult PG Care Time/CCT Total # of Minutes Spent Total Time Spent with Patient: Total time spent is greater than 50% in coordination of care (as documented) at patient's floor/unit and/or counseling patient: Coding [place] [address] INT INP/OBS CARE 2MIN Patient Type Established Medical Decision Making High Complexity Diagnoses Pain, radicular, lumbar M54.16 Hyperkalemia E87.5 Constipation K59.03 Constipation type: drug induced constipation Chronic intractable pain G89.29 Hypertension I10 Hypertension type: primary hypertension Tobacco abuse Z72.0 COPD with emphysema J43.9 Uncontrolled type 2 diabetes mellitus E11.65 Pituitary hypogonadism E23.0 (3) Constipation Constipation type: drug induced constipation Qualified Code(s): K59.03 - Drug induced constipation (5) Hypertension Hypertension type: primary hypertension Qualified Code(s): I10 - Essential (primary) hypertension
[2024-01-04 13:02] LABS: Base Excess VBG -0.6 mEq/L; HCO3 VBG 23 mmol/L; Oxygen Saturation VBG 97.8 %; PCO2 VBG 35 mmHg (38-50); PO2 VBG 80 mmHg; pH VBG 7.43 (7.36-7.41)
[2024-01-04] MEDS ORDERED: ALBUTEROL HFA 8 GM INHALER INH PRN (13:05)
[2024-01-04] MEDS: INSULIN HUMAN REGULAR PER UNIT 10 UNITS in SYRINGE 9.9 ML IV ONE (14:18)
[2024-01-04] MEDS: DEXTROSE 50% 50 ML SYRINGE IV PRN (14:18)
[2024-01-04] MEDS: POLYETHYLENE (MIRALAX) 17 GM PACK PO SCH (14:20)
[2024-01-04] MEDS: PREGABALIN 25 MG CAP PO STA (14:20)
[2024-01-04] MEDS: SENNA 8.6 MG TAB PO SCH (14:20)
[2024-01-04] MEDS: CALCIUM GLUCONATE 1,000 MG/60 ML BAG IV STA (14:29)
[2024-01-04] MEDS: MoRPHine SULFATE 4 MG/ML 1 ML CARP\\VIAL IV PRN (14:50)
[2024-01-04] MEDS: LACTATED RINGER'S 1,000 ML IV SCH (14:55)
[2024-01-04] MEDS: ACETAMINOPHEN 325 MG TAB PO SCH (14:55)
[2024-01-04] MEDS: NICOTINE 21 MG/24 HR TDSY TD SCH (15:43)
[2024-01-04] MEDS: LIDOCAINE 5% 1 PATCH TD STA (15:46)
[2024-01-04] MEDS: INSULIN ASPART PER UNIT CHARGE SC SCH (17:37)
[2024-01-04] MEDS: KETOROLAC 30 MG/ML VIAL IV SCH (19:55)
[2024-01-04] MEDS: FAMOTIDINE 20 MG TAB PO SCH (19:56)
[2024-01-04] MEDS: traZODone HCL 50 MG TAB PO SCH (20:43)
[2024-01-04] MEDS: ENOXAPARIN INJ 40 MG/0.4 ML SYR SQ SCH (20:47)
[2024-01-04] MEDS: ATORVASTATIN 40 MG TAB PO SCH (20:47)
[2024-01-04] MEDS: LANTUS PER UNIT CHARGE SQ SCH (20:48)
[2024-01-05] MEDS: LEVOTHYROXINE SODIUM 100 MCG TABLET PO SCH (06:15)
[2024-01-05] MEDS ORDERED: GLUCOSE 40% GEL 15 GM TUBE PO PRN (07:18)
[2024-01-05] MEDS ORDERED: GLUCOSE 10 TAB/TUBE PO PRN (07:18)
[2024-01-05] MEDS ORDERED: GLUCAGON FOR INJ 1 MG VIAL SQ PRN (07:18)
[2024-01-05] MEDS ORDERED: DEXTROSE 50% 50 ML SYRINGE IV PRN (07:18)
[2024-01-05] MEDS ORDERED: methylPREDNISolone 10 mg/mL (For Ped Dose < 7mg) IV SCH (07:30)
--- NOTE | 2024-01-05 07:50 | Hospitalist Progress Note ---
Date of Service January 05, 2024 Assessment & Plan (1) Pain, radicular, lumbar: Plan: Admit to med telemetry on pulse symmetry Currently stable nontoxic-appearing Presented to the ED due to progressively worsening lumbar back pain with radiation down the posterior left lower extremity to the left knee Denies recent trauma, notes mild paresthesia in the left lower extremity but no weakness or red flag symptoms CT of the abdomen pelvis/lumbar spine without contrast was negative for acute trauma but did note moderate to extensive colonic fecal retention Suspect patient is experiencing some form of spinal stenosis/foraminal stenosis causing his symptoms, it does appear that he has a history of chronic lumbar back pain and SI joint pain Will start 25 mg twice daily Lyrica on exam as he has not tried this in the past and his reaction to get up and was swelling Will continue with scheduled Tylenol, lidocaine patch, and heat As needed morphine for moderate to severe pain As needed Narcan for oversedation or respiratory depression Will try and coordinate with pain management and MRI to obtain MRI of the lumbar spine without contrast for further evaluation, however, per protocol the patient's pain pump will need to be assessed by pain management after the MRI to ensure it still functioning properly PT/OT consults have been placed Fall precautions SQ Lovenox for DVT prophylaxis Heart healthy/DM type II diet AM CBC, CMP, mag, PT/INR 01/04 Patient appears to have decifits on the LLE with decreased strength flexion/extension at the knee as well as decreased dorsiflexion compared to plantar flexion on the left concerning for lumbar radiculopathy from L3-L4 MRI ordered but needing to ensure pain management to see patient after * Pain management consulted, discussed with Dr Parra this morning and Mr Finn CAN have the MRI today and they will see him tomorrow morning in rounds. * Half life 24hrs and should not have issues with withdrawal Pain control: Lyrica 25mg PO x 1, will avoid further for now and monitor response to steroids Supervising provider added methylprednisolone 40mg q8h IV. -Pharmacy consulted for glycemic given elevations and A1c 7.0 in june and can repeat w/ AM labs Morphine available prn, will decrease to 2mg prn for now. Added oxycodone prn Toradol scheduled however w/ Cr bump 1.3--> 1.[address] further on hold. Adding back his home cyclobenzaprine 10mg tid muscle spasms if needed. Home Klonopin available prn but may need to make scheduled if taking routinely Hgb did drop to 12.1 but denies bleeding and no increased abdominal pain (has constipation) and will monitor. Does have GB thickening on CTAP and ALP elevation on admission w/ normal TB but normalized on repeat and no RUQ pain and will monitor. Does endorse weight loss due to pain/decreased PO intake from back pain however. Monitor on repeat Bowel regimen: Miralax daily, senna. Will add colace BID and asked RN to administer enema as no BM in 8-9 days and suspect can be making pain worse. Will hold miralax given bump in Cr for now and monitor Can plan to consult Dr Soria if needed pending MRI results. Continued inpatient stay PT/OT consult pending (2) Hyperkalemia: Plan: K 5.5 on admission, EKG w/ NSR w/ sinus arrhythmia Suspected 2nd to metabolic acidosis/dehydration and lisinopril use Lisinopril on hold, given ca gluconate/insulin, 1L IVF. Repeat 5.1 Continue to hold lisinopril, changing diet to low K. IVF for INA and will continue to monitor on telemetry. Denies CP (3) Constipation: Plan: CTAP w/ mod-severe colonic fecal retention but NO obstruction or bowel wall thickening. Suspect 2nd to poor PO intake, dehydration and pain medication Miralax/senna scheduled with IVF on admission Adding colace BID, hold miralax w/ INA and RN to administer enema. Patient is passing flatus today but wanting to prevent ileus/obstruction and will monitor (4) Chronic intractable pain: Plan: Follows with pain management and has intrathecal cervical Dilaudid pain pump Will continue pain regimen per lumbar back pain plan Pain management consulted given pain pump and need for eval following MRI -- discussed with Dr Parra as above and pain management consult placed- to see in AM (5) Hypertension: Plan: BP stable 145/54 in setting of pain. Lisinopril remains on hold for now given INA and prior hyperkalemia Suspect should be on ALTERNATIVE medication to prevent hyperkalemia and elevated potassium levels in the system in the past (6) Tobacco abuse: Plan: 1.5ppd smoker. cessation to be encouraged. Nicotine replacement ordered as needed (7) COPD with emphysema: Plan: Hx of such, 2nd to smoking. Continue incentive spirometer and home albuterol prn, spiriva daily No SOB reported and is on room air and will monitor (8) Uncontrolled type 2 diabetes mellitus: Plan: BSG 200 on admission Home metformin on hold B12 low normal/replacement started Given 10u IV insulin due to hyperkalemia on admission and placed on 5u BID and SSI Supervising provider dc long acting but given steroid use for pain control, consult placed to pharmacy for assistance while inpatient Did have a little shakiness this afternoon, BSG 60s - RN to provide juice/notify pharmacy for adjustment as needed and will continue to monitor (9) Pituitary hypogonadism: Plan: continues synthroid Repeat TSH pending given hyponatremia but could be 2nd to uncontrolled pain as well as dehydration Plan continued inpatient stay, MRI to be done this afternoon/evening and pain management to see in AM. Possible consult for ortho spine pending MRI results Therapy consults pending Of note, patient does report being too weak for dc home and asked if needing surgery could he "have a couple of days" - discussed will see what MRI results show and discuss w/ specialists as needed but for now will continue pain control/conservative management until results available. No loss of bowel/bladder function but to notify if occurs. Admission and Anticipated Discharge Date Admission Date: January 04, 2024 Supervising Physician Co-Signing Physician Notes The patient was not seen by me. The chart was reviewed. Case discussed with JENNI Barahona. Agree with assessment and plan Subjective Evaluated this morning, sitting up in bed. Reports laid on his right side overnight and felt a pop and has improvement in back pain but still with ongoing lower/lumbar discomfort. Does have paraspinal muscle tightness but also having weakness with flexion/extension on the left at the knee as well as decreased dorsiflexion compared to the right and suspect findings between L3-L5 on MRI but will see if able to do today. per Dr Parra, can be done today and will see in AM to ensure rotor not stalled but has 24 hour half life and wouldn't have withdrawal symptoms until tomorrow and will be seen first thing. Will call MRI to see if able to squeeze in tonight. He has been able to pass some gas but no BM. RN to give enema and will monitor. Discussed trial of steroids for now as well and will monitor. NO overt RUQ tenderness on exam and ALP normalized and will monitor. Questions/concerns addressed at this time. Physical Exam Physical Exam: General: 58yo male resting in bed upon entry, NAD, slight tremor HEENT head atraumatic, normocephalic, mm slightly dry, trachea midline Resp: even/unlabored, bibasilar crackles but no wheezing/rales and is on room air CV: RRR, no significant m/r/g, no pitting edema, pulses present GI: +BS but distended/nontender, no rebound/guarding pain pump to RLQ in place : no herring MSK/Neuro: +paraspinal muscle tenderness to lumbar paraspinal muscles bilaterally, no obvious bony step off DECREASED strength LLE compared to RLE with flexion/extension at the hip as well as decreased dorsiflexion (compared to plantar flexion) on the left +pulses, calves nontender +R lateral hip discomfort on exam along greater trochanter as well as IT band Psych: AOx3, cooperative but anxious about possible need for surgery Results & Data Results & Data Vital Signs (Past 12 Hours) Vital Signs Temp Pulse Pulse Resp BP Pulse Ox O2 Del Method 01/05/24 07:06 72 01/05/24 04:04 36.6 C 67 20 92/51 L 94 Room Air 01/04/24 23:13 36.7 C 74 20 119/45 L 95 Room Air 01/04/24 21:51 73 01/04/24 19:47 36.6 C 73 18 121/81 96 Room Air Laboratory Results 01/05/24 01/05/24 01/05/24 Range/Units 11:53 11:52 11:38 WBC (4.8-10.8) K/ul RBC (4.70-6.10) M/uL Hgb (14.0-18.0) g/dl Hct (42.0-52.0) % MCV (80.0-100.0) fL MCH (25.0-34.0) pg MCHC (32.0-36.0) g/dL RDW Std Deviation (36.4-46.3) fL RDW Coeff of Salome (11.5-14.5) % Plt Count (130-400) K/uL MPV (9.4-12.4) fL Immature Gran % (Auto) % Neut % (Auto) % Lymph % (Auto) % [place] % (Auto) % Eos % (Auto) % Baso % (Auto) % Neut # (Auto) (1.40-6.50) K/uL Lymph # (Auto) (1.20-3.40) K/uL [place] # (Auto) (0.11-0.59) K/uL Eos # (Auto) (0.00-0.50) K/uL Baso # (Auto) (0.00-0.20) K/uL Immature Gran # (Auto) (0.01-0.20) K/uL VBG pH (7.36-7.41) VBG pCO2 (38-50) mmHg VBG pO2 mmHg VBG HCO3 mmol/L VBG O2 Saturation % VBG Base Excess mEq/L Sodium (136-145) mmol/L Potassium (3.5-5.1) mmol/L Chloride (98-107) mmol/L Carbon Dioxide (21-32) mmol/L Anion Gap (3-11) BUN (6-23) mg/dl Creatinine (0.6-1.4) mg/dl Est Cr Clr Drug Dosing ml/min Est GFR ( Amer) ml/min Est GFR (Non-Af Amer) ml/min BUN/Creatinine Ratio (10-20) Glucose (70-99(Fasting)) mg/dl POC Glucose 67 L* 62 L* (70-99) mg/dl Calcium (8.6-10.3) mg/dl Phosphorus (2.5-4.9) mg/dl Magnesium (1.7-2.4) mg/dl Total Bilirubin (0.2-1.0) mg/dl Direct Bilirubin (0-0.2) mg/dl AST (13-39) U/L ALT (7-52) U/L Alkaline Phosphatase (34-104) U/L Total Protein (6.0-8.3) gm/dl Albumin (3.4-5.0) gm/dl Vitamin B12 (180-914) pg/ml TSH Pending 01/05/24 01/05/24 01/04/24 Range/Units 08:05 07:13 20:16 WBC 8.79 (4.8-10.8) K/ul RBC 3.58 L (4.70-6.10) M/uL Hgb 12.1 L D (14.0-18.0) g/dl Hct 32.6 L (42.0-52.0) % MCV 91.1 (80.0-100.0) fL MCH 33.8 (25.0-34.0) pg MCHC 37.1 H (32.0-36.0) g/dL RDW Std Deviation 41.5 (36.4-46.3) fL RDW Coeff of Salome 12.4 (11.5-14.5) % Plt Count 188 (130-400) K/uL MPV 10.1 (9.4-12.4) fL Immature Gran % (Auto) 0.5 % Neut % (Auto) 67.5 % Lymph % (Auto) 23.1 % [place] % (Auto) 8.1 % Eos % (Auto) 0.3 % Baso % (Auto) 0.5 % Neut # (Auto) 5.94 (1.40-6.50) K/uL Lymph # (Auto) 2.03 (1.20-3.40) K/uL [place] # (Auto) 0.71 H (0.11-0.59) K/uL Eos # (Auto) 0.03 (0.00-0.50) K/uL Baso # (Auto) 0.04 (0.00-0.20) K/uL Immature Gran # (Auto) 0.04 (0.01-0.20) K/uL VBG pH (7.36-7.41) VBG pCO2 (38-50) mmHg VBG pO2 mmHg VBG HCO3 mmol/L VBG O2 Saturation % VBG Base Excess mEq/L Sodium 130 L (136-145) mmol/L Potassium 5.1 (3.5-5.1) mmol/L Chloride 101 (98-107) mmol/L Carbon Dioxide 24 (21-32) mmol/L Anion Gap 5 (3-11) BUN 54 H D (6-23) mg/dl Creatinine 1.67 H D (0.6-1.4) mg/dl Est Cr Clr Drug Dosing 50.7 ml/min Est GFR ( Amer) 51.1 ml/min Est GFR (Non-Af Amer) 44.1 ml/min BUN/Creatinine Ratio 32.3 H (10-20) Glucose 268 H (70-99(Fasting)) mg/dl POC Glucose 219 H 222 H (70-99) mg/dl Calcium 8.5 L (8.6-10.3) mg/dl Phosphorus 4.3 D (2.5-4.9) mg/dl Magnesium 2.7 H (1.7-2.4) mg/dl Total Bilirubin 0.4 D (0.2-1.0) mg/dl Direct Bilirubin 0.1 (0-0.2) mg/dl AST 9 L (13-39) U/L ALT 9 (7-52) U/L Alkaline Phosphatase 83 (34-104) U/L Total Protein 5.6 L D (6.0-8.3) gm/dl Albumin 3.5 (3.4-5.0) gm/dl Vitamin B12 194 (180-914) pg/ml TSH 01/04/24 01/04/24 01/04/24 Range/Units 17:09 17:08 14:47 WBC (4.8-10.8) K/ul RBC (4.70-6.10) M/uL Hgb (14.0-18.0) g/dl Hct (42.0-52.0) % MCV (80.0-100.0) fL MCH (25.0-34.0) pg MCHC (32.0-36.0) g/dL RDW Std Deviation (36.4-46.3) fL RDW Coeff of Salome (11.5-14.5) % Plt Count (130-400) K/uL MPV (9.4-12.4) fL Immature Gran % (Auto) % Neut % (Auto) % Lymph % (Auto) % [place] % (Auto) % Eos % (Auto) % Baso % (Auto) % Neut # (Auto) (1.40-6.50) K/uL Lymph # (Auto) (1.20-3.40) K/uL [place] # (Auto) (0.11-0.59) K/uL Eos # (Auto) (0.00-0.50) K/uL Baso # (Auto) (0.00-0.20) K/uL Immature Gran # (Auto) (0.01-0.20) K/uL VBG pH (7.36-7.41) VBG pCO2 (38-50) mmHg VBG pO2 mmHg VBG HCO3 mmol/L VBG O2 Saturation % VBG Base Excess mEq/L Sodium (136-145) mmol/L Potassium 5.1 (3.5-5.1) mmol/L Chloride (98-107) mmol/L Carbon Dioxide (21-32) mmol/L Anion Gap (3-11) BUN (6-23) mg/dl Creatinine (0.6-1.4) mg/dl Est Cr Clr Drug Dosing ml/min Est GFR ( Amer) ml/min Est GFR (Non-Af Amer) ml/min BUN/Creatinine Ratio (10-20) Glucose (70-99(Fasting)) mg/dl POC Glucose 305 H* 335 H* (70-99) mg/dl Calcium (8.6-10.3) mg/dl Phosphorus (2.5-4.9) mg/dl Magnesium (1.7-2.4) mg/dl Total Bilirubin (0.2-1.0) mg/dl Direct Bilirubin (0-0.2) mg/dl AST (13-39) U/L ALT (7-52) U/L Alkaline Phosphatase (34-104) U/L Total Protein (6.0-8.3) gm/dl Albumin (3.4-5.0) gm/dl Vitamin B12 (180-914) pg/ml TSH 01/04/24 01/04/24 Range/Units 13:15 12:52 WBC (4.8-10.8) K/ul RBC (4.70-6.10) M/uL Hgb (14.0-18.0) g/dl Hct (42.0-52.0) % MCV (80.0-100.0) fL MCH (25.0-34.0) pg MCHC (32.0-36.0) g/dL RDW Std Deviation (36.4-46.3) fL RDW Coeff of Salome (11.5-14.5) % Plt Count (130-400) K/uL MPV (9.4-12.4) fL Immature Gran % (Auto) % Neut % (Auto) % Lymph % (Auto) % [place] % (Auto) % Eos % (Auto) % Baso % (Auto) % Neut # (Auto) (1.40-6.50) K/uL Lymph # (Auto) (1.20-3.40) K/uL [place] # (Auto) (0.11-0.59) K/uL Eos # (Auto) (0.00-0.50) K/uL Baso # (Auto) (0.00-0.20) K/uL Immature Gran # (Auto) (0.01-0.20) K/uL VBG pH 7.43 H (7.36-7.41) VBG pCO2 35 L (38-50) mmHg VBG pO2 80 mmHg VBG HCO3 23 mmol/L VBG O2 Saturation 97.8 % VBG Base Excess -0.6 mEq/L Sodium (136-145) mmol/L Potassium (3.5-5.1) mmol/L Chloride (98-107) mmol/L Carbon Dioxide (21-32) mmol/L Anion Gap (3-11) BUN (6-23) mg/dl Creatinine (0.6-1.4) mg/dl Est Cr Clr Drug Dosing ml/min Est GFR ( Amer) ml/min Est GFR (Non-Af Amer) ml/min BUN/Creatinine Ratio (10-20) Glucose (70-99(Fasting)) mg/dl POC Glucose 181 H (70-99) mg/dl Calcium (8.6-10.3) mg/dl Phosphorus (2.5-4.9) mg/dl Magnesium (1.7-2.4) mg/dl Total Bilirubin (0.2-1.0) mg/dl Direct Bilirubin (0-0.2) mg/dl AST (13-39) U/L ALT (7-52) U/L Alkaline Phosphatase (34-104) U/L Total Protein (6.0-8.3) gm/dl Albumin (3.4-5.0) gm/dl Vitamin B12 (180-914) pg/ml TSH PG Care Time/CCT Total # of Minutes Spent Total Time Spent with Patient: Total time spent is greater than 50% in coordination of care (as documented) at patient's floor/unit and/or counseling patient: Coding Level of Care Code 96691 SUB INP/OBS CARE 350MIN Diagnoses Pain, radicular, lumbar M54.16 Hyperkalemia E87.5 Constipation K59.03 Constipation type: drug induced constipation Chronic intractable pain G89.29 Hypertension I10 Hypertension type: primary hypertension Tobacco abuse Z72.0 COPD with emphysema J43.9 Uncontrolled type 2 diabetes mellitus E11.65 Pituitary hypogonadism E23.0 (3) Constipation Constipation type: drug induced constipation Qualified Code(s): K59.03 - Drug induced constipation (5) Hypertension Hypertension type: primary hypertension Qualified Code(s): I10 - Essential (primary) hypertension
[2024-01-05] MEDS ORDERED: PHARMACY GLYCEMIC MGMT CONSULT PRN (07:59)
[2024-01-05] MEDS ORDERED: SOD PHOSPHATE/SOD BIPHOSPHATE ENEMA 132 ML BTL PR PRN (08:12)
[2024-01-05 08:16] LABS: Hematocrit (blood only) 32.6 % (42.0-52.0); Hemoglobin 12.1 g/dl (14.0-18.0); Mean Corpuscular Hemoglobin 33.8 pg (25.0-34.0); Mean Corpuscular Hgb Conc 37.1 g/dL (32.0-36.0); Mean Corpuscular Volume 91.1 fL (80.0-100.0); Mean Platelet Volume 10.1 fL (9.4-12.4); Platelet Count 188 K/uL (130-400); RDW Coefficient of Variation 12.4 % (11.5-14.5); RDW Standard Deviation 41.5 fL (36.4-46.3); Red Blood Count 3.58 M/uL (4.70-6.10); White Blood Count 8.79 K/ul (4.8-10.8)
[2024-01-05 08:17] LABS: Basophils # (auto) 0.04 K/uL (0.00-0.20); Basophils % (auto) 0.5 %; Eosinophils # (auto) 0.03 K/uL (0.00-0.50); Eosinophils % (auto) 0.3 %; Immature Granulocytes # (auto) 0.04 K/uL (0.01-0.20); Immature Granulocytes % (auto) 0.5 %; Lymphocytes # (auto) 2.03 K/uL (1.20-3.40); Lymphocytes % (auto) 23.1 %; Monocytes # (auto) 0.71 K/uL (0.11-0.59); Monocytes % (auto) 8.1 %; Neutrophils # (auto) 5.94 K/uL (1.40-6.50); Neutrophils % (auto) 67.5 %
[2024-01-05] MEDS: clonazePAM 0.5 MG TAB PO PRN (08:19)
[2024-01-05] MEDS: DULoxetine HCL 60 MG CAP PO SCH (08:22)
[2024-01-05] MEDS: buPROPion XL 300 MG TABCR PO SCH (08:22)
[2024-01-05] MEDS: UMECLIDINIUM BROMIDE 62.5MCG/BLISTER 7 PUFFS/INHALER INH SCH (08:22)
[2024-01-05] MEDS: INSULIN ASPART PER UNIT CHARGE SC SCH (08:54)
[2024-01-05 08:56] LABS: Albumin Level 3.5 gm/dl (3.4-5.0); BUN Creatinine Ratio 32.3 (10-20); Bilirubin Direct 0.1 mg/dl (0-0.2); Bilirubin,Total 0.4 mg/dl (0.2-1.0); Calcium 8.5 mg/dl (8.6-10.3); Creatinine Clr Calc Pharmacy 50.7 ml/min; Est GFR (African American) 51.1 ml/min; Est GFR (Non-African American) 44.1 ml/min; Magnesium 2.7 mg/dl (1.7-2.4); Phosphorus 4.3 mg/dl (2.5-4.9); Potassium 5.1 mmol/L (3.5-5.1); Total Protein 5.6 gm/dl (6.0-8.3)
[2024-01-05] MEDS: methylPREDNISolone 40 MG in SYRINGE 0 ML IV SCH (08:56)
[2024-01-05] MEDS: LANTUS PER UNIT CHARGE SC SCH (10:23)
--- NOTE | 2024-01-05 11:06 | Pharmacy Report ---
Pharmacy Glycemic Short Note 2 - Date of Service January 05, 2024 - Glycemic Short BSG Results (Last 24 hours): 01/04/24 01/04/24 01/04/24 13:15 17:08 17:09 Glucose POC Glucose 181 H 335 H* 305 H* 01/04/24 01/05/24 01/05/24 20:16 07:13 08:05 Glucose 268 H POC Glucose 222 H 219 H OUTPATIENT ANTIDIABETIC REGIMEN: * Metformin 1g PO Daily * A1c 7% 07/19/23, new A1c ordered ASSESSMENT: * 58 YO M admitted w/ lumbar pain, given IV Dexamethasone 10mg x1 yesterday, resulting in blood sugars in 300s, 10 units IV Regular insulin given. * Blood sugar 219mg/dl this AM, and starting on Solu-Medrol 40mg IV Q8H, pharmacy consulted. * Begin basal bolus insulin and titrate to goal blood sugar. * Overnight checks tonight for ATC steroids and unknown insulin needs. PLAN FOR INPATIENT GLYCEMIC CONTROL: * Hold outpatient oral diabetes medications * Basal insulin * Lantus 30 units SQ daily * Bolus insulin * NovoLog per scale ACHS or Q6hrs while NPO + at 0000, 0400 tonight * Goal Range: Low 110 mg/dL - High 140 mg/dL * Correction Factor: 20 mg/dL/unit * Nutritional / Prandial insulin per carb ratio of 1 unit per 6 grams CHO consumed
[2024-01-05] MEDS: CARBOHYDRATES FOR HYPOGLYCEMIA PO PRN ×2 (12:00→12:03)
[2024-01-05] MEDS: CYANOCOBALAMIN (B-12) 500 MCG TABLET PO SCH (12:07)
[2024-01-05] MEDS ORDERED: CYCLOBENZAPRINE HCL 10 MG TAB PO PRN (12:18)
[2024-01-05 12:30] LABS: Thyroid Stimulating Hormone 0.145 uIu/ml (0.300-4.500)
[2024-01-05] MEDS: DOCUSATE SODIUM 100 MG CAP PO SCH (13:13)
[2024-01-05] MEDS: SODIUM CHLORIDE 0.9% 1,000 ML IV SCH (13:13)
[2024-01-05 13:14] LABS: T4 Free Thyroxine 1.37 ng/dl (0.61-1.60)
[2024-01-05 16:09] LABS: Hematocrit (blood only) 34.6 % (42.0-52.0); Hemoglobin 12.2 g/dl (14.0-18.0); Mean Corpuscular Hemoglobin 33.1 pg (25.0-34.0); Mean Corpuscular Hgb Conc 35.3 g/dL (32.0-36.0); Mean Corpuscular Volume 93.8 fL (80.0-100.0); Platelet Count 184 K/uL (130-400); RDW Coefficient of Variation 12.6 % (11.5-14.5); RDW Standard Deviation 43.6 fL (36.4-46.3); Red Blood Count 3.69 M/uL (4.70-6.10); White Blood Count 7.86 K/ul (4.8-10.8)
[2024-01-05 16:21] LABS: Calcium 8.3 mg/dl (8.6-10.3); Potassium 5.8 mmol/L (3.5-5.1)
[2024-01-05 16:27] LABS: BUN Creatinine Ratio 27.7 (10-20); Creatinine Clr Calc Pharmacy 44.4 ml/min; Est GFR (African American) 43.5 ml/min; Est GFR (Non-African American) 37.5 ml/min
[2024-01-05] MEDS ORDERED: INSULIN HUMAN REGULAR PER UNIT 10 UNITS in SYRINGE 0 ML IV STA (16:35)
--- NOTE | 2024-01-05 16:55 | Communication Note ---
Date of Service: January 05, 2024 Repeat labs this afternoon showing stable hgb compared to prior but worsening renal function. Was started on IVF but will increase rate for dehydration on exam and will change to 1/2NSS and add bicarb given acidosis on labs. Also ordering 1gm calcium gluconate, amp dextrose and 10u regular insulin for potassium of 5.8. Again, lisinopril on hold and likely should not be continued on such Prior scheduled toradol placed on hold and avoiding NSAIDs for now given INA. CTAP on admission without hydro/obstruction. Monitor response to IVF/bicarb/hydration and tx of hyperkalemia. Repeat labs for this evening ordered for repeat eval. Charge nurse notified to ensure orders carried out/overnight team notified with repeat labs for further instruction/orders pending repeat labs.
[2024-01-05] MEDS: DEXTROSE 50% 50 ML SYRINGE IV ONE ×2 (17:07→23:45)
[2024-01-05] MEDS: INSULIN HUMAN REGULAR PER UNIT 10 UNITS in SYRINGE 9.9 ML IV ONE ×2 (17:08→23:45)
[2024-01-05] MEDS: CALCIUM GLUCONATE 1,000 MG/60 ML BAG IV STA ×2 (17:08→23:45)
[2024-01-05] MEDS: SODIUM BICARBONATE 8.4% 50 MEQ in SODIUM CHLORIDE 0.45 % 1,000 ML IV SCH (19:14)
--- NOTE | 2024-01-05 19:17 | Magnetic Resonance Report ---
MR lumbar spine wo con CLINICAL HISTORY: 58 years-old Male with radicular back pain. Acute severe low back pain with lower extremity radicular symptoms COMPARISON: CT lumbar spine 01/04/2024, MRI 05/24/2022 TECHNIQUE: Multiplanar, multi sequence MRI of the lumbar spine was performed without intravenous cont rast. FINDINGS: Intrathecal catheter related to the patient's pain pump is noted entering the central canal at the le josué of L2-L3, not well evaluated by MRI technique. The study is mildly motion degraded. Conus medulla ris terminates at the L1-L2 interspace. There is no acute fracture, subluxation or endplate erosion i dentified. Bone marrow edema, acute fracture, subluxation or marrow replacing process. Mild disc kindra ccation in the lower lumbar spine and also the L3-L4 and L4-L5 levels. Paraspinal tissues are within normal limits. T12-L1: Mild facet arthrosis. No central canal or neural foraminal stenosis. No significant change. L1-L2: Mild facet arthrosis. No central canal or neural foraminal stenosis. No significant change. L2-L3: Ligamentum flavum thickening with moderate facet arthrosis. No central canal or neural foramin al stenosis. No significant change. L3-L4: Mild intervertebral disc space narrowing is similar to prior. Spondylitic spurring with small circumferential annular disc bulge which is again eccentric to the right paracentral space. Ligamentu m flavum thickening with [id number] facet arthrosis. There is flattening of the ventral thecal sac without significant central canal stenosis. Mild narrowing of the inferior neural foramen is unch anged. L4-L5: Tiny posterior annular disc bulge. Ligamentum flavum thickening with moderate facet arthrosis. Central canal is patent. Mild bilateral foraminal narrowing is unchanged. L5-S1: Mild spondylitic spurring with tiny posterior annular disc bulge. Ligamentum flavum thickening with moderate left and severe right facet arthrosis, stable from prior. No significant central canal or neural foraminal narrowing. IMPRESSION: 1. Discogenic degeneration with spondylitic spurring and facet arthrosis as above, generally unchange d compared to the 05/24/2022 exam. 2. No high-grade central canal or neural foraminal narrowing. 3. No significant bone marrow edema. ACT 112: Negative or not required by law. The above report was generated using voice recognition software. It may contain grammatical, syntax o r spelling errors. Electronically signed by: Ray Gonzales M.D. 01/05/2024 7:15 PM
[2024-01-05] MEDS: MoRPHine SULFATE 2 MG/ML CARP IV PRN (19:23)
--- NOTE | 2024-01-05 22:24 | Electrocardiogram Report ---
Test Reason : Blood Pressure : */* mmHG Vent. Rate : 77 BPM Atrial Rate : 77 BPM P-R Int : 126 ms QRS Dur : 106 ms QT Int : 374 ms P-R-T Axes : 47 48 68 degrees QTcB Int : 423 ms Normal sinus rhythm with sinus arrhythmia Incomplete right bundle branch block Borderline ECG When compared with ECG of 12-Sep-2023 10:14, No significant change was found Confirmed by Gustavo Aponte ([id number]) on 01/05/2024 10:24:46 PM Referred By: REFERRED SELF Confirmed By: Gustavo Aponte
[2024-01-05 22:39] LABS: Appearance Urine Clear (Clear); Bilirubin Urine Negative (Negative); Blood Urine Negative (Negative); Color Urine Yellow; Glucose Urine UA 2+ (Negative); Ketones Urine Trace (Negative); Leukocyte Esterase Urine Negative (Negative); Nitrite Urine Negative (Negative); Protein Urine Negative (Negative); Specific Gravity Urine 1.029 (1.000-1.030); Urobilinogen Urine Negative (Negative)
[2024-01-05 23:07] LABS: BUN Creatinine Ratio 33.3 (10-20); Calcium 8.2 mg/dl (8.6-10.3); Creatinine Clr Calc Pharmacy 47.1 ml/min; Est GFR (African American) 46.7 ml/min; Est GFR (Non-African American) 40.3 ml/min; Potassium 6.8 mmol/L (3.5-5.1)
[2024-01-05] MEDS ORDERED: LANTUS PER UNIT CHARGE SQ ONE (23:25)
[2024-01-06] MEDS: INSULIN ASPART PER UNIT CHARGE SC SCH (00:55)
[2024-01-06 04:06] LABS: Basophils # (auto) 0.01 K/uL (0.00-0.20); Basophils % (auto) 0.1 %; Hematocrit (blood only) 31.8 % (42.0-52.0); Hemoglobin 11.4 g/dl (14.0-18.0); Immature Granulocytes # (auto) 0.03 K/uL (0.01-0.20); Immature Granulocytes % (auto) 0.3 %; Lymphocytes # (auto) 0.84 K/uL (1.20-3.40); Lymphocytes % (auto) 9.3 %; Mean Corpuscular Hemoglobin 33.6 pg (25.0-34.0); Mean Corpuscular Hgb Conc 35.8 g/dL (32.0-36.0); Mean Corpuscular Volume 93.8 fL (80.0-100.0); Mean Platelet Volume 9.9 fL (9.4-12.4); Monocytes # (auto) 0.17 K/uL (0.11-0.59); Monocytes % (auto) 1.9 %; Neutrophils # (auto) 7.97 K/uL (1.40-6.50); Neutrophils % (auto) 88.4 %; Platelet Count 165 K/uL (130-400); RDW Coefficient of Variation 12.7 % (11.5-14.5); RDW Standard Deviation 43.7 fL (36.4-46.3); Red Blood Count 3.39 M/uL (4.70-6.10); White Blood Count 9.02 K/ul (4.8-10.8)
[2024-01-06 04:12] LABS: BUN Creatinine Ratio 34.4 (10-20); Calcium 8.4 mg/dl (8.6-10.3); Est GFR (African American) 55.1 ml/min; Est GFR (Non-African American) 47.5 ml/min
[2024-01-06 04:13] LABS: Albumin Level 3.4 gm/dl (3.4-5.0); BUN Creatinine Ratio 34.8 (10-20); Bilirubin Direct 0.1 mg/dl (0-0.2); Bilirubin,Total 0.4 mg/dl (0.2-1.0); Calcium 8.5 mg/dl (8.6-10.3); Creatinine Clr Calc Pharmacy 54.7 ml/min; Est GFR (Non-African American) 48.3 ml/min; Total Protein 5.4 gm/dl (6.0-8.3)
[2024-01-06 04:31] LABS: T3 Free 2.84 pg/ml (2.3-4.2)
[2024-01-06] MEDS: INSULIN HUMAN REGULAR PER UNIT 10 UNITS in SYRINGE 9.9 ML IV ONE (04:37)
[2024-01-06] MEDS: CALCIUM GLUCONATE 1,000 MG/60 ML BAG IV STA (04:37)
[2024-01-06] MEDS: DEXTROSE 50% 50 ML SYRINGE IV ONE (04:38)
[2024-01-06] MEDS: LEVOTHYROXINE SODIUM 88 MCG TABLET PO SCH (04:39)
[2024-01-06 04:44] LABS: Vitamin D, 25 Hydrox 35.5 ng/ml (30-100)
[2024-01-06 07:23] LABS: Estimated Average Glucose 157 mg/dl; Hemoglobin A1C 7.1 % (4.5-5.6)
--- NOTE | 2024-01-06 07:57 | Hospitalist Progress Note ---
Date of Service January 06, 2024 Assessment & Plan (1) Pain, radicular, lumbar: Plan: Presented to ER w/ progressively worsening back pain with radiation down posterior LLE to the knee. Denied recent trauma but mild paresthesia in LLE but no weakness/red flag symptoms reported. Of note, had not moved his bowels for 8- 9 days and had moderate-extensive colonic fecal retention on admission CTAP Suspected acute on chronic lumbar radiculopathy/spinal stenosis as causing issues. Hx chronic lumbar back pain/SI joint pain and followed with Dr Dejesus recently for right hip pain/injection Given lyrica 25mg PO on admission as not tried in past as had swelling from lorna apentin but denied swelling with dose inpatient Placed on tylenol, lidocaine patch, heat on admission with morphine for mod- severe pain. MRI lumbar spine ordered as patient appeared to have deficits on the LLE with decreased strength flexion/extension at the knee as well as decreased dorsiflexion compared to plantar flexion on the left concerning for lumbar radiculopathy from L3-L4 but only really when sitting up in bed. * MRI w/ Discogenic degeneration with spondylitic spurring and facet arthrosis as above, generally unchanged compared to the 05/24/2022 exam. 2. No high-grade central canal or neural foraminal narrowing. 3. No significant bone marrow edema. * Report does note mild disc space narrowing L3-L4 with spurring/small circumferential annular disc bulge without significant canal stenosis. Mild narrowing of inferior neural foramen unchanged. Also notes tiny posterior annular disc bulge L4-L5 with mild bilateral foraminal narrowing unchanged and also tiny posterior annular disc bulge at L5-S1. Dr Soria consulted, xrays ordered but feels no need for surgery -- recs pain management follow up for consideration for left hip injection/trigger point. Messaged pain management (on consult) about such Continue IV solumedrol for now, Lyrica 25mg PO x 1, if effective planning to continue BID If stable/improved will plan to transition to prednisone and taper at dc in AM and can continue lyrica BID and titrate in follow up outpatient Did have some ongoing issues last evening as initially BSG low in AM/juice provided and then nursing staff decision to hold off dinner time/sliding scale for concerns droping w/ dinner BSG 315 and report filed/charge nurse addressed and pharmacy to continue to follow. Hgb stable on IVF, no bleeding reported. NSAIDs w/ toradol remaining on hold as well as Lovenox given INA and renal dysfunction. CTAP on admission without obstuction. Urine osm elevated. Continue IVF as outlined below and tx of hyperkalemia. Checking urine cr. Did NOT get any contrast with any imaging while inpatient, avoid nephrotoxins. Bowel regimen -- + BM 01/04, continue bowel regimen. Consider relistor for chronic opiate induced constipation but continue bowel regimen/monitor Continue PT/OT while inpatient and likely to continue outpt PT/OT and can be given rx. He reports poor therapy outcomes in past with [facility] in [place] and reassurred can give rx and take where he chooses (2) Hyperkalemia: Plan: K 5.5 on admission, EKG w/ NSR w/ sinus arrhythmia. No CP/SOB Was given ca gluconate/dextrose insulin on admission w/ improvement in K to 5.1 but decision to repeat to ensure remaining stable with repeat further elevated to 5.8 and repeat ca gluconate/dextrose/insulin and IVF ordered overnight with repeat to 6.8 and additional meds provided x 2 Ongoing issues with hyperkalemia, switched IVF as ordered w/ bicarb 01/04 for acidemia and now on NSS w/o bicarb as resolved and given low dose lasix with such and repeat down to 5..2 and will plan to continue IVF but avoid further diuretics given worsened Cr to 1.83 (peak 1.9 following admission) Lisinopril remains on hold, again stressed to patient given elevations in potassium in the past as well as renal dysfunction would NOT resume this at discharge Renal dose meds/avoid nephrotoxins BMP in AM Making urine, but if any decreased UOP can reach out to nephrology pending urine cr level Continue telemetry monitoring (3) INA (acute kidney injury): Plan: Cr peak 1.9 following admission, suspect injury worsened with Toradol 30mg IV q6h scheduled as well as lovenox SQ for DVT prophylaxis placed further toradol, lovenox on OLD Home lisinopril for BP on hold and again w/ prior hyperkalemia would hold/not continue such at discharge Cr 1.57--> 1.4 on repeat this morning however potassium remained elevated and continues on IVF and was given small one time dose lasix to assist with potassium elevation however will avoid further as outlined Cr worse at 1.83 now No contrast provided with imaging. No obstruction on CTAP. Urine osm 800s, Urine Na 45 check urine creatinine Continue NSS IV for now Renal dose meds/avoid nephrotoxins Monitor BMP/UOP (4) Constipation: Plan: CTAP w/ mod-severe colonic fecal retention but NO obstruction or bowel wall thickening. Suspect 2nd to poor PO intake, dehydration and pain medication Bowel regimen ordered, enema x 1 on 01/04 with +BM and remains on bowel regimen (5) Chronic intractable pain: Plan: Follows with pain management and has intrathecal cervical Dilaudid pain pump Will continue pain regimen per lumbar back pain plan Pain management consulted given pain pump and need for eval following MRI -- discussed with Dr Parra and was see this morning Baclofen 10mg TID added by pain management (6) Hypertension: Plan: BP stable 149/73 in setting of pain. Lisinopril remains on hold for now given INA / hyperkalemia Suspect should be on ALTERNATIVE medication to prevent hyperkalemia and elevated potassium levels in the system in the past (7) Tobacco abuse: Plan: 1.5ppd smoker. cessation to be encouraged. Nicotine replacement ordered as needed and has patch in place instructed NOT to leave telemetry unit w/ electrolyte abn as above (8) COPD with emphysema: Plan: Hx of such, 2nd to smoking. Continue incentive spirometer and home albuterol prn, spiriva daily No SOB reported and is on room air and will monitor (9) Uncontrolled type 2 diabetes mellitus: Plan: BSG 200 on admission Home metformin on hold B12 low normal/replacement started Pharmacy on consult for glycemic control Did have some issues w/ nursing staff yesterday however educated to contact pharmacy for adjustments and to reach out for concerns rather than making decisions without reaching out to providers (10) Pituitary hypogonadism: Plan: continues Synthroid-even though TSH is mildly low, Free T3 and free T4 levels are normal-Central hypothyroidism-continue same levothyroxine dose and follow-up with endocrinology ?adrenal insuff issues? consider discussion w/ dr gleason Plan Dispo: continued inpatient stay working on electrolyte issues. Monitor pain w/ adjustments as outlined but possible home with rx for OPPT and prednisone taper/lyrica tomorrow if pain level tolerable (discussed likely not be gone, but encouraged slow improvements over time) Admission and Anticipated Discharge Date Admission Date: January 04, 2024 Supervising Physician Co-Signing Physician Notes JENNI Supervision Note: I did not personally see or examine the patient today, but I verified all eckert points of JENNI Shah's assessment and plan with the following exceptions/additions: None Subjective Eval this afternoon, feeling better but having pain when up and walking. Reports did two laps this morning but prior was pretty confined and discussed not to over do it. Reports having some improvement since steroids given improvement in ambulation and that pain likely not completely resolved by time of discharge but hoping to have improvement/tolerance and discussed avoidance of heavy lifting and outpatient recommendations for possible steroid injection/trigger point injection. Not sure if lyrica had improvement but will give dose now/asked to alert nursing if effective and will continue BID and steroid taper at discharge. Prior use [facility] at [facility] without good results but discussed can give rx to take to another facility of his choosing. Possible dc in AM if labs/electrolytes improved. Discussed avoiding excessive caffeine intake given potassium level and continues on hydration and dose of lasix for today to help bring this down. Plan to repeat labs this afternoon, no CP/SOB but encouraged not to go off monitor if potassium remains elevated but likely would use different medication than lisinopril for BP control given prior elevations in potassium. Questions/concerns addressed at this time. Physical Exam Physical Exam: General: 58yo male resting in bed upon entry, NAD, was down to xray earlier. appears comfortable at rest, improvement in ability to sit up in bed/ambulate today and reports has been ambulating in the halls but had to stop due to pain in left hip/leg HEENT head atraumatic, normocephalic, mm slightly dry, trachea midline Resp: even/unlabored, slightly diminished in the bases/bibasilar crackles but no wheezing and is on room air CV: RRR, no significant m/r/g, no pitting edema, pulses present GI: +BS, slight distension (improved), nontender/no rebound/guarding pain pump to RLQ in place : no herring MSK/Neuro: +paraspinal muscle tenderness to lumbar paraspinal muscles bilaterally (improved), no obvious bony step off DECREASED strength LLE compared to RLE with flexion/extension at the hip as well as decreased dorsiflexion (compared to plantar flexion) on the left when sitting up in bed however appears improved today laying in bed. pulses present, calves nontender. Does have R lateral hip discomfort at times/IT region but no obvious findings Psych: AOx3, cooperative but impulsive at times Results & Data Results & Data Vital Signs (Past 12 Hours) Vital Signs Temp Pulse Pulse Resp BP Pulse Ox O2 Del Method 01/06/24 03:26 36.5 C 81 20 125/64 95 Room Air 01/05/24 22:03 57 L 01/05/24 19:55 36.8 C 69 18 130/71 92 Room Air Laboratory Results 01/06/24 01/06/24 01/06/24 Range/Units 07:48 03:37 03:37 WBC (4.8-10.8) K/ul RBC (4.70-6.10) M/uL Hgb (14.0-18.0) g/dl Hct (42.0-52.0) % MCV (80.0-100.0) fL MCH (25.0-34.0) pg MCHC (32.0-36.0) g/dL RDW Std Deviation (36.4-46.3) fL RDW Coeff of Salome (11.5-14.5) % Plt Count (130-400) K/uL MPV (9.4-12.4) fL Immature Gran % (Auto) % Neut % (Auto) % Lymph % (Auto) % [place] % (Auto) % Eos % (Auto) % Baso % (Auto) % Neut # (Auto) (1.40-6.50) K/uL Lymph # (Auto) (1.20-3.40) K/uL [place] # (Auto) (0.11-0.59) K/uL Eos # (Auto) (0.00-0.50) K/uL Baso # (Auto) (0.00-0.20) K/uL Immature Gran # (Auto) (0.01-0.20) K/uL Sodium (136-145) mmol/L Potassium (3.5-5.1) mmol/L Chloride (98-107) mmol/L Carbon Dioxide (21-32) mmol/L Anion Gap (3-11) BUN (6-23) mg/dl Creatinine (0.6-1.4) mg/dl Est Cr Clr Drug Dosing ml/min Est GFR ( Amer) ml/min Est GFR (Non-Af Amer) ml/min BUN/Creatinine Ratio (10-20) Glucose 189 H (70-99(Fasting)) mg/dl POC Glucose 189 H (70-99) mg/dl Estimat Average Glucose 157 mg/dl Hemoglobin A1c 7.1 H (4.5-5.6) % Osmolality (280-300) mOsm/kg Calcium 8.4 L 8.5 L (8.6-10.3) mg/dl Phosphorus (2.5-4.9) mg/dl Magnesium (1.7-2.4) mg/dl Total Bilirubin 0.4 (0.2-1.0) mg/dl Direct Bilirubin 0.1 (0-0.2) mg/dl AST 10 L (13-39) U/L ALT 10 (7-52) U/L Alkaline Phosphatase 77 (34-104) U/L Total Creatine Kinase (30-223) U/L Total Protein 5.4 L (6.0-8.3) gm/dl Albumin 3.4 (3.4-5.0) gm/dl Vitamin B12 (180-914) pg/ml 25-OH Vitamin D Total 35.5 (30-100) ng/ml TSH (0.300-4.500) uIu/ml Free T4 (0.61-1.60) ng/dl Free T3 2.84 (2.3-4.2) pg/ml Urine Color Urine Appearance (Clear) Urine pH (4.5-7.5) Ur Specific [place] (1.000-1.030) Urine Protein (Negative) Urine Glucose (UA) (Negative) Urine Ketones (Negative) Urine Blood (Negative) Urine Nitrite (Negative) Urine Bilirubin (Negative) Urine Urobilinogen (Negative) Ur Leukocyte Esterase (Negative) Urine Osmolality (500-800) mOsm/kg Ur Random Sodium mmol/L 01/06/24 01/06/24 01/06/24 Range/Units 03:37 03:37 03:37 WBC (4.8-10.8) K/ul RBC (4.70-6.10) M/uL Hgb (14.0-18.0) g/dl Hct (42.0-52.0) % MCV (80.0-100.0) fL MCH (25.0-34.0) pg MCHC (32.0-36.0) g/dL RDW Std Deviation (36.4-46.3) fL RDW Coeff of Salome (11.5-14.5) % Plt Count (130-400) K/uL MPV (9.4-12.4) fL Immature Gran % (Auto) % Neut % (Auto) % Lymph % (Auto) % [place] % (Auto) % Eos % (Auto) % Baso % (Auto) % Neut # (Auto) (1.40-6.50) K/uL Lymph # (Auto) (1.20-3.40) K/uL [place] # (Auto) (0.11-0.59) K/uL Eos # (Auto) (0.00-0.50) K/uL Baso # (Auto) (0.00-0.20) K/uL Immature Gran # (Auto) (0.01-0.20) K/uL Sodium (136-145) mmol/L Potassium (3.5-5.1) mmol/L Chloride (98-107) mmol/L Carbon Dioxide (21-32) mmol/L Anion Gap (3-11) BUN (6-23) mg/dl Creatinine (0.6-1.4) mg/dl Est Cr Clr Drug Dosing ml/min Est GFR ( Amer) 55.1 ml/min Est GFR (Non-Af Amer) 47.5 48.3 ml/min BUN/Creatinine Ratio 34.4 H 34.8 H (10-20) Glucose 186 H (70-99(Fasting)) mg/dl POC Glucose (70-99) mg/dl Estimat Average Glucose mg/dl Hemoglobin A1c (4.5-5.6) % Osmolality (280-300) mOsm/kg Calcium (8.6-10.3) mg/dl Phosphorus (2.5-4.9) mg/dl Magnesium (1.7-2.4) mg/dl Total Bilirubin (0.2-1.0) mg/dl Direct Bilirubin (0-0.2) mg/dl AST (13-39) U/L ALT (7-52) U/L Alkaline Phosphatase (34-104) U/L Total Creatine Kinase (30-223) U/L Total Protein (6.0-8.3) gm/dl Albumin (3.4-5.0) gm/dl Vitamin B12 (180-914) pg/ml 25-OH Vitamin D Total (30-100) ng/ml TSH (0.300-4.500) uIu/ml Free T4 (0.61-1.60) ng/dl Free T3 (2.3-4.2) pg/ml Urine Color Urine Appearance (Clear) Urine pH (4.5-7.5) Ur Specific [place] (1.000-1.030) Urine Protein (Negative) Urine Glucose (UA) (Negative) Urine Ketones (Negative) Urine Blood (Negative) Urine Nitrite (Negative) Urine Bilirubin (Negative) Urine Urobilinogen (Negative) Ur Leukocyte Esterase (Negative) Urine Osmolality (500-800) mOsm/kg Ur Random Sodium mmol/L 01/06/24 01/06/24 01/06/24 Range/Units 03:37 03:37 03:37 WBC (4.8-10.8) K/ul RBC (4.70-6.10) M/uL Hgb (14.0-18.0) g/dl Hct (42.0-52.0) % MCV (80.0-100.0) fL MCH (25.0-34.0) pg MCHC (32.0-36.0) g/dL RDW Std Deviation (36.4-46.3) fL RDW Coeff of Salome (11.5-14.5) % Plt Count (130-400) K/uL MPV (9.4-12.4) fL Immature Gran % (Auto) % Neut % (Auto) % Lymph % (Auto) % [place] % (Auto) % Eos % (Auto) % Baso % (Auto) % Neut # (Auto) (1.40-6.50) K/uL Lymph # (Auto) (1.20-3.40) K/uL [place] # (Auto) (0.11-0.59) K/uL Eos # (Auto) (0.00-0.50) K/uL Baso # (Auto) (0.00-0.20) K/uL Immature Gran # (Auto) (0.01-0.20) K/uL Sodium (136-145) mmol/L Potassium (3.5-5.1) mmol/L Chloride (98-107) mmol/L Carbon Dioxide (21-32) mmol/L Anion Gap (3-11) BUN 54 H (6-23) mg/dl Creatinine 1.57 H 1.55 H (0.6-1.4) mg/dl Est Cr Clr Drug Dosing 54.0 54.7 ml/min Est GFR ( Amer) 56.0 ml/min Est GFR (Non-Af Amer) ml/min BUN/Creatinine Ratio (10-20) Glucose (70-99(Fasting)) mg/dl POC Glucose (70-99) mg/dl Estimat Average Glucose mg/dl Hemoglobin A1c (4.5-5.6) % Osmolality (280-300) mOsm/kg Calcium (8.6-10.3) mg/dl Phosphorus (2.5-4.9) mg/dl Magnesium (1.7-2.4) mg/dl Total Bilirubin (0.2-1.0) mg/dl Direct Bilirubin (0-0.2) mg/dl AST (13-39) U/L ALT (7-52) U/L Alkaline Phosphatase (34-104) U/L Total Creatine Kinase (30-223) U/L Total Protein (6.0-8.3) gm/dl Albumin (3.4-5.0) gm/dl Vitamin B12 (180-914) pg/ml 25-OH Vitamin D Total (30-100) ng/ml TSH (0.300-4.500) uIu/ml Free T4 (0.61-1.60) ng/dl Free T3 (2.3-4.2) pg/ml Urine Color Urine Appearance (Clear) Urine pH (4.5-7.5) Ur Specific [place] (1.000-1.030) Urine Protein (Negative) Urine Glucose (UA) (Negative) Urine Ketones (Negative) Urine Blood (Negative) Urine Nitrite (Negative) Urine Bilirubin (Negative) Urine Urobilinogen (Negative) Ur Leukocyte Esterase (Negative) Urine Osmolality (500-800) mOsm/kg Ur Random Sodium mmol/L 01/06/24 01/06/24 01/06/24 Range/Units 03:37 03:37 03:37 WBC (4.8-10.8) K/ul RBC (4.70-6.10) M/uL Hgb (14.0-18.0) g/dl Hct (42.0-52.0) % MCV (80.0-100.0) fL MCH (25.0-34.0) pg MCHC (32.0-36.0) g/dL RDW Std Deviation (36.4-46.3) fL RDW Coeff of Salome (11.5-14.5) % Plt Count (130-400) K/uL MPV (9.4-12.4) fL Immature Gran % (Auto) % Neut % (Auto) % Lymph % (Auto) % [place] % (Auto) % Eos % (Auto) % Baso % (Auto) % Neut # (Auto) (1.40-6.50) K/uL Lymph # (Auto) (1.20-3.40) K/uL [place] # (Auto) (0.11-0.59) K/uL Eos # (Auto) (0.00-0.50) K/uL Baso # (Auto) (0.00-0.20) K/uL Immature Gran # (Auto) (0.01-0.20) K/uL Sodium (136-145) mmol/L Potassium (3.5-5.1) mmol/L Chloride 104 (98-107) mmol/L Carbon Dioxide 25 25 (21-32) mmol/L Anion Gap 3 3 (3-11) BUN 54 H (6-23) mg/dl Creatinine (0.6-1.4) mg/dl Est Cr Clr Drug Dosing ml/min Est GFR ( Amer) ml/min Est GFR (Non-Af Amer) ml/min BUN/Creatinine Ratio (10-20) Glucose (70-99(Fasting)) mg/dl POC Glucose (70-99) mg/dl Estimat Average Glucose mg/dl Hemoglobin A1c (4.5-5.6) % Osmolality (280-300) mOsm/kg Calcium (8.6-10.3) mg/dl Phosphorus (2.5-4.9) mg/dl Magnesium (1.7-2.4) mg/dl Total Bilirubin (0.2-1.0) mg/dl Direct Bilirubin (0-0.2) mg/dl AST (13-39) U/L ALT (7-52) U/L Alkaline Phosphatase (34-104) U/L Total Creatine Kinase (30-223) U/L Total Protein (6.0-8.3) gm/dl Albumin (3.4-5.0) gm/dl Vitamin B12 (180-914) pg/ml 25-OH Vitamin D Total (30-100) ng/ml TSH (0.300-4.500) uIu/ml Free T4 (0.61-1.60) ng/dl Free T3 (2.3-4.2) pg/ml Urine Color Urine Appearance (Clear) Urine pH (4.5-7.5) Ur Specific [place] (1.000-1.030) Urine Protein (Negative) Urine Glucose (UA) (Negative) Urine Ketones (Negative) Urine Blood (Negative) Urine Nitrite (Negative) Urine Bilirubin (Negative) Urine Urobilinogen (Negative) Ur Leukocyte Esterase (Negative) Urine Osmolality (500-800) mOsm/kg Ur Random Sodium mmol/L 01/06/24 01/06/24 01/06/24 Range/Units 03:37 03:37 03:37 WBC 9.02 (4.8-10.8) K/ul RBC 3.39 L (4.70-6.10) M/uL Hgb 11.4 L (14.0-18.0) g/dl Hct 31.8 L (42.0-52.0) % MCV 93.8 (80.0-100.0) fL MCH 33.6 (25.0-34.0) pg MCHC 35.8 (32.0-36.0) g/dL RDW Std Deviation 43.7 (36.4-46.3) fL RDW Coeff of Salome 12.7 (11.5-14.5) % Plt Count 165 (130-400) K/uL MPV 9.9 (9.4-12.4) fL Immature Gran % (Auto) 0.3 % Neut % (Auto) 88.4 % Lymph % (Auto) 9.3 % [place] % (Auto) 1.9 % Eos % (Auto) 0.0 % Baso % (Auto) 0.1 % Neut # (Auto) 7.97 H (1.40-6.50) K/uL Lymph # (Auto) 0.84 L (1.20-3.40) K/uL [place] # (Auto) 0.17 (0.11-0.59) K/uL Eos # (Auto) 0.00 (0.00-0.50) K/uL Baso # (Auto) 0.01 (0.00-0.20) K/uL Immature Gran # (Auto) 0.03 (0.01-0.20) K/uL Sodium 132 L 132 L (136-145) mmol/L Potassium 6.0 H 6.0 H (3.5-5.1) mmol/L Chloride 104 (98-107) mmol/L Carbon Dioxide (21-32) mmol/L Anion Gap (3-11) BUN (6-23) mg/dl Creatinine (0.6-1.4) mg/dl Est Cr Clr Drug Dosing ml/min Est GFR ( Amer) ml/min Est GFR (Non-Af Amer) ml/min BUN/Creatinine Ratio (10-20) Glucose (70-99(Fasting)) mg/dl POC Glucose (70-99) mg/dl Estimat Average Glucose mg/dl Hemoglobin A1c (4.5-5.6) % Osmolality (280-300) mOsm/kg Calcium (8.6-10.3) mg/dl Phosphorus (2.5-4.9) mg/dl Magnesium (1.7-2.4) mg/dl Total Bilirubin (0.2-1.0) mg/dl Direct Bilirubin (0-0.2) mg/dl AST (13-39) U/L ALT (7-52) U/L Alkaline Phosphatase (34-104) U/L Total Creatine Kinase (30-223) U/L Total Protein (6.0-8.3) gm/dl Albumin (3.4-5.0) gm/dl Vitamin B12 (180-914) pg/ml 25-OH Vitamin D Total (30-100) ng/ml TSH (0.300-4.500) uIu/ml Free T4 (0.61-1.60) ng/dl Free T3 (2.3-4.2) pg/ml Urine Color Urine Appearance (Clear) Urine pH (4.5-7.5) Ur Specific [place] (1.000-1.030) Urine Protein (Negative) Urine Glucose (UA) (Negative) Urine Ketones (Negative) Urine Blood (Negative) Urine Nitrite (Negative) Urine Bilirubin (Negative) Urine Urobilinogen (Negative) Ur Leukocyte Esterase (Negative) Urine Osmolality (500-800) mOsm/kg Ur Random Sodium mmol/L 01/06/24 01/06/24 01/05/24 Range/Units 03:08 00:52 Unknown WBC (4.8-10.8) K/ul RBC (4.70-6.10) M/uL Hgb (14.0-18.0) g/dl Hct (42.0-52.0) % MCV (80.0-100.0) fL MCH (25.0-34.0) pg MCHC (32.0-36.0) g/dL RDW Std Deviation (36.4-46.3) fL RDW Coeff of Salome (11.5-14.5) % Plt Count (130-400) K/uL MPV (9.4-12.4) fL Immature Gran % (Auto) % Neut % (Auto) % Lymph % (Auto) % [place] % (Auto) % Eos % (Auto) % Baso % (Auto) % Neut # (Auto) (1.40-6.50) K/uL Lymph # (Auto) (1.20-3.40) K/uL [place] # (Auto) (0.11-0.59) K/uL Eos # (Auto) (0.00-0.50) K/uL Baso # (Auto) (0.00-0.20) K/uL Immature Gran # (Auto) (0.01-0.20) K/uL Sodium (136-145) mmol/L Potassium (3.5-5.1) mmol/L Chloride (98-107) mmol/L Carbon Dioxide (21-32) mmol/L Anion Gap (3-11) BUN (6-23) mg/dl Creatinine (0.6-1.4) mg/dl Est Cr Clr Drug Dosing ml/min Est GFR ( Amer) ml/min Est GFR (Non-Af Amer) ml/min BUN/Creatinine Ratio (10-20) Glucose (70-99(Fasting)) mg/dl POC Glucose 168 H 178 H (70-99) mg/dl Estimat Average Glucose mg/dl Hemoglobin A1c (4.5-5.6) % Osmolality (280-300) mOsm/kg Calcium (8.6-10.3) mg/dl Phosphorus (2.5-4.9) mg/dl Magnesium (1.7-2.4) mg/dl Total Bilirubin (0.2-1.0) mg/dl Direct Bilirubin (0-0.2) mg/dl AST (13-39) U/L ALT (7-52) U/L Alkaline Phosphatase (34-104) U/L Total Creatine Kinase (30-223) U/L Total Protein (6.0-8.3) gm/dl Albumin (3.4-5.0) gm/dl Vitamin B12 (180-914) pg/ml 25-OH Vitamin D Total (30-100) ng/ml TSH (0.300-4.500) uIu/ml Free T4 (0.61-1.60) ng/dl Free T3 (2.3-4.2) pg/ml Urine Color Yellow Urine Appearance Clear (Clear) Urine pH 5.0 (4.5-7.5) Ur Specific [place] 1.029 (1.000-1.030) Urine Protein Negative (Negative) Urine Glucose (UA) 2+ H (Negative) Urine Ketones Trace H (Negative) Urine Blood Negative (Negative) Urine Nitrite Negative (Negative) Urine Bilirubin Negative (Negative) Urine Urobilinogen Negative (Negative) Ur Leukocyte Esterase Negative (Negative) Urine Osmolality 812 H (500-800) mOsm/kg Ur Random Sodium 45 mmol/L 01/05/24 01/05/24 01/05/24 Range/Units 23:30 22:16 20:50 WBC (4.8-10.8) K/ul RBC (4.70-6.10) M/uL Hgb (14.0-18.0) g/dl Hct (42.0-52.0) % MCV (80.0-100.0) fL MCH (25.0-34.0) pg MCHC (32.0-36.0) g/dL RDW Std Deviation (36.4-46.3) fL RDW Coeff of [place]ome (11.5-14.5) % Plt Count (130-400) K/uL MPV (9.4-12.4) fL Immature Gran % (Auto) % Neut % (Auto) % Lymph % (Auto) % [place] % (Auto) % Eos % (Auto) % Baso % (Auto) % Neut # (Auto) (1.40-6.50) K/uL Lymph # (Auto) (1.20-3.40) K/uL [place] # (Auto) (0.11-0.59) K/uL Eos # (Auto) (0.00-0.50) K/uL Baso # (Auto) (0.00-0.20) K/uL Immature Gran # (Auto) (0.01-0.20) K/uL Sodium 133 L (136-145) mmol/L Potassium 6.8 H* (3.5-5.1) mmol/L Chloride 103 (98-107) mmol/L Carbon Dioxide 26 (21-32) mmol/L Anion Gap 4 (3-11) BUN 60 H (6-23) mg/dl Creatinine 1.80 H (0.6-1.4) mg/dl Est Cr Clr Drug Dosing 47.1 ml/min Est GFR ( Amer) 46.7 ml/min Est GFR (Non-Af Amer) 40.3 ml/min BUN/Creatinine Ratio 33.3 H (10-20) Glucose 159 H (70-99(Fasting)) mg/dl POC Glucose 199 H 98 (70-99) mg/dl Estimat Average Glucose mg/dl Hemoglobin A1c (4.5-5.6) % Osmolality (280-300) mOsm/kg Calcium 8.2 L (8.6-10.3) mg/dl Phosphorus (2.5-4.9) mg/dl Magnesium (1.7-2.4) mg/dl Total Bilirubin (0.2-1.0) mg/dl Direct Bilirubin (0-0.2) mg/dl AST (13-39) U/L ALT (7-52) U/L Alkaline Phosphatase (34-104) U/L Total Creatine Kinase (30-223) U/L Total Protein (6.0-8.3) gm/dl Albumin (3.4-5.0) gm/dl Vitamin B12 (180-914) pg/ml 25-OH Vitamin D Total (30-100) ng/ml TSH (0.300-4.500) uIu/ml Free T4 (0.61-1.60) ng/dl Free T3 (2.3-4.2) pg/ml Urine Color Urine Appearance (Clear) Urine pH (4.5-7.5) Ur Specific [place] (1.000-1.030) Urine Protein (Negative) Urine Glucose (UA) (Negative) Urine Ketones (Negative) Urine Blood (Negative) Urine Nitrite (Negative) Urine Bilirubin (Negative) Urine Urobilinogen (Negative) Ur Leukocyte Esterase (Negative) Urine Osmolality (500-800) mOsm/kg Ur Random Sodium mmol/L 01/05/24 01/05/24 01/05/24 Range/Units 20:17 18:20 17:06 WBC (4.8-10.8) K/ul RBC (4.70-6.10) M/uL Hgb (14.0-18.0) g/dl Hct (42.0-52.0) % MCV (80.0-100.0) fL MCH (25.0-34.0) pg MCHC (32.0-36.0) g/dL RDW Std Deviation (36.4-46.3) fL RDW Coeff of [place] (11.5-14.5) % Plt Count (130-400) K/uL MPV (9.4-12.4) fL Immature Gran % (Auto) % Neut % (Auto) % Lymph % (Auto) % [place] % (Auto) % Eos % (Auto) % Baso % (Auto) % Neut # (Auto) (1.40-6.50) K/uL Lymph # (Auto) (1.20-3.40) K/uL [place] # (Auto) (0.11-0.59) K/uL Eos # (Auto) (0.00-0.50) K/uL Baso # (Auto) (0.00-0.20) K/uL Immature Gran # (Auto) (0.01-0.20) K/uL Sodium (136-145) mmol/L Potassium (3.5-5.1) mmol/L Chloride (98-107) mmol/L Carbon Dioxide (21-32) mmol/L Anion Gap (3-11) BUN (6-23) mg/dl Creatinine (0.6-1.4) mg/dl Est Cr Clr Drug Dosing ml/min Est GFR ( Amer) ml/min Est GFR (Non-Af Amer) ml/min BUN/Creatinine Ratio (10-20) Glucose (70-99(Fasting)) mg/dl POC Glucose 72 219 H 315 H* (70-99) mg/dl Estimat Average Glucose mg/dl Hemoglobin A1c (4.5-5.6) % Osmolality (280-300) mOsm/kg Calcium (8.6-10.3) mg/dl Phosphorus (2.5-4.9) mg/dl Magnesium (1.7-2.4) mg/dl Total Bilirubin (0.2-1.0) mg/dl Direct Bilirubin (0-0.2) mg/dl AST (13-39) U/L ALT (7-52) U/L Alkaline Phosphatase (34-104) U/L Total Creatine Kinase (30-223) U/L Total Protein (6.0-8.3) gm/dl Albumin (3.4-5.0) gm/dl Vitamin B12 (180-914) pg/ml 25-OH Vitamin D Total (30-100) ng/ml TSH (0.300-4.500) uIu/ml Free T4 (0.61-1.60) ng/dl Free T3 (2.3-4.2) pg/ml Urine Color Urine Appearance (Clear) Urine pH (4.5-7.5) Ur Specific [place] (1.000-1.030) Urine Protein (Negative) Urine Glucose (UA) (Negative) Urine Ketones (Negative) Urine Blood (Negative) Urine Nitrite (Negative) Urine Bilirubin (Negative) Urine Urobilinogen (Negative) Ur Leukocyte Esterase (Negative) Urine Osmolality (500-800) mOsm/kg Ur Random Sodium mmol/L 01/05/24 01/05/24 01/05/24 Range/Units 17:05 15:43 12:17 WBC 7.86 (4.8-10.8) K/ul RBC 3.69 L (4.70-6.10) M/uL Hgb 12.2 L (14.0-18.0) g/dl Hct 34.6 L (42.0-52.0) % MCV 93.8 (80.0-100.0) fL MCH 33.1 (25.0-34.0) pg MCHC 35.3 (32.0-36.0) g/dL RDW Std Deviation 43.6 (36.4-46.3) fL RDW Coeff of Salome 12.6 (11.5-14.5) % Plt Count 184 (130-400) K/uL MPV 10.0 (9.4-12.4) fL Immature Gran % (Auto) % Neut % (Auto) % Lymph % (Auto) % [place] % (Auto) % Eos % (Auto) % Baso % (Auto) % Neut # (Auto) (1.40-6.50) K/uL Lymph # (Auto) (1.20-3.40) K/uL [place] # (Auto) (0.11-0.59) K/uL Eos # (Auto) (0.00-0.50) K/uL Baso # (Auto) (0.00-0.20) K/uL Immature Gran # (Auto) (0.01-0.20) K/uL Sodium 129 L (136-145) mmol/L Potassium 5.8 H (3.5-5.1) mmol/L Chloride 104 (98-107) mmol/L Carbon Dioxide 18 L (21-32) mmol/L Anion Gap 7 (3-11) BUN 53 H (6-23) mg/dl Creatinine 1.91 H (0.6-1.4) mg/dl Est Cr Clr Drug Dosing 44.4 ml/min Est GFR ( Amer) 43.5 ml/min Est GFR (Non-Af Amer) 37.5 ml/min BUN/Creatinine Ratio 27.7 H (10-20) Glucose 218 H (70-99(Fasting)) mg/dl POC Glucose 303 H* 150 H (70-99) mg/dl Estimat Average Glucose mg/dl Hemoglobin A1c (4.5-5.6) % Osmolality 303 H (280-300) mOsm/kg Calcium 8.3 L (8.6-10.3) mg/dl Phosphorus (2.5-4.9) mg/dl Magnesium (1.7-2.4) mg/dl Total Bilirubin (0.2-1.0) mg/dl Direct Bilirubin (0-0.2) mg/dl AST (13-39) U/L ALT (7-52) U/L Alkaline Phosphatase (34-104) U/L Total Creatine Kinase 38 (30-223) U/L Total Protein (6.0-8.3) gm/dl Albumin (3.4-5.0) gm/dl Vitamin B12 (180-914) pg/ml 25-OH Vitamin D Total (30-100) ng/ml TSH (0.300-4.500) uIu/ml Free T4 (0.61-1.60) ng/dl Free T3 (2.3-4.2) pg/ml Urine Color Urine Appearance (Clear) Urine pH (4.5-7.5) Ur Specific [place] (1.000-1.030) Urine Protein (Negative) Urine Glucose (UA) (Negative) Urine Ketones (Negative) Urine Blood (Negative) Urine Nitrite (Negative) Urine Bilirubin (Negative) Urine Urobilinogen (Negative) Ur Leukocyte Esterase (Negative) Urine Osmolality (500-800) mOsm/kg Ur Random Sodium mmol/L 01/05/24 01/05/24 01/05/24 Range/Units 11:53 11:52 11:38 WBC (4.8-10.8) K/ul RBC (4.70-6.10) M/uL Hgb (14.0-18.0) g/dl Hct (42.0-52.0) % MCV (80.0-100.0) fL MCH (25.0-34.0) pg MCHC (32.0-36.0) g/dL RDW Std Deviation (36.4-46.3) fL RDW Coeff of Salome (11.5-14.5) % Plt Count (130-400) K/uL MPV (9.4-12.4) fL Immature Gran % (Auto) % Neut % (Auto) % Lymph % (Auto) % [place] % (Auto) % Eos % (Auto) % Baso % (Auto) % Neut # (Auto) (1.40-6.50) K/uL Lymph # (Auto) (1.20-3.40) K/uL [place] # (Auto) (0.11-0.59) K/uL Eos # (Auto) (0.00-0.50) K/uL Baso # (Auto) (0.00-0.20) K/uL Immature Gran # (Auto) (0.01-0.20) K/uL Sodium (136-145) mmol/L Potassium (3.5-5.1) mmol/L Chloride (98-107) mmol/L Carbon Dioxide (21-32) mmol/L Anion Gap (3-11) BUN (6-23) mg/dl Creatinine (0.6-1.4) mg/dl Est Cr Clr Drug Dosing ml/min Est GFR ( Amer) ml/min Est GFR (Non-Af Amer) ml/min BUN/Creatinine Ratio (10-20) Glucose (70-99(Fasting)) mg/dl POC Glucose 67 L* 62 L* (70-99) mg/dl Estimat Average Glucose mg/dl Hemoglobin A1c (4.5-5.6) % Osmolality (280-300) mOsm/kg Calcium (8.6-10.3) mg/dl Phosphorus (2.5-4.9) mg/dl Magnesium (1.7-2.4) mg/dl Total Bilirubin (0.2-1.0) mg/dl Direct Bilirubin (0-0.2) mg/dl AST (13-39) U/L ALT (7-52) U/L Alkaline Phosphatase (34-104) U/L Total Creatine Kinase (30-223) U/L Total Protein (6.0-8.3) gm/dl Albumin (3.4-5.0) gm/dl Vitamin B12 (180-914) pg/ml 25-OH Vitamin D Total (30-100) ng/ml TSH 0.145 L (0.300-4.500) uIu/ml Free T4 1.37 (0.61-1.60) ng/dl Free T3 (2.3-4.2) pg/ml Urine Color Urine Appearance (Clear) Urine pH (4.5-7.5) Ur Specific [place] (1.000-1.030) Urine Protein (Negative) Urine Glucose (UA) (Negative) Urine Ketones (Negative) Urine Blood (Negative) Urine Nitrite (Negative) Urine Bilirubin (Negative) Urine Urobilinogen (Negative) Ur Leukocyte Esterase (Negative) Urine Osmolality (500-800) mOsm/kg Ur Random Sodium mmol/L 01/05/24 01/05/24 Range/Units 08:05 07:13 WBC 8.79 (4.8-10.8) K/ul RBC 3.58 L (4.70-6.10) M/uL Hgb 12.1 L D (14.0-18.0) g/dl Hct 32.6 L (42.0-52.0) % MCV 91.1 (80.0-100.0) fL MCH 33.8 (25.0-34.0) pg MCHC 37.1 H (32.0-36.0) g/dL RDW Std Deviation 41.5 (36.4-46.3) fL RDW Coeff of Salome 12.4 (11.5-14.5) % Plt Count 188 (130-400) K/uL MPV 10.1 (9.4-12.4) fL Immature Gran % (Auto) 0.5 % Neut % (Auto) 67.5 % Lymph % (Auto) 23.1 % [place] % (Auto) 8.1 % Eos % (Auto) 0.3 % Baso % (Auto) 0.5 % Neut # (Auto) 5.94 (1.40-6.50) K/uL Lymph # (Auto) 2.03 (1.20-3.40) K/uL [place] # (Auto) 0.71 H (0.11-0.59) K/uL Eos # (Auto) 0.03 (0.00-0.50) K/uL Baso # (Auto) 0.04 (0.00-0.20) K/uL Immature Gran # (Auto) 0.04 (0.01-0.20) K/uL Sodium 130 L (136-145) mmol/L Potassium 5.1 (3.5-5.1) mmol/L Chloride 101 (98-107) mmol/L Carbon Dioxide 24 (21-32) mmol/L Anion Gap 5 (3-11) BUN 54 H D (6-23) mg/dl Creatinine 1.67 H D (0.6-1.4) mg/dl Est Cr Clr Drug Dosing 50.7 ml/min Est GFR ( Amer) 51.1 ml/min Est GFR (Non-Af Amer) 44.1 ml/min BUN/Creatinine Ratio 32.3 H (10-20) Glucose 268 H (70-99(Fasting)) mg/dl POC Glucose 219 H (70-99) mg/dl Estimat Average Glucose mg/dl Hemoglobin A1c (4.5-5.6) % Osmolality (280-300) mOsm/kg Calcium 8.5 L (8.6-10.3) mg/dl Phosphorus 4.3 D (2.5-4.9) mg/dl Magnesium 2.7 H (1.7-2.4) mg/dl Total Bilirubin 0.4 D (0.2-1.0) mg/dl Direct Bilirubin 0.1 (0-0.2) mg/dl AST 9 L (13-39) U/L ALT 9 (7-52) U/L Alkaline Phosphatase 83 (34-104) U/L Total Creatine Kinase (30-223) U/L Total Protein 5.6 L D (6.0-8.3) gm/dl Albumin 3.5 (3.4-5.0) gm/dl Vitamin B12 194 (180-914) pg/ml 25-OH Vitamin D Total (30-100) ng/ml TSH (0.300-4.500) uIu/ml Free T4 (0.61-1.60) ng/dl Free T3 (2.3-4.2) pg/ml Urine Color Urine Appearance (Clear) Urine pH (4.5-7.5) Ur Specific [place] (1.000-1.030) Urine Protein (Negative) Urine Glucose (UA) (Negative) Urine Ketones (Negative) Urine Blood (Negative) Urine Nitrite (Negative) Urine Bilirubin (Negative) Urine Urobilinogen (Negative) Ur Leukocyte Esterase (Negative) Urine Osmolality (500-800) mOsm/kg Ur Random Sodium mmol/L Diagnostic Findings Lumbar Spine MRI 01/05/24 12:23 MR lumbar spine wo con CLINICAL HISTORY: 58 years-old Male with radicular back pain. Acute severe low back pain with lower extremity radicular symptoms COMPARISON: CT lumbar spine 01/04/2024, MRI 05/24/2022 TECHNIQUE: Multiplanar, multi sequence MRI of the lumbar spine was performed without intravenous contrast. FINDINGS: Intrathecal catheter related to the patient's pain pump is noted entering the central canal at the level of L2-L3, not well evaluated by MRI technique. The study is mildly motion degraded. Conus medullaris terminates at the L1-L2 interspace. There is no acute fracture, subluxation or endplate erosion identified. Bone marrow edema, acute fracture, subluxation or marrow replacing process. Mild disc desiccation in the lower lumbar spine and also the L3-L4 and L4-L5 levels. Paraspinal tissues are within normal limits. T12-L1: Mild facet arthrosis. No central canal or neural foraminal stenosis. No significant change. L1-L2: Mild facet arthrosis. No central canal or neural foraminal stenosis. No significant change. L2-L3: Ligamentum flavum thickening with moderate facet arthrosis. No central canal or neural foraminal stenosis. No significant change. L3-L4: Mild intervertebral disc space narrowing is similar to prior. Spondylitic spurring with small circumferential annular disc bulge which is again eccentric to the right paracentral space. Ligamentum flavum thickening with [id number] facet arthrosis. There is flattening of the ventral thecal sac without significant central canal stenosis. Mild narrowing of the inferior neur al foramen is unchanged. L4-L5: Tiny posterior annular disc bulge. Ligamentum flavum thickening with moderate facet arthrosis. Central canal is patent. Mild bilateral foraminal narrowing is unchanged. L5-S1: Mild spondylitic spurring with tiny posterior annular disc bulge. Ligamentum flavum thickening with moderate left and severe right facet arthrosis, stable from prior. No significant central canal or neural foraminal narrowing. IMPRESSION: 1. 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 2. No high-grade central canal or neural foraminal narrowing. 3. No significant bone marrow edema. ACT 112: Negative or not required by law. The above report was generated using voice recognition software. It may contain grammatical, syntax or spelling errors. Electronically signed by: Ray Gonzales M.D. 01/05/2024 7:15 PM PG Care Time/CCT Total # of Minutes Spent Total Time Spent with Patient: Total time spent is greater than 50% in coordination of care (as documented) at patient's floor/unit and/or counseling patient: Coding Level of Care Code 26147 SUB INP/OBS CARE 3/50MIN Diagnoses Pain, radicular, lumbar M54.16 Hyperkalemia E87.5 INA (acute kidney injury) N17.9 Constipation K59.03 Constipation type: drug induced constipation Chronic intractable pain G89.29 Hypertension I10 Hypertension type: primary hypertension Tobacco abuse Z72.0 COPD with emphysema J43.9 Uncontrolled type 2 diabetes mellitus E11.65 Pituitary hypogonadism E23.0 (4) Constipation Constipation type: drug induced constipation Qualified Code(s): K59.03 - Drug induced constipation (6) Hypertension Hypertension type: primary hypertension Qualified Code(s): I10 - Essential (primary) hypertension
[2024-01-06] MEDS: BACLOFEN 10 MG TAB PO SCH (08:23)
--- NOTE | 2024-01-06 08:46 | Pain Management Consultation ---
Date of Consultation January 06, 2024 Assessment & Plan (1) Presence of intrathecal pump: (2) Intractable low back pain: (3) Cervical post-laminectomy syndrome: (4) Osteoarthritis of left hip: Osteoarthritis type: primary Qualified Code(s): M16.12 - Unilateral primary osteoarthritis, left hip Plan 1. Pain service was consulted due to his lumbar MRI completed for interrogation of intrathecal pump. Intrathecal pump was interrogated which documented the pump motor stall occurring at 1441 on 01/05/2024 at the time of his MRI. The pump motor stall recovery then occurred at 1507 on 01/05/2024. Pump print out with logs is present in chart for review. 2. Lumbar MRI was reviewed. There appears to be no obvious contributing finding explaining his current pain complaint other than some severe facet arthrosis at L5-S1. Could possibly consider lumbar medial branch block for diagnostic evaluation of his low back pain complaint. This can possibly be arranged in the outpatient setting. Deferred lumbar trigger point injections due to presence of his intrathecal catheter in this location. 3. Patient will need to reschedule his cervical MRI as ordered by Dr. Dejesus in the outpatient setting to be completed with and without contrast in the postsurgical setting. This finding will further allow Dr. Dejesus decision making ability regarding his possible candidacy for left NAV 4. Will discontinue cyclobenzaprine and transition to baclofen 10 mg 3 times daily 5. Will resume use of lidocaine patch applied to the affected area. Thank you for allowing us to participate in the care of Mr. Shea History of Present Illness Reason for Consultation: Chronic low back pain Requesting Physician: ZECHARIAH Barahona Attending Physician: Germania Díaz MD History of Present Illness Mr. Shea is a 58-year-old white male who is well-known to the pain service due to his history of chronic intractable neck pain secondary to cervical postlaminectomy syndrome requiring implantation of intrathecal pump and catheter delivery system. The patient was admitted on 01/05/2024 due to complaint of intractable left low back pain with radiation to the hip groin and thigh in a nondermatomal pattern. The patient has been dealing with increased pain in the left low back extending into the hip and groin over the past few months and is currently under the care of Dr. Dejesus who has completed multiple imaging studies including hip MRI and has ordered a lumbar and cervical MRI. Lumbar MRI was completed while inpatient yesterday. Cervical spine MRI has been ordered in the outpatient setting and was planned for this morning, but due to this admission will need to be rescheduled. The patient reports that he has been bedbound predominantly over the past few weeks due to increased pain in the low back with any standing and ambulatory activities. He rates the pain an 5/10 at its best and 10/10 at its worst he describes the pain as aching, sharp and episodically stabbing in characteristic. His pain is minimal while lying supine. He denied any acute change in the location or characteristic of his pain which led to this admission. He denies that the pain travels below the level of the knee. He rarely experiences similar pain on the right side extending into the gluteal and hip region only. Patient denies any bowel/bladder incontinence. He denies any recent falls or injuries. He denies lower extremity weakness. Patient indicates that his current pain is minimal as he has been nonambulatory. Patient reported no further constitutional complaints. Plan of care discussed with Dr. Isabel Hartmann. Pain Assessment Full Body Front + Back: 2 1. Left lumbosacral region pain 2. Left hip, groin and thigh pain-nondermatomal stopping at knee Pain scale - at its best (0-10): 5 Pain scale - at its worst (0-10): 10 Allergies Allergy/AdvReac Type Severity Reaction Status Date / Time gabapentin [From Neurontin] Allergy Unknown Swelling Verified 01/04/24 12:55 Iodinated Contrast Media Allergy Unknown Difficulty Verified 01/04/24 12:55 Breathing Home Medications Medication Instructions Recorded Confirmed Type Dilaudid Pain Pump 1.5mg/Ml 0.0172 mg intrathecal UD 05/09/21 01/04/24 History duloxetine 60 mg capsule,delayed 60 mg PO QAM #30 caps 11/13/22 01/04/24 Rx release (Cymbalta) albuterol sulfate 90 mcg/actuation 2 puff inhalation UD PRN Shortness 04/11/23 01/04/24 Rx aerosol inhaler Of Breath Or Wheezing #17 grams naloxone 4 mg/actuation nasal 4 mg intranasal Q2M PRN for 05/16/23 01/04/24 Rx spray (Narcan) accidental overdose from pain pump #2 ea lisinopril 40 mg tablet 40 mg PO QAM #90 tabs 07/04/23 01/04/24 Rx testosterone cypionate 100 mg/mL 100 mg IM WK #4 vials 07/25/23 01/04/24 Rx intramuscular oil blood [facility] ([facility] 09/25/23 12/12/23 Rx Verio test strips) [facility]glucose [facility] 09/25/23 12/12/23 Rx Verio Flex Start kit) lancets 33 gauge ([facility] ea 09/25/23 12/12/23 Rx Plus Lancet) levothyroxine 100 mcg tablet 100 mcg PO QAM 90 days #90 tabs 10/10/23 01/04/24 Rx (Synthroid) tramadol 50 mg tablet 50 mg PO Q6H PRN pain #20 tabs 11/28/23 01/04/24 Rx atorvastatin 40 mg tablet (Lipitor) 40 mg PO HS #90 tabs 12/06/23 01/04/24 Rx varenicline 0.5 mg tablet 0 mg PO DAILY 12/12/23 01/04/24 History cyclobenzaprine 10 mg tablet 10 mg PO TID PRN Pain/Muscle Spasms 12/31/23 01/04/24 History lidocaine 4 % topical patch 1 patch topical Q24H 12/31/23 01/04/24 History bupropion HCl 300 mg 24 hr tablet, 300 mg PO DAILY 01/04/24 01/04/24 History extended release clonazepam 0.5 mg tablet (Klonopin) 0.5 mg PO BID PRN Anxiety 01/04/24 01/04/24 History metformin 500 mg tablet,extended 0 mg PO BID 01/04/24 01/04/24 History release 24 hr oxycodone-acetaminophen 5 mg-325 0 tab PO Q6H PRN pain 01/04/24 01/04/24 History mg tablet (Percocet) tiotropium bromide 2.5 0 puff inhalation DAILY 01/04/24 01/04/24 History mcg/actuation mist for inhalation (Spiriva Respimat) trazodone 150 mg tablet 150 mg PO HS 01/04/24 01/04/24 History varenicline 1 mg tablet 0 mg PO BID 01/04/24 01/04/24 History Pain History Pain Intensity Pain scale - at its best (0-10): 5 Pain scale - at its worst (0-10): 10 Patient History Medical History Hypertension Chronic intractable pain low back, cervical pain Benign prostate hyperplasia Vitamin D deficiency Vitamin B 12 deficiency Pituitary hypothyroidism Presence of intrathecal pump hydromorphone Sensorineural hearing loss (SNHL) of both ears Pituitary hypogonadism Growth hormone deficiency Other tank terminal gauger (current) drug therapy Dysphagia Chronic cough "smoker's cough" Exertional shortness of breath Myofascial pain Globus sensation "there's a ledge and sometimes food gets stuck" COPD with emphysema Follows with [facility] pulmonology Asthma stable with use of inhalers Allergic rhinitis History of colon polyps BENIGN History of COVID-19 03/2021. treated at [facility] Emergency room, no inpatient stay. symptoms included: extreme fatigue, Nausea, weakness. Uncontrolled type 2 diabetes mellitus Monitoring with DR Hickman- last seen 07/2023 no current medications Adjustment disorder with anxiety Cervical radiculopathy Sleep apnea pt denies Insomnia with fatigue Anxiety disorder in conditions classified elsewhere Major depressive disorder, recurrent, moderate Pain disorder associated with psychological factors and medical condition Hyperlipidemia Surgical History S/P insertion of intrathecal pump History of colonoscopy S/P epidural steroid injection cervical H/O arthroscopy of shoulder unsure of side. H/O arthroscopic knee surgery unsure of side History of esophagogastroduodenoscopy (EGD) With dilation History of fusion of cervical spine ACDF (multiple) limited ROM H/O cataract extraction not sure which eye History of inguinal hernia repair Family History Brother Lymphoma Mother Coronary heart disease Myocardial infarction Father Coronary heart disease Myocardial infarction Grandmother Coronary heart disease Other Cancer Denies family history of Ovarian cancer Prostate cancer Breast cancer Colorectal cancer Social History Smoking Status: Current every day smoker Tobacco Type: Cigarettes Cigarettes Per Day: 1 ppd x 35 years; Second Hand Exposure: Yes; Do You Dip or Chew Tobacco: No; Hx Alcohol Use: Yes Alcohol type: wine and hard liquor Hx Substance Use: No Preferred Language: Polish Communication Ability: Effective Visual Impairment: Limited Hearing Ability: Normal Cement Cutter Required: No Beliefs That Will Affect Care: None marital status: Current Living Situation: Spouse Current Living Situation Comment: Lives with spouse current occupational status: disabled Feels Safe at Home: Yes Seatbelt Use: always Assistive Devices: None Physical Exam 2 Physical Exam: General: Patient sitting quietly in exam room in no acute distress. Speech and thought process appropriate. Mood and affect appropriate. Cognition intact. Head: Normocephalic and atraumatic. ENT: No evidence of nasal or oral mucosal lesions. Mucous membranes are moist. Eyes: Pupils equal round reactive to light. Neck: Supple without adenopathy. Limited range of motion in all planes. Well- healed anterior incision status post ACDF. Chest: Nontender to palpation of the costosternal junction. Abdomen: Soft and nondistended. No organomegaly. Bowel sounds active. Back/spine: Loss of lumbar lordosis. Well-healed midline incision at the thoracolumbar junction from catheter insertion. Patient is tender at the L4-S1 facet joint to provocative testing on the left side and minimally tender corresponding the right. Patient is moderately tender in the left lumbar paravertebral and quadratus lumborum musculature just superior to mid iliac crest at site of maximal tenderness. No palpable myoneural trigger point appreciated. Facet load-bearing test was positive on the left and equivocal on the right. Lower extremities: SLR negative with slight increase in axial pain in the left. SLR negative on the right. Nontender over the greater trochanter to direct palpation bilaterally. Left hip moderately tender with internal and external rotation and nontender corresponding on the right. Sensation intact without deficit. Strength testing was 4+/5 throughout the bilateral lower extremities without focal deficit. Neurologic: Cranial nerves grossly intact. Ambulatory function slightly antalgic. Patient was seen ambulating in the abel with slight diminished hip swing appreciated on the left. Results (Pain Clinic) Diagnostic Review MRI Findings: [place], [place] [phone] Magnetic Resonance Report Patient: AMARJIT SHEA Admit Date: 01/04/24 MR#: [id number] Address1: [address] [place] [address] Acct ID:[id number] Address2: Date: 1965 [facility] Zip: [place] [address] Age: 58 Location: 2W Sex: M Room/Bed: W253-2 Att Phy: Francisco Kenney MD Diagnosis: INTRACTABLE BACK PAIN Dulce Phy: Lucian Mccann MD Service Date: 01/05/24 Fam Phy: Interpreting Phy: Ray GonzalesAdmit Phy: Varghese Jovel PA-C Ordering Phy: Varghese Jovel PA-C cc: ~ MR lumbar spine wo con CLINICAL HISTORY: 58 years-old Male with radicular back pain. Acute severe low back pain with lower extremity radicular symptoms COMPARISON: CT lumbar spine 01/04/2024, MRI 05/24/2022 TECHNIQUE: Multiplanar, multi sequence MRI of the lumbar spine was performed without intravenous contrast. FINDINGS: Intrathecal catheter related to the patient's pain pump is noted entering the central canal at the level of L2-L3, not well evaluated by MRI technique. The study is mildly motion degraded. Conus medullaris terminates at the L1-L2 interspace. There is no acute fracture, subluxation or endplate erosion identified. Bone marrow edema, acute fracture, subluxation or marrow replacing process. Mild disc desiccation in the lower lumbar spine and also the L3-L4 and L4-L5 levels. Paraspinal tissues are within normal limits. T12-L1: Mild facet arthrosis. No central canal or neural foraminal stenosis. No significant change. L1-L2: Mild facet arthrosis. No central canal or neural foraminal stenosis. No significant change. L2-L3: Ligamentum flavum thickening with moderate facet arthrosis. No central canal or neural foraminal stenosis. No significant change. L3-L4: Mild intervertebral disc space narrowing is similar to prior. Spondylitic spurring with small circumferential annular disc bulge which is again eccentric to the right paracentral space. Ligamentum flavum thickening with [id number] facet arthrosis. There is flattening of the ventral thecal sac without significant central canal stenosis. Mild narrowing of the inferior neural foramen is unchanged. L4-L5: Tiny posterior annular disc bulge. Ligamentum flavum thickening with moderate facet arthrosis. Central canal is patent. Mild bilateral foraminal narrowing is unchanged. L5-S1: Mild spondylitic spurring with tiny posterior annular disc bulge. Ligamentum flavum thickening with moderate left and severe right facet arthrosis, stable from prior. No significant central canal or neural foraminal narrowing. IMPRESSION: 1. 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 2. No high-grade central canal or neural foraminal narrowing. 3. No significant bone marrow edema. ACT 112: Negative or not required by law. The above report was generated using voice recognition software. It may contain grammatical, syntax or spelling errors. Electronically signed by: Ray Gonzales M.D. 01/05/2024 7:15 PM Dictated: 01/05/241908 Transcribed: 01/05/241908 CT Findings: [place], [place] [phone] CT Scan Report Patient: AMARJIT SHEA Admit Date: 01/04/24 MR#: [id number] Address1: [address] [place] [address] Acct ID:[id number] Address2: Date: 1965 [facility] Zip: [place] [address] Age: 58 Location: ED Sex: M Room/Bed: Att Phy: Diagnosis: ABD, LOW BACK AND HIP PAIN, WEAKNESS Dulce Phy: Lucian Mccann MD Service Date: 01/04/24 Fam Phy: Interpreting Phy: Ray GonzalesAdmit Phy: Ordering Phy: Nghia Sy M.D. cc: ~ ABDOMEN AND PELVIS CT WITHOUT CONTRAST; CT LUMBAR SPINE WITHOUT CONTRAST. CT DOSE: 954.22 mGy.cm HISTORY: Acute abdominal and low back pain status post trauma lumbar, abd, leg pain TECHNIQUE: Multiaxial CT images of the abdomen and pelvis and lumbar spine were performed without contrast. A dose lowering technique was utilized adhering to the principles of ALARA. COMPARISON STUDY: CT thoracic spine 02/26/2023, lumbar spine radiographs 10/15/2022 FINDINGS: CT ABDOMEN/PELVIS: Clear lung bases. No free air. The unenhanced spleen, pancreas and adrenal glands are unremarkable. Probable biliary sludge with borderline gallbladder wall thickening and trace pericholecystic stranding. Unremarkable liver. Mild nonspecific bilateral perinephric stranding. No hydronephrosis. Prostatomegaly. Urinary bladder wall thickening with partial distention. Small fat filled left inguinal hernia. Atherosclerosis of aorta. No lymphadenopathy. No bowel obstruction or bowel wall thickening. Moderate to extensive colonic fecal retention. Unremarkable pancreas. Battery pack in the left anterior abdominal wall intrathecal catheter imaged portions appear intact. No acute fracture identified. LUMBAR SPINE: Severe L5/S1 facet arthrosis. Also mild multilevel spondylotic spurring and intervertebral disc space narrowing. Surgical catheter enters the central canal at level L2-L3. Image portions appear intact. No acute fracture or subluxation identified. IMPRESSION: 1. No acute posttraumatic intra-abdominal or intrapelvic abnormality. 2. No acute fracture or subluxation of the lumbar spine identified. 3. No bowel obstruction or bowel wall thickening. 4. Moderate to extensive colonic fecal retention. 5. Nonspecific borderline gallbladder wall thickening. ACT 112: Negative or not required by law. The above report was generated using voice recognition software. It may contain grammatical, syntax or spelling errors. Electronically signed by: Ray Gonzales M.D. 01/04/2024 11:36 AM Dictated: 01/04/24 1127 Transcribed: 01/04/24 1127
[2024-01-06 09:06] LABS: BUN Creatinine Ratio 34.8 (10-20); Creatinine Clr Calc Pharmacy 60.1 ml/min; Est GFR (African American) 62.7 ml/min; Est GFR (Non-African American) 54.1 ml/min; Potassium 5.6 mmol/L (3.5-5.1)
[2024-01-06] MEDS: LIDOCAINE 5% 1 PATCH TD SCH (09:58)
[2024-01-06] MEDS: SODIUM CHLORIDE 0.9% 1,000 ML IV SCH (10:04)
[2024-01-06] MEDS: FUROSEMIDE INJ 20 MG/2 ML VIAL IV ONE (10:08)
--- NOTE | 2024-01-06 13:00 | Electrocardiogram Report ---
Test Reason : Blood Pressure : */* mmHG Vent. Rate : 55 BPM Atrial Rate : 55 BPM P-R Int : 158 ms QRS Dur : 114 ms QT Int : 402 ms P-R-T Axes : 126 144 122 degrees QTcB Int : 384 ms Suspect arm lead reversal, interpretation assumes no reversal Unusual P axis, possible ectopic atrial bradycardia Incomplete right bundle branch block Lateral infarct , age undetermined Abnormal ECG When compared with ECG of 04-Jan-2024 13:21, Ectopic atrial rhythm has replaced Sinus rhythm QRS axis Shifted right Lateral infarct is now Present Confirmed by Lucian Jarquin ([id number]) on 01/06/2024 1:00:50 PM Referred By: REFERRED SELF Confirmed By: Lucian Jarquin
--- NOTE | 2024-01-06 13:07 | Electrocardiogram Report ---
Test Reason : Blood Pressure : */* mmHG Vent. Rate : 53 BPM Atrial Rate : 53 BPM P-R Int : 140 ms QRS Dur : 106 ms QT Int : 404 ms P-R-T Axes : 45 60 67 degrees QTcB Int : 379 ms Sinus bradycardia Otherwise normal ECG When compared with ECG of 05-Jan-2024 23:33, (unconfirmed) Sinus rhythm has replaced Ectopic atrial rhythm QRS axis Shifted left Criteria for Lateral infarct are no longer Present Confirmed by Lucian Jarquin ([id number]) on 01/06/2024 1:07:10 PM Referred By: REFERRED SELF Confirmed By: Lucian Jarquin
--- NOTE | 2024-01-06 13:18 | Consultation ---
Date of Consultation January 06, 2024 Assessment & Plan (1) Intractable low back pain: Dr. Soria has reviewed imaging and plan. Treatment is conservative. Back pain seems muscular. Agree with recommendation by pain management for trigger point injections. Might also consider outpatient physical therapy and/or massage therapy. Flexion-extension x-rays also show a grade 1 spondylolisthesis at L5- S1. This could be contributing to some of his left leg pain. Might also consider epidural injections L5-S1. I would also suggest physical therapy for bilateral lower extremity strengthening. Ambulate ad leandro. Would consider evaluation of his left hip as well. Thank you for this consult. We will sign off. History of Present Illness Reason for Consultation: Lumbar radiculopathy Attending Physician: Germania Díaz MD History of Present Illness This is a pleasant 58-year-old gentleman we are asked to see In consultation regarding back and left leg pain. Symptoms have been there for several months. Pain is described "a ball in the left lumbar paravertebral musculature. It worsens as the day goes on. He takes an unknown muscle relaxant for this. Several months ago he also started with left leg pain involving the left groin, buttock and posterior thigh to the level of the knee. Weightbearing and prolonged standing reproduce it. Lying down taking the weight off his left lower extremity or a seated position and alleviated. He does have an intrathecal pain pump that is managed ventricular but this is for his cervical spine. He has had cervical procedure by Dr. Cortes many years ago as well as in [place]. He currently has an cervical MRI pending in the outpatient setting. He ambulates independently. Denies bowel or bladder dysfunction. 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, school childcare attendant, pain management injections Allergies Allergy/AdvReac Type Severity Reaction Status Date / Time gabapentin [From Neurontin] Allergy Unknown Swelling Verified 01/04/24 12:55 Iodinated Contrast Media Allergy Unknown Difficulty Verified 01/04/24 12:55 Breathing Home Medications Medication Instructions Recorded Confirmed Type Dilaudid Pain Pump 1.5mg/Ml 0.0172 mg intrathecal UD 05/09/21 01/04/24 History duloxetine 60 mg capsule,delayed 60 mg PO QAM #30 caps 11/13/22 01/04/24 Rx release (Cymbalta) albuterol sulfate 90 mcg/actuation 2 puff inhalation UD PRN Shortness 04/11/23 01/04/24 Rx aerosol inhaler Of Breath Or Wheezing #17 grams naloxone 4 mg/actuation nasal 4 mg intranasal Q2M PRN for 05/16/23 01/04/24 Rx spray (Narcan) accidental overdose from pain pump #2 ea lisinopril 40 mg tablet 40 mg PO QAM #90 tabs 07/04/23 01/04/24 Rx testosterone cypionate 100 mg/mL 100 mg IM WK #4 vials 07/25/23 01/04/24 Rx intramuscular oil blood sugar diagnostic (OneTouch #300 ea 09/25/23 12/12/23 Rx Verio test strips) blood-glucose meter (VidaveeTouch #1 ea 09/25/23 12/12/23 Rx Verio Flex Start kit) lancets 33 gauge (OneTouch Delica #300 ea 09/25/23 12/12/23 Rx Plus Lancet) levothyroxine 100 mcg tablet 100 mcg PO QAM 90 days #90 tabs 10/10/23 01/04/24 Rx (Synthroid) tramadol 50 mg tablet 50 mg PO Q6H PRN pain #20 tabs 11/28/23 01/04/24 Rx atorvastatin 40 mg tablet (Lipitor) 40 mg PO HS #90 tabs 12/06/23 01/04/24 Rx varenicline 0.5 mg tablet 0 mg PO DAILY 12/12/23 01/04/24 History cyclobenzaprine 10 mg tablet 10 mg PO TID PRN Pain/Muscle Spasms 12/31/23 01/04/24 History lidocaine 4 % topical patch 1 patch topical Q24H 12/31/23 01/04/24 History bupropion HCl 300 mg 24 hr tablet, 300 mg PO DAILY 01/04/24 01/04/24 History extended release clonazepam 0.5 mg tablet (Klonopin) 0.5 mg PO BID PRN Anxiety 01/04/24 01/04/24 History metformin 500 mg tablet,extended 0 mg PO BID 01/04/24 01/04/24 History release 24 hr oxycodone-acetaminophen 5 mg-325 0 tab PO Q6H PRN pain 01/04/24 01/04/24 History mg tablet (Percocet) tiotropium bromide 2.5 0 puff inhalation DAILY 01/04/24 01/04/24 History mcg/actuation mist for inhalation (Spiriva Respimat) trazodone 150 mg tablet 150 mg PO HS 01/04/24 01/04/24 History varenicline 1 mg tablet 0 mg PO BID 01/04/24 01/04/24 History pregabalin 25 mg capsule (Lyrica) 25 mg PO BID #42 caps 01/08/24 Rx Patient History Medical History Hypertension Chronic intractable pain low back, cervical pain Benign prostate hyperplasia Vitamin D deficiency Vitamin B 12 deficiency Pituitary hypothyroidism Presence of intrathecal pump hydromorphone Sensorineural hearing loss (SNHL) of both ears Pituitary hypogonadism Growth hormone deficiency Other health specialist (current) drug therapy Dysphagia Chronic cough "smoker's cough" Exertional shortness of breath Myofascial pain Globus sensation "there's a ledge and sometimes food gets stuck" COPD with emphysema Follows with [facility] pulmonology Asthma stable with use of inhalers Allergic rhinitis History of colon polyps BENIGN History of COVID-19 03/2021. treated at [facility] Emergency room, no inpatient stay. symptoms included: extreme fatigue, Nausea, weakness. Uncontrolled type 2 diabetes mellitus Monitoring with DR Hickman- last seen 07/2023 no current medications Adjustment disorder with anxiety Cervical radiculopathy Sleep apnea pt denies Insomnia with fatigue Anxiety disorder in conditions classified elsewhere Major depressive disorder, recurrent, moderate Pain disorder associated with psychological factors and medical condition Hyperlipidemia Surgical History S/P insertion of intrathecal pump History of colonoscopy S/P epidural steroid injection cervical H/O arthroscopy of shoulder unsure of side. H/O arthroscopic knee surgery unsure of side History of esophagogastroduodenoscopy (EGD) With dilation History of fusion of cervical spine ACDF (multiple) limited ROM H/O cataract extraction not sure which eye History of inguinal hernia repair Family History Brother Lymphoma Mother Coronary heart disease Myocardial infarction Father Coronary heart disease Myocardial infarction Grandmother Coronary heart disease Other Cancer Denies family history of Ovarian cancer Prostate cancer Breast cancer Colorectal cancer Social History Smoking Status: Current every day smoker Tobacco Type: Cigarettes Cigarettes Per Day: 1 ppd x 35 years; Second Hand Exposure: Yes; Do You Dip or Chew Tobacco: No; Hx Alcohol Use: Yes Alcohol type: wine and hard liquor Hx Substance Use: No Preferred Language: Luxembourgish Communication Ability: Effective Visual Impairment: Limited Hearing Ability: Normal 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 He is tender to palpation to the left paravertebral musculature. Nontender over the sciatic notch regions. He has a positive ongoing on the left negative on the right Weightbearing on the left reproduces left groin and testicular pain motor testing is 5 5 bilateral EHL, dorsiflexion, plantarflexion, quadriceps, hamstrings, hip flexors, hip abductor's and hip adductor's. Does have shakiness of bilateral lower extremities when motor testing lower extremities. No strength deficits though. Results & Data Vital Signs (Past 12 Hours) Vital Signs Temp Pulse Pulse Resp BP BP Pulse Ox 01/06/24 11:58 36.4 C L 74 20 147/70 H 96 01/06/24 08:00 37.0 C 63 20 118/69 97 01/06/24 07:52 59 L 01/06/24 03:26 36.5 C 81 20 125/64 95 O2 Del Method 01/06/24 11:58 Room Air 01/06/24 08:00 Room Air 01/06/24 07:52 01/06/24 03:26 Room Air [phone] Resonance Report Patient: AMARJIT SHEA Admit Date: 01/04/24 MR#: [id number] Address1: [address] [place] [address] Acct ID:[id number] Address2: Date: 1965 [facility] Zip: [place] [address] Age: 58 Location: 2W Sex: M Room/Bed: [facility] Att Phy: Francisco Kenney MD Diagnosis: INTRACTABLE BACK PAIN Dulce Phy: Lucian Mccann MD Service Date: 01/05/24 Fam Phy: Interpreting Phy: Ray GonzalesAdmit Phy: Varghese Jovel PA-C Ordering Phy: Varghese Jovel PA-C cc: ~ MR lumbar spine wo con CLINICAL HISTORY: 58 years-old Male with radicular back pain. Acute severe low back pain with lower extremity radicular symptoms COMPARISON: CT lumbar spine 01/04/2024, MRI 05/24/2022 TECHNIQUE: Multiplanar, multi sequence MRI of the lumbar spine was performed without intravenous contrast. FINDINGS: Intrathecal catheter related to the patient's pain pump is noted entering the central canal at the level of L2-L3, not well evaluated by MRI technique. The study is mildly motion degraded. Conus medullaris terminates at the L1-L2 interspace. There is no acute fracture, subluxation or endplate erosion identified. Bone marrow edema, acute fracture, subluxation or marrow replacing process. Mild disc desiccation in the lower lumbar spine and also the L3-L4 and L4-L5 levels. Paraspinal tissues are within normal limits. T12-L1: Mild facet arthrosis. No central canal or neural foraminal stenosis. No significant change. L1-L2: Mild facet arthrosis. No central canal or neural foraminal stenosis. No significant change. L2-L3: Ligamentum flavum thickening with moderate facet arthrosis. No central canal or neural foraminal stenosis. No significant change. L3-L4: Mild intervertebral disc space narrowing is similar to prior. Spondylitic spurring with small circumferential annular disc bulge which is again eccentric to the right paracentral space. Ligamentum flavum thickening with [id number] facet arthrosis. There is flattening of the ventral thecal sac without significant central canal stenosis. Mild narrowing of the inferior neural foramen is unchanged. L4-L5: Tiny posterior annular disc bulge. Ligamentum flavum thickening with moderate facet arthrosis. Central canal is patent. Mild bilateral foraminal narrowing is unchanged. L5-S1: Mild spondylitic spurring with tiny posterior annular disc bulge. Ligamentum flavum thickening with moderate left and severe right facet arthrosis, stable from prior. No significant central canal or neural foraminal narrowing. IMPRESSION: 1. 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 2. No high-grade central canal or neural foraminal narrowing. 3. No significant bone marrow edema. ACT 112: Negative or not required by law. The above report was generated using voice recognition software. It may contain grammatical, syntax or spelling errors. Electronically signed by: Ray Gonzales M.D. 01/05/2024 7:15 PM Dictated: 01/05/241908 Transcribed: 01/05/241908 [place], [place] [phone] CT Scan Report Patient: AMARJIT SHEA Admit Date: 01/04/24 MR#: [id number] Address1: [address] [place] [address] Acct ID:[id number] Address2: Date: 1965 [facility] Zip: [place] [address] Age: 58 Location: ED Sex: M Room/Bed: Att Phy: Diagnosis: ABD, LOW BACK AND HIP PAIN, WEAKNESS Dulce Phy: Lucian Mccann MD Service Date: 01/04/24 Fam Phy: Interpreting Phy: Ray GonzalesAdmit Phy: Ordering Phy: Nghai Sy M.D. cc: ~ ABDOMEN AND PELVIS CT WITHOUT CONTRAST; CT LUMBAR SPINE WITHOUT CONTRAST. CT DOSE: 954.22 mGy.cm HISTORY: Acute abdominal and low back pain status post trauma lumbar, abd, leg pain TECHNIQUE: Multiaxial CT images of the abdomen and pelvis and lumbar spine were performed without contrast. A dose lowering technique was utilized adhering to the principles of ALARA. COMPARISON STUDY: CT thoracic spine 02/26/2023, lumbar spine radiographs 10/15/2022 FINDINGS: CT ABDOMEN/PELVIS: Clear lung bases. No free air. The unenhanced spleen, pancreas and adrenal glands are unremarkable. Probable biliary sludge with borderline gallbladder wall thickening and trace pericholecystic stranding. Unremarkable liver. Mild nonspecific bilateral perinephric stranding. No hydronephrosis. Prostatomegaly. Urinary bladder wall thickening with partial distention. Small fat filled left inguinal hernia. Atherosclerosis of aorta. No lymphadenopathy. No bowel obstruction or bowel wall thickening. Moderate to extensive colonic fecal retention. Unremarkable pancreas. Battery pack in the left anterior abdominal wall intrathecal catheter imaged portions appear intact. No acute fracture identified. LUMBAR SPINE: Severe L5/S1 facet arthrosis. Also mild multilevel spondylotic spurring and intervertebral disc space narrowing. Surgical catheter enters the central canal at level L2-L3. Image portions appear intact. No acute fracture or subluxation identified. IMPRESSION: 1. No acute posttraumatic intra-abdominal or intrapelvic abnormality. 2. No acute fracture or subluxation of the lumbar spine identified. 3. No bowel obstruction or bowel wall thickening. 4. Moderate to extensive colonic fecal retention. 5. Nonspecific borderline gallbladder wall thickening. ACT 112: Negative or not required by law. The above report was generated using voice recognition software. It may contain grammatical, syntax or spelling errors. Electronically signed by: Ray Gonzales M.D. 01/04/2024 11:36 AM Dictated: 01/04/24 1127 Transcribed: 01/04/24 1127 [place], [place] [phone] Magnetic Resonance Report Patient: AMARJIT SHEA Admit Date: 11/26/23 MR#: [id number] Address1: [address] [facility] Acct ID:[id number] Address2: Date: 1965 [facility] Zip: [place] [address] Age: 58 Location: [facility] Sex: M Room/Bed: Att Phy: Jamal Dejesus DO Diagnosis: hip pain Dulce Phy: Lucian Mccann MD Service Date: 11/26/23 [facility] Phy: Interpreting Phy: Ney Soni MDAit Phy: Ordering Phy: Jamal Dejesus DO cc: ~ MR hip LT wo con CLINICAL HISTORY: hip pain TECHNIQUE: Multisequence, multiplanar images of the left hip were obtained without the administration of intravenous gadolinium. Comparison: Comparison is made to CT abdomen pelvis 10/12/2021 FINDINGS: The visualized pelvic bones demonstrate normal marrow signal without focal abnormality. The femoral head is without fracture, dislocation, or evidence of avascular necrosis. There are no findings to suggest iliopsoas or trochanteric bursitis and the capsular structures are free of tear. The iliopsoas, hamstring, and gluteus tendinous attachments are normal. There is no soft tissue mass or muscular atrophy. No joint effusion or abnormal fluid collections are present such as a paralabral cyst. Degenerative changes are seen in the femoroacetabular joint. The visualized portions of the intraperitoneal structures and pelvic sidewalls are normal. Bilateral fat-containing inguinal hernias are seen. IMPRESSION: Degenerative changes are seen in the left femoroacetabular joint. ACT 112: Negative or not required by law. Electronically signed by: Ney Soni M.D. 11/26/2023 11:01 AM Dictated: 11/26/23 1056 Transcribed: 11/26/23 1056
--- NOTE | 2024-01-06 13:20 | Pharmacy Report ---
Pharmacy Glycemic Short Note 2 - Date of Service January 06, 2024 - Glycemic Short BSG Results (Last 24 hours): 01/05/24 01/05/24 01/05/24 15:43 17:05 17:06 Glucose 218 H POC Glucose 303 H* 315 H* 01/05/24 01/05/24 01/05/24 18:20 20:17 20:50 Glucose POC Glucose 219 H 72 98 01/05/24 01/05/24 01/06/24 22:16 23:30 00:52 Glucose 159 H POC Glucose 199 H 178 H 01/06/24 01/06/24 01/06/24 03:08 03:37 03:37 Glucose 186 H 189 H POC Glucose 168 H 01/06/24 01/06/24 01/06/24 07:48 08:31 12:06 Glucose 152 H POC Glucose 189 H 273 H OUTPATIENT ANTIDIABETIC REGIMEN: * Metformin 1g PO Daily HbA1c: 7.1% (01/06/24) ASSESSMENT: 01/06/24: * Blood sugars labile yesterday, ranging 67-303 mg/dL * Of note, patient received multiple doses of IV regular insulin along with D50W due to hyperkalemia * Remains on methylprednisolone 40 mg IV q8h * Conservative changes to carb ratio only today 01/05/24: * 58 YO M admitted w/ lumbar pain, given IV Dexamethasone 10mg x1 yesterday, resulting in blood sugars in 300s, 10 units IV Regular insulin given. * Blood sugar 219mg/dl this AM, and starting on Solu-Medrol 40mg IV Q8H, pharma cy consulted. * Begin basal bolus insulin and titrate to goal blood sugar. * Overnight checks tonight for ATC steroids and unknown insulin needs. PLAN FOR INPATIENT GLYCEMIC CONTROL: * Hold outpatient oral diabetes medications * Basal insulin * Lantus 30 units SQ daily * Bolus insulin * NovoLog per scale ACHS or Q6hrs while NPO * Goal Range: Low 110 mg/dL - High 140 mg/dL * Correction Factor: 30 mg/dL/unit * Nutritional / Prandial insulin per carb ratio of 1 unit per 8 grams CHO consumed
--- NOTE | 2024-01-06 13:24 | XRay Report ---
XR hip 1V LT w pelvis CLINICAL HISTORY: LEft groin/buttock pain TECHNIQUE: 1 view of the left hip and single frontal view of the pelvis were obtained. Comparison: None available at the time of this dictation. FINDINGS: Battery-powered device is partially visualized in the left hemipelvis. Degenerative changes are seen in the hip joint. No soft tissue abnormality is seen. IMPRESSION: Degenerative changes without evidence of acute abnormality. ACT 112: Negative or not required by law. Electronically signed by: Ney Soni M.D. 01/06/2024 1:23 PM
--- NOTE | 2024-01-06 13:54 | XRay Report ---
LUMBAR SPINE 4 VIEWS CLINICAL HISTORY: Chronic low back pain. FINDINGS: AP, lateral, flexion, and extension views of the lumbar spine are compared to study dated and correlated with CT of the lumbar spine dated 01/04/2024. The skeletal structures are osteop enic. There is no radiographic evidence of acute fracture or malalignment. Vertebral body height and alignment are maintained throughout the lumbar spine. Anterior and lateral marginal osteophytes are s een throughout. The transverse and spinous processes appear intact. There is no bony subluxation on t he flexion/extension views. Mild facet arthropathy is noted in the lower lumbar region. There is only minimal degenerative disc space narrowing. Small posterior disc osteophyte complexes are seen at sev eral levels, greatest at L2-L3 and L3-L4. The visualized bony pelvis appears intact. A pain pump markus ce projects over the left lower quadrant. Imaged portions of the catheter appear intact. This extends into the thoracic region. No bowel obstruction is seen. IMPRESSION: 1. No acute bony abnormality is seen involving the lumbar spine. 2. Osteopenia and mild spondylotic change as above. 3. No bony subluxation is seen on the flexion/extension views. Dictated: 01/06/2024 1:36 PM Transcribed: 01/06/2024 1:42 PM [place] [id number] [id number] Electronically signed by: Bentley Guzman M.D. 01/06/2024 1:52 PM
[2024-01-06 14:50] LABS: BUN Creatinine Ratio 26.2 (10-20); Calcium 8.7 mg/dl (8.6-10.3); Creatinine Clr Calc Pharmacy 46.3 ml/min; Est GFR (African American) 45.8 ml/min; Est GFR (Non-African American) 39.5 ml/min; Potassium 5.2 mmol/L (3.5-5.1)
[2024-01-06] MEDS: PREGABALIN 25 MG CAP PO SCH (14:55)
[2024-01-07] MEDS: LEVOTHYROXINE SODIUM 100 MCG TABLET PO SCH (04:46)
[2024-01-07 05:25] LABS: Basophils # (auto) 0.01 K/uL (0.00-0.20); Basophils % (auto) 0.1 %; Hematocrit (blood only) 31.1 % (42.0-52.0); Hemoglobin 11.1 g/dl (14.0-18.0); Immature Granulocytes # (auto) 0.08 K/uL (0.01-0.20); Immature Granulocytes % (auto) 0.8 %; Lymphocytes # (auto) 0.99 K/uL (1.20-3.40); Lymphocytes % (auto) 9.4 %; Mean Corpuscular Hemoglobin 33.2 pg (25.0-34.0); Mean Corpuscular Hgb Conc 35.7 g/dL (32.0-36.0); Mean Corpuscular Volume 93.1 fL (80.0-100.0); Mean Platelet Volume 10.5 fL (9.4-12.4); Monocytes # (auto) 0.44 K/uL (0.11-0.59); Monocytes % (auto) 4.2 %; Neutrophils # (auto) 9.03 K/uL (1.40-6.50); Neutrophils % (auto) 85.5 %; Platelet Count 176 K/uL (130-400); RDW Coefficient of Variation 12.9 % (11.5-14.5); RDW Standard Deviation 44.1 fL (36.4-46.3); Red Blood Count 3.34 M/uL (4.70-6.10); White Blood Count 10.55 K/ul (4.8-10.8)
[2024-01-07 05:33] LABS: BUN Creatinine Ratio 31.9 (10-20); Calcium 8.1 mg/dl (8.6-10.3); Est GFR (Non-African American) 70.8 ml/min; Potassium 5.4 mmol/L (3.5-5.1)
--- NOTE | 2024-01-07 08:17 | Hospitalist Progress Note ---
Date of Service January 07, 2024 Assessment & Plan (1) Pain, radicular, lumbar: Plan: Presented to ER w/ progressively worsening back pain with radiation down posterior LLE to the knee. Denied recent trauma but mild paresthesia in LLE but no weakness/red flag symptoms reported. Suspected acute on chronic lumbar radiculopathy/spinal stenosis as causing issues. Hx chronic lumbar back pain/SI joint pain and followed with Dr Dejesus recently for right hip pain/injection - MRI lumbar spine revealed discogenic degeneration with spondylitic spurring and facet arthrosis (generally unchanged from 05/24/2022). No high-grade central canal or neural foraminal narrowing. > Ortho spine consulted, xrays ordered but no surgical intervention required. Continue with pain management. > Follow-up outpatient for consideration for left hip injection/trigger point. Messaged pain management (on consult) about such. - Pain regimen included Tylenol, lidocaine patch, IV solumedrol, Lyrica, Baclofen, morphine for mod-severe pain. > Solumedrol discontinued and started Prednisone 40 mg 01/07/24. Taper at discharge. > Continue Lyrica 25 mg BID on discharge. Follow-up with PCP to increase dosage. > Consider Relistor for chronic opiate induced constipation. Hgb stable on IVF, no bleeding reported. NSAIDs w/ toradol remaining on hold as well as Lovenox given INA and renal dysfunction. (2) Hyperkalemia: Plan: K 5.5 on admission, EKG w/ NSR w/ sinus arrhythmia. No CP/SOB - Ongoing issues with hyperkalemia despite treatments with ca gluconate/dextrose/insulin, IVF with bicarb, Lasix. Complicated by worsened Cr during hospitalization - K peaked at 6.8 on 01/05/24 - K remains elevated at 5.4 on 01/06 --> Given dose of Patiromer. Monitor BMP in AM. - Continue IVF @ 80 mls/hr - Continue telemetry monitoring (3) INA (acute kidney injury): Plan: Cr peak 1.9 following admission, suspect injury worsened with scheduled Toradol and Lovenox - No obstruction noted on CT A/P - FENa = 2.1%, indicating intrinsic pathology - Cr returned to baseline 01/07/24 - Lisinopril discontinued given stable blood pressures while it was held, hyperkalemia, and INA - Continue to monitor BPs at home upon discharge and follow-up with PCP - Continue IVF - Renal dose meds/avoid nephrotoxins (4) Chronic intractable pain: Plan: Follows with pain management and has intrathecal cervical Dilaudid pain pump - Will continue pain regimen per lumbar back pain plan - Pain management consulted given pain pump and need for eval following MRI - Continue Baclofen 10mg TID added by pain management - Follow-up with pain management outpatient (5) COPD with emphysema: Plan: Hx of such, 2nd to smoking. Continue incentive spirometer and home albuterol prn, spiriva daily No SOB reported and is on room air and will monitor (6) Uncontrolled type 2 diabetes mellitus: Plan: BSG 200 on admission Home metformin on hold B12 low normal/replacement started Pharmacy on consult for glycemic control. Updated that IV solumedrol was discontinued 01/07/24. (7) Pituitary hypogonadism: Plan: TSH mildly low, but free T3 and free T4 are WNL --> central hypothyroidism - Continue current levothyroxine dose and follow-up with endocrinology on discharge Plan Ordered Patiromer Discontinued IV solumedrol Started prednisone Updated pharmacy Dispo: continued inpatient stay working on electrolyte issues. CODE STATUS: Full code Admission and Anticipated Discharge Date Admission Date: January 04, 2024 Supervising Physician Co-Signing Physician Notes PA Supervision Note: I did not personally see or examine the patient today, but I verified all eckert points of JENNI Kohli' assessment and plan with the following exceptions/additions: None Subjective Patient seen and evaluated at bedside. He notes that he still has some back/hip pain. He has been walking the halls, though he reports he has increased discomfort with too much ambulation. We discussed not overdoing it with walking/activities. We discussed continued inpatient monitoring overnight for further treatment of his hyperkalemia, he is agreeable. No additional complaints or concerns at this time. Physical Exam Physical Exam: General: No acute distress, nondiaphoretic, well-developed, well-nourished. Skin: The skin was without rashes, erythema, edema, or bruising. Cardiac: Regular rate and rhythm without murmurs gallops or rubs. Pulm: Diminished in bases but otherwise clear to auscultation bilaterally without wheezes, rales or rhonchi. No respiratory distress. 96% on room air. Abdominal: Soft, nontender, nondistended. Bowel sounds present. Neuro: A&O x3. No focal neurological deficits. MSK: Decreased strength LLE compared to RLE with flexion/extension at the hip. Decreased dorsiflexion (compared to plantar flexion) on the left when sitting up in bed. Calves nontender. Results & Data Results & Data Vital Signs (Past 12 Hours) Vital Signs Temp Pulse Pulse Resp BP Pulse Ox O2 Del Method 01/07/24 07:51 36.7 C 58 L 16 136/66 96 Room Air 01/07/24 07:24 50 L 01/07/24 05:16 36.8 C 70 20 134/62 95 Room Air 01/07/24 00:21 36.6 C 56 L 18 110/59 L 97 Room Air 01/06/24 21:45 56 L Laboratory Results Reviewed CBC Reviewed BMP PG Care Time/CCT Total # of Minutes Spent Total Time Spent with Patient: Total time spent is greater than 50% in coordination of care (as documented) at patient's floor/unit and/or counseling patient: Coding Level of Care Code 91291 SUB INP/OBS CARE 3/50MIN Diagnoses Pain, radicular, lumbar M54.16 Hyperkalemia E87.5 INA (acute kidney injury) N17.9 Chronic intractable pain G89.29 COPD with emphysema J43.9 Uncontrolled type 2 diabetes mellitus E11.65 Pituitary hypogonadism E23.0
[2024-01-07] MEDS: LANTUS PER UNIT CHARGE SC SCH (09:41)
[2024-01-07] MEDS: oxyCODONE HCL IR 5 MG TAB (IMMEDIATE RELEASE) PO PRN (15:09)
[2024-01-07] MEDS: PATIROMER CALCIUM SORBITEX 8.4 GM PACK PO ONE (18:24)
[2024-01-07] MEDS ORDERED: Nursing to Pharmacy Communication SCH (22:00)
[2024-01-08 00:28] VITALS: RESP 16
[2024-01-08 05:09] LABS: Hematocrit (blood only) 31.2 % (42.0-52.0); Mean Corpuscular Hemoglobin 32.9 pg (25.0-34.0); Mean Corpuscular Hgb Conc 35.3 g/dL (32.0-36.0); Mean Corpuscular Volume 93.4 fL (80.0-100.0); Mean Platelet Volume 10.4 fL (9.4-12.4); Platelet Count 162 K/uL (130-400); RDW Coefficient of Variation 12.8 % (11.5-14.5); RDW Standard Deviation 44.1 fL (36.4-46.3); Red Blood Count 3.34 M/uL (4.70-6.10); White Blood Count 10.09 K/ul (4.8-10.8)
[2024-01-08 05:14] LABS: BUN Creatinine Ratio 27.8 (10-20); Calcium 8.1 mg/dl (8.6-10.3); Creatinine Clr Calc Pharmacy 78.4 ml/min; Est GFR (African American) 86.6 ml/min; Est GFR (Non-African American) 74.7 ml/min; Potassium 4.8 mmol/L (3.5-5.1)
[2024-01-08 07:09] VITALS: TEMP 98.8; O2SAT 96
[2024-01-08] MEDS ORDERED: NovoLIN-N (NPH) PER UNIT CHARGE SQ SCH (09:00)
--- NOTE | 2024-01-08 09:04 | Pain Management Progress Note ---
Date of Service January 08, 2024 Assessment & Plan (1) Chronic SI joint pain: (2) Intractable low back pain: (3) Chronic pain: Chronic pain type: other chronic pain Qualified Code(s): G89.29 - Other chronic pain (4) Osteoarthritis of left hip: Osteoarthritis type: primary Qualified Code(s): M16.12 - Unilateral primary osteoarthritis, left hip (5) Presence of intrathecal pump: (6) Cervical post-laminectomy syndrome: Plan 1. His current pain appears to have localized itself to the SI joint location. We will tentatively plan for a left SI joint injection in the outpatient setting. We will be working on authorization for scheduling purposes. Patient has previous undergone a successful left S1 injection most recently in May 2023. 2. No adjustments were made to his intrathecal pump 3. He will continue with baclofen 10 mg 3 times daily. 4. Pain service will sign off on patient at this time. Will work on planning for outpatient left SI joint injection at this time and patient was agreeable. All of his questions were answered. Admission and Anticipated Discharge Date Admission Date: January 04, 2024 Subjective Mr. Finn is seen in follow-up today due to persisting complaints of left-sided lumbosacral pain. Patient reportedly feeling and hearing and "popping sensation" in his left low back yesterday when transitioning from supine to sitting/standing. He reports he is feeling this sensation in his back with movement. He has been less ambulatory over the past 24 hours due to the increased pain. The pain is in the left low back at the lumbosacral junction with some radiation to the gluteal and thigh in a nondermatomal pattern typically stopping at the level the knee. He denies that pain is radiating into the groin at this time. He denies any similar right-sided pain. He denies weakness in the lower extremity, foot drop or falling. Denies bowel/bladder incontinence or saddle anesthesia. He is uncertain that transitioning to baclofen has been of any use at diminishing his pain. He is tolerating the medication well notable side effects. Plan of care discussed with Dr. Isabel Hartmann. Pain Assessment Pain Assessment Pain scale - at its best (0-10): 3 Pain scale - at its worst (0-10): 8 Physical Exam Physical Exam: General: Patient was lying quietly in exam room in no acute distress upon entering the room. Speech and thought process was appropriate. He appears to be moderately anxious. Cognition is intact. Back/spine: Patient was able to sit up and stand up without limitation or assistance. He had moderate increase in pain with positional change. Patient is tender to provocative testing over the SI joint predominantly on physical exam. He is minimally tender throughout the gluteal region. He is slightly hyperalgesic in the proximal superior and medial gluteal region near the SI joint location. He has no focal midline or facet joint tenderness. He has some generalized tenderness of the lumbosacral region which is nonfocal. There are no appreciable spasms or myoneural trigger point on today's examination. Lower extremities: Angel maneuver was positive on the left and negative on the right. Hip is nontender with internal/external rotation. Thigh thrust test was positive on the left negative on the right. Gaenslen's test was positive on the left negative on the right. SLR was negative bilaterally. Neurologic: Cranial nerves grossly intact. Ambulatory function was slowed and slightly guarded.
[2024-01-08] MEDS: predniSONE 20 MG TAB PO SCH (09:18)
--- NOTE | 2024-01-08 12:29 | Pharmacy Report ---
Pharmacy Glycemic Short Note 2 - Date of Service January 08, 2024 - Glycemic Short BSG Results (Last 24 hours): 01/07/24 01/07/24 01/08/24 17:15 20:23 04:11 Glucose 176 H POC Glucose 146 H 139 H 01/08/24 01/08/24 01/08/24 08:19 08:21 08:39 Glucose POC Glucose 62 L* 62 L* 102 H 01/08/24 12:18 Glucose POC Glucose 221 H OUTPATIENT ANTIDIABETIC REGIMEN: * Metformin 1g PO Daily HbA1c: 7.1% (01/06/24) ASSESSMENT: 01/08/24: * Steroids changed to prednisone 40 mg PO daily starting this morning (01/07) * Patient received 64 units of insulin yesterday (35 units of basal and 29 units of prandial/correctional bolus) * Blood sugars trended down nicely in the evening, but hypoglycemic this morning (62 mg/dL) * Originally had planned to change to NPH w/ prednisone, but will defer this decision to tomorrow given hypoglycemia 01/06/24: * Blood sugars labile yesterday, ranging 67-303 mg/dL * Of note, patient received multiple doses of IV regular insulin along with D50W due to hyperkalemia * Remains on methylprednisolone 40 mg IV q8h * Conservative changes to carb ratio only today 01/05/24: * 58 YO M admitted w/ lumbar pain, given IV Dexamethasone 10mg x1 yesterday, resulting in blood sugars in 300s, 10 units IV Regular insulin given. * Blood sugar 219mg/dl this AM, and starting on Solu-Medrol 40mg IV Q8H, pharmacy consulted. * Begin basal bolus insulin and titrate to goal blood sugar. * Overnight checks tonight for ATC steroids and unknown insulin needs. PLAN FOR INPATIENT GLYCEMIC CONTROL: * Hold outpatient oral diabetes medications * Basal insulin * Lantus 20 units SC x 1 w/ lunch * Reassess in AM - possible transition to NPH * Bolus insulin * NovoLog per scale ACHS or Q6hrs while NPO * Goal Range: Low 110 mg/dL - High 140 mg/dL * Correction Factor: 30 mg/dL/unit * Nutritional / Prandial insulin per carb ratio of 1 unit per 8 grams CHO consumed
[2024-01-08] MEDS: LANTUS PER UNIT CHARGE SC ONE (13:38)
[2024-01-08 15:04] VITALS: BP 136/66; PULSE 73
--- NOTE | 2024-01-08 16:44 | Discharge Summary ---
Discharge Summary Date of Service January 08, 2024 Principal Dx & Hospital Course #1 = Principal Diagnosis (1) Pain, radicular, lumbar: Presented to ER w/ progressively worsening back pain with radiation down posterior LLE to the knee. Denied recent trauma but mild paresthesia in LLE but no weakness/red flag symptoms reported. Suspected acute on chronic lumbar radiculopathy/spinal stenosis as causing issues. Hx chronic lumbar back pain/SI joint pain and followed with Dr Dejesus recently for right hip pain/injection - MRI lumbar spine revealed discogenic degeneration with spondylitic spurring and facet arthrosis (generally unchanged from 05/24/2022). No high-grade central canal or neural foraminal narrowing. > Ortho spine consulted, xrays ordered but no surgical intervention required. Continue with pain management. > SI joint injection with pain management scheduled outpatient for 01/09/24. Continue to follow-up with pain management. - Pain regimen included Tylenol, lidocaine patch, IV solumedrol, Lyrica, B aclofen, oxycodone, and morphine for mod-severe pain while hospitalized. > Solumedrol discontinued and started Prednisone 40 mg 01/07/24. Tapered at discharge. > Continue Lyrica 25 mg BID on discharge. Follow-up with PCP to increase dosage. (2) Hyperkalemia: K 5.5 on admission, EKG w/ NSR w/ sinus arrhythmia. No CP/SOB. - Ongoing issues with hyperkalemia despite treatments with ca gluconate/dextrose/insulin, IVF with bicarb, Lasix. Complicated by worsened Cr during hospitalization. - K peaked at 6.8 on 01/05/24 - Given dose of Patiromer 01/06 and K normalized to 4.8. -hold lisinopril on discharge and f/u BMP as outpt with PCP (3) INA (acute kidney injury): Cr peak 1.9 following admission, suspect injury worsened with scheduled Toradol - No obstruction noted on CT A/P - FENa = 2.1%, indicating intrinsic pathology - Cr returned to baseline 01/07/24 - Lisinopril discontinued given stable blood pressures while it was held, hyperkalemia, and INA - Continue to monitor BPs at home upon discharge and follow-up with PCP - Renal dose meds/avoid nephrotoxins (4) Chronic intractable pain: Follows with pain management and has intrathecal cervical Dilaudid pain pump - Will continue pain regimen per lumbar back pain plan - Pain management consulted given pain pump and need for eval following MRI - Continue Baclofen 10mg TID added by pain management - Follow-up with pain management outpatient (5) COPD with emphysema: Hx of such, 2nd to smoking. Continue incentive spirometer and home albuterol prn, spiriva daily No SOB reported and is on room air and will monitor (6) Uncontrolled type 2 diabetes mellitus: BSG 200 on admission Home metformin on hold while hospitalized B12 low normal/replacement started and should be continued at discharge (7) Pituitary hypogonadism: TSH mildly low, but free T3 and free T4 are WNL --> central hypothyroidism - Continue current levothyroxine dose and follow-up with endocrinology on discharge Plan CODE STATUS: Full code Notes For Next Care Provider Patient presented to the hospital for uncontrolled back pain. Suspect that this pain is due to acute on chronic lumbar radiculopathy/spinal stenosis/SI joint pain. Optimize chest pain regimen while hospitalized, and he is scheduled for an SI joint injection 01/09/2024 with pain management. Medication Changes From Visit Lisinopril discontinued Started Lyrica, baclofen Prednisone taper x 1 week Admission HPI Per Admitting Provider Jean Pierre is a 58-year-old male with a past medical history significant for cervical postlaminectomy syndrome status post intrathecal pain pump, chronic low back and SI joint pain (follows with pain management), tobacco abuse, DM type II, COPD, dyslipidemia, and pituitary hypogonadism who presented to the [facility] ED on 01/04/2024 due to progressive radicular low back pain to the posterior left lower extremity and ambulatory function. Patient remained stable in the ED. Labs were significant for a potassium of 5.5, anion gap of 13 with bicarb of 20, glucose of 205, CRP of 2.05, negative alcohol level, and UA with 1+ protein/glucose/ketones, trace leukocyte esterase, and 35 hyaline cast. Chest x-ray noted emphysema without acute process. Lumbar spine CT and CT of the abdomen pelvis without contrast were read as negative for acute posttraumatic intra-abdominal or intrapelvic abnormality. No acute fracture or subluxation of the lumbar spine identified. No bowel obstruction or bowel thickening. Moderate to extensive colonic fecal retention. Nonspecific borderline gallbladder wall thickening. Prior to admission the patient was given 1 g IV Tylenol, 10 mg IV dexamethasone, 50 mg IV Toradol, 1 L NSS, and 2 doses 6 mg IV morphine. Patient was lying in bed in no acute distress at the time of exam. States that over the past 2 weeks the patient has been experiencing progressive lumbar back pain with radiation down the left buttocks and the posterior left lower extremity to the left knee. States that pain is constant but exacerbated with movement. Describes it as sharp/pins/needles and a 10 out of 10 at its worst. Denies weakness in the bilateral lower extremities and states that the ambulatory dysfunction is due to worsening pain when he stands or tries to walk. Denies saddle anesthesia, decreased sensation in the groin, or loss of bowel/bladder function. States that he has been constipated over the past 1 to 2 weeks because his p.o. intake is decreased. Denies recent falls or trauma. Denies recent fever/chills, chest pain, shortness of breath, abdominal pain, nausea/vomiting, dysuria/hematuria, or lower extremity swelling. States that he was scheduled to have an MRI on 01/06/2024 for further evaluation but could not tolerate the pain. Had been using his home Percocet and tramadol for pain, but these were not helping so he has not taken them over the past 4 days. Is smoking 1 to 1/2 packs of cigarettes a day. Denies recent alcohol use. Is a full code and would want his to make medical decisions for him if he cannot make them himself. Please refer to Dr. Prince's attestation for any changes to the treatment plan Admission Exam Per Admitting Provider General: In mild distress due to pain, stated age, chronically ill-appearing but nontoxic HEENT: Normocephalic, atraumatic, no scleral icterus, pupils around round, symmetrical, and reactive to light, m mucus membranes, trachea midline, no thyromegaly Chest/Pulm: No respiratory distress, symmetrical chest expansion, scattered expiratory wheezing Cardiac: RRR, no murmurs noted Abdomen: Negative for ascites and bruising, patient with pain pump located in the left lower quadrant without signs of infection, right lower quadrant scar from previous pain pump removal is intact without signs infection, normoactive bowel sounds, soft, non-tender to palpation throughout Musculoskeletal: Patient able to move bilateral upper and lower extremities voluntarily without limitation, no acute trauma on inspection and palpation of the entire spine, patient does have pain on direct palpation over the central lumbar spine and left SI joint, no erythema or warmth/fluctuance on palpation > Patient with a significant reproducible pain in the lumbar spine and posterior left lower extremity with bilateral straight leg raise left > right Extremities: Radial, dorsalis pedis, and posterior tibial pulses are intact and symmetrical, no edema noted in the BL LE's Skin: Warm, dry, no rashes , lesions, or scars noted Neuro: Alert and oriented to person, place, month, year, and president, no focal defects, patient with mildly decreased strength in the left lower extremity on flexion of the left hip compared to right lower extremity due to pain, mildly decreased sensation in the left lower extremity in the posterior thigh compared to right lower extremity, no tremors noted Psych: Mild distress, but polite and cooperative during the exam Discharge Exam General: No acute distress, nondiaphoretic, well-developed, well-nourished. Skin: The skin was without rashes, erythema, edema, or bruising. Cardiac: Regular rate and rhythm without murmurs gallops or rubs. Pulm: Diminished in bases but otherwise clear to auscultation bilaterally without wheezes, rales or rhonchi. No respiratory distress. 96% on room air. Abdominal: Soft, nontender, nondistended. Bowel sounds present. Neuro: A&O x3. No focal neurological deficits. MSK: Decreased strength LLE compared to RLE with flexion/extension at the hip. Decreased dorsiflexion (compared to plantar flexion) on the left when sitting up in bed. Calves nontender. Discharge Plan Discharge Items Patient Disposition: Home - Self-Care Reason For Visit: INTRACTABLE BACK PAIN Discharge Diagnosis: Acute on chronic lumbar radiculopathy/spinal stenosis/SI joint pain Activity: As commented below Activity Comment: Activity as tolerated Non-emergency contact: Primary Care Provider and Pain Management Call non-emergency contact if: you have any medication questions, your symptoms worsen, your pain is not controlled, your pain is worsening and your pain is concerning for you Follow-up/Referrals: Lucian Mccann MD [Primary Care Provider] - (Follow-up in 1 week) Manjit Parra MD, FIPP [Physician] - (Follow-up for SI joint injection/monitoring of pain regimen) Diet: Carb Consistent or DM2, Heart Healthy and Low Potassium (2gm) Addtl Attending Provider Instructions: Mr. Finn, You were admitted to the hospital due to uncontrolled back pain. I suspect that this pain is due to acute on chronic lumbar radiculopathy/spinal stenosis/SI joint pain. You had a repeat MRI which was generally unchanged from your previous MRI in April 2022. You were seen by an ortho spine surgeon who did not feel that any surgical intervention was required. Your pain has been controlled with a new pain regimen, which will be continued upon discharge. Additionally, you will follow-up with pain management outpatient for a left SI joint injection. Of note, you had ongoing issues with high potassium levels (hyperkalemia) during this hospitalization. You were treated with medications and IV fluids. Your potassium level has returned to normal prior to discharge. Upon discharge from the hospital: * Take Tylenol 650 mg every 6 hours as needed for mild pain. Use this as your first-line pain medication. * Continue lidocaine patches over the area of most pain. These lidocaine patches are uvic-unf-enjcyzk (OTC), so no prescription is needed. You can apply the patch for 12 hours, then remove the patch for 12 hours, repeat. * Continue baclofen 10 mg 3 times daily. * Continue Lyrica 25 mg twice daily. * Continue prednisone (steroid) taper. You have already received a dose of 40 mg on your day of discharge, so you can continue this taper starting 01/09/2024. > Take 40 mg (4 pills) for 1 day, then take 30 mg (3 pills) x 2 days, then take 20 mg (2 pills) x 2 days, then take 10 mg (1 pill) x 2 days. * Your lisinopril has been discontinued during this hospitalization - do NOT take lisinopril when you go home. Lisinopril can cause high potassium levels, and your blood pressures have remained stable without this, so no new medication is being prescribed in its place. Please monitor your blood pressures at home and contact your PCP if they become consistently elevated. * Follow-up with your PCP. This is to monitor your new medications, your electrolytes, and your blood pressure. * Follow-up with pain management. Their office will call you with your appointment details. They plan to do a repeat SI joint injection. Please return to the hospital if you experience any of the following: Uncontrolled severe pain, pain that spreads down your legs, bowel or bladder control changes, fever of 100.5 F or higher, blood in your urine, weakness or numbness in 1 or both of your legs, numbness in your groin or genital area, trouble breathing, confusion, very drowsy or trouble awakening, lightheadedness/dizziness, passing out, rapid or very slow heart rate, chest pain. It was a pleasure taking care of you while you were in the hospital, Viviana Kohli PA-C Pending Studies at Discharge: No Stand-Alone Forms: [facility], Smoking Cessation Medications and DC Order Prescriptions: New pregabalin [Lyrica] 25 mg Capsule 25 mg PO BID Qty: 42 0RF baclofen 10 mg Tablet 10 mg PO TID Qty: 90 0RF prednisone 10 mg tablet 10 mg PO DIRECTED Qty: 16 0RF Rx Instructions: Take 40 mg (4 pills) for 1 day, then take 30 mg (3 pills) x 2 days, then take 20 mg (2 pills) x 2 days, then take 10 mg (1 pill) x 2 days Continued naloxone [Narcan] 4 mg/actuation spray,non-aerosol 4 mg intranasal Q2M PRN (Reason: for accidental overdose from pain pump) Qty: 2 0RF Rx Instructions: spray 1 dose into ONE nostril; alternate nostrils w each dose until help arrives varenicline 0.5 mg tablet 0 mg PO DAILY Patient Comments: has not started yet, plans to start after surgery on 09/26/2023 Rx Instructions: Unable to verify if pt started this medication after surgery on 09/26/2023. Original Directions: 0.5mg daily on days 1,2 and 3 of therapy duloxetine [Cymbalta] 60 mg capsule,delayed release(DR/EC) 60 mg PO QAM Qty: 30 0RF testosterone cypionate 100 mg/mL oil 100 mg IM WK Qty: 4 5RF Patient Comments: EVERY SATURDAY Rx Instructions: Saturday dispense 1 ml vials tramadol 50 mg tablet 50 mg PO Q6H PRN (Reason: pain) Qty: 20 0RF atorvastatin [Lipitor] 40 mg tablet 40 mg PO HS Qty: 90 3RF cyclobenzaprine 10 mg tablet 10 mg PO TID PRN (Reason: Pain/Muscle Spasms) Patient Comments: [facility] lidocaine 4 % adhesive patch,medicated 1 patch topical Q24H Patient Comments: [facility] Rx Instructions: Unable to verify OTC meds at this date/time. levothyroxine [Synthroid] 100 mcg tablet 100 mcg PO QAM 90 Days Qty: 90 3RF albuterol sulfate 90 mcg/actuation HFA aerosol inhaler 2 puff INH UD PRN (Reason: Shortness Of Breath Or Wheezing) Qty: 17 3RF (DME) blood-glucose meter [VeeqoTouch Verio Flex Start] Kit See Rx Instructions .Route Qty: 1 0RF Rx Instructions: Test three times a day (DME) VeeqoTouch Verio test strips Strip See Rx Instructions .Route Qty: 300 3RF Rx Instructions: test blood sugar 3 x daily (DME) lancets [VeeqoTouch Delica Plus Lancet] 33 gauge misc See Rx Instructions .Route Qty: 300 3RF Rx Instructions: test blood sugar 3 x daily Dilaudid Pain Pump 1.5mg/Ml 0.0172 mg intrathecal UD Rx Instructions: 0.0172mg/hr intrathecally via pump implanted in patient. Unable to verify w/ pharmacy at this date/time. Original Directions: Original Directions 0.0172mg as directed trazodone 150 mg tablet 150 mg PO HS bupropion HCl 300 mg tablet extended release 24 hr 300 mg PO DAILY clonazepam [Klonopin] 0.5 mg tablet 0.5 mg PO BID PRN (Reason: Anxiety) oxycodone-acetaminophen [Percocet] 5-325 mg tablet 0 tab PO Q6H PRN (Reason: pain) Rx Instructions: Unable to verify w/ pharmacy at this date/time. Original Directions: 1 tab by mouth q6h PRN p, last filled 08/2023 metformin 500 mg tablet extended release 24 hr 0 mg PO BID Rx Instructions: Unable to verify w/ pharmacy at this date/time. Original Directions: 1000mg by mouth daily, last filled 09/2023 x30 day supply varenicline 1 mg tablet 0 mg PO BID Patient Comments: has not started yet, plans to start after surgery on 09/26/2023 Rx Instructions: take 1 mg twice a day on day 8 and later. Unable to verify if pt started this medication after surgery on 09/26/23. Original Directions: 1mg by mouth twice daily on day 8 and later Spiriva Respimat 2.5 mcg/actuation mist 0 puff inhalation DAILY Rx Instructions: Last filled 09/2023 x30 day supply. Original Directions 2puff inh daily Discontinued lisinopril 40 mg tablet 40 mg PO QAM Qty: 90 3RF Discharge Orders: Discharge Order (Routine); Ordered 01/08/24 Ordered By: Germania Pearl/Other Patient Handouts: Managing Type 2 Diabetes, Back Safety: Basics of Good Posture, Back Basics: A Healthy Spine, Back Care Every Day, Hyperkalemia Dc Admission Data Admit Date/Time: 01/04/24 12:02 Attending Provider: Germania Díaz Admit Provider: Varghese Jovel Primary Care Provider: Lucian Mccann Other Providers: Abdelrahman Prince; Manjit Parra; Valdez Soria Other Interventions: Discharge Summary Assessment (RN) Last Done: 01/08/24 15:03 Hospital Stay Data Consultations 01/04/24 11:51 ED Decision to Admit Stat 01/05/24 07:49 Consult Pain Management Routine 01/06/24 08:01 Consult Orthopedic Spine Surgery Routine Diagnostic Imagining Performed 01/04/24 09:05 CT abd pelvis wo con Stat CT lumbar spine wo con Stat 01/05/24 12:23 MR lumbar spine wo con Routine Pending Results Patient Have Any Pending Studies at Discharge: No Discharge Instructions Given to Patient (Per Discharging Provider) Varinder Hi were admitted to the hospital due to uncontrolled back pain. I suspect that this pain is due to acute on chronic lumbar radiculopathy/spinal stenosis/SI joint pain. You had a repeat MRI which was generally unchanged from your previous MRI in April 2022. You were seen by an ortho spine surgeon who did not feel that any surgical intervention was required. Your pain has been controlled with a new pain regimen, which will be continued upon discharge. Additionally, you will follow-up with pain management outpatient for a left SI joint injection. Of note, you had ongoing issues with high potassium levels (hyperkalemia) during this hospitalization. You were treated with medications and IV fluids. Your potassium level has returned to normal prior to discharge. Upon discharge from the hospital: * Take Tylenol 650 mg every 6 hours as needed for mild pain. Use this as your first-line pain medication. * Continue lidocaine patches over the area of most pain. These lidocaine patches are wzud-jdv-sgqdnwo (OTC), so no prescription is needed. You can apply the patch for 12 hours, then remove the patch for 12 hours, repeat. * Continue baclofen 10 mg 3 times daily. * Continue Lyrica 25 mg twice daily. * Continue prednisone (steroid) taper. You have already received a dose of 40 mg on your day of discharge, so you can continue this taper starting 01/09/2024. > Take 40 mg (4 pills) for 1 day, then take 30 mg (3 pills) x 2 days, then take 20 mg (2 pills) x 2 days, then take 10 mg (1 pill) x 2 days. * Your lisinopril has been discontinued during this hospitalization - do NOT take lisinopril when you go home. Lisinopril can cause high potassium levels, and your blood pressures have remained stable without this, so no new medication is being prescribed in its place. Please monitor your blood pressures at home and contact your PCP if they become consistently elevated. * Follow-up with your PCP. This is to monitor your new medications, your electrolytes, and your blood pressure. * Follow-up with pain management. Their office will call you with your appointment details. They plan to do a repeat SI joint injection. Please return to the hospital if you experience any of the following: Uncontrolled severe pain, pain that spreads down your legs, bowel or bladder control changes, fever of 100.5 F or higher, blood in your urine, weakness or numbness in 1 or both of your legs, numbness in your groin or genital area, trouble breathing, confusion, very drowsy or trouble awakening, lightheadedness/dizziness, passing out, rapid or very slow heart rate, chest pain. It was a pleasure taking care of you while you were in the hospital, Viviana Kohli PA-C Supervising Physician Co-Signing Physician Notes PA Supervision Note: I personally saw and examined the patient. I verified all eckert points and agree with JENNI Kohli with the following exceptions and/or additions: S-Pt feeling much better, pain controlled, ambulating O- Vitals reviewed Gen: [AAOx3, NAD] HEENT: [anicteric sclerae] CV: [RRR no mgr nl S1S2] Pulm: [CTAB no wcr] Abd: [+BS soft NT ND no masses or hernias] Ext: [no edema] Skin: [no rashes, warm/dry] Neuro: [full strength throughout] A/P-58 yo male here with acute on chronic lumbar back pain. Improved with staeroid burst, baclofen, seen by pain managemetn adnd also started on lyrica stable for dc to home INA and hyperkalemia resolved Total Time Total Time Spent Total Time Spent (In Minutes): Greater than 30 minutes spent completing this discharge process including direct patient care, medication reconciliation, documentation, review of labs and images, and coordination of care. Coding Level of Care Code 06485 INP/OBS DISCH >30 MIN Diagnoses Pain, radicular, lumbar M54.16 Hyperkalemia E87.5 INA (acute kidney injury) N17.9 Chronic intractable pain G89.29 COPD with emphysema J43.9 Uncontrolled type 2 diabetes mellitus E11.65 Pituitary hypogonadism E23.0
== END 2024-01-08 15:14 | disposition home or self-care (01) | DRG 552 ==
LOC: ED 08:27 → SUATTDRO 12:02 → 2W 12:02
DX: Z91.041 Radiographic dye allergy status; M53.3 Sacrococcygeal disorders, not elsewhere classified; M54.16 Radiculopathy, lumbar region; G47.00 Insomnia, unspecified; E86.0 Dehydration; Z79.84 Long term (current) use of oral hypoglycemic drugs; M16.12 Unilateral primary osteoarthritis, left hip; J43.9 Emphysema, unspecified; E87.20 Acidosis, unspecified; Z79.890 Hormone replacement therapy; T40.605A Adverse effect of unspecified narcotics, initial encounter; E23.0 Hypopituitarism; F17.210 Nicotine dependence, cigarettes, uncomplicated; G89.29 Other chronic pain; Z96.89 Presence of other specified functional implants; Z79.899 Other long term (current) drug therapy; Z88.8 Allergy status to other drugs, medicaments and biological substances; E87.5 Hyperkalemia; M54.59 Other low back pain; J45.909 Unspecified asthma, uncomplicated; N40.0 Benign prostatic hyperplasia without lower urinary tract symptoms; M96.1 Postlaminectomy syndrome, not elsewhere classified; F33.9 Major depressive disorder, recurrent, unspecified; T46.4X5A Adverse effect of angiotensin-converting-enzyme inhibitors, initial encounter; T39.8X5A Adverse effect of other nonopioid analgesics and antipyretics, not elsewhere classified, initial encounter; M48.061 Spinal stenosis, lumbar region without neurogenic claudication; I10 Essential (primary) hypertension; Z79.891 Long term (current) use of opiate analgesic; K59.03 Drug induced constipation; E53.8 Deficiency of other specified B group vitamins; E11.65 Type 2 diabetes mellitus with hyperglycemia; E78.5 Hyperlipidemia, unspecified; N17.9 Acute kidney failure, unspecified

== ENCOUNTER 2024-02-10 08:30 | Observation (INO) ==
--- NOTE | 2024-01-24 11:57 | PAT Medication Instructions ---
Medication Instructions Date of Service January 24, 2024 Home Medications Medication Instructions Recorded duloxetine 60 mg capsule,delayed 60 mg PO QAM #30 caps 11/13/22 release (Cymbalta) albuterol sulfate 90 mcg/actuation 2 puff inhalation UD PRN Shortness 04/11/23 aerosol inhaler Of Breath Or Wheezing #17 grams naloxone 4 mg/actuation nasal 4 mg intranasal Q2M PRN for 05/16/23 spray (Narcan) accidental overdose from pain pump #2 ea testosterone cypionate 100 mg/mL 100 mg IM WK #4 vials 07/25/23 intramuscular oil blood sugar diagnostic (OneTouch #300 ea 09/25/23 Verio test strips) blood-glucose meter (OneTouch #1 ea 09/25/23 Verio Flex Start kit) lancets 33 gauge (OneTouch Delica #300 ea 09/25/23 Plus Lancet) levothyroxine 100 mcg tablet 100 mcg PO QAM 90 days #90 tabs 10/10/23 (Synthroid) tramadol 50 mg tablet 50 mg PO Q6H PRN pain #20 tabs 11/28/23 atorvastatin 40 mg tablet (Lipitor) 40 mg PO HS #90 tabs 12/06/23 baclofen 10 mg tablet 10 mg PO TID #90 tabs 01/08/24 pregabalin 50 mg capsule 50 mg PO BID #60 caps 01/16/24 Dilaudid Pain Pump 1.5mg/Ml 0.0172 mg intrathecal UD duloxetine 60 mg capsule,delayed release (Cymbalta) 60 mg PO QAM albuterol sulfate 90 mcg/actuation aerosol inhaler 2 puff inhalation UD PRN Shortness Of Breath Or Wheezing naloxone 4 mg/actuation nasal spray (Narcan) 4 mg intranasal Q2M PRN for accidental overdose from pain pump testosterone cypionate 100 mg/mL intramuscular oil 100 mg IM WK levothyroxine 100 mcg tablet (Synthroid) 100 mcg PO QAM tramadol 50 mg tablet 50 mg PO Q6H PRN pain atorvastatin 40 mg tablet (Lipitor) 40 mg PO HS varenicline 0.5 mg tablet 0.5 mg PO DAILY cyclobenzaprine 10 mg tablet 10 mg PO TID PRN Pain/Muscle Spasms lidocaine 4 % topical patch 1 patch topical Q24H bupropion HCl 300 mg 24 hr tablet, extended release 300 mg PO QAM clonazepam 0.5 mg tablet (Klonopin) 0.5 mg PO BID PRN Anxiety metformin 500 mg tablet,extended release 24 hr 500 mg PO BID oxycodone-acetaminophen 5 mg-325 mg tablet (Percocet) 1 tab PO Q6H PRN pain tiotropium bromide 2.5 mcg/actuation mist for inhalation (Spiriva Respimat) 1 puff inhalation DAILY trazodone 150 mg tablet 75 mg PO HS varenicline 1 mg tablet 1 mg PO BID baclofen 10 mg tablet 10 mg PO TID pregabalin 50 mg capsule 50 mg PO BID Continue as directed Dilaudid Pain Pump 1.5mg/Ml 0.0172 mg intrathecal UD naloxone 4 mg/actuation nasal spray (Narcan) 4 mg intranasal Q2M PRN for accidental overdose from pain pump (if needed) testosterone cypionate 100 mg/mL intramuscular oil 100 mg IM WK lidocaine 4 % topical patch 1 patch topical Q24H (Avoid placement near surgery site prior to surgery) DO NOT take the morning of surgery varenicline 0.5 mg tablet 0.5 mg PO DAILY metformin 500 mg tablet,extended release 24 hr 500 mg PO BID varenicline 1 mg tablet 1 mg PO BID Take morning of surgery With a small sip of water, OTHERWISE NOTHING TO EAT OR DRINK AFTER MIDNIGHT: duloxetine 60 mg capsule,delayed release (Cymbalta) 60 mg PO QAM albuterol sulfate 90 mcg/actuation aerosol inhaler 2 puff inhalation UD PRN Shortness Of Breath Or Wheezing (use if needed; please bring rescue inhaler with you to hospital day of surgery if possible) levothyroxine 100 mcg tablet (Synthroid) 100 mcg PO QAM tramadol 50 mg tablet 50 mg PO Q6H PRN pain (if needed) cyclobenzaprine 10 mg tablet 10 mg PO TID PRN Pain/Muscle Spasms (if needed) bupropion HCl 300 mg 24 hr tablet, extended release 300 mg PO QAM clonazepam 0.5 mg tablet (Klonopin) 0.5 mg PO BID PRN Anxiety (if needed) oxycodone-acetaminophen 5 mg-325 mg tablet (Percocet) 1 tab PO Q6H PRN pain (if needed) tiotropium bromide 2.5 mcg/actuation mist for inhalation (Spiriva Respimat) 1 puff inhalation DAILY baclofen 10 mg tablet 10 mg PO TID pregabalin 50 mg capsule 50 mg PO BID Take evening before surgery albuterol sulfate 90 mcg/actuation aerosol inhaler 2 puff inhalation UD PRN Shortness Of Breath Or Wheezing (if needed) tramadol 50 mg tablet 50 mg PO Q6H PRN pain (if needed) atorvastatin 40 mg tablet (Lipitor) 40 mg PO HS cyclobenzaprine 10 mg tablet 10 mg PO TID PRN Pain/Muscle Spasms (if needed) clonazepam 0.5 mg tablet (Klonopin) 0.5 mg PO BID PRN Anxiety (if needed) metformin 500 mg tablet,extended release 24 hr 500 mg PO BID oxycodone-acetaminophen 5 mg-325 mg tablet (Percocet) 1 tab PO Q6H PRN pain (if needed) trazodone 150 mg tablet 75 mg PO HS varenicline 1 mg tablet 1 mg PO BID baclofen 10 mg tablet 10 mg PO TID pregabalin 50 mg capsule 50 mg PO BID Other Notes If you have any questions please call us at [phone] or [phone] or [phone] or [phone]
--- NOTE | 2024-01-27 13:40 | Anesthesiology Consultation ---
Date of Service January 27, 2024 Assessment & Plan (1) Encounter for pre-operative examination: Plan - check BSG am DOS. - PCP clearance 01/27/24 [place]: "I believe he is medically stable and would be cleared from a medical perspective for surgery per my last office visit with him." - discharge summary 01/08/24 [facility]: "...Pain, radicular, lumbar: Presented to ER w/ progressively worsening back pain with radiation down posterior LLE to the knee. Denied recent trauma but mild paresthesia in LLE but no weakness/red flag symptoms reported. Suspected acute on chronic lumbar radiculopathy/spinal stenosis as causing issues. Hx chronic lumbar back pain/SI joint pain and followed with Dr Dejesus recently for right hip pain/injection...Hyperkalemia: K 5.5 on admission, EKG w/ NSR w/ sinus arrhythmia. No CP/SOB- Ongoing issues with hyperkalemia despite treatments with ca gluconate/dextrose/insulin, IVF with bicarb, Lasix. Complicated by worsened Cr during hospitalization- K peaked at 6.8 on 01/05/24- Given dose of Patiromer 01/06 and K normalized to 4.8-hold lisinopril on discharge and f/u BMP as outpt with PCP...lisinopril discontinued given stable blood pressures while it was held, hyperkalemia, and INA.. .Uncontrolled type 2 diabetes mellitus: BSG 200 on admission...Pituitary hypogonadism: TSH mildly low, but free T3 and free T4 are WNL --> central hypothyroidism- Continue current levothyroxine dose and follow-up with endocrinology on discharge..." Outpatient joint assessment: Patient is currently scheduled for inpatient pathway. If re-evaluated and patient/surgeon requests outpatient pathway, stiven agee is not ideal candidate for outpatient joint program from anesthesia standpoint. - Patient requested Dr. Hartmann as anesthesiologist if she is scheduled in the main OR the day of his surgery given established care in pain management clinic. I advised she is not scheduled that day in the OR and he verbalized understanding/comfort and denied additional questions, concerns or requests. Chart Review Chart Review: Acceptable Risk for Surgery and Patient seen in Pre Admission Testing Teaching & Discussion Pre-Anesthesia Teaching/Discussion Notes: Instructed NPO after midnight before surgery, except medications with 15 cc of water. Medication instructions provided according to the PAT guidelines. History Surgery Operation Date: 02/10/24 12:00 Proposed Procedures p Right Anterior Total Hip Arthroplasty - Jamal Dejesus, Height/Weight Height: 5 ft 11 in Weight: 78.7 kg Allergies Allergy/AdvReac Type Severity Reaction Status Date / Time gabapentin [From Neurontin] Allergy Unknown Swelling Verified 01/23/24 09:01 Iodinated Contrast Media Allergy Unknown Difficulty Verified 01/23/24 09:01 Breathing Medications Home Medications Medication Instructions Recorded Confirmed Last Taken Dilaudid Pain Pump 1.5mg/Ml 0.0172 mg intrathecal UD 05/09/21 01/23/24 10/18/21 duloxetine 60 mg capsule,delayed 60 mg PO QAM #30 caps 11/13/22 01/23/24 Unknown release (Cymbalta) albuterol sulfate 90 mcg/actuation 2 puff inhalation UD PRN Shortness 04/11/23 01/23/24 Unknown aerosol inhaler Of Breath Or Wheezing #17 grams naloxone 4 mg/actuation nasal 4 mg intranasal Q2M PRN for 05/16/23 01/23/24 Unknown spray (Narcan) accidental overdose from pain pump #2 ea testosterone cypionate 100 mg/mL 100 mg IM WK #4 vials 07/25/23 01/23/24 Unknown intramuscular oil blood sugar diagnostic (OneTouch #300 ea 09/25/23 01/16/24 Unknown Verio test strips) blood-glucose meter (OneTouch #1 ea 09/25/23 01/16/24 Unknown Verio Flex Start kit) lancets 33 gauge (OneTouch Delica #300 ea 09/25/23 01/16/24 Unknown Plus Lancet) levothyroxine 100 mcg tablet 100 mcg PO QAM 90 days #90 tabs 10/10/23 01/23/24 Unknown (Synthroid) tramadol 50 mg tablet 50 mg PO Q6H PRN pain #20 tabs 11/28/23 01/23/24 Unknown atorvastatin 40 mg tablet (Lipitor) 40 mg PO HS #90 tabs 12/06/23 01/23/24 Unknown varenicline 0.5 mg tablet 0.5 mg PO DAILY 12/12/23 01/23/24 Unknown cyclobenzaprine 10 mg tablet 10 mg PO TID PRN Pain/Muscle Spasms 12/31/23 01/23/24 Unknown lidocaine 4 % topical patch 1 patch topical Q24H 12/31/23 01/23/24 Unknown bupropion HCl 300 mg 24 hr tablet, 300 mg PO QAM 01/04/24 01/23/24 Unknown extended release clonazepam 0.5 mg tablet (Klonopin) 0.5 mg PO BID PRN Anxiety 01/04/24 01/23/24 Unknown metformin 500 mg tablet,extended 500 mg PO BID 01/04/24 01/23/24 Unknown release 24 hr oxycodone-acetaminophen 5 mg-325 1 tab PO Q6H PRN pain 01/04/24 01/23/24 Unknown mg tablet (Percocet) tiotropium bromide 2.5 1 puff inhalation DAILY 01/04/24 01/23/24 Unknown mcg/actuation mist for inhalation (Spiriva Respimat) trazodone 150 mg tablet 75 mg PO HS 01/04/24 01/23/24 Unknown varenicline 1 mg tablet 1 mg PO BID 01/04/24 01/23/24 Unknown baclofen 10 mg tablet 10 mg PO TID #90 tabs 01/08/24 01/23/24 Unknown pregabalin 50 mg capsule 50 mg PO BID #60 caps 01/16/24 01/23/24 Unknown Past Medical History Medical History (Updated 01/27/24 @ 14:33 by Geneva Dill PA-C) Adjustment disorder with anxiety INA (acute kidney injury) recent hospitalization 12/2023 Allergic rhinitis Asthma controlled, stable per pt; last rescue inhaler last evening-average use daily AVN of femur Benign prostate hyperplasia Cervical post-laminectomy syndrome Cervical radiculopathy Chronic cough "smoker's cough" Chronic intractable pain low back, cervical pain Chronic SI joint pain Controlled type 2 diabetes mellitus taking metformin COPD with emphysema Follows with [facility] pulmonology Dysphagia occasional since cervical spine surgery, denies choking Family history of reaction to anesthesia "30 years ago a cousin of mine at [facility] during wisdom teeth surgery" he denies any mention of a genetic condition, denies other family members with anesthesia issues Globus sensation "there's a ledge and sometimes food gets stuck" Growth hormone deficiency History of colon polyps BENIGN History of COVID-19 03/2021. treated at [facility] Emergency room, no inpatient stay. symptoms included: extreme fatigue, Nausea, weakness. Hyperkalemia during recent [facility] hospitalization with recently normalized labs Hyperlipidemia Hypertension controlled, stable per pt Hypothyroidism Insomnia with fatigue Lumbosacral radiculopathy Major depressive disorder, recurrent, moderate Myofascial pain Osteoarthritis Other terminologist (current) drug therapy Pain disorder associated with psychological factors and medical condition Pituitary hypogonadism Presence of intrathecal pump hydromorphone Sensorineural hearing loss (SNHL) of both ears Sleep apnea pt denies Vitamin B 12 deficiency Vitamin D deficiency Patient denies h/o stroke, seizures, heart attack, heart failure, blood clots/DVTs or blood transfusions. Exercise / Class Metabolic Activity II 4-5 Yardwork/Stairs/Walk up hill (denies chest discomfort or shortness of breath with one flight of stairs) Past Family History Family History Brother Lymphoma Mother Coronary heart disease Myocardial infarction Father Coronary heart disease Myocardial infarction Grandmother Coronary heart disease Other Cancer Denies family history of Ovarian cancer Prostate cancer Breast cancer Colorectal cancer Past Surgical History Surgical History H/O arthroscopic knee surgery unsure of side H/O arthroscopy of shoulder bilateral H/O cataract extraction not sure which eye History of colonoscopy History of esophagogastroduodenoscopy (EGD) With dilation History of fusion of cervical spine ACDF (multiple) limited ROM History of inguinal hernia repair S/P epidural steroid injection cervical S/P insertion of intrathecal pump Past Anesthesia History No Hx of Anesthesia Complications and Other (see above) History of PONV No Hx of PONV and No Hx of Motion Sickness Social History Smoking Status: Current every day smoker (-advised) tobacco type: cigarettes Smoking cigarettes per day: 1 ppd x 45 years Do You Dip or Chew Tobacco: No Hx Alcohol Use: Yes Alcohol type: wine and hard liquor alcohol intake frequency: holidays/special occasions only Hx Substance Use: No substance use type: does not use Review of Systems Patient denies chest pain, shortness of breath, dyspnea on exertion, fever, chills, cough, wheezing, or palpitations. Physical Exam Vital Signs Vitals BP 117/69 P 69 TEMP 98.1 SP02 98% on RA RESP 18 Physical Patient resting comfortably in chair in no acute distress, alert and oriented, responding appropriately throughout visit Full cervical extension range of motion without pain TMD 3.5 finger breadths Mallampati Score 3 Dentition: intact, denies chipped or loose teeth, caps/crowns, implants or bridges Lungs: normal respiratory effort. Good air movement, clear throughout to auscultation, end expiratory wheezes, no rales or rhonchi Cardiac: regular rate and rhythm, no murmurs noted Carotid arteries: negative bruit bilat Lab Results Anesthesia Preop Results Results Anesthesia Widget: WBC 7.51 K/ul (4.8-10.8) 01/27/24 Hgb 13.2 g/dl (14.0-18.0) L 01/27/24 Hct 37.1 % (42.0-52.0) L 01/27/24 Plt 222 K/uL (130-400) 01/27/24 Na 136 mmol/L (136-145) 01/27/24 K 4.5 mmol/L (3.5-5.1) 01/27/24 Cl 106 mmol/L (98-107) 01/27/24 CO2 21 mmol/L (21-32) 01/27/24 BUN 26 mg/dl (6-23) H 01/27/24 Creat 1.15 mg/dl (0.6-1.4) 01/27/24 Glucose Level 186 mg/dl (70-99(Fasting)) H 01/27/24 POC Glucose 221 mg/dl (70-99) H 01/08/24 PT 9.9 Seconds (9.0-12.0) 01/27/24 PTT 25 Seconds (21-31) 01/27/24 INR 0.9 (0.9-1.1) 01/27/24 TSH 0.145 uIu/ml (0.300-4.500) L 01/05/24 Free T4 1.37 ng/dl (0.61-1.60) 01/05/24 HA1c 7.1 % (4.5-5.6) H 01/06/24 Urine Color Yellow 01/05/24 Urine Appearance Clear (Clear) 01/05/24 Urine pH 5.0 (4.5-7.5) 01/05/24 Urine Specific Commodore 1.029 (1.000-1.030) 01/05/24 Urine Protein Negative (Negative) 01/05/24 Urine Glucose (UA) 2+ (Negative) H 01/05/24 Urine Ketones Trace (Negative) H 01/05/24 Urine Blood Negative (Negative) 01/05/24 Urine Nitrite Negative (Negative) 01/05/24 Urine Bilirubin Negative (Negative) 01/05/24 Urine Urobilinogen Negative (Negative) 01/05/24 Urine Leukocyte Esterase Negative (Negative) 01/05/24 Urine WBC (Auto) 0-5 /hpf (0-5) 01/04/24 Urine RBC (Auto) 0-2 /hpf (0-2) 01/04/24 Urine Hyaline Casts (Auto) 3-5 /lpf (0-2) H 01/04/24 Urine Epithelial Cells (Auto) 0-2 /hpf (0-2) 01/04/24 Urine Bacteria (Auto) None Seen (None Seen) 01/04/24 Blood Type B Negative 01/27/24 Antibody Screen NEGATIVE 01/27/24 Testing Electrocardiogram Date: 01/06/24 Sinus bradycardia, rate 53 bpm Chest X-Ray Date: 01/27/24 No acute chest disease. Stress Test Date: 06/29/22 Exercise MPHR 82% METS not reported Negative for ischemia at achieved workload, nondiagnostic given MPHR below 85% EF 55-59% Normal LV wall motion Grade I diastolic dysfunction Cervical Spine Date: 02/26/23 1. No fractures within the cervical spine. 2. Postoperative changes as described above. 3. Moderate degenerative disc disease at C3-C4 with a 7 x 5 mm right paracentral focal disc protrusion. Other Testing Abdomen pelvis CT 01/04/24 1. No acute posttraumatic intra-abdominal or intrapelvic abnormality. 2. No acute fracture or subluxation of the lumbar spine identified. 3. No bowel obstruction or bowel wall thickening. 4. Moderate to extensive colonic fecal retention. 5. Nonspecific borderline gallbladder wall thickening. Pituitary MRI 11/19/23 No significant change compared to the prior study. No acute intracranial abnormality. Normal pituitary gland.
[~2024-02-10 08:30] MED LIST changes: -ATOR-24 PO; +BUPIVACAINE 0.5 % 5 MG/1 ML PF 10ML VIAL ONE; -BUPR-79 PO; -CHOL20007 PO; -CYAN10005 PO; -DULO60CA44 PO; -FLUT0.15 NAE; +GABAPENTIN 600 MG DOSE PO SCH; -KLN/5 PO; -LISI-725 PO; -METO-157 PO; -MORP-158 PO; -MORP15TA PO; -NITR0.4S74 SL; -PRLSR20 PO; -SILD1TAB39 PO; -TAPE1TAB10 PO; -TEST1INJ2 IM; -VNTHFA/IN INH; -[UNRECOGNIZED DRUG - CODE] SQ
[2024-02-10] MEDS: ALLERGY Noted to ORDERED Medication SCH (09:31)
[2024-02-10] MEDS: dexAMETHasone**PF** 10 MG/ML VIAL IV SCH (09:33)
[2024-02-10] MEDS: FAMOTIDINE 20 MG TAB PO SCH (09:33)
[2024-02-10] MEDS: ACETAMINOPHEN 500 MG TAB PO SCH ×2 (09:33→15:09)
[2024-02-10] MEDS: LR 60ML/HR IV SCH (09:38)
[2024-02-10] MEDS ORDERED: MIDAZOLAM HCL 1 MG/ML 2ML VIAL ONE (09:38)
[2024-02-10] MEDS: LR 500ML BOLUS, THEN 15ML/HR IV SCH (09:38)
[2024-02-10] MEDS ORDERED: KETAMINE HCL 10MG/ML SYR ONE (09:39)
[2024-02-10] MEDS ORDERED: fentaNYL citrate PF 100 MCG/2 ML VIAL ONE (09:39)
--- NOTE | 2024-02-10 10:13 | History & Physical Bridge Note ---
Date of Service February 10, 2024 History & Physical Bridge Note I have examined the patient, reviewed the History & Physical and in the interval since the performance of the History & Physical I have noted the following changes of clinical significance: no changes noted
[2024-02-10] MEDS ORDERED: LIDOCAINE 2% 2 ML VIAL/AMP(20MG/ML) INFIL ONE (10:14)
[2024-02-10] MEDS ORDERED: PROPOFOL IV EMULSION 10 MG/ML 20 ML VIAL IV ONE (10:14)
[2024-02-10] MEDS ORDERED: ROCURONIUM BROMIDE 10 MG/ML 5 ML VIAL IV ONE (10:46)
[2024-02-10] MEDS ORDERED: SUGAMMADEX SODIUM 200 MG/2 ML VIAL IV ONE (10:51)
[2024-02-10] MEDS: ceFAZolin 2000MG 2,000 MG/15 ML SYR IV SCH ×2 (10:58→18:40)
[2024-02-10] MEDS: TRANEXAMIC ACID 1,000 MG **IV Pre-op IV SCH (10:59)
[2024-02-10] MEDS ORDERED: HYDROmorphone INJ 1 MG/ML SYRINGE ONE ×2 (11:08→11:39)
[2024-02-10] MEDS ORDERED: ONDANSETRON INJ 2 MG/ML 2 ML VIAL ONE (11:38)
[2024-02-10] MEDS ORDERED: DEXAMETHASONE SOD INJ 4 MG/ML VIAL ONE (11:38)
[2024-02-10] MEDS: ROPIV 0.5% 246mg, Ketorolac 30mg, EPINEPHrine 0.5mg in NSS INFIL SCH (11:58)
[2024-02-10] MEDS: ORTHO JOINT ANESTHETIC ONE (11:58)
[2024-02-10] MEDS: TRANEXAMIC ACID 1,000 MG **IV Intra-op IV SCH (12:10)
--- NOTE | 2024-02-10 12:21 | Operative Report ---
PG Post Operative Report Pre & Post Diagnosis Operation Date: 02/10/24 11:00 Pre-Op Diagnosis: Right Hip Arthritis Post-Op Diagnosis: Right Hip Arthritis I identified the patient and participated in the time-out.: Yes Procedure Operation Date: 02/10/24 11:00 Actual Procedures p Right Anterior Total Hip Arthroplasty(Right) - Jamal Dejesus DO Surgeon Jamal Dejesus DO Proposal Coordinator Jamal Ortega PA-C Estimated Blood Loss 300 Findings Consistent with Post-Op Diagnosis Specimens Right femoral head Description of Procedure Implants used I used a ZimmerBiomet total hip arthroplasty system with a size 2 high offset Avenir Complete stem, a 54 mm G7 cup with a 25mm screw, an E1 polyethylene liner, a 40 mm ceramic head with a -3.5 neck. Jean Pierre arrived at the hospital for the above procedure. He was seen in the preoperative holding area and the operative extremity was identified and signed. He was given a preoperative antibiotic, and TXA. He was then taken back to the operating room and laid on the table in the supine position. He was given general anesthesia. The operative leg was secured to a Puristst leg positioner. The hip was then prepped and draped in sterile fashion. A timeout was done and the patient and the operative extremity was properly identified. An anterior approach was used. Dissection was taken down through the fascia and the tensor muscle belly was retracted laterally and the rectus was retracted medially. The circumflex vessels were identified and ligated. The capsule was then incised and tagged for later repair. The femoral neck was then cut and the femoral head was removed. The acetabulum was exposed. Time was spent doing a complete circumferential labral release. Sequential reaming of the acetabulum up to a size 53 reamer was done. Final reamings were done under fluoroscopy to ensure appropriate version. A Biomet 54 mm G7 cup was then impacted into place. A single 25 mm screw was placed. The E1 polyethylene liner was then snapped into place. Surrounding soft tissues were then injected with 100 cc of an orthopedic pain control cocktail. The proximal femur was then exposed. Sequential broaching up to a size 2 broach was done. Off that broach a size 40 head with a -3.5 neck was trialed. The hip was reduced and fluoroscopic images showed anatomic alignment of the implants in acceptable length. The broach was removed. The final size 2 high offset Avenir Complete stem was then impacted into place. A ceramic 40 mm head with a -3.5 neck was then impacted onto the stem and the hip was reduced. Final fluoroscopic images showed anatomic alignment of the hip. The capsule was then closed with #1 Vicryl suture. A dilute betadyne lavage was then done for 3 minutes. The joint was then irrigated with normal saline solution. The fascia was closed with #1 PDS suture. Skin was closed with 2-0 Vicryl, raquel, and a Silverlon dressing. He was then transferred to a hospital bed and taken to the post anesthesia care unit in stable condition. He tolerated the procedure well. Jamal Ortega PA-C, was present for the entire procedure. He was critical for patient positioning, prepping, draping, retraction exposure, wound closure and application of sterile dressing. I attest to the content of the Intraoperative Record and any orders documented therein. Any exceptions are noted below.
[2024-02-10] MEDS ORDERED: ATROPINE SULFATE 0.1 MG/ML 10ML SYR IV PRN (12:57)
[2024-02-10] MEDS ORDERED: ONDANSETRON INJ 2 MG/ML 2 ML VIAL IV PRN ×2 (12:57→14:39)
[2024-02-10] MEDS ORDERED: PROMETHAZINE HCL 6.25 MG in SODIUM CHLORIDE 0.9% 50 ML IV PRN (12:57)
[2024-02-10] MEDS ORDERED: ePHEDrine sulfate 50 MG/ML AMP IV PRN (12:57)
[2024-02-10] MEDS: fentaNYL citrate PF 100 MCG/2 ML VIAL IV PRN (13:00)
[2024-02-10] MEDS: HYDROmorphone INJ 2 MG/ML SYR/VIAL IV PRN (13:20)
--- NOTE | 2024-02-10 13:23 | XRay Report ---
XR hip 1V RT w pelvis CLINICAL HISTORY: Postoperative evaluation. COMPARISON: Pelvis radiograph January 06, 2024. FINDINGS: Alignment of the total right hip arthroplasty is anatomic. The hardware is intact. There i s no periprosthetic fracture. A lucency with sclerotic margins along the distal aspect of the femoral component favors a vascular channel. There are no unexpected radiopaque bodies. There are skin stapl es. IMPRESSION: Expected findings following total right hip arthroplasty. ACT 112: Negative or not required by law. Electronically signed by: Giorgio Chen M.D. 02/10/2024 1:22 PM
--- NOTE | 2024-02-10 14:18 | Anesthesiology Progress Note ---
Date of Service February 10, 2024 Anesthesia Post Procedure Vital Signs Vital Signs: Temp Pulse Resp BP Pulse Ox O2 Del Method O2 Flow Rate 02/10/24 13:50 36.9 C 63 12 133/62 95 Nasal Cannula 2 02/10/24 13:40 66 17 141/65 H 96 Nasal Cannula 2 02/10/24 13:30 75 18 159/73 H 97 Room Air 02/10/24 13:20 74 18 155/72 H 96 Oxymask 3 02/10/24 13:10 77 13 166/72 H 99 Oxymask 3 02/10/24 12:55 78 21 165/78 H 100 Oxymask 9 02/10/24 12:48 36.3 C L 81 22 152/89 H 100 Oxymask 9 02/10/24 09:14 36.7 C 62 20 122/73 99 Room Air Pain Intensity Right Hip: Pain Intensity: 4 Transfer of Care Handoff Completed per policy Notes Mental Status: alert / awake / arousable Patient Amnestic to Procedure: Yes Nausea / Vomiting: adequately controlled Pain: adequately controlled Airway Patency, RR, SpO2: stable & adequate BP & HR: stable & adequate Hydration State: stable & adequate Anesthetic Complications: no major complications apparent
[2024-02-10] MEDS ORDERED: HYDROMORPHONE IT SCH (14:39)
[2024-02-10] MEDS ORDERED: NALOXONE NASAL SPRAY 4 MG ER HOMEPACK PRN (14:39)
[2024-02-10] MEDS ORDERED: NALOXONE HCL 0.4 MG/1 ML VIAL/CARP IV PRN (14:39)
[2024-02-10] MEDS ORDERED: ALBUTEROL HFA 8 GM INHALER INH PRN (14:39)
[2024-02-10] MEDS ORDERED: PHARMACY GLYCEMIC MGMT CONSULT PRN (14:39)
[2024-02-10] MEDS ORDERED: MAGNESIUM HYDROXIDE SUSP 30 ML UDC PO PRN (14:39)
[2024-02-10] MEDS ORDERED: METOCLOPRAMIDE HCL INJ 5 MG/ML 2 ML VIAL IV PRN (14:39)
[2024-02-10] MEDS ORDERED: bisacodyL 10 MG SUPP PR PRN (14:39)
[2024-02-10] MEDS: fentaNYL citrate PF 100 MCG/2 ML VIAL ONE ×2 (14:59)
[2024-02-10] MEDS ORDERED: CARBOHYDRATES FOR HYPOGLYCEMIA PO PRN (15:00)
[2024-02-10] MEDS ORDERED: GLUCOSE 40% GEL 15 GM TUBE PO PRN (15:00)
[2024-02-10] MEDS: HYDROmorphone INJ 2 MG/ML SYR/VIAL ONE (15:00)
[2024-02-10] MEDS ORDERED: DEXTROSE 50% 50 ML SYRINGE IV PRN (15:00)
[2024-02-10] MEDS ORDERED: GLUCAGON FOR INJ 1 MG VIAL SQ PRN (15:00)
[2024-02-10] MEDS ORDERED: GLUCOSE 10 TAB/TUBE PO PRN (15:00)
[2024-02-10] MEDS: KETOROLAC 30 MG/ML VIAL IV SCH (15:09)
--- NOTE | 2024-02-10 15:28 | Pain Management Consultation ---
Date of Consultation February 10, 2024 Assessment & Plan (1) Osteoarthritis of right hip: (2) Chronic SI joint pain: (3) Presence of intrathecal pump: Plan 1. Discussed the acute postoperative phase of a right NAV and potential need for additional opiates. Recommend he utilize his intrathecal pump PTM device with backup oral as needed narcotics as prescribed by Ortho. Discussed with him that should he require additional opiates could consider increase in his intrathecal pump but will not be able to assess this until he begins to participate in therapy. 2. Recommend he follow-up with our office in 1-1/2 to 2 weeks for further evaluation of his pain. 3. Recommend leg length films once healed from his NAV to determine if leg length discrepancy exists in light of his known left-sided sacroiliitis. 4. Thank you for this consultation please call with any questions pain management to sign off at this time. History of Present Illness Attending Physician: Jamal Dejesus, DO History of Present Illness 58-year-old male status post right NAV today by Dr. Dejesus. He reports his pain is tolerable currently at 6 out of 10. Uneventful anesthesia and operative course thus far. He has a history significant for a intrathecal pump placement due to cervical postlaminectomy syndrome which currently is running hydromorphone 0.41 mg/day with PTM allowing up to an additional 4/day activations of as needed hydromorphone leading to a possible maximal daily dose of hydromorphone 0.65 mg intrathecally per day. In addition to his intrathecal pump for pain control he is utilizing Cymbalta 60 mg p.o. every morning, bupropion 300 mg p.o. every morning Lyrica 50 mg p.o. twice daily, oxycodone 5 to 10 mg p.o. every 4 as needed. Additionally he has Narcan and a bowel regimen in place as needed. He offers no constitutional complaints at this time and is pleased with his operative course thus far. Pain Assessment Full Body Front + Back: [address] [facility] Combined Pain Scale: 6-Mod to Severe - Significant limitations of ADLs. Hard to do anything Allergies Allergy/AdvReac Type Severity Reaction Status Date / Time gabapentin [From Neurontin] Allergy Unknown Swelling Verified 02/10/24 09:10 Iodinated Contrast Media Allergy Unknown Difficulty Verified 02/10/24 09:10 Breathing Home Medications Medication Instructions Recorded Confirmed Type Dilaudid Pain Pump 1.5mg/Ml 0.0172 mg intrathecal UD 05/09/21 02/10/24 History duloxetine 60 mg capsule,delayed 60 mg PO QAM #30 caps 11/13/22 02/10/24 Rx release (Cymbalta) albuterol sulfate 90 mcg/actuation 2 puff inhalation UD PRN Shortness 04/11/23 02/10/24 Rx aerosol inhaler Of Breath Or Wheezing #17 grams naloxone 4 mg/actuation nasal 4 mg intranasal Q2M PRN for 05/16/23 02/10/24 Rx spray (Narcan) accidental overdose from pain pump #2 ea testosterone cypionate 100 mg/mL 100 mg IM WK #4 vials 07/25/23 02/10/24 Rx intramuscular oil blood sugar diagnostic (OneTouch #300 ea 09/25/23 02/03/24 Rx Verio test strips) blood-glucose meter (OneTouch #1 ea 09/25/23 02/03/24 Rx Verio Flex Start kit) lancets 33 gauge (OneTouch Delica #300 ea 09/25/23 02/03/24 Rx Plus Lancet) levothyroxine 100 mcg tablet 100 mcg PO QAM 90 days #90 tabs 10/10/23 02/10/24 Rx (Synthroid) tramadol 50 mg tablet 50 mg PO Q6H PRN pain #20 tabs 11/28/23 02/10/24 Rx atorvastatin 40 mg tablet (Lipitor) 40 mg PO HS #90 tabs 12/06/23 02/10/24 Rx lidocaine 4 % topical patch 1 patch topical Q24H 12/31/23 02/10/24 History bupropion HCl 300 mg 24 hr tablet, 300 mg PO QAM 01/04/24 02/10/24 History extended release clonazepam 0.5 mg tablet (Klonopin) 0.5 mg PO BID PRN Anxiety 01/04/24 02/10/24 History metformin 500 mg tablet,extended 500 mg PO BID 01/04/24 02/10/24 History release 24 hr oxycodone-acetaminophen 5 mg-325 1 tab PO Q6H PRN pain 01/04/24 02/10/24 History mg tablet (Percocet) tiotropium bromide 2.5 1 puff inhalation DAILY 01/04/24 02/10/24 History mcg/actuation mist for inhalation (Spiriva Respimat) trazodone 150 mg tablet 75 mg PO HS 01/04/24 02/10/24 History pregabalin 50 mg capsule 50 mg PO BID #60 caps 01/16/24 02/10/24 Rx lisinopril 40 mg tablet 40 mg PO DAILY 02/03/24 02/10/24 History aspirin 81 mg tablet,delayed 81 mg PO BID 6 weeks #84 tabs 02/10/24 Rx release cefadroxil 500 mg capsule 500 mg PO BID 10 days #20 caps 02/10/24 Rx Patient History Medical History Chronic SI joint pain Cervical post-laminectomy syndrome Hypothyroidism Controlled type 2 diabetes mellitus taking metformin AVN of femur Osteoarthritis Lumbosacral radiculopathy Family history of reaction to anesthesia "30 years ago a cousin of mine at [facility] during wisdom teeth surgery" he denies any mention of a genetic condition, denies other family members with anesthesia issues INA (acute kidney injury) recent hospitalization 12/2023 Hyperkalemia during recent [facility] hospitalization with recently normalized labs Hypertension controlled, stable per pt Chronic intractable pain low back, cervical pain Benign prostate hyperplasia Vitamin D deficiency Vitamin B 12 deficiency Presence of intrathecal pump hydromorphone Sensorineural hearing loss (SNHL) of both ears Pituitary hypogonadism Growth hormone deficiency Other longterm (current) drug therapy Dysphagia occasional since cervical spine surgery, denies choking Chronic cough "smoker's cough" Myofascial pain Globus sensation "there's a ledge and sometimes food gets stuck" COPD with emphysema Follows with [facility] pulmonology Asthma controlled, stable per pt; last rescue inhaler last evening-average use daily Allergic rhinitis History of colon polyps BENIGN History of COVID-19 03/2021. treated at [facility] Emergency room, no inpatient stay. symptoms included: extreme fatigue, Nausea, weakness. Adjustment disorder with anxiety Cervical radiculopathy Sleep apnea pt denies Insomnia with fatigue Major depressive disorder, recurrent, moderate Pain disorder associated with psychological factors and medical condition Hyperlipidemia Surgical History S/P insertion of intrathecal pump History of colonoscopy S/P epidural steroid injection cervical H/O arthroscopy of shoulder bilateral H/O arthroscopic knee surgery unsure of side History of esophagogastroduodenoscopy (EGD) With dilation History of fusion of cervical spine ACDF (multiple) limited ROM H/O cataract extraction not sure which eye History of inguinal hernia repair Family History Brother Lymphoma Mother Coronary heart disease Myocardial infarction Father Coronary heart disease Myocardial infarction Grandmother Coronary heart disease Other Cancer Denies family history of Ovarian cancer Prostate cancer Breast cancer Colorectal cancer Social History Smoking Status: Current every day smoker (-advised) Tobacco Type: Cigarettes Cigarettes Per Day: 1 ppd x 45 years; Second Hand Exposure: No; Do You Dip or Chew Tobacco: No; Hx Alcohol Use: Yes Alcohol type: wine and hard liquor Hx Substance Use: No Preferred Language: Faroese Communication Ability: Effective Visual Impairment: Limited Hearing Ability: Normal Press Tool Maker Required: No Beliefs That Will Affect Care: None marital status: Current Living Situation: Spouse Current Living Situation Comment: Lives with spouse current occupational status: disabled Feels Safe at Home: Yes Seatbelt Use: always Assistive Devices: Scooter/Electric Scooter and Walker Physical Exam 2 Constitutional: WD/WN, vitals as above well developed, well nourished and + well hydrated; no acute distress and no altered mental status Eyes: PERRL, conjunctivae normal, anicteric sclerae ENMT: external ear and nose normal, oropharynx normal Neck: normal visual inspection and trachea midline Respiratory: normal respiratory effort; no respiratory distress and does not use accessory muscles Cardiovascular: Rate/Rhythm: regular rate and regular rhythm Gastrointestinal (Abdomen): Inspection/Auscultation: abdomen normal to inspection (intrathecal pump insitu LLQ) Musculoskeletal: Extremities: + extremities abnormal to inspection (R NAV dressings inplace. Able to move all extremities w/o difficulty) Skin: no rashes, warm and dry Neurologic: CN's II-XI intact bilaterally Psychiatric: A+Ox3, euthymic affect
--- NOTE | 2024-02-10 15:31 | Fluoroscopy Report ---
FL hip RT 1V CLINICAL HISTORY: Right hip arthroplasty. COMPARISON STUDY: CT of the abdomen and pelvis January 04, 2024. Pelvis radiograph January 05. FLUOROSCOPY TIME: 12 seconds. Ka, r: 1.7638 mGy FLUOROSCOPIC IMAGES: 1 FINDINGS: Fluoroscopy was provided during total anterior right hip arthroplasty. Alignment is anatomi c. No fractures are identified by fluoroscopy. There are no unexpected radiopaque foreign bodies. IMPRESSION: Fluoroscopy provided during total anterior right hip arthroplasty. ACT 112: Negative or not required by law. Electronically signed by: Giorgio Chen M.D. 02/10/2024 3:30 PM
[2024-02-10] MEDS: oxyCODONE HCL IR 5 MG TAB (IMMEDIATE RELEASE) PO PRN (15:43)
[2024-02-10] MEDS ORDERED: HYDROmorphone PAIN PUMP IT SCH (16:00)
[2024-02-10] MEDS: LANTUS PER UNIT CHARGE SC ONE (17:26)
[2024-02-10] MEDS: INSULIN ASPART PER UNIT CHARGE SC SCH ×2 (17:26→23:59)
[2024-02-10] MEDS: SODIUM CHLORIDE 0.9% 1,000 ML IV SCH (18:44)
[2024-02-10] MEDS: PREGABALIN 50 MG CAP PO SCH (20:54)
[2024-02-10] MEDS: traZODone HCL 50 MG TAB PO SCH (20:54)
[2024-02-10] MEDS: SENNA 8.6 MG TAB PO SCH (20:54)
[2024-02-10] MEDS: clonazePAM 0.5 MG TAB PO PRN (20:54)
[2024-02-10] MEDS: DOCUSATE SODIUM 100 MG CAP PO SCH (20:54)
[2024-02-10] MEDS: ATORVASTATIN 40 MG TAB PO SCH (20:55)
[2024-02-10] MEDS: ASPIRIN 81 MG ECTAB PO SCH (20:55)
[2024-02-10 23:16] VITALS: RESP 16
--- NOTE | 2024-02-11 07:03 | Orthopedic Progress Note ---
Date of Service February 11, 2024 Assessment & Plan (1) Status post right hip replacement: Overall he is doing fairly well. Is not having too much pain in the right hip. He was seen by pain management yesterday and will follow their recommendations. He will be seen by physical therapy today for ambulation and range of motion exercises. He is on aspirin for DVT prophylaxis. He can be discharged to home later today. He will follow-up with orthopedics in 2 weeks. Armani Greenfield was seen and examined at bedside this morning. Overall is doing fairly well. He is not having too much pain in the right hip. He has been up and ambulating to the bathroom. He is no complaints.. Review of Systems All systems reviewed & are unremarkable except as noted in HPI & below. Physical Exam On physical examination of the right hip, the dressing is clean and dry. His leg is out full extension. He has active dorsiflexion plantarflexion of the right ankle.. Results & Data Results & Data Laboratory Results . Diagnostic Findings Postoperative x-rays of the right hip show the prosthesis to be in anatomic alignment without any evidence of fracture complication, or loosening.. PG Care Time/CCT Total # of Minutes Spent Total Time Spent with Patient: Total time spent is greater than 50% in coordination of care (as documented) at patient's floor/unit and/or counseling patient: Coding Level of Care Code 20706 Post Operative Follow-Up Diagnoses Status post right hip replacement Z96.641
--- NOTE | 2024-02-11 07:04 | Discharge Summary ---
Date of Service February 11, 2024 Principal Diagnosis Same as "Discharge Diagnosis" noted below under Discharge Instructions. Discharge Exam On physical examination of the right hip, the dressing is clean and dry. His leg is out full extension. He has active dorsiflexion plantarflexion of the right ankle.. Discharge Data Consultations 02/10/24 14:39 Consult Pain Management Routine Procedures Performed Operation Date: 02/10/24 11:00 Actual Procedures p Right Anterior Total Hip Arthroplasty(Right) - Jamal Dejesus DO Ordered Studies 02/10/24 11:00 FL hip RT 1V Routine Hospital Course (1) Status post right hip replacement: On February 10, 2024 Jean Pierre arrived at [facility] and underwent a right hip replacement without complication. He had a general anesthetic. Postoperatively he was started on aspirin for DVT prophylaxis and transferred to the general orthopedic floors. His hospital course was uneventful. On postop day #1, his vital signs were stable and his pain was well-controlled. He was able to participate well with physical therapy doing ambulation and range of motion exercises. He was then discharged to home. He will follow-up with orthopedics in 2 weeks. PG Care Time/CCT Total # of Minutes Spent Total Time Spent with Patient: Total time spent is greater than 50% in coordination of care (as documented) at patient's floor/unit and/or counseling patient: Discharge Plan Discharge Items Patient Disposition: Home - Self-Care Reason For Visit: Right Hip Arthritis Discharge Diagnosis: Right hip replacement Activity: Per Instructions section Non-emergency contact: Surgeon Call non-emergency contact if: your wound has increased redness and your wound has increased drainage Follow-up/Referrals: Pro,Lucian Espinoza MD [Primary Care Provider] - Diet: Regular Addtl Attending Provider Instructions: Activity and Therapy Recommendations: * If you are using [facility] then therapy will be provided at your home until they feel you have accomplished all of your goals. * If you are using [facility] then Physical Therapy will be provided until they feel you are ready to start Outpatient Physical Therapy. * If you are not using home therapy then Outpatient Physical Therapy should start about 3-5 days from your day of surgery. Therapy will last about 6-10 weeks * You were shown a series of exercises in the hospital. Do these exercises three times each day including the exercises you were shown in physical therapy. * Get up and walk several times each day.~ For the first four weeks, try not to stand or walk for more than one hour at a time. If you do stand or walk for more than one hour, you will not hurt anything, but your leg will likely swell.~~ * As you feel comfortable, you may change from the walker or crutches to a cane and~then to independent walking. Medications: * Narcotic You will likely be sent home from the hospital with a prescription for the narcotic pain medication that worked best throughout your stay. * Cefadroxil -take the antibiotic twice a day for 10 days to help prevent infection. * Aspirin Most patients will be required to take Aspirin 81mg twice a day for 6 weeks after surgery. This is obtained [id number] and a prescription is not necessary. * Other medications may be prescribed for specific circumstances. If you have any questions, please call the office at . * Resume previous home medications unless otherwise instructed TEDs/Elastic Stockings: The white elastic stockings help limit swelling and prevent blood clots from forming in your legs. The more you wear them, the more they work. Wear them for six weeks. Dressing Care: Leave the Silverlon dressing in place for 7 days. After 7 days you may remove the dressing. If the incision is not draining then you may leave the raquel open to air. If there is a little bit of drainage or if the raquel are getting stuck on your clothing then cover the incision with a dry dressing. The raquel will be removed at your 2 week follow-up appointment. Showering: You may shower with the Silverlon dressing in place. Do not let the shower spray hit the dressing directly. Pat the Silverlon dressing dry. If the dressing becomes wet underneath, then simply remove the dressing. Keep the incision dry until you are 7 days out from the day of surgery. After 7 days you may remove the Silverlon dressing and shower with the raquel exposed. Let soapy water run over the raquel and pat them dry. Do not scrub or soak the incision. Diet: You may resume your previous diet. Things To Watch For: * Drainage from the incision site that occurs more than one week after your surgery. * Increased redness at the incision site. * Fever above 102 degrees Fahrenheit. * Unusual chest pain or shortness of breath. * Call [facility] at with any of the above problems Follow-Up Visit: Follow-up with Dr. Dejesus's PA (Jamal Ortega) 2-3 weeks after your day of surgery. He will remove your raquel and answer any questions. If you have any additional questions or concerns, Dr Dejesus is usually in the office at the same time and will be available An appointment was probably scheduled when you signed-up for surgery in the office. If you have any questions call Office Instructions: More detailed instructions as well as Frequently Asked Questions were provided in a folder by our office when you signed-up for surgery. Please review these instructions when you get home. If you have any further questions or concerns, please feel free to call the office at [phone] Pending Studies at Discharge: No Stand-Alone Forms: My [facility] [employer], Smoking Cessation Medications and DC Order Prescriptions: New aspirin 81 mg Tablet,Delayed Release (Dr/Ec) 81 mg PO BID 42 Days Qty: 84 0RF cefadroxil 500 mg capsule 500 mg PO BID 10 Days Qty: 20 0RF Continued naloxone [Narcan] 4 mg/actuation spray,non-aerosol 4 mg intranasal Q2M PRN (Reason: for accidental overdose from pain pump) Qty: 2 0RF Rx Instructions: spray 1 dose into ONE nostril; alternate nostrils w each dose until help arrives lisinopril 40 mg tablet 40 mg PO DAILY duloxetine [Cymbalta] 60 mg capsule,delayed release(DR/EC) 60 mg PO QAM Qty: 30 0RF testosterone cypionate 100 mg/mL oil 100 mg IM WK Qty: 4 5RF Patient Comments: EVERY SATURDAY Rx Instructions: Saturday dispense 1 ml vials tramadol 50 mg tablet 50 mg PO Q6H PRN (Reason: pain) Qty: 20 0RF atorvastatin [Lipitor] 40 mg tablet 40 mg PO HS Qty: 90 3RF lidocaine 4 % adhesive patch,medicated 1 patch topical Q24H Patient Comments: [facility] Rx Instructions: Unable to verify OTC meds at this date/time. levothyroxine [Synthroid] 100 mcg tablet 100 mcg PO QAM 90 Days Qty: 90 3RF albuterol sulfate 90 mcg/actuation HFA aerosol inhaler 2 puff INH UD PRN (Reason: Shortness Of Breath Or Wheezing) Qty: 17 3RF pregabalin 50 mg capsule 50 mg PO BID Qty: 60 0RF Patient Comments: quit taking a few weeks ago (DME) blood-glucose meter [OneTouch Verio Flex Start] Kit See Rx Instructions .Route Qty: 1 0RF Rx Instructions: Test three times a day (DME) OneTouch Verio test strips Strip See Rx Instructions .Route Qty: 300 3RF Rx Instructions: test blood sugar 3 x daily (DME) lancets [OneTouch Delica Plus Lancet] 33 gauge misc See Rx Instructions .Route Qty: 300 3RF Rx Instructions: test blood sugar 3 x daily Dilaudid Pain Pump 1.5mg/Ml 0.0172 mg intrathecal UD Rx Instructions: 0.0172mg/hr intrathecally via pump implanted in patient. Unable to verify w/ pharmacy at this date/time. Original Directions: Original Directions 0.0172mg as directed trazodone 150 mg tablet 75 mg PO HS bupropion HCl 300 mg tablet extended release 24 hr 300 mg PO QAM clonazepam [Klonopin] 0.5 mg tablet 0.5 mg PO BID PRN (Reason: Anxiety) oxycodone-acetaminophen [Percocet] 5-325 mg tablet 1 tab PO Q6H PRN (Reason: pain) metformin 500 mg tablet extended release 24 hr 500 mg PO BID Rx Instructions: Unable to verify w/ pharmacy at this date/time. Original Directions: 1000mg by mouth daily, last filled 09/2023 x30 day supply Spiriva Respimat 2.5 mcg/actuation mist 1 puff inhalation DAILY Rx Instructions: Last filled 09/2023 x30 day supply. Original Directions 2puff inh daily Admission Data Admit Date/Time: 02/10/24 12:40 Attending Provider: Jamal Dejesus Admit Provider: Jamal Dejesus Primary Care Provider: Lucian Mccann Other Providers: Chilo Cherry; Isabel Hartmann; Manjit Parra; Lauren Arce; Osmani Grissom; [facility]
[2024-02-11 08:12] VITALS: BP 132/63; PULSE 55; TEMP 97.5; O2SAT 98
[2024-02-11] MEDS: lisinopril 40 MG TAB PO SCH (08:39)
[2024-02-11] MEDS: buPROPion XL 300 MG TABCR PO SCH (08:39)
[2024-02-11] MEDS: DULoxetine HCL 60 MG CAP PO SCH (08:39)
[2024-02-11] MEDS: LEVOTHYROXINE SODIUM 100 MCG TABLET PO SCH (08:39)
[2024-02-11] MEDS: MULTIVITAMIN TAB PO SCH (08:39)
[2024-02-11] MEDS: UMECLIDINIUM BROMIDE 62.5MCG/BLISTER 7 PUFFS/INHALER INH SCH (08:40)
[2024-02-11] MEDS: LANTUS PER UNIT CHARGE SC ONE (08:45)
== END 2024-02-11 10:55 | disposition home or self-care (01) ==
LOC: 3W 08:30 → ASU 08:30

== ENCOUNTER 2024-09-02 08:53 | Inpatient (IN) ==
--- NOTE | 2024-09-02 09:13 | Emergency Department Note ---
Impression & Plan Intractable low back pain, Lumbosacral radiculopathy, Tobacco use ED Provider Note NAME: AMARJIT SHEA AGE: 59 SEX: M : 1965 ARRIVES VIA: Walk-In INFORMANT: Patient, ED PROVIDER(S): Juan Daniel Murray MD CHIEF COMPLAINT: Back pain MEDICAL DECISION MAKING: Patient presents due to concern for back pain. IV was established and blood work was obtained. Patient was ordered p.o. Tylenol and IV Toradol IV morphine IV Zofran and IV methylprednisolone as well as lidocaine patch. Plain x-rays were performed of the lumbar spine. These do not show obvious fracture or dislocation. Patient was still having pain. Patient was ordered IV Dilaudid 1 mg. The patient had no improvement patient was given Dilaudid 2 more times but without any improvement given these concerns do believe the patient would benefit from admission at this time. Patient does have a Dilaudid pain pump which may make it more difficult for adequate pain control. Patient does not have high risk red flag signs for cauda equina. Patient does have radiation of pain but no obvious weakness. Flu shows a white count so the normal hemoglobin and platelet count kidney function unremarkable BSG 163 nonfasting not in DKA. I did speak with the on-call hospital service and the patient was admitted to the medicine service. Discussion w/ other healthcare providers: Viviana Almanzar PA-C and Dr. Jeff inpatient medicine service Prior /Outside records reviewed: None Differential diagnosis: Musculoskeletal, disc herniation, fracture, sprain, strain, cord compression, discitis, sciatica, cauda equina, infection, renal colic, as well as other pathologies were considered. Diagnostics, as interpreted by me: ECG: None Cardiac monitoring: An order was placed for continuous cardiac monitoring. The monitor shows a rate of 67 with sinus rhythm. Patient was placed on pulse oximetry Medical decision rules: None Imaging studies: I informally interpreted the patient's lumbar spine x-ray does not show obvious fracture with formal report to follow. HPI: Patient presents due to concern for back pain. The patient states that he did have recent back injections completed by Dr. Goddard but with pain management about a week ago. The patient states that he does have chronic pain but this seemed to worsen this morning. Patient reports that he did mow his grass yesterday but states it was on a riding mower. No recent heavy lifting twisting turning coughing or sneezing. Patient denies any bowel bladder incontinence or retention. Patient states that he he did take some Tylenol this morning but without any improvement in symptoms. Patient denies any nausea or vomiting. The patient states that his back pain is in the low back as well as in the bilateral paraspinal low back. He does have radiation of his pain to his left knee. Patient denies any numbness tingling or focal weakness. No saddle anesthesia. PAST MEDICAL HISTORY: See Below PAST SURGICAL HISTORY: See Below SOCIAL HISTORY: See Below HOME MEDICATIONS: See Below ALLERGIES: See Below VITALS: See Below PHYSICAL EXAMINATION: GENERAL: NAD, non-toxic. EYE EXAM: Normal conjunctiva. PERRL, no anisocoria and EOM's grossly intact w/o pain. OROPHARYNX: Moist mucus membranes, grossly normal dentition. NECK: Trachea midline, no stridor. LUNGS: Clear to auscultation. Normal chest wall mechanics. HEART: NSR, no MRG. ABDOMEN: Abdomen soft, non-tender, no masses, no rebound or guarding. Pain pump noted in the left lower abdomen. BACK: No CVA TTP. Midline lumbar and bilateral paraspinal lumbar TTP. No overlying skin changes. SKIN: No rashes and no bruising. UPPER EXTREMITIES: Upper extremities are grossly normal. LOWER EXTREMITIES: Grossly normal, no edema. No saddle anesthesia. Decreased range of motion left lower extremity secondary to pain able to raise both legs up off bed. No sensory deficits. NEURO EXAM: Awake and alert, follows commands, no obvious facial asymmetry, normal speech, moves all 4 extremities. Past Med/Surg History Problem List (Updated 09/02/24 @ 15:15 by Juan Daniel Murray MD) Tobacco use (Acute) Intractable low back pain (Acute) GCA (giant cell arteritis) History of temporal artery biopsy (06/12/24) Bilateral Temporal Artery Biopsy(Bilateral) - David Rebolledo DO Headache (Acute) Pituitary microadenoma Secondary adrenal insufficiency ACTH deficiency Lumbosacral radiculopathy (Acute) COPD with emphysema Follows with [facility] pulmonology Chronic cough Controlled type 2 diabetes mellitus Dyslipidemia Chronic SI joint pain Adjustment disorder with anxiety Current smoker Growth hormone deficiency Pituitary hypogonadism Pituitary hypothyroidism (~12/03/23) Hypothyroidism (Chronic) Presence of intrathecal pump (Acute) HTN (hypertension) Cervical post-laminectomy syndrome Medical History Secondary adrenal insufficiency Hypothyroidism Dyslipidemia Adjustment disorder with anxiety Controlled type 2 diabetes mellitus Hypertension COPD with emphysema Follows with [facility] pulmonology- missed all appointments in 2023, has not made another appoint. Left hamstring muscle strain Greater trochanteric bursitis of right hip Exertional shortness of breath Allergic rhinitis with postnasal drip Left-sided temporomandibular joint pain-dysfunction syndrome Piriformis syndrome Erectile dysfunction Asthma denies -rescue inhaler only- last used last night at bedtime Chronic SI joint pain Cervical post-laminectomy syndrome limited ROM- 75-80% up and down; 85% side to side AVN of femur Osteoarthritis Family history of reaction to anesthesia "30 years ago a cousin of mine at [facility] during wisdom teeth surgery" he denies any mention of a genetic condition, denies other family members with anesthesia issues INA (acute kidney injury) (12/2023) recent hospitalization 12/2023 Benign prostate hyperplasia Vitamin D deficiency Vitamin B 12 deficiency Presence of intrathecal pump hydromorphone Sensorineural hearing loss (SNHL) of both ears Dysphagia occasional since cervical spine surgery, denies choking Chronic cough "smoker's cough" Myofascial pain Globus sensation "there's a ledge and sometimes food gets stuck" History of colon polyps Cervical radiculopathy limited ROM- 75-80% up and down; 85% side to side Sleep apnea pt denies, no cpap Insomnia with fatigue Pain disorder associated with psychological factors and medical condition Surgical History Hx of colonoscopy with polypectomy Status post right hip replacement (~01/2024) History of right hip replacement (01/2024) History of left shoulder replacement (08/2023) August 2023 S/P insertion of intrathecal pump S/P epidural steroid injection cervical H/O arthroscopy of shoulder bilateral H/O arthroscopic knee surgery both knees History of esophagogastroduodenoscopy (EGD) With dilation History of fusion of cervical spine x 8 total neck and back ACDF (multiple) limited ROM- 75-80% up and down; 85% side to side H/O cataract extraction bilateral History of inguinal hernia repair right - as a child Family History Brother Lymphoma Mother Coronary heart disease Myocardial infarction Father Coronary heart disease Myocardial infarction Grandmother Coronary heart disease Other Cancer Denies family history of Ovarian cancer Prostate cancer Breast cancer Colorectal cancer Social History Smoking Status: Current every day smoker Tobacco Type: Cigarettes Age Started Using Tobacco: 13; packs per day: 1; Cigarettes Per Day: pack/day; Second Hand Exposure: No; Do You Dip or Chew Tobacco: No; Tobacco Cessation Education Requested by Patient: No Hx Alcohol Use: No Hx Substance Use: No Preferred Language: Luxembourgish Communication Ability: Effective Visual Impairment: Limited Hearing Ability: Normal Manager Intern Required: No Beliefs That Will Affect Care: None marital status: Current Living Situation: Spouse and Family Current Living Situation Comment: and daughter 2 story home current occupational status: disabled How many Children do You have: 2 Other Information That Helps Us Care for You: No Feels Safe at Home: Yes Safety Concerns: Feels Safe At This Time Diet: diabetic during the past year weight has: decreased > 10 lbs Seatbelt Use: always Assistive Devices: Glasses and Hearing Aid - Bilateral Allergies Allergies Allergy/AdvReac Type Severity Reaction Status Date / Time Iodinated Contrast Media Allergy Severe Difficulty Verified 08/26/24 08:03 Breathing gabapentin [From Neurontin] Allergy Mild Swelling Verified 08/26/24 08:03 Home Meds Home Medications Medication Instructions Recorded Confirmed Dilaudid Pain Pump 1.5mg/Ml 0.0172 mg intrathecal UD 05/09/21 09/02/24 bupropion HCl 300 mg 24 hr tablet, 300 mg PO QAM 01/04/24 09/02/24 extended release clonazepam 0.5 mg tablet (Klonopin) 0.5 mg PO BID PRN Anxiety 01/04/24 09/02/24 trazodone 150 mg tablet 75 mg PO HS 01/04/24 09/02/24 metformin 500 mg tablet,extended 500 mg PO UD 06/09/24 09/02/24 release 24 hr amlodipine 5 mg tablet 5 mg PO UD 09/02/24 09/02/24 olanzapine 5 mg tablet (Zyprexa) 5 mg PO UD 09/02/24 09/02/24 propranolol 60 mg capsule,24 60 mg PO UD 09/02/24 09/02/24 hr,extended release rizatriptan 10 mg tablet 10 mg PO UD 09/02/24 09/02/24 tocilizumab 162 mg/0.9 mL 162 mg subcut UD 09/02/24 09/02/24 subcutaneous syringe (Actemra) Previous Rx's Medication Instructions Recorded duloxetine 60 mg capsule,delayed 60 mg PO QAM #30 caps 11/13/22 release (Cymbalta) albuterol sulfate 90 mcg/actuation 2 puff inhalation UD PRN Shortness 04/11/23 aerosol inhaler Of Breath Or Wheezing #17 grams naloxone 4 mg/actuation nasal 4 mg intranasal Q2M PRN for 05/16/23 spray (Narcan) accidental overdose from pain pump #2 ea blood sugar diagnostic (OneTouch #300 ea 09/25/23 Verio test strips) blood-glucose meter (OneTouch #1 ea 09/25/23 Verio Flex Start kit) lancets 33 gauge (OneTouch Delica #300 ea 09/25/23 Plus Lancet) levothyroxine 100 mcg tablet 100 mcg PO QAM 90 days #90 tabs 10/10/23 (Synthroid) atorvastatin 40 mg tablet (Lipitor) 40 mg PO HS #90 tabs 12/06/23 testosterone cypionate 100 mg/mL 100 mg IM WK #4 vials 04/01/24 intramuscular oil mecobalamin (vitamin B12) 1,000 1,000 mcg sublingual DAILY #30 tabs 04/14/24 mcg disintegrating tablet,sublingual lisinopril 40 mg tablet 40 mg PO QAM #90 tabs 06/19/24 pen needle, diabetic 32 gauge x #400 ea 07/23/24" blood-glucose sensor (Dexcom G7 #9 ea 07/27/24 Sensor device) glucagon 3 mg/actuation nasal 3 mg intranasal ONCE #1 ea 08/06/24 spray (Baqsimi) Results & Data (ED) Vital Signs Vital Signs - 24 hr 09/02/24 09:00 09/02/24 09:24 09/02/24 11:00 Temperature 36.6 C Temperature Source Temporal Artery Scan Pulse Rate 96 H Pulse Rate [Finger] 105 H Respiratory Rate 17 18 Blood Pressure 175/76 H Blood Pressure [Left Arm] 142/94 H Blood Pressure Mean 109 Blood Pressure Mean [Left Arm] 110 Blood Pressure Position [Left Arm] Lying Pulse Oximetry 98 97 97 Oxygen Delivery Method Room Air Room Air Room Air Sepsis Recent Fever Within 48 Hours No Sepsis New/Unexplained Change in Mental Status N/A Sepsis Action Taken by Nursing No Action Required Home Medications Current Medication List: was personally reviewed by me Laboratory Data Attestation: I reviewed the patient's lab results. 09/02/24 09:28 09/02/24 09:28 Lab Results 09/02/24 Range/Units 09:28 WBC 12.12 H (4.8-10.8) K/ul RBC 4.73 (4.70-6.10) M/uL Hgb 15.6 (14.0-18.0) g/dl Hct 43.1 (42.0-52.0) % MCV 91.1 (80.0-100.0) fL MCH 33.0 (25.0-34.0) pg MCHC 36.2 H (32.0-36.0) g/dL RDW Std Deviation 44.9 (36.4-46.3) fL RDW Coeff of Salome 13.5 (11.5-14.5) % Plt Count 250 (130-400) K/uL MPV 9.5 (9.4-12.4) fL Immature Gran % (Auto) 0.4 % Neut % (Auto) 70.0 % Lymph % (Auto) 20.8 % Starke % (Auto) 7.1 % Eos % (Auto) 1.0 % Baso % (Auto) 0.7 % Neut # (Auto) 8.48 H (1.40-6.50) K/uL Lymph # (Auto) 2.52 (1.20-3.40) K/uL Starke # (Auto) 0.86 H (0.11-0.59) K/uL Eos # (Auto) 0.12 (0.00-0.50) K/uL Baso # (Auto) 0.09 (0.00-0.20) K/uL Immature Gran # (Auto) 0.05 (0.01-0.20) K/uL Sodium 136 (136-145) mmol/L Potassium 4.6 (3.5-5.1) mmol/L Chloride 105 (98-107) mmol/L Carbon Dioxide 22 (21-32) mmol/L Anion Gap 9 (3-11) BUN 24 H (6-23) mg/dl Creatinine 1.33 (0.6-1.4) mg/dl Est Cr Clr Drug Dosing 62.9 ml/min eGFR 61.19 BUN/Creatinine Ratio 18.0 (10-20) Glucose 163 H (70-99(Fasting)) mg/dl Calcium 9.6 (8.6-10.3) mg/dl Administered Medications Discontinued Medications Acetaminophen (Acetaminophen 500 Mg Tab) 1,000 mg PO NOW STA Stop: 09/02/24 09:25 Last Admin: 09/02/24 09:34 Dose: 1,000 mg Documented By: FLETCHER Hydromorphone HCl (Hydromorphone Inj 1 Mg/Ml Syringe) 1 mg IV NOW STA Stop: 09/02/24 10:27 Last Admin: 09/02/24 10:30 Dose: 1 mg Documented By: FLETCHER Hydromorphone HCl (Hydromorphone Inj 1 Mg/Ml Syringe) 1 mg IV NOW STA Stop: 09/02/24 12:16 Last Admin: 09/02/24 12:27 Dose: 1 mg Documented By: BRIONNA Hydromorphone HCl (Hydromorphone Inj 1 Mg/Ml Syringe) 1 mg IV NOW STA Stop: 09/02/24 13:01 Last Admin: 09/02/24 13:11 Dose: 1 mg Documented By: QGV Ketorolac Tromethamine (Ketorolac Tromethamine 15 Mg/Ml Vial) 10 mg IV ONE STA Stop: 09/02/24 09:25 Last Admin: 09/02/24 09:35 Dose: 10 mg Documented By: [facility] [place] Lidocaine (Lidocaine 5% 1 Patch) 1 patch TD NOW STA Stop: 09/02/24 09:25 Last Admin: 09/02/24 09:35 Dose: 1 patch Documented By: [facility] [place] Methylprednisolone (Methylprednisolone 125 Mg/2 Ml Vial) 125 mg IV NOW STA Stop: 09/02/24 09:25 Last Admin: 09/02/24 09:34 Dose: 125 mg Documented By: [facility] [place] Morphine Sulfate (Morphine Sulfate 4 Mg/Ml 1 Ml Carp\\Vial) 4 mg IV NOW STA Stop: 09/02/24 09:25 Last Admin: 09/02/24 09:35 Dose: 4 mg Documented By: [facility] [place] Ondansetron HCl (Ondansetron Inj 2 Mg/Ml 2 Ml Vial) 4 mg IV NOW STA Stop: 09/02/24 09:25 Last Admin: 09/02/24 09:35 Dose: 4 mg Documented By: [facility] [place] Imaging Data Radiologist's Impression: Lumbar Spine X-Ray 09/02/24 09:24 XR lumbar spine 2-3V CLINICAL HISTORY: midline and paraspinal LBP COMPARISON STUDY: 01/06/2024 FINDINGS: Stable lumbar pain pump. There is an interval partially visualized right hip prosthesis. There is stable grade 1 anterolisthesis of L5 on S1. Otherwise normal alignment. No fracture seen. Stable mild diffuse degenerative disc disease in lower lumbar facet degeneration. IMPRESSION: 1. No acute findings. 2. Stable degenerative changes. ACT 112: Negative or not required by law. Electronically signed by: Scott Fletcher M.D. 09/02/2024 11:05 AM Discharge Plan Visit Data Chief Complaint: Back Injury/Pain Stated Complaint: RECENT INJECTIONS, BACK PAIN ED Provider: Juan Daniel Murray Discharge Problem: Intractable low back pain, Lumbosacral radiculopathy, Tobacco use Patient Disposition: Admitted As Inpatient Condition: Good Discharge Instructions Interventions: ED Discharge Assessment Last Done: 09/02/24 14:33
[2024-09-02] MEDS: ACETAMINOPHEN 500 MG TAB PO STA (09:34)
[2024-09-02] MEDS: methylPREDNISolone 125 MG/2 ML VIAL IV STA (09:34)
[2024-09-02] MEDS: LIDOCAINE 5% 1 PATCH TD STA (09:35)
[2024-09-02] MEDS: ONDANSETRON INJ 2 MG/ML 2 ML VIAL IV STA (09:35)
[2024-09-02] MEDS: KETOROLAC TROMETHAMINE 15 MG/ML VIAL IV STA (09:35)
[2024-09-02] MEDS: MoRPHine SULFATE 4 MG/ML 1 ML CARP\\VIAL IV STA (09:35)
[2024-09-02 09:40] LABS: Basophils # (auto) 0.09 K/uL (0.00-0.20); Basophils % (auto) 0.7 %; Eosinophils # (auto) 0.12 K/uL (0.00-0.50); Hematocrit (blood only) 43.1 % (42.0-52.0); Hemoglobin 15.6 g/dl (14.0-18.0); Immature Granulocytes # (auto) 0.05 K/uL (0.01-0.20); Immature Granulocytes % (auto) 0.4 %; Lymphocytes # (auto) 2.52 K/uL (1.20-3.40); Lymphocytes % (auto) 20.8 %; Mean Corpuscular Hgb Conc 36.2 g/dL (32.0-36.0); Mean Corpuscular Volume 91.1 fL (80.0-100.0); Mean Platelet Volume 9.5 fL (9.4-12.4); Monocytes # (auto) 0.86 K/uL (0.11-0.59); Monocytes % (auto) 7.1 %; Neutrophils # (auto) 8.48 K/uL (1.40-6.50); Platelet Count 250 K/uL (130-400); RDW Coefficient of Variation 13.5 % (11.5-14.5); RDW Standard Deviation 44.9 fL (36.4-46.3); Red Blood Count 4.73 M/uL (4.70-6.10); White Blood Count 12.12 K/ul (4.8-10.8)
[2024-09-02 10:11] LABS: Calcium 9.6 mg/dl (8.6-10.3); Creatinine Clr Calc Pharmacy 62.9 ml/min; Potassium 4.6 mmol/L (3.5-5.1)
[2024-09-02] MEDS: HYDROmorphone INJ 1 MG/ML SYRINGE IV STA ×5 (10:30→22:35)
--- NOTE | 2024-09-02 11:06 | XRay Report ---
XR lumbar spine 2-3V CLINICAL HISTORY: midline and paraspinal LBP COMPARISON STUDY: 01/06/2024 FINDINGS: Stable lumbar pain pump. There is an interval partially visualized right hip prosthesis. Th ere is stable grade 1 anterolisthesis of L5 on S1. Otherwise normal alignment. No fracture seen. Stab le mild diffuse degenerative disc disease in lower lumbar facet degeneration. IMPRESSION: 1. No acute findings. 2. Stable degenerative changes. ACT 112: Negative or not required by law. Electronically signed by: Scott Fletcher M.D. 09/02/2024 11:05 AM
--- NOTE | 2024-09-02 13:36 | History & Physical Report ---
Date of Service September 02, 2024 Assessment & Plan (1) Intractable low back pain: (2) Lumbosacral radiculopathy: (3) HTN (hypertension): (4) Controlled type 2 diabetes mellitus: (5) Pituitary hypothyroidism: Plan Jean Pierre is a pleasant 59-year-old male with a past medical history significant for cervical postlaminectomy syndrome status post intrathecal pain pump, chronic low back and SI joint pain (follows with pain management), tobacco abuse, DM type II, COPD, dyslipidemia, and pituitary hypogonadism. He presented to the ED with intractable low back pain with radicular symptoms. He recently had bilateral SI joint injections on 08/25/2024 with pain management. Lumbar spine x-ray on admission noted stable grade 1 anterolisthesis of L5 on S1, otherwise normal alignment, no fracture seen, stable mild diffuse degenerative disc disease and lower lumbar facet degeneration. Lumbar spine MRI from 01/05/2024 noted discogenic degeneration with spondylitic spurring and facet arthrosis, no high- grade central canal or neural foraminal narrowing, no significant bone marrow edema. #Intractable lower back pain - follows with pain management outpatient Multimodal pain control with scheduled Tylenol 650 mg Q4H, Flexeril 5 mg TID, dexamethasone 6 mg IV daily, lidocaine patch, Toradol 15 mg IV Q6H PRN, Dilaudid 0.5-1.0 mg IV PRN mod-severe pain Narcan available as needed for narcosis Recommend obtaining lumbar MRI on day after admission, as patient was too p ainful to lay flat for MRI on admission Pain management consulted PT/OT consulted #Hypertension Continue lisinopril 40 mg daily, atorvastatin 40 mg HS Patient is no longer taking amlodipine 5 mg daily or propranolol 60 mg daily #Diabetes mellitus type 2 Most recent A1c 5.7% in February 2024 Hold home regimen and utilize SSI while inpatient Consider pharmacy glycemic consult if blood sugars are labile with high-dose steroids #Pituitary hypothyroidism Most recent TSH WNL in April 2024 Continue Synthroid 100 mcg daily Will repeat TSH with reflex with a.m. labs VTE PPx: Lovenox 40 mg SQ daily CODE STATUS: Full code History of Present Illness Chief Complaint: Intractable low back pain Primary Care Provider: Lucian Mccann MD Jean Pierre is a pleasant 59-year-old male with a past medical history significant for cervical postlaminectomy syndrome s/p intrathecal pain pump, chronic low back and SI joint pain (follows with pain management), tobacco abuse, DM type II, COPD, dyslipidemia, and pituitary hypogonadism. He presented to the ED with intractable low back pain with radicular symptoms. He recently had bilateral SI joint injections on 08/25/2024 with pain management. He reports he had significant improvement in his symptoms for 1 week following these injections and reports his pain decreased to 3/10 at that time. Yesterday afternoon (09/01) he had abrupt onset of excruciating pain. He denies trauma or triggering events. He did mow his lawn yesterday, but used a riding mower. He notes the pain radiates bilaterally down his left lower extremity p osteriorly to his knee and to his right buttock and hip joint. He denies numbness or tingling, but rather describes this as "a solid continuous needle stabbing me sensation." He denies weakness in his LE, noting his limited ambulation is secondary to pain not weakness. Denies saddle anesthesia, decreased sensation in the groin, or loss of bowel/bladder function. He reports the pain is constant and does not worsen with movement. He is concerned because the pain medications given in the ED have not reduced his pain at all (which is different from previous encounters). He reports his pain is 9/10 at this time. Vitals on admission are significant for tachycardia in 100s and slightly elevated BP at 140s/90s. Labs on admission are significant for mild leukocytosis of 12 (likely secondary to chronic oral steroids). Hgb, platelets, electrolytes, and renal function stable and WNL. Imaging on admission included lumbar x-ray that showed stable mild diffuse degenerative disc disease and lower lumbar facet degeneration, but no acute findings. In ED, he was given ketorolac 10 mg x1, 1 mg Dilaudid IV x3, 125 mg of methylprednisolone, 4 mg morphine x1, and 1 g of Tylenol and continues to have severe pain. Allergies Allergy/AdvReac Type Severity Reaction Status Date / Time Iodinated Contrast Media Allergy Severe Difficulty Verified 08/26/24 08:03 Breathing gabapentin [From Neurontin] Allergy Mild Swelling Verified 08/26/24 08:03 Home Medications Medication Instructions Recorded Confirmed Type Dilaudid Pain Pump 1.5mg/Ml 0.0172 mg intrathecal UD 05/09/21 09/02/24 History duloxetine 60 mg capsule,delayed 60 mg PO QAM #30 caps 11/13/22 09/02/24 Rx release (Cymbalta) albuterol sulfate 90 mcg/actuation 2 puff inhalation UD PRN Shortness 04/11/23 09/02/24 Rx aerosol inhaler Of Breath Or Wheezing #17 grams naloxone 4 mg/actuation nasal 4 mg intranasal Q2M PRN for 05/16/23 09/02/24 Rx spray (Narcan) accidental overdose from pain pump #2 ea blood sugar diagnostic (OneTouch #300 ea 09/25/23 08/26/24 Rx Verio test strips) blood-glucose meter (OneTouch #1 ea 09/25/23 08/26/24 Rx Verio Flex Start kit) lancets 33 gauge (OneTouch Delica #300 ea 09/25/23 08/26/24 Rx Plus Lancet) levothyroxine 100 mcg tablet 100 mcg PO QAM 90 days #90 tabs 10/10/23 09/02/24 Rx (Synthroid) atorvastatin 40 mg tablet (Lipitor) 40 mg PO HS #90 tabs 12/06/23 09/02/24 Rx bupropion HCl 300 mg 24 hr tablet, 300 mg PO QAM 01/04/24 09/02/24 History extended release clonazepam 0.5 mg tablet (Klonopin) 0.5 mg PO BID PRN Anxiety 01/04/24 09/02/24 History trazodone 150 mg tablet 75 mg PO HS 01/04/24 09/02/24 History testosterone cypionate 100 mg/mL 100 mg IM WK #4 vials 04/01/24 09/02/24 Rx intramuscular oil mecobalamin (vitamin B12) 1,000 1,000 mcg sublingual DAILY #30 tabs 04/14/2411/20 Rx mcg disintegrating tablet,sublingual metformin 500 mg tablet,extended 500 mg PO UD 06/09/24 09/02/24 History release 24 hr lisinopril 40 mg tablet 40 mg PO QAM #90 tabs 06/19/24 09/02/24 Rx pen needle, diabetic 32 gauge x #400 ea 07/23/24 08/26/24 Rx 5/32" blood-glucose sensor (Dexcom G7 #9 ea 07/27/24 08/26/24 Rx Sensor device) glucagon 3 mg/actuation nasal 3 mg intranasal ONCE #1 ea 08/06/24 09/02/24 Rx spray (Baqsimi) amlodipine 5 mg tablet 5 mg PO UD 09/02/24 09/02/24 History olanzapine 5 mg tablet (Zyprexa) 5 mg PO UD 09/02/24 09/02/24 History propranolol 60 mg capsule,24 60 mg PO UD 09/02/24 09/02/24 History hr,extended release rizatriptan 10 mg tablet 10 mg PO UD 09/02/24 09/02/24 History tocilizumab 162 mg/0.9 mL 162 mg subcut UD 09/02/24 09/02/24 History subcutaneous syringe (Actemra) Past Med/Surg History Problem List (Updated 09/02/24 @ 15:15 by Juan Daniel Murray MD) Tobacco use (Acute) Intractable low back pain (Acute) GCA (giant cell arteritis) History of temporal artery biopsy (06/12/24) Bilateral Temporal Artery Biopsy(Bilateral) - David Rebolledo, Headache (Acute) Pituitary microadenoma Secondary adrenal insufficiency ACTH deficiency Lumbosacral radiculopathy (Acute) COPD with emphysema Follows with [facility] pulmonology Chronic cough Controlled type 2 diabetes mellitus Dyslipidemia Chronic SI joint pain Adjustment disorder with anxiety Current smoker Growth hormone deficiency Pituitary hypogonadism Pituitary hypothyroidism (~12/03/23) Hypothyroidism (Chronic) Presence of intrathecal pump (Acute) HTN (hypertension) Cervical post-laminectomy syndrome Medical History Secondary adrenal insufficiency Hypothyroidism Dyslipidemia Adjustment disorder with anxiety Controlled type 2 diabetes mellitus Hypertension COPD with emphysema Follows with [facility] pulmonology- missed all appointments in 2023, has not made another appoint. Left hamstring muscle strain Greater trochanteric bursitis of right hip Exertional shortness of breath Allergic rhinitis with postnasal drip Left-sided temporomandibular joint pain-dysfunction syndrome Piriformis syndrome Erectile dysfunction Asthma denies -rescue inhaler only- last used last night at bedtime Chronic SI joint pain Cervical post-laminectomy syndrome limited ROM- 75-80% up and down; 85% side to side AVN of femur Osteoarthritis Family history of reaction to anesthesia "30 years ago a cousin of mine at [facility] during wisdom teeth surgery" he denies any mention of a genetic condition, denies other family members with anesthesia issues INA (acute kidney injury) (12/2023) recent hospitalization 12/2023 Benign prostate hyperplasia Vitamin D deficiency Vitamin B 12 deficiency Presence of intrathecal pump hydromorphone Sensorineural hearing loss (SNHL) of both ears Dysphagia occasional since cervical spine surgery, denies choking Chronic cough "smoker's cough" Myofascial pain Globus sensation "there's a ledge and sometimes food gets stuck" History of colon polyps Cervical radiculopathy limited ROM- 75-80% up and down; 85% side to side Sleep apnea pt denies, no cpap Insomnia with fatigue Pain disorder associated with psychological factors and medical condition Surgical History Hx of colonoscopy with polypectomy Status post right hip replacement (~01/2024) History of right hip replacement (01/2024) History of left shoulder replacement (08/2023) August 2023 S/P insertion of intrathecal pump S/P epidural steroid injection cervical H/O arthroscopy of shoulder bilateral H/O arthroscopic knee surgery both knees History of esophagogastroduodenoscopy (EGD) With dilation History of fusion of cervical spine x 8 total neck and back ACDF (multiple) limited ROM- 75-80% up and down; 85% side to side H/O cataract extraction bilateral History of inguinal hernia repair right - as a child Family History Brother Lymphoma Mother Coronary heart disease Myocardial infarction Father Coronary heart disease Myocardial infarction Grandmother Coronary heart disease Other Cancer Denies family history of Ovarian cancer Prostate cancer Breast cancer Colorectal cancer Social History Smoking Status: Current every day smoker Tobacco Type: Cigarettes Age Started Using Tobacco: 13; packs per day: 1; Cigarettes Per Day: pack/day; Second Hand Exposure: No; Do You Dip or Chew Tobacco: No; Tobacco Cessation Education Requested by Patient: No Hx Alcohol Use: No Hx Substance Use: No Preferred Language: Lithuanian Communication Ability: Effective Visual Impairment: Limited Hearing Ability: Normal 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 Beliefs That Will Affect Care: None marital status: Current Living Situation: Spouse and Family Current Living Situation Comment: and daughter 2 story home current occupational status: disabled How many Children do You have: 2 Other Information That Helps Us Care for You: No Feels Safe at Home: Yes Safety Concerns: Feels Safe At This Time Diet: diabetic during the past year weight has: decreased > 10 lbs Seatbelt Use: always Assistive Devices: Glasses and Hearing Aid - Bilateral Review of Systems Review of Systems: All systems reviewed & are unremarkable except as noted in HPI & below Physical Exam Physical Exam: General: Mild distress secondary to pain. Slightly diaphoretic. Well- developed, well-nourished. Cardiac: Mildly tachycardic rate in 100s and regular rhythm without murmurs gallops or rubs. No peripheral edema. Pulm: Clear to auscultation bilaterally without wheezes, rales or rhonchi. Normal respiratory effort. 97% on room air. Abdominal: Soft, nontender, nondistended. Bowel sounds present. Pain pump noted in LLQ. Neuro: A&O x3. No focal neurological deficits. Back/MSK: Exquisite lumbar paraspinal tenderness bilaterally L>R. Lumbar midline tenderness to palpation. Focal tenderness along SI joint bilaterally L>R. 5/5 strength of right LE. 4/5 strength in left LE. Deferred gait and straight leg raise per patient's request due to pain. No facet joint tenderness. Results & Data Results & Data Vital Signs (Past 12 Hours) Vital Signs Temp Pulse Pulse Resp BP BP Pulse Ox 09/02/24 11:00 105 H 18 142/94 H 97 09/02/24 09:24 97 09/02/24 09:00 97.9 F 96 H 17 175/76 H 98 O2 Del Method 09/02/24 11:00 Room Air 09/02/24 09:24 Room Air 09/02/24 09:00 Room Air Laboratory Results Reviewed CBC with differential Reviewed BMP Diagnostic Findings Reviewed lumbar spine x-ray Lumbar Spine X-Ray 09/02/24 09:24 XR lumbar spine 2-3V CLINICAL HISTORY: midline and paraspinal LBP COMPARISON STUDY: 01/06/2024 FINDINGS: Stable lumbar pain pump. There is an interval partially visualized right hip prosthesis. There is stable grade 1 anterolisthesis of L5 on S1. Otherwise normal alignment. No fracture seen. Stable mild diffuse degenerative disc disease in lower lumbar facet degeneration. IMPRESSION: 1. No acute findings. 2. Stable degenerative changes. ACT 112: Negative or not required by law. Electronically signed by: Scott Fletcher M.D. 09/02/2024 11:05 AM Supervising Physician Co-Signing Physician Notes Patient seen and examined, chart reviewed, case discussed with Viviana Kohli PA-C and I agree with the assessment and plan as above except as otherwise noted Labs and images reviewed Jean Pierre is a 59-year-old male with history of sacroiliitis, lumbar radicular pain and cervical postlaminectomy syndrome, intrathecal Dilaudid pump follow-up with pain management who presents to the ER with intractable low back pain and pain extending down his left lower extremity. Pain was acute in onset 1 day prior to ER presentation without trauma/injury. No numbness or tingling with no severe pain radiating down his left leg and in his back. He is not able to ambulate effectively due to pain, although does not think he is weak. No urinary retention, no bowel or bladder incontinence, no saddle anesthesia. Had SI joint injection with good improvement last week, and was doing well until sudden onset of pain yesterday. Was seen in the ER and was given ketorolac 10 mg, 1 mg Dilaudid IV x3, 125 mg of methylprednisolone, morphine, and 1 g of Tylenol and continues to have severe 12/05/2009 pain. Lumbar spine x-ray is with no acute findings, stable degenerative change. MRI lumbar spine from 12/2023 reviewed. No high-grade central canal stenosis or neuroforaminal narrowing at that time. Generally stable exam compared to 04/2022. Patient has an intrathecal pump with 24-hour dose of hydromorphone approximately 0.3714 mg/day. 08/03/2024. This was decreased by 25% down to 0.2788 mg/day with good tolerance at the time. He is seen at the bedside. He reports the pain is the exact same pain that he is struggled with in the past, just much worse in intensity. He has gotten minimal relief with IV analgesics which normally brings pain from a 10 to a 6. Rating from the back down his left leg and stops at the knee.No red flag symptoms. No loss of strength. Continue multimodal pain control. Tylenol every 4 hours, Toradol every 6 hours, lidocaine patch, transition steroids to dexamethasone 6 mg daily, continue intrathecal pump, scaled hydromorphone breakthrough every 4 hours ordered increased paraspinal muscle tone on the right side, cyclobenzaprine ordered for spasm. Monitor closely for sedation/narcosis, Narcan available on-call. If no improvement red flag sx develop can follow-up with MRI however these are not present at time of initial assessment and patient is not able to lay still for an MRI. PG Care Time/CCT Total # of Minutes Spent Total Time Spent with Patient: Total time spent is greater than 50% in coordination of care (as documented) at patient's floor/unit and/or counseling patient: Coding Level of Care Code 06984 INT INP/OBS CARE 375MIN Diagnoses Intractable low back pain M54.59 Lumbosacral radiculopathy M54.17 HTN (hypertension) I10 Controlled type 2 diabetes mellitus E11.9 Pituitary hypothyroidism E03.8
[2024-09-02] MEDS ORDERED: GLUCAGON FOR INJ 1 MG VIAL SQ PRN (14:57)
[2024-09-02] MEDS ORDERED: HYDROMORPHONE IT SCH (14:57)
[2024-09-02] MEDS ORDERED: POLYETHYLENE (MIRALAX) 17 GM PACK PO PRN (14:57)
[2024-09-02] MEDS ORDERED: GLUCOSE 10 TAB/TUBE PO PRN (14:57)
[2024-09-02] MEDS ORDERED: DEXTROSE 50% 50 ML SYRINGE IV PRN (14:57)
[2024-09-02] MEDS ORDERED: HYDROmorphone INJ 0.5 MG/0.5 ML SYR IV PRN (14:57)
[2024-09-02] MEDS ORDERED: ONDANSETRON INJ 2 MG/ML 2 ML VIAL IV PRN (14:57)
[2024-09-02] MEDS ORDERED: MELATONIN 3 MG TAB PO PRN (14:57)
[2024-09-02] MEDS ORDERED: ALBUTEROL HFA 8 GM INHALER INH PRN (14:57)
[2024-09-02] MEDS ORDERED: GLUCOSE 40% GEL 15 GM TUBE PO PRN (14:57)
[2024-09-02] MEDS ORDERED: NALOXONE HCL 0.4 MG/1 ML VIAL/CARP IV PRN (14:57)
[2024-09-02] MEDS: HYDROmorphone INJ 1 MG/ML SYRINGE IV PRN (15:28)
[2024-09-02] MEDS ORDERED: HYDROmorphone PAIN PUMP IT SCH (15:45)
[2024-09-02] MEDS: NICOTINE 21 MG/24 HR TDSY TD SCH (16:03)
[2024-09-02] MEDS: KETOROLAC TROMETHAMINE 15 MG/ML VIAL IV PRN (16:50)
[2024-09-02] MEDS: INSULIN ASPART PER UNIT CHARGE SC SCH (17:07)
[2024-09-02] MEDS: ACETAMINOPHEN 325 MG TAB PO SCH (17:51)
[2024-09-02] MEDS: ATORVASTATIN 40 MG TAB PO SCH (19:40)
[2024-09-02] MEDS: traZODone HCL 100 MG TAB PO PRN (19:40)
[2024-09-02] MEDS: CYCLOBENZAPRINE HCL 5 MG TAB PO SCH (19:41)
[2024-09-02] MEDS: CARBOHYDRATES FOR HYPOGLYCEMIA PO PRN (19:56)
[2024-09-02] MEDS: oxyCODONE HCL IR 5 MG TAB (IMMEDIATE RELEASE) PO STA (20:19)
[2024-09-02] MEDS: LANTUS PER UNIT CHARGE SQ SCH (21:52)
[2024-09-03] MEDS: LEVOTHYROXINE SODIUM 100 MCG TABLET PO SCH (05:29)
[2024-09-03 06:37] LABS: Basophils # (auto) 0.02 K/uL (0.00-0.20); Basophils % (auto) 0.1 %; Eosinophils # (auto) 0.02 K/uL (0.00-0.50); Eosinophils % (auto) 0.1 %; Hematocrit (blood only) 40.2 % (42.0-52.0); Hemoglobin 14.1 g/dl (14.0-18.0); Immature Granulocytes # (auto) 0.09 K/uL (0.01-0.20); Immature Granulocytes % (auto) 0.6 %; Lymphocytes # (auto) 1.69 K/uL (1.20-3.40); Lymphocytes % (auto) 10.9 %; Mean Corpuscular Hemoglobin 32.9 pg (25.0-34.0); Mean Corpuscular Hgb Conc 35.1 g/dL (32.0-36.0); Mean Corpuscular Volume 93.9 fL (80.0-100.0); Mean Platelet Volume 10.2 fL (9.4-12.4); Monocytes # (auto) 1.08 K/uL (0.11-0.59); Neutrophils # (auto) 12.56 K/uL (1.40-6.50); Neutrophils % (auto) 81.3 %; Platelet Count 221 K/uL (130-400); RDW Coefficient of Variation 13.5 % (11.5-14.5); RDW Standard Deviation 46.4 fL (36.4-46.3); Red Blood Count 4.28 M/uL (4.70-6.10); White Blood Count 15.46 K/ul (4.8-10.8)
[2024-09-03 06:50] LABS: BUN Creatinine Ratio 26.6 (10-20); Calcium 8.4 mg/dl (8.6-10.3); Creatinine Clr Calc Pharmacy 49.5 ml/min; Potassium 4.8 mmol/L (3.5-5.1)
[2024-09-03 07:31] LABS: Thyroid Stimulating Hormone 0.122 uIu/ml (0.300-4.500)
[2024-09-03] MEDS: dexAMETHasone 6 MG in SYRINGE 0 ML IV SCH (07:47)
[2024-09-03] MEDS: LIDOCAINE 5% 1 PATCH TD SCH (07:47)
[2024-09-03] MEDS: lisinopril 40 MG TAB PO SCH (08:30)
[2024-09-03] MEDS: CYANOCOBALAMIN (B-12) 500 MCG TABLET PO SCH (08:30)
[2024-09-03] MEDS: DULoxetine HCL 60 MG CAP PO SCH (08:30)
[2024-09-03] MEDS: buPROPion XL 300 MG TABCR PO SCH (08:31)
[2024-09-03] MEDS: ENOXAPARIN INJ 40 MG/0.4 ML SYR SQ SCH (08:32)
--- NOTE | 2024-09-03 08:49 | Pain Management Consultation ---
Date of Consultation September 03, 2024 Assessment & Plan (1) Intractable low back pain: Continue IV Dilaudid I will switch the Flexeril to Tizanidine for any associated myofascial pain I will also order a heating pad to be applied Continue Lidocaine patch (2) Sacroiliitis: Bilateral SI joint injection was performed on 08/25/2024. It may take up to two weeks for full effect. Nothing further to offer interventionally during hospital admission. (3) Anxiety as acute reaction to gross stress: His daughter is graduating college this week. As major life events do exacerbate the patient's pain complaints, he may benefit from a psychiatry consult. When pain and or anxiety is at a significant level, he does develop a tremor. There could be a psychomotor component to the lower extremity tremors. (4) Presence of intrathecal pump: No dose changes were made to the intrathecal pump. We do have to discuss further on an outpatient basis to either continue to wean off or replace the pump as the pump is near end of battery life. He is on a low intrathecal dose currently. History of Present Illness Attending Physician: Osmani Monsivais, History of Present Illness This is a 59-year-old male that is well-known to the [facility] pain service with chronic intractable cervicalgia secondary to cervical postlaminectomy syndrome that has required the implantation of an intrathecal pump and catheter delivery system. He does have intermittent sacroiliitis which she did receive bilateral SI joint injections by Dr. Hartmann on 08/25/2024 with significant pain relief for 1 week. He states that he did mow his lawn using a riding lawnmower 2 days ago. Afterwards he laid down to take a nap and when he woke up he woke up with excruciating pain in the left low back. He describes a sharp stabbing pain along the left low back and a searing down the back of the left leg to the knee. In the emergency department he received hydromorphone 1 mg x 3, Tylenol 1000 mg, Toradol 10 mg, lidocaine patch, methylprednisolone 125 mg, morphine 4 mg, and Zofran 4 mg without any significant relief so he was admitted for pain control. Currently he is ordered hydromorphone IV, lidocaine patch, cyclobenzaprine. He states that the medication regiment is providing very little pain relief for about an hour. He states that this morning his pain was improved to where he was able to ambulate to the bathroom with the use of a walker but after he brushed his teeth the pain became severe again. Patient denies any bowel/bladder incontinence, saddle anesthesia, foot drop, leg weakness, falls. Patient does have an intrathecal pump containing Dilaudid. There is been a question of efficacy and consideration of explantation. He did have a 25% dosage decrease. Patient did have concerns of withdrawal but assured that was not the case given symptoms and timeframe. Intrathecal pump end of battery life is October and there will need further discussion on explantation or replacement. His daughter is graduating college on Saturday. Case discussed with Dr. Isabel Hartmann Allergies Allergy/AdvReac Type Severity Reaction Status Date / Time Iodinated Contrast Media Allergy Severe Difficulty Verified 08/26/24 08:03 Breathing gabapentin [From Neurontin] Allergy Mild Swelling Verified 08/26/24 08:03 Home Medications Medication Instructions Recorded Confirmed Type Dilaudid Pain Pump 1.5mg/Ml 0.0172 mg intrathecal UD 05/09/21 09/02/24 History duloxetine 60 mg capsule,delayed 60 mg PO QAM #30 caps 11/13/22 09/02/24 Rx release (Cymbalta) albuterol sulfate 90 mcg/actuation 2 puff inhalation UD PRN Shortness 04/11/23 09/02/24 Rx aerosol inhaler Of Breath Or Wheezing #17 grams naloxone 4 mg/actuation nasal 4 mg intranasal Q2M PRN for 05/16/23 09/02/24 Rx spray (Narcan) accidental overdose from pain pump #2 ea blood sugar diagnostic (OneTouch #300 ea 09/25/23 08/26/24 Rx Verio test strips) blood-glucose meter (OneTouch #1 ea 09/25/23 08/26/24 Rx Verio Flex Start kit) lancets 33 gauge (OneTouch Delica #300 ea 09/25/23 08/26/24 Rx Plus Lancet) levothyroxine 100 mcg tablet 100 mcg PO QAM 90 days #90 tabs 10/10/23 09/02/24 Rx (Synthroid) atorvastatin 40 mg tablet (Lipitor) 40 mg PO HS #90 tabs 12/06/23 09/02/24 Rx bupropion HCl 300 mg 24 hr tablet, 300 mg PO QAM 01/04/24 09/02/24 History extended release clonazepam 0.5 mg tablet (Klonopin) 0.5 mg PO BID PRN Anxiety 01/04/24 09/02/24 History trazodone 150 mg tablet 75 mg PO HS 01/04/24 09/02/24 History testosterone cypionate 100 mg/mL 100 mg IM WK #4 vials 04/01/24 09/02/24 Rx intramuscular oil mecobalamin (vitamin B12) 1,000 1,000 mcg sublingual DAILY #30 tabs 04/14/24 09/02/24 Rx mcg disintegrating tablet,sublingual metformin 500 mg tablet,extended 500 mg PO UD 06/09/24 09/02/24 History release 24 hr lisinopril 40 mg tablet 40 mg PO QAM #90 tabs 06/19/24 09/02/24 Rx pen needle, diabetic 32 gauge x #400 ea 07/23/24 08/26/24 Rx 5/32" blood-glucose sensor (Dexcom G7 #9 ea 07/27/24 08/26/24 Rx Sensor device) glucagon 3 mg/actuation nasal 3 mg intranasal ONCE #1 ea 08/06/24 09/02/24 Rx spray (Baqsimi) amlodipine 5 mg tablet 5 mg PO UD 09/02/24 09/02/24 History olanzapine 5 mg tablet (Zyprexa) 5 mg PO UD 09/02/24 09/02/24 History propranolol 60 mg capsule,24 60 mg PO UD 09/02/24 09/02/24 History hr,extended release rizatriptan 10 mg tablet 10 mg PO UD 09/02/24 09/02/24 History tocilizumab 162 mg/0.9 mL 162 mg subcut UD 09/02/24 09/02/24 History subcutaneous syringe (Actemra) Patient History Medical History Secondary adrenal insufficiency Hypothyroidism Dyslipidemia Adjustment disorder with anxiety Controlled type 2 diabetes mellitus Hypertension COPD with emphysema Follows with [facility] pulmonology- missed all appointments in 2023, has not made another appoint. Left hamstring muscle strain Greater trochanteric bursitis of right hip Exertional shortness of breath Allergic rhinitis with postnasal drip Left-sided temporomandibular joint pain-dysfunction syndrome Piriformis syndrome Erectile dysfunction Asthma denies -rescue inhaler only- last used last night at bedtime Chronic SI joint pain Cervical post-laminectomy syndrome limited ROM- 75-80% up and down; 85% side to side AVN of femur Osteoarthritis Family history of reaction to anesthesia "30 years ago a cousin of mine at [facility] during wisdom teeth surgery" he denies any mention of a genetic condition, denies other family members with anesthesia issues INA (acute kidney injury) (12/2023) recent hospitalization 12/2023 Benign prostate hyperplasia Vitamin D deficiency Vitamin B 12 deficiency Presence of intrathecal pump hydromorphone Sensorineural hearing loss (SNHL) of both ears Dysphagia occasional since cervical spine surgery, denies choking Chronic cough "smoker's cough" Myofascial pain Globus sensation "there's a ledge and sometimes food gets stuck" History of colon polyps Cervical radiculopathy limited ROM- 75-80% up and down; 85% side to side Sleep apnea pt denies, no cpap Insomnia with fatigue Pain disorder associated with psychological factors and medical condition Surgical History Hx of colonoscopy with polypectomy Status post right hip replacement (~01/2024) History of right hip replacement (01/2024) History of left shoulder replacement (08/2023) August 2023 S/P insertion of intrathecal pump S/P epidural steroid injection cervical H/O arthroscopy of shoulder bilateral H/O arthroscopic knee surgery both knees History of esophagogastroduodenoscopy (EGD) With dilation History of fusion of cervical spine x 8 total neck and back ACDF (multiple) limited ROM- 75-80% up and down; 85% side to side H/O cataract extraction bilateral History of inguinal hernia repair right - as a child Family History Brother Lymphoma Mother Coronary heart disease Myocardial infarction Father Coronary heart disease Myocardial infarction Grandmother Coronary heart disease Other Cancer Denies family history of Ovarian cancer Prostate cancer Breast cancer Colorectal cancer Social History Smoking Status: Current every day smoker Tobacco Type: Cigarettes Age Started Using Tobacco: 13; packs per day: 1; Cigarettes Per Day: pack/day; Second Hand Exposure: No; Do You Dip or Chew Tobacco: No; Hx Alcohol Use: No Hx Substance Use: No Preferred Language: Telugu Communication Ability: Effective Visual Impairment: Limited Hearing Ability: Normal Information Technology Officer Required: No Beliefs That Will Affect Care: None marital status: Current Living Situation: Spouse and Family Current Living Situation Comment: and daughter 2 story home current occupational status: disabled How many Children do You have: 2 Feels Safe at Home: Yes Diet: diabetic during the past year weight has: decreased > 10 lbs Seatbelt Use: always Assistive Devices: Glasses and Hearing Aid - Bilateral Physical Exam Physical Exam: GENERAL: This is a 59 year old male. HEAD/FACE: Normocephalic and atraumatic. EYES: No drainage or conjunctival injection. ENT: Nose without bleeding or discharge. Oral mucosa moist. NECK: Full ROM without apparent pain. No swelling or masses noted. RESPIRATORY: Patient with unlabored breathing. No signs of respiratory distress. CHEST/AXILLA: Chest movement symmetrical. No deformities noted. ABDOMEN: Nondistended. BACK: Lidocaine patch on the left low back. There is no midline or facet joint tenderness. Hyperalgesia along the left SI joint. No tenderness of the right SI joint. No paravertebral, quadratus lumborum, gluteal, piriformis muscle spasm or trigger points noted. SKIN: No erythema, edema, or drainage of the injection sites. MS/EXTREMITY: Tremoring of the lower extremities. Full strength. No tenderness of the left greater trochanteric bursa. NEURO: Alert and appears oriented. Speech is fluent. Cranial Nerves are grossly intact. PSYCH: Alert, anxious. Results (Pain Clinic) Diagnostic Review Radiology Findings: XR lumbar spine 2-3V CLINICAL HISTORY: midline and paraspinal LBP COMPARISON STUDY: 01/06/2024 FINDINGS: Stable lumbar pain pump. There is an interval partially visualized right hip prosthesis. There is stable grade 1 anterolisthesis of L5 on S1. Otherwise normal alignment. No fracture seen. Stable mild diffuse degenerative disc disease in lower lumbar facet degeneration. IMPRESSION: 1. No acute findings. 2. Stable degenerative changes. ACT 112: Negative or not required by law. Electronically signed by: Scott Fletcher M.D. 09/02/2024 11:05 AM
[2024-09-03] MEDS: tiZANidine HCL 4 MG TABLET PO SCH (09:18)
[2024-09-03 10:09] LABS: T4 Free Thyroxine 0.94 ng/dl (0.61-1.60)
[2024-09-03 10:26] LABS: Estimated Average Glucose 151 mg/dl; Hemoglobin A1C 6.9 % (4.5-5.6)
--- NOTE | 2024-09-03 10:40 | Hospitalist Progress Note ---
Date of Service September 03, 2024 Assessment & Plan (1) Intractable low back pain: (2) Lumbosacral radiculopathy: (3) HTN (hypertension): (4) Controlled type 2 diabetes mellitus: (5) Pituitary hypothyroidism: (6) Hypoglycemia: (7) INA (acute kidney injury): Plan Jean Pierre is a pleasant 59-year-old male with a past medical history significant for cervical postlaminectomy syndrome status post intrathecal pain pump, chronic low back and SI joint pain (follows with pain management), tobacco abuse, DM type II, COPD, dyslipidemia, and pituitary hypogonadism. He presented to the ED with intractable low back pain with radicular symptoms. He recently had bilateral SI joint injections on 08/25/2024 with pain management. Lumbar spine x-ray on admission noted stable grade 1 anterolisthesis of L5 on S1, otherwise normal alignment, no fracture seen, stable mild diffuse degenerative disc disease and lower lumbar facet degeneration. Lumbar spine MRI from 01/05/2024 noted discogenic degeneration with spondylitic spurring and facet arthrosis, no high- grade central canal or neural foraminal narrowing, no significant bone marrow edema. #Intractable lower back pain | Suspected Piriformis syndrome Follows with pain management outpatient Multimodal pain control with scheduled Tylenol 650 mg Q4H, tizanidine 4mg p.o. TID, dexamethasone 6 mg IV daily, lidocaine patch, heating pad Hydromorphone MAJOR ACCOUNT MANAGER pump added on 09/03 1 mg bolus, then 0.25 mg q15min PRN Continuous pulse oximetry Narcan available as needed for narcosis If the etiology of patient's pain is L5-S1 lumbar radiculopathy, will obtain lumbar MRI However, patient exhibits focal point tenderness of the left piriformis increasing suspicion for piriformis syndrome Added on magnesium sulfate 1 g IV x 4 Valium 2 mg p.o. HS Voltaren gel application QID Regular exercising of piriformis muscle Unable to obtain lumbar MRI at this time as patient is unable to lie flat Pain management consulted appreciated PT/OT consulted appreciate #INA Mild; BUN 45, creatinine 1.69 (baseline may be around 1.2) Avoid nephrotoxic agents for possible Hold a.m. lisinopril Gentle IVF recitation overnight with LR at 80 mL/hr x 1 L Trend BMP #Hypertension Hold lisinopril (as above) #Diabetes mellitus type 2 | episodes of hypoglycemia A1c 6.9% on 09/03/2024 Multiple episodes of hypoglycemia (55 on the evening of 09/02; 56 on the evening of 09/03) Suspect this could be in the setting of a mild INA and poor insulin clearance Will decrease patient's Lantus from 20 units BID to 20 units daily Continue SSI #Pituitary hypothyroidism TSH mildly low on 09/03, but free T4 WNL Continue Synthroid 100 mcg daily Dispo: Continued stay on MedSurg for pain control VTE PPx: Lovenox 40 mg SQ daily CODE STATUS: Full code Admission and Anticipated Discharge Date Admission Date: September 02, 2024 Supervising Physician Co-Signing Physician Notes I personally examined the patient and verified all eckert points of history and exam, discussed case, and agree with decision making with Ar Ford PA-C low back and buttock pain. Vitals noted, in general he is awake and alert pleasant appears to be quite uncomfortable at times wincing in pain but still pleasant. Breathing unlabored no accessory muscle use good effort. Skin without rashes pallor or icterus. Biomechanical/MSK shows left-sided piriformis region musculature and left-sided lumbar paraspinal musculature to be high tone, tender, decreased range of motionpost isometric relaxation as well as ligamentous articular strain done with some improvement in tissue texturepatient tolerated well. Taught how to do post isometric relaxation as well. Intractable back pain/pelvic and lumbar spine somatic dysfunctionOMT as above. Voltaren gel to affected area. Magnesium x 4 g to act as muscle relaxant, Dilaudid MAJOR ACCOUNT MANAGER for now to get ahead of the pain, Valium nightly, taught stretches. AKIIV fluids otherwise as above Subjective Mr. Finn is still having significant pain this morning despite pain medicine. He reports that he woke up around 4:15 AM with "no pain at all" and thought he had been healed. He got up to ambulate through the hallways with his walker, then went to brush his teeth, and the pain came back suddenly. He describes it as a pain in his upper left buttocks. The pain is a constant 9/10 pain which he describes as a "needle" stabbing him in the buttocks. He has radiation down his left leg into his calf muscle, which is new from yesterday. The pain has been debilitating since this morning, and last for 8 hours at a time. Patient was admitted 6 to 8 months ago for similar pain. He reports he did receive a steroid injection with pain management approximately 8 to [address] Hartmann. After his injection, he felt "good" for 5 days, then "all hell broke loose again". Patient's main goal this week is to see his daughter graduate from [employer] on Saturday. He reports that he is open to potential procedures to alleviate the pain, but not if they interfere with his daughter's graduation. Patient does have an intrathecal pain, that only takes with the pain in his cervical spine. ROS: Patient endorses severe lower back/left buttocks pain radiating into the left leg, hot/cold flashes, and pain shooting down his left leg (he is unsure if there is diminished sensation in the left leg when compared to the right). Patient denies fever, chills, night sweats, dizziness/lightheadedness, headache, chest pain, chest palpitations, SOB, cough, abdominal pain, saddle anesthesia, changes in urinary or bowel habits, or episodes of urinary or fecal incontinence. Review of Systems Review of Systems: See HPI above Physical Exam Physical Exam: General: Moderate physical distress secondary to left lower back/buttocks pain; diaphoretic; non-toxic appearing; pleasant affect; cooperative; SpO2 96% on RA HEENT: normocephalic, atraumatic; no scleral icterus; PERRLA; vision and hearing grossly intact Neck: supple; no lymphadenopathy; trachea midline Skin: warm, dry without signs of tenting; no cyanosis; no rashes, bruising, lesions, or erythema noted CV: chest wall NTP; RRR; S1/S2 normal; no murmurs/rubs/gallops; pulses intact and symmetric at radial, DP, and PT Lungs: no acute respiratory distress; symmetrical chest wall expansion; clear breath sounds across all lung calderon w/o adventitious sounds; no wheezing ABD: Soft, NTP; BS present; no rebound/guarding; no distention Back: Upper spine is NTP, lower spine is NTP; left buttocks exhibits focal point tenderness approximately at the piriformis MSK: no tics or fasciculations; no edema noted in the LEs b/l, nonerythematous Neuro: A&Ox3; normal mood and affect; fluent speech; no focal deficits; patient reports sensation is intact and symmetric in all extremity bilaterally Results & Data Results & Data Vital Signs (Past 12 Hours) Vital Signs Temp Pulse Resp BP Pulse Ox O2 Del Method 09/03/24 07:00 36.6 C 63 16 158/72 H 96 Room Air PG Care Time/CCT Total # of Minutes Spent Total Time Spent with Patient: Total time spent is greater than 50% in coordination of care (as documented) at patient's floor/unit and/or counseling patient: [place] [address] SUB INP/OBS CARE 3/50MIN Patient Type Established History Comprehensive Exam Comprehensive Medical Decision Making High Complexity Diagnoses Intractable low back pain M54.59 Lumbosacral radiculopathy M54.17 HTN (hypertension) I10 Controlled type 2 diabetes mellitus E11.9 Pituitary hypothyroidism E03.8 Hypoglycemia E16.2 INA (acute kidney injury) N17.9
[2024-09-03] MEDS ORDERED: Nursing to Pharmacy Communication SCH (11:00)
[2024-09-03] MEDS: MAGNESIUM SULFATE / D5W 1 GM/100 ML BAG IV SCH (12:58)
[2024-09-03] MEDS: DICLOFENAC SOD 1% GEL 100 GM TUBE EXT SCH (14:20)
[2024-09-03] MEDS ORDERED: PHARMACY GLYCEMIC MGMT CONSULT PRN (16:55)
[2024-09-03] MEDS: LACTATED RINGER'S 1,000 ML IV SCH (17:07)
[2024-09-03] MEDS ORDERED: NALOXONE HCL 0.4 MG/1 ML VIAL/CARP IV PRN (17:12)
[2024-09-03] MEDS: HYDROmorphone PCA 30 MG/30 ML IV PRN (18:39)
[2024-09-03] MEDS: HYDROmorphone Bolus from PCA IV STA (18:40)
[2024-09-03] MEDS: MAGNESIUM SULFATE / D5W 1 GM/100 ML BAG IV ONE (18:53)
[2024-09-03] MEDS: diazePAM 2 MG TABLET PO SCH (20:53)
[2024-09-04] MEDS: SODIUM CHLORIDE 0.9% 1,000 ML IV SCH (05:42)
[2024-09-04 06:08] LABS: Basophils # (auto) 0.01 K/uL (0.00-0.20); Basophils % (auto) 0.1 %; Eosinophils # (auto) 0.01 K/uL (0.00-0.50); Eosinophils % (auto) 0.1 %; Hematocrit (blood only) 39.1 % (42.0-52.0); Hemoglobin 13.8 g/dl (14.0-18.0); Immature Granulocytes # (auto) 0.07 K/uL (0.01-0.20); Immature Granulocytes % (auto) 0.5 %; Lymphocytes % (auto) 11.7 %; Mean Corpuscular Hemoglobin 33.5 pg (25.0-34.0); Mean Corpuscular Hgb Conc 35.3 g/dL (32.0-36.0); Mean Corpuscular Volume 94.9 fL (80.0-100.0); Mean Platelet Volume 10.4 fL (9.4-12.4); Monocytes # (auto) 0.92 K/uL (0.11-0.59); Neutrophils # (auto) 12.56 K/uL (1.40-6.50); Neutrophils % (auto) 81.6 %; Platelet Count 191 K/uL (130-400); RDW Coefficient of Variation 13.4 % (11.5-14.5); Red Blood Count 4.12 M/uL (4.70-6.10); White Blood Count 15.37 K/ul (4.8-10.8)
[2024-09-04 06:23] LABS: BUN Creatinine Ratio 29.4 (10-20); Calcium 8.1 mg/dl (8.6-10.3); Creatinine Clr Calc Pharmacy 61.5 ml/min
[2024-09-04 07:54] VITALS: RESP 17
[2024-09-04] MEDS: LANTUS PER UNIT CHARGE SQ SCH (08:26)
[2024-09-04 11:54] VITALS: BP 127/61; PULSE 63; TEMP 98.6; O2SAT 97
--- NOTE | 2024-09-04 12:48 | Discharge Summary ---
Discharge Summary Date of Service September 04, 2024 Principal Dx & Hospital Course #1 = Principal Diagnosis (1) Piriformis syndrome: (2) Intractable low back pain: (3) Lumbosacral radiculopathy: (4) HTN (hypertension): (5) Controlled type 2 diabetes mellitus: (6) Pituitary hypothyroidism: (7) Hypoglycemia: (8) INA (acute kidney injury): Maria Elena Greenfield is a pleasant 59-year-old male with a past medical history significant for cervical postlaminectomy syndrome status post intrathecal pain pump, chronic low back and SI joint pain (follows with pain management), tobacco abuse, DM type II, COPD, dyslipidemia, and pituitary hypogonadism. He presented to the ED with intractable low back pain. He recently had bilateral SI joint injections on 08/25/2024 with pain management. Lumbar spine x-ray on admission noted stable grade 1 anterolisthesis of L5 on S1, otherwise normal alignment, no fracture seen, stable mild diffuse degenerative disc disease and lower lumbar facet degeneration. Lumbar spine MRI from 01/05/2024 noted discogenic degeneration with spondylitic spurring and facet arthrosis, no high-grade central canal or neural foraminal narrowing, no significant bone marrow edema. His pain on arrival was largely focal in the left buttocks, more suggestive of piriformis syndrome. Patient received pain medicine, Voltaren gel, muscle relaxants, magnesium, and Valium, and his pain improved significantly. Patient was also taught how to stretch the piriformis muscle, and reports that he has been working with it and feels much better. Day of discharge 09/04: Patient woke up today feeling like a "new man". He reports that he "could not hurt [himself]" if he tried. While he had some difficulty last night, and only slept on and off. He woke up around 5 AM, and was able to ambulate throughout the halls and has not had pain since. He is still having trigger point tenderness on his left buttocks, but this only hurts when he presses it. He rates the pain 3/10. He also has not been using his [employer] pump as he is trying to get off of pain medications; last use at 4 AM this morning. He ate breakfast this morning, has been ambulating to the bathroom independently, and overall feels very well. He is eager to return home at this time. ROS: Patient endorses mild pain/tenderness in the left buttocks Patient denies fever, chills, night sweats, dizziness/lightheadedness with ambulation, headache, chest pain, chest palpitations, SOB, abdominal pain, N/V/D, changes in urinary bowel habits, saddle anesthesia, or numbness or tingling in the arms or legs. # Piriformis syndrome Follows with pain management outpatient Multimodal pain control with scheduled Tylenol 650 mg Q4H, tizanidine 4mg p.o. TID, dexamethasone 6 mg IV daily, lidocaine patch, heating pad Hydromorphone TI[employer] pump added on 09/03; discontinued on 09/04 as pain controlled patient no longer requiring Initially, suspect the etiology was lumbar radiculopathy However, patient exhibits focal point tenderness of the left piriformis increasing suspicion for piriformis syndrome Added on magnesium sulfate 1 g IV x 4 Valium 2 mg p.o. HS Voltaren gel application QID Regular exercising of piriformis muscle; taught to both patient and patient's Pain management consulted appreciated PT/OT consulted appreciate Patient reports his pain has largely resolved on 09/04, and he is eager to return home #INA (resolved) Mild; creatinine 1.69 (baseline may be around 1.2) on 09/03 Now creatinine 1.36 on 09/04 Okay to resume lisinopril #Diabetes mellitus type 2 | episodes of hypoglycemia A1c 6.9% on 09/03/2024 Multiple episodes of hypoglycemia (55 on the evening of 09/02; 56 on the evening of 09/03) Suspect this could be in the setting of a mild INA and poor insulin clearance Lantus decreased from 20 units BID to 20 units daily Okay to resume home medications upon discharge as patient's steroids are being discontinued #Pituitary hypothyroidism TSH mildly low on 09/03, but free T4 WNL Continue Synthroid 100 mcg daily Dispo: Discharge home with outpatient PT follow-up Admission HPI Per Admitting Provider Jean Pierre is a pleasant 59-year-old male with a past medical history significant for cervical postlaminectomy syndrome s/p intrathecal pain pump, chronic low back and SI joint pain (follows with pain management), tobacco abuse, DM type II, COPD, dyslipidemia, and pituitary hypogonadism. He presented to the ED with intractable low back pain with radicular symptoms. He recently had bilateral SI joint injections on 08/25/2024 with pain management. He reports he had significant improvement in his symptoms for 1 week following these injections an d reports his pain decreased to 3/10 at that time. Yesterday afternoon (09/01) he had abrupt onset of excruciating pain. He denies trauma or triggering events. He did mow his lawn yesterday, but used a riding mower. He notes the pain radiates bilaterally down his left lower extremity posteriorly to his knee and to his right buttock and hip joint. He denies numbness or tingling, but rather describes this as "a solid continuous needle stabbing me sensation." He denies weakness in his LE, noting his limited ambulation is secondary to pain not weakness. Denies saddle anesthesia, decreased sensation in the groin, or loss of bowel/bladder function. He reports the pain is constant and does not worsen with movement. He is concerned because the pain medications given in the ED have not reduced his pain at all (which is different from previous encounters). He reports his pain is 9/10 at this time. Vitals on admission are significant for tachycardia in 100s and slightly elevated BP at 140s/90s. Labs on admission are significant for mild leukocytosis of 12 (likely secondary to chronic oral steroids). Hgb, platelets, electrolytes, and renal function stable and WNL. Imaging on admission included lumbar x-ray that showed stable mild diffuse degenerative disc disease and lower lumbar facet degeneration, but no acute findings. In ED, he was given ketorolac 10 mg x1, 1 mg Dilaudid IV x3, 125 mg of methylprednisolone, 4 mg morphine x1, and 1 g of Tylenol and continues to have severe pain. Admission Exam Per Admitting Provider General: Mild distress secondary to pain. Slightly diaphoretic. Well- developed, well-nourished. Cardiac: Mildly tachycardic rate in 100s and regular rhythm without murmurs gallops or rubs. No peripheral edema. Pulm: Clear to auscultation bilaterally without wheezes, rales or rhonchi. Normal respiratory effort. 97% on room air. Abdominal: Soft, nontender, nondistended. Bowel sounds present. Pain pump noted in LLQ. Neuro: A&O x3. No focal neurological deficits. Back/MSK: Exquisite lumbar paraspinal tenderness bilaterally L>R. Lumbar midline tenderness to palpation. Focal tenderness along SI joint bilaterally L>R. 5/5 strength of right LE. 4/5 strength in left LE. Deferred gait and straight leg raise per patient's request due to pain. No facet joint t enderness. Discharge Exam General: No acute distress; pleasant affect; non-diaphoretic; non-toxic appearing; cooperative; SpO2 97% on RA HEENT: normocephalic, atraumatic; no scleral icterus; PERRLA; vision and hearing intact Neck: supple; no lymphadenopathy; trachea midline Skin: warm, dry without signs of tenting; no cyanosis; no rashes, bruising, lesions, or erythema noted CV: chest wall NTP; RRR; S1/S2 normal; no murmurs/rubs/gallops; pulses intact and symmetric at radial, DP, and PT Lungs: no acute respiratory distress; symmetrical chest wall expansion; clear breath sounds across all lung calderon w/o adventitious sounds; no wheezing ABD: Soft, NTP; BS present; no rebound/guarding; no distention Back: Upper spine is NTP, lower spine is NTP; left buttocks still exhibits mild focal point tenderness approximately at the piriformis MSK: no tics or fasciculations; no edema noted in the LEs b/l, nonerythematous Neuro: A&Ox3; normal mood and affect; fluent speech; no focal deficits; patient reports sensation is intact and symmetric in all extremity bilaterally Gait: Patient demonstrates ability to stand and ambulate independently without any assistance; no recurrence of pain with ambulation Discharge Plan Discharge Items Patient Disposition: Home - Self-Care Reason For Visit: INTRACTABLE LOW BACK PAIN Discharge Diagnosis: Piriformis syndrome Condition on Discharge: Good Activity: As commented below Activity Comment: Gradually increase activity as tolerated Non-emergency contact: Primary Care Provider Call non-emergency contact if: you have any medication questions, your symptoms worsen, your pain is not controlled, your pain is worsening, your pain is unusual for you and you have a fever Follow-up/Referrals: Lucian Mccann MD [Primary Care Provider] - Diet: Carb Consistent or DM2 Addtl Attending Provider Instructions: You were hospitalized at [facility] from 09/02 to 09/04 for intractable lower back and left leg/buttocks pain. Given this pain was focally tender on the left buttocks at the location of the specific muscle known as the piriformis, it is suspected that your intractable pain was caused by an acute episode of something called "piriformis syndrome". The treatment for piriformis syndrome is physical therapy, stretching the muscle, OTC pain medications, and Voltaren gel application as needed. Muscle relaxants may also be helpful for some people, and you did receive Flexeril and tizanidine while hospitalized, as well as an IV pain medication (Dilaudid) and IV magnesium to help the muscle relax. Given resolution of your pain, and no difficulty with walking on 09/04, it was felt you are safe to return home at this time with outpatient physical therapy follow-up. Will be sending you home with a prescription for Voltaren gel; please continue to apply this to his your left buttocks 4 times per day. If you develop any new or worsening symptoms, such as intractable lower back pain, fever, chills, ambulatory dysfunction, chest pain, shortness of breath, or if you have any new concerns, please return to the emergency department im mediately. It was a pleasure taking care of you. Please reach out with any questions or concerns. Sincerely, The hospital medicine team at [facility] Pending Studies at Discharge: No Stand-Alone Forms: My [facility], Smoking Cessation Medications and DC Order Prescriptions: New diclofenac sodium [Voltaren Arthritis Pain] 1 % Gel 4 g EXT QID Qty: 100 0RF Rx Instructions: Apply to the left buttocks 4 times per day Continued naloxone [Narcan] 4 mg/actuation spray,non-aerosol 4 mg intranasal Q2M PRN (Reason: for accidental overdose from pain pump) Qty: 2 0RF Rx Instructions: no fill history unable to verify spray 1 dose into ONE nostril; alternate nostrils w each dose until help arrives duloxetine [Cymbalta] 60 mg capsule,delayed release(DR/EC) 60 mg PO QAM Qty: 30 0RF atorvastatin [Lipitor] 40 mg tablet 40 mg PO HS Qty: 90 3RF Rx Instructions: last filled 06/02/24 90 day supply testosterone cypionate 100 mg/mL oil 100 mg IM WK Qty: 4 5RF Patient Comments: EVERY SATURDAY Rx Instructions: Saturday dispense 1 ml vials lisinopril 40 mg tablet 40 mg PO QAM Qty: 90 3RF Rx Instructions: Last filled 06/23/24 90 day supply (DME) pen needle, diabetic 32 gauge x /32" needle See Rx Instructions miscellaneous .MEDSUPPLY Qty: 400 3RF Rx Instructions: To be used up to 4x a day (DME) Dexcom G7 Sensor Device See Rx Instructions .ROUTE .MEDSUPPLY Qty: 9 3RF Rx Instructions: change sensor every 10 days Baqsimi 3 mg/actuation spray,non-aerosol 3 mg intranasal ONCE Qty: 1 2RF Rx Instructions: use for severe hypoglycemia levothyroxine [Synthroid] 100 mcg tablet 100 mcg PO QAM 90 Days Qty: 90 3RF Rx Instructions: last filled 06/19 90 day albuterol sulfate 90 mcg/actuation HFA aerosol inhaler 2 puff INH UD PRN (Reason: Shortness Of Breath Or Wheezing) Qty: 17 3RF Rx Instructions: last filled 10/10/23 17 day supply mecobalamin (vitamin B12) 1,000 mcg tablet,disintegrating 1,000 mcg sublingual DAILY Qty: 30 0RF Rx Instructions: otc unable to verify place tablet under tongue and allow to dissolve for at least30 secs before swallowing (DME) blood-glucose meter [OneTouch Verio Flex Start] Kit See Rx Instructions .Route Qty: 1 0RF Rx Instructions: Test three times a day (DME) OneTouch Verio test strips Strip See Rx Instructions .Route Qty: 300 3RF Rx Instructions: test blood sugar 3 x daily (DME) lancets [OneTouch Delica Plus Lancet] 33 gauge misc See Rx Instructions .Route Qty: 300 3RF Rx Instructions: test blood sugar 3 x daily Dilaudid Pain Pump 1.5mg/Ml 0.0172 mg intrathecal UD Rx Instructions: 0.0172mg/hr intrathecally via pump implanted in patient. Unable to verify w/ pharmacy at this date/time. Original Directions: Original Directions 0.0172mg as directed amlodipine 5 mg tablet 5 mg PO UD Rx Instructions: 5 mg po daily. filled 07/04 90 day supply rizatriptan 10 mg tablet 10 mg PO UD Rx Instructions: last filled 06/24/24 take 1 tab at onset of headache; if no relief may repeat 1 tab after at least 2 hrs; max = 3 tabs/24 hr PO propranolol 60 mg capsule,extended release 24 hr 60 mg PO UD Rx Instructions: 60 mg po daily. last filled 06/24 30 day supply olanzapine [Zyprexa] 5 mg tablet 5 mg PO UD Rx Instructions: 5mg po daily. last filled 06/21 5 day supply Actemra 162 mg/0.9 mL syringe 162 mg subcut UD Rx Instructions: 162 mg subcut q14d. no fill history unable to verify trazodone 150 mg tablet 75 mg PO HS bupropion HCl 300 mg tablet extended release 24 hr 300 mg PO QAM clonazepam [Klonopin] 0.5 mg tablet 0.5 mg PO BID PRN (Reason: Anxiety) metformin 500 mg tablet extended release 24 hr 500 mg PO UD Rx Instructions: 500 mg po bid. filled 06/25 30 day supply #120 Discharge Orders: Discharge Order (Routine); Ordered 09/04/24 Ordered By: Vasu Pearl/Other Patient Handouts: Hip Rotator (Piriformis) Stretch Admission Data Admit Date/Time: 09/02/24 13:28 Attending Provider: Osmani Monsivais Admit Provider: Roverto Jeff Primary Care Provider: Lucian Mccann Other Providers: Roverto Jeff; Manjit Parra Other Interventions: Discharge Summary Assessment (RN) Last Done: 09/04/24 12:57 Hospital Stay Data Consultations 09/02/24 13:00 ED Decision to Admit Stat 09/02/24 14:57 Consult Pain Management Routine Discharge Instructions Given to Patient (Per Discharging Provider) You were hospitalized at [facility] from 09/02 to 09/04 for intractable lower back and left leg/buttocks pain. Given this pain was focally tender on the left buttocks at the location of the specific muscle known as the piriformis, it is suspected that your intractable pain was caused by an acute episode of something called "piriformis syndrome". The treatment for piriformis syndrome is physical therapy, stretching the muscle, OTC pain medications, and Voltaren gel application as needed. Muscle relaxants may also be helpful for some people, and you did receive Flexeril and tizanidine while hospitalized, as well as an IV pain medication (Dilaudid) and IV magnesium to help the muscle relax. Given resolution of your pain, and no difficulty with walking on 09/04, it was felt you are safe to return home at this time with outpatient physical therapy follow-up. Will be sending you home with a prescription for Voltaren gel; please continue to apply this to his your left buttocks 4 times per day. If you develop any new or worsening symptoms, such as intractable lower back pain, fever, chills, ambulatory dysfunction, chest pain, shortness of breath, or if you have any new concerns, please return to the emergency department immediately. It was a pleasure taking care of you. Please reach out with any questions or concerns. Sincerely, The hospital medicine team at [facility] Supervising Physician Co-Signing Physician Notes chart reviewed, case d/w P Logan PAC - feeling much better after OMT and pain controlled/feels good enough to go home otherwise as above Total Time Total Time Spent Total Time Spent (In Minutes): 40 Coding [place] [address] INP/OBS DISCH >30 MIN Patient Type Established Medical Decision Making Moderate Complexity Diagnoses Piriformis syndrome G57.00 Intractable low back pain M54.59 Lumbosacral radiculopathy M54.17 HTN (hypertension) I10 Controlled type 2 diabetes mellitus E11.9 Pituitary hypothyroidism E03.8 Hypoglycemia E16.2 INA (acute kidney injury) N17.9
== END 2024-09-04 13:30 | disposition home or self-care (01) | DRG 74 ==
LOC: ED 08:53 → SUATTDRO 13:28 → 3E 13:28

== ENCOUNTER 2025-01-06 21:35 | Inpatient (IN) ==
[2025-01-06] MEDS: ASPIRIN CHEW 324 MG PO STA (22:00)
[2025-01-06] MEDS: HYDROCORTISONE SOD SUCCINATE 100 MG/2 ML VIAL IV STA (22:00)
[2025-01-06] MEDS: NITROGLYCERIN SL 0.4 MG/TAB TAB SL PRN (22:11)
[2025-01-06] MEDS: ONDANSETRON INJ 2 MG/ML 2 ML VIAL IV STA ×2 (22:13→23:26)
--- NOTE | 2025-01-06 22:15 | Emergency Department Note ---
ED Visit Note I was consulted by the Advanced Practice Provider, Yumiko Lee PA-C. I performed a substantive portion of the visit. This includes aspects of: History: Patient is a 59-year-old male presenting with generalized fatigue, nausea and vomiting. He has a pain pump in his abdomen. 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 MDM: Patient was given a dose of Solu-Cortef in the emergency department due to his secondary adrenal insufficiency. Patient became bradycardic and symptomatic, so pacer pads were placed on the patient. Patient's heart rate is ranging from the upper 30s to the low 50s bpm. EKG imaging is negative for any acute ischemic changes, per my interpretations. Patient to be admitted to hospitalist service for further evaluation and management. .
[2025-01-06] MEDS: NITROGLYCERIN SL 0.4 MG/TAB TAB ONE (22:19)
[2025-01-06] MEDS: ASPIRIN CHEW 324 MG ONE (22:20)
[2025-01-06 22:28] LABS: Hematocrit (blood only) 43.5 % (42.0-52.0); Hemoglobin 15.0 g/dl (14.0-18.0); Immature Granulocytes # (auto) 0.02 K/uL (0.01-0.20); Immature Granulocytes % (auto) 0.2 %; Mean Corpuscular Hemoglobin 32.7 pg (25.0-34.0); Mean Corpuscular Volume 94.8 fL (80.0-100.0); Platelet Count 196 K/uL (130-400); RDW Standard Deviation 42.5 fL (36.4-46.3); Red Blood Count 4.59 M/uL (4.70-6.10); White Blood Count 8.45 K/ul (4.8-10.8)
--- NOTE | 2025-01-06 22:33 | Emergency Department Note ---
History of Present Illness General Chief complaint: Cardiac Assessment Stated complaint: CHEST PRESSURE, TIRED, WEAKNESS Time Seen by Provider: 01/06/25 21:39 History of Present Illness Maximum Pain Intensity: 4 This 59-year-old male with COPD and secondary adrenal insufficiency on chronic steroids presents to the ER complaining of chest pain tonight along with generalized fatigue and nausea and vomiting. No prior heart attack or stroke. Patient has a pain pump in his abdomen. Patient denies cough, congestion, diarrhea, abdominal pain, flulike illness. Home Medications Medication Instructions Recorded Confirmed Type Dilaudid Pain Pump 1.5mg/Ml 0.0172 mg intrathecal UD 05/09/21 12/24/24 History duloxetine 60 mg capsule,delayed 60 mg PO QAM #30 caps 11/13/22 12/24/24 Rx release (Cymbalta) blood sugar diagnostic (OneTouch #300 ea 09/25/23 12/24/24 Rx Verio test strips) blood-glucose meter (OneTouch #1 ea 09/25/23 12/24/24 Rx Verio Flex Start kit) bupropion HCl 300 mg 24 hr tablet, 300 mg PO QAM 01/04/24 12/24/24 History extended release clonazepam 0.5 mg tablet (Klonopin) 0.5 mg PO BID PRN Anxiety 01/04/24 12/24/24 History trazodone 150 mg tablet 75 mg PO HS 01/04/24 12/24/24 History mecobalamin (vitamin B12) 1,000 1,000 mcg sublingual DAILY #30 tabs 04/14/24 12/24/24 Rx mcg disintegrating tablet,sublingual lisinopril 40 mg tablet 40 mg PO QAM #90 tabs 06/19/24 12/24/24 Rx glucagon 3 mg/actuation nasal 3 mg intranasal ONCE #1 ea 08/06/24 12/24/24 Rx spray (Baqsimi) amlodipine 5 mg tablet 5 mg PO UD 09/02/24 12/24/24 History propranolol 60 mg capsule,24 60 mg PO UD 09/02/24 12/24/24 History hr,extended release tocilizumab 162 mg/0.9 mL 162 mg subcut UD 09/02/24 12/24/24 History subcutaneous syringe (Actemra) diclofenac sodium 1 % topical gel 4 g EXT QID #100 grams 09/04/24 12/24/24 Rx (Voltaren Arthritis Pain) insulin aspart U-100 100 unit/mL See Rx Instructions subcut BID #15 09/08/24 12/24/24 Rx (3 mL) subcutaneous pen (Novolog mL FlexPen U-100 Insulin aspart) naloxone 4 mg/actuation nasal 1 spray intranasal ONCE PRN opioid 09/11/24 12/24/24 Rx spray (Narcan) overdose #2 ea lancets 33 gauge (OneTouch Delica #300 ea 09/29/24 12/24/24 Rx Plus Lancet) pen needle, diabetic 32 gauge x #400 ea 09/29/24 12/24/24 Rx /32" testosterone cypionate 100 mg/mL 100 mg IM WK #10 mL 09/30/24 12/24/24 Rx intramuscular oil blood-glucose sensor (Dexcom G7 #1 ea 10/07/24 12/24/24 Rx Sensor device) diazepam 5 mg tablet (Valium) 5 mg PO BID PRN anxiety #14 tabs 11/12/24 12/24/24 Rx ondansetron 4 mg disintegrating 4 mg PO Q8H PRN nausea and 11/12/24 12/24/24 Rx tablet vomiting #30 tabs metformin 500 mg tablet,extended 500 mg PO BID #180 tabs 11/25/24 12/24/24 Rx release 24 hr prednisone 10 mg tablet 10 mg PO DAILY #135 tabs 11/26/24 12/24/24 Rx albuterol sulfate 90 mcg/actuation 2 puff inhalation UD PRN Shortness 12/08/24 12/24/24 Rx aerosol inhaler Of Breath Or Wheezing #17 grams atorvastatin 40 mg tablet (Lipitor) 40 mg PO HS #90 tabs 12/16/24 12/24/24 Rx levothyroxine 100 mcg tablet 100 mcg PO QAM 90 days #90 tabs 12/31/24 Rx (Synthroid) bupropion HCl 300 mg 24 hr tablet, 300 mg PO QAM 01/07/25 01/07/25 History extended release clonazepam 0.5 mg tablet 0.5 mg PO BID PRN Anxiety 01/07/25 01/07/25 History diazepam 5 mg tablet 5 mg PO BID PRN Anxiety 01/07/25 01/07/25 History duloxetine 60 mg capsule,delayed 60 mg PO QAM 01/07/25 01/07/25 History release levothyroxine 100 mcg tablet 100 mcg PO DAILYBB 01/07/25 01/07/25 History trazodone 150 mg tablet 150 mg PO HS 01/07/25 01/07/25 History Allergies Allergy/AdvReac Type Severity Reaction Status Date / Time Iodinated Contrast Media Allergy Severe Difficulty Verified 01/07/25 00:51 Breathing gabapentin [From Neurontin] Allergy Mild Swelling Verified 01/07/25 00:51 Past Med/Surg History Problem List (Updated 01/07/25 @ 00:21 by MARIAN BoydC) Bradycardia (Acute) Atypical chest pain (Acute) Myofascial pain syndrome of lumbar spine Urinary incontinence Anxiety as acute reaction to gross stress Tobacco use (Acute) History of temporal artery biopsy (06/12/24) Bilateral Temporal Artery Biopsy(Bilateral) - David Rebolledo, Pituitary microadenoma Secondary adrenal insufficiency ACTH deficiency subtle deficiency per endo records - on chronic steroids Lumbosacral radiculopathy (Acute) Vitamin D deficiency Vitamin B 12 deficiency COPD with emphysema Follows with [facility] pulmonology Chronic cough Controlled type 2 diabetes mellitus Dyslipidemia History of colon polyps Chronic SI joint pain Piriformis syndrome Adjustment disorder with anxiety Current smoker Growth hormone deficiency Pituitary hypogonadism Pituitary hypothyroidism (~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) Hypothyroidism (Chronic) Presence of intrathecal pump (Chronic) HTN (hypertension) Cervical post-laminectomy syndrome Headache (Acute) Medical History snf (current) use of systemic steroids prednisone qam Pituitary abnormality Follows with endo (since 2014) ([facility]) Diffuse pituitary dysfunction (growth hormone deficiency, pituitary hypothyroidism and hypogonadism) 6 mm pituitary lesion may represent a microadenoma per 05/2024 pituitary MRI GCA (giant cell arteritis) Follows with rheum- biopsy negative but continues with headaches - currently trying to transition patient off prednisone and on to only hydrocortisone Lumbar facet joint syndrome Sacroiliitis Intractable low back pain Secondary adrenal insufficiency On hydrocortisone and prednisone daily (currently rheum/endo trying to wean patient off prednisone) Hypothyroidism Dyslipidemia Adjustment disorder with anxiety Controlled type 2 diabetes mellitus Hypertension COPD with emphysema Last seen [facility] 03/2023 Left hamstring muscle strain Greater trochanteric bursitis of right hip Exertional shortness of breath Allergic rhinitis with postnasal drip Left-sided temporomandibular joint pain-dysfunction syndrome Erectile dysfunction Chronic SI joint pain Cervical post-laminectomy syndrome limited ROM- 75-80% up and down; 85% side to side AVN of femur Osteoarthritis Family history of reaction to anesthesia "30 years ago a cousin of mine at [facility] during wisdom teeth surgery" he denies any mention of a genetic condition, denies other family members with anesthesia issues Benign prostate hyperplasia Presence of intrathecal pump hydromorphone Sensorineural hearing loss (SNHL) of both ears Dysphagia occasional since cervical spine surgery, denies choking Chronic cough "smoker's cough" Myofascial pain Globus sensation "there's a ledge and sometimes food gets stuck" Cervical radiculopathy limited ROM- 75-80% up and down; 85% side to side Sleep apnea pt denies, no cpap Insomnia with fatigue Pain disorder associated with psychological factors and medical condition Surgical History Hx of colonoscopy (2021) History of temporal artery biopsy bilateral, 05/2024 Status post right hip replacement (~01/2024) History of right hip replacement (01/2024) History of left shoulder replacement (08/2023) August 2023 S/P insertion of intrathecal pump S/P epidural steroid injection cervical H/O arthroscopy of shoulder bilateral H/O arthroscopic knee surgery both knees History of esophagogastroduodenoscopy (EGD) (2021) With dilation History of fusion of cervical spine x 8 total neck and back ACDF (multiple) limited ROM- 75-80% up and down; 85% side to side H/O cataract extraction bilateral History of inguinal hernia repair right - as a child Family History Brother Lymphoma Mother Coronary heart disease Myocardial infarction Father Coronary heart disease Myocardial infarction Grandmother Coronary heart disease Other Cancer Denies family history of Ovarian cancer Prostate cancer Breast cancer Colorectal cancer Social History Smoking Status: Current every day smoker Tobacco Type: Cigarettes Age Started Using Tobacco: 13; packs per day: 1; Cigarettes Per Day: 30; Second Hand Exposure: Yes; Do You Dip or Chew Tobacco: No; Hx Alcohol Use: No Hx Substance Use: Yes Last Used Substance Other:: 35 years ago Preferred Language: Vietnamese Communication Ability: Effective Visual Impairment: Limited Hearing Ability: Normal [employer]st Required: No Beliefs That Will Affect Care: None marital status: Current Living Situation: Spouse and Family Current Living Situation Comment: and daughter 2 story home current occupational status: disabled How many Children do You have: 2 Feels Safe at Home: Yes Diet: diabetic during the past year weight has: decreased > 10 lbs Seatbelt Use: always Assistive Devices: Hearing Aid - Bilateral Review of Systems A total of 10 systems reviewed and were otherwise negative Physical Exam Vital Signs Vital Signs - 24 hr 01/06/25 21:37 01/06/25 22:15 01/06/25 22:16 Temperature 36.8 C Temperature Source Oral Pulse Rate 64 Pulse Rate [Apical] 49 L Pulse Rate from SpO2 Sensor Respiratory Rate 18 16 Respiratory Effort / Characteristics Non-Labored Spontaneous Respiratory Depth Normal Respiratory Pattern Regular Blood Pressure 226/98 H Blood Pressure [Right Arm] 180/86 H Blood Pressure Mean 140 Blood Pressure Mean [Right Arm] 117 Blood Pressure Position Sitting Blood Pressure Position [Right Arm] Pulse Oximetry 94 98 98 Oxygen Delivery Method Room Air Room Air Room Air Sepsis Recent Fever Within 48 Hours No Sepsis New/Unexplained Change in Mental Status N/A Sepsis Action Taken by Nursing No Action Required 01/06/25 22:16 01/06/25 22:30 01/06/25 22:51 Temperature 36.8 C Temperature Source Oral Pulse Rate 59 L 44 L Pulse Rate [Apical] 48 L Pulse Rate from SpO2 Sensor 47 L Respiratory Rate 20 Respiratory Effort / Characteristics Respiratory Depth Respiratory Pattern Blood Pressure 185/75 H Blood Pressure [Right Arm] Blood Pressure Mean 111 Blood Pressure Mean [Right Arm] Blood Pressure Position Blood Pressure Position [Right Arm] Pulse Oximetry 98 94 Oxygen Delivery Method Room Air Room Air Sepsis Recent Fever Within 48 Hours Sepsis New/Unexplained Change in Mental Status Sepsis Action Taken by Nursing 01/06/25 22:58 01/07/25 00:00 Temperature Temperature Source Pulse Rate 37 L Pulse Rate [Apical] 42 L Pulse Rate from SpO2 Sensor Respiratory Rate 14 Respiratory Effort / Characteristics Non-Labored Spontaneous Respiratory Depth Normal Respiratory Pattern Regular Blood Pressure Blood Pressure [Right Arm] 189/74 H Blood Pressure Mean Blood Pressure Mean [Right Arm] 112 Blood Pressure Position Blood Pressure Position [Right Arm] Semi-fowlers Pulse Oximetry 97 Oxygen Delivery Method Room Air Sepsis Recent Fever Within 48 Hours Sepsis New/Unexplained Change in Mental Status Sepsis Action Taken by Nursing VITALS: Vitals are noted on the nurse's note and reviewed by myself. Vital signs stable. GENERAL: White male who appears unwell, in no acute distress, nondiaphoretic, well-developed well-nourished. SKIN: Capillary reflex less than 2 seconds. HEENT: Normocephalic. PERRLA. EOMI. Nares patent. Mucous membranes moist. Neck is supple without nuchal rigidity. HEART: Regular rate and rhythm LUNGS: Clear to auscultation bilaterally without wheezes, rales or rhonchi. No retractions or accessory muscle use. ABDOMEN: Positive bowel sounds x 4. Normal tympanic percussion. Soft, pain pump in lower abdomen, nontender, without masses or organomegaly. Levine sign negative. No guarding or rebound tenderness. no CVA tenderness MUSCULOSKELETAL: No gross musculoskeletal defects. NEURO: Patient was alert and oriented to person place and time. No focal neurological deficits. Course Administered Medications Nitroglycerin (Nitroglycerin Sl 0.4 Mg/Tab Tab) 0.4 mg SL Q5M PRN PRN Reason: Chest Pain Stop: 02/05/25 21:49 Last Admin: 01/06/25 22:39 Dose: 0.4 mg Documented By: Admin: 01/06/25 22:11 Dose: 0.4 mg Documented By: RHODA Discontinued Medications Aspirin (Aspirin Chew 324 Mg) Confirm Administered Dose 324 mg .ROUTE .[facility] ONE Stop: 01/06/25 21:51 Last Admin: 01/06/25 22:20 Dose: Not Given Documented By: RHODA Aspirin (Aspirin Chew 324 Mg) 324 mg PO NOW STA Stop: 01/06/25 21:51 Last Admin: 01/06/25 22:00 Dose: 324 mg Documented By: RHODA Diphenhydramine HCl (Diphenhydramine 50 Mg/Ml Vial) 25 mg IV NOW STA Stop: 01/06/25 22:49 Last Admin: 01/06/25 22:55 Dose: 25 mg Documented By: RHODA Hydrocortisone Sodium Succinate (Hydrocortisone Sod Succinate 100 Mg/2 Ml Vial) 100 mg IV NOW STA Stop: 01/06/25 21:51 Last Admin: 01/06/25 22:00 Dose: 100 mg Documented By: RHODA Sodium Chloride (Nss) 1,000 mls @ 999 mls/hr IV .Q1H1M ONE Stop: 01/06/25 23:34 Last Infusion: 01/07/25 00:23 Dose: Infused Documented By: Admin: 01/06/25 22:54 Dose: 999 mls/hr Documented By: RHODA Famotidine (Pepcid 20mg Iv Push) 20 mg in 5 mls @ 2.5 mls/min IV NOW STA Stop: 01/06/25 22:49 Last Admin: 01/06/25 23:09 Dose: 2.5 mls/min Documented By: RHODA Metoclopramide HCl (Metoclopramide Hcl Inj 5 Mg/Ml 2 Ml Vial) 10 mg IV NOW STA Stop: 01/06/25 22:49 Last Admin: 01/06/25 23:09 Dose: 10 mg Documented By: RHODA Nitroglycerin (Nitroglycerin Sl 0.4 Mg/Tab Tab) Confirm Administered Dose 0.4 mg .ROUTE .[facility] ONE Stop: 01/06/25 21:53 Last Admin: 01/06/25 22:19 Dose: Not Given Documented By: RHODA Ondansetron HCl (Ondansetron Inj 2 Mg/Ml 2 Ml Vial) 4 mg IV NOW STA Stop: 01/06/25 21:51 Last Admin: 01/06/25 22:13 Dose: 4 mg Documented By: RHODA Ondansetron HCl (Ondansetron Inj 2 Mg/Ml 2 Ml Vial) 4 mg IV NOW STA Stop: 01/06/25 23:24 Last Admin: 01/06/25 23:26 Dose: 4 mg Documented By: WHITNEY Medical Decision Making Medical Records Attestation: I reviewed the patient's medical records. Home Medications Current Medication List: was personally reviewed by me Laboratory Data Attestation: I reviewed the patient's lab results. 01/06/25 21:53 01/06/25 21:53 Lab Results 01/06/25 01/06/25 01/06/25 Range/Units 21:53 22:00 23:08 WBC 8.45 (4.8-10.8) K/ul RBC 4.59 L (4.70-6.10) M/uL Hgb 15.0 (14.0-18.0) g/dl POC Hgb 15.6 (14.0-18.0) g/dl Hct 43.5 (42.0-52.0) % POC Hct 46 (42-52) % MCV 94.8 (80.0-100.0) fL MCH 32.7 (25.0-34.0) pg MCHC 34.5 (32.0-36.0) g/dL RDW Std Deviation 42.5 (36.4-46.3) fL RDW Coeff of Salome 12.2 (11.5-14.5) % Plt Count 196 (130-400) K/uL MPV 10.4 (9.4-12.4) fL Immature Gran % (Auto) 0.2 % Neut % (Auto) 62.1 % Lymph % (Auto) 26.6 % Woods % (Auto) 8.2 % Eos % (Auto) 2.0 % Baso % (Auto) 0.9 % Neut # (Auto) 5.24 (1.40-6.50) K/uL Lymph # (Auto) 2.25 (1.20-3.40) K/uL Woods # (Auto) 0.69 H (0.11-0.59) K/uL Eos # (Auto) 0.17 (0.00-0.50) K/uL Baso # (Auto) 0.08 (0.00-0.20) K/uL Immature Gran # (Auto) 0.02 (0.01-0.20) K/uL POC Sodium 140 (135-144) mmol/L Sodium 139 (136-145) mmol/L POC Potassium 4.4 (3.3-5.0) mmol/L Potassium 4.3 (3.5-5.1) mmol/L POC Chloride 105 (101-112) mmol/L Chloride 104 (98-107) mmol/L Carbon Dioxide 24 (21-32) mmol/L POC Total CO2 23 L (24-31) mmol/L Anion Gap 11 (3-11) POC Anion Gap 18.0 (16-25) mmol/L POC BUN 22 H (7-18) mg/dl BUN 22 (6-23) mg/dl Creatinine 1.23 (0.6-1.4) mg/dl POC Creatinine 1.4 H (0.6-1.3) mg/dl Est Cr Clr Drug Dosing 68.0 ml/min eGFR 67.21 BUN/Creatinine Ratio 17.9 (10-20) Glucose 146 H (70-99(Fasting)) mg/dl POC Glucose (other) 146 H (70-99) mg/dl Calcium 9.5 (8.6-10.3) mg/dl POC Ioniz Calcium Altaf 1.16 (1.12-1.32) mmol/l Magnesium 2.0 (1.7-2.4) mg/dl Total Bilirubin 0.9 (0.2-1.0) mg/dl AST 18 (13-39) U/L ALT 19 (7-52) U/L Alkaline Phosphatase 75 (34-104) U/L Troponin I High Sens 6.9 (0-20) pg/ml Total Protein 7.3 (6.0-8.3) gm/dl Albumin 4.5 (3.4-5.0) gm/dl Globulin 2.8 (2.5-4.0) gm/dl Albumin/Globulin Ratio 1.6 (0.9-2) Lipase 97 H (11-82) U/L TSH 0.190 L (0.300-4.500) uIu/ml Free T4 1.05 (0.61-1.60) ng/dl Adenovirus (PCR) (NotDetected) Anaplasma Smear See Comment Babesia Smear See Comment B. pertussis DNA (PCR) (NotDetected) B.parapertussis DNA PCR (NotDetected) Lyme Disease Screen Negative (Negative) C. pneumoniae DNA (PCR) (NotDetected) Coronavirus OC43 (PCR) (NotDetected) Coronavirus HKU1 (PCR) (NotDetected) Coronavirus 229E (PCR) (NotDetected) SARS-CoV-2 (PCR) (NotDetected) Coronavirus NL63 (PCR) (NotDetected) Human Metapneumovir PCR (NotDetected) Influenza Type A (PCR) (NotDetected) Influenza Type B (PCR) (NotDetected) M. pneumoniae (PCR) (NotDetected) Parainfluenza 1 (PCR) (NotDetected) Parainfluenza 2 (PCR) (NotDetected) Parainfluenza 3 (PCR) (NotDetected) Parainfluenza 4 (PCR) (NotDetected) RSV (PCR) (NotDetected) Entero/Rhino (PCR) (NotDetected) 01/06/25 Range/Units 23:30 WBC (4.8-10.8) K/ul RBC (4.70-6.10) M/uL Hgb (14.0-18.0) g/dl POC Hgb (14.0-18.0) g/dl Hct (42.0-52.0) % POC Hct (42-52) % MCV (80.0-100.0) fL MCH (25.0-34.0) pg MCHC (32.0-36.0) g/dL RDW Std Deviation (36.4-46.3) fL RDW Coeff of Salome (11.5-14.5) % Plt Count (130-400) K/uL MPV (9.4-12.4) fL Immature Gran % (Auto) % Neut % (Auto) % Lymph % (Auto) % Woods % (Auto) % Eos % (Auto) % Baso % (Auto) % Neut # (Auto) (1.40-6.50) K/uL Lymph # (Auto) (1.20-3.40) K/uL Woods # (Auto) (0.11-0.59) K/uL Eos # (Auto) (0.00-0.50) K/uL Baso # (Auto) (0.00-0.20) K/uL Immature Gran # (Auto) (0.01-0.20) K/uL POC Sodium (135-144) mmol/L Sodium (136-145) mmol/L POC Potassium (3.3-5.0) mmol/L Potassium (3.5-5.1) mmol/L POC Chloride (101-112) mmol/L Chloride (98-107) mmol/L Carbon Dioxide (21-32) mmol/L POC Total CO2 (24-31) mmol/L Anion Gap (3-11) POC Anion Gap (16-25) mmol/L POC BUN (7-18) mg/dl BUN (6-23) mg/dl Creatinine (0.6-1.4) mg/dl POC Creatinine (0.6-1.3) mg/dl Est Cr Clr Drug Dosing ml/min eGFR BUN/Creatinine Ratio (10-20) Glucose (70-99(Fasting)) mg/dl POC Glucose (other) (70-99) mg/dl Calcium (8.6-10.3) mg/dl POC Ioniz Calcium Altaf (1.12-1.32) mmol/l Magnesium (1.7-2.4) mg/dl Total Bilirubin (0.2-1.0) mg/dl AST (13-39) U/L ALT (7-52) U/L Alkaline Phosphatase (34-104) U/L Troponin I High Sens (0-20) pg/ml Total Protein (6.0-8.3) gm/dl Albumin (3.4-5.0) gm/dl Globulin (2.5-4.0) gm/dl Albumin/Globulin Ratio (0.9-2) Lipase (11-82) U/L TSH (0.300-4.500) uIu/ml Free T4 (0.61-1.60) ng/dl Adenovirus (PCR) Not Detected (NotDetected) Anaplasma Smear Babesia Smear B. pertussis DNA (PCR) Not Detected (NotDetected) B.parapertussis DNA PCR Not Detected (NotDetected) Lyme Disease Screen (Negative) C. pneumoniae DNA (PCR) Not Detected (NotDetected) Coronavirus OC43 (PCR) Not Detected (NotDetected) Coronavirus HKU1 (PCR) Not Detected (NotDetected) Coronavirus 229E (PCR) Not Detected (NotDetected) SARS-CoV-2 (PCR) Not Detected (NotDetected) Coronavirus NL63 (PCR) Not Detected (NotDetected) Human Metapneumovir PCR Not Detected (NotDetected) Influenza Type A (PCR) Not Detected (NotDetected) Influenza Type B (PCR) Not Detected (NotDetected) M. pneumoniae (PCR) Not Detected (NotDetected) Parainfluenza 1 (PCR) Not Detected (NotDetected) Parainfluenza 2 (PCR) Not Detected (NotDetected) Parainfluenza 3 (PCR) Not Detected (NotDetected) Parainfluenza 4 (PCR) Not Detected (NotDetected) RSV (PCR) Not Detected (NotDetected) Entero/Rhino (PCR) Not Detected (NotDetected) Imaging Data Attestation: I personally reviewed and interpreted this imaging study as follows: Radiologist's Impression: Chest X-Ray 01/06/25 21:50 Exam(s): XR CXR 1 VIEW EXAM: XR Chest, 1 View CLINICAL HISTORY: Reason for exam: Chest pain, nonspecific. TECHNIQUE: Frontal views of the chest. COMPARISON: No relevant prior studies available. FINDINGS: Lungs: No consolidation. Pleural space: No pleural effusion is seen. No pneumothorax. Heart: The heart is normal in size.. Mediastinum: Unremarkable. Bones/joints: There are degenerative changes in the spine.. IMPRESSION: No acute pulmonary disease. Electronically signed by: Manuel Cantor MD 01/07/25 00:14 AM Abdomen/Pelvis CT 01/06/25 23:04 Exam(s): CT ABDOMEN + PELVIS Without Contrast EXAM: CT Abdomen and Pelvis Without Intravenous Contrast CLINICAL HISTORY: Reason for exam: fausto, pain. TECHNIQUE: Axial computed tomography images of the abdomen and pelvis without intravenous contrast. CTDI is 22.1 mGy and DLP is 779.98 mGy-cm. Automated exposure control was utilized for the study. A dose lowering technique was utilized adhering to the principles of ALARA. COMPARISON: 10/04/2023. FINDINGS: The exam is limited due to lack of contrast. Lung bases: No consolidation. ABDOMEN: Liver: The heart is enlarged. Gallbladder and bile ducts: No calcified stones. No ductal dilation. Pancreas: The visualized portions of the pancreas, on this noncontrast study, are grossly unremarkable.. Spleen: No splenomegaly. Adrenals: No mass. Kidneys and ureters: No obstructing stones. No hydronephrosis. Stomach and bowel: The stomach is relatively decompressed. There is air and stool noted in the colon.. PELVIS: Appendix: Unremarkable CT scan appearance noted the appendix.. Bladder: No calculi are noted within the bladder.. Reproductive: There are calcifications within the prostate gland.. ABDOMEN and PELVIS: Intraperitoneal space: No free air. No significant fluid collection. Bones/joints: The patient is status post right total hip replacement. There are degenerative changes in the spine. Soft tissues: A spinal neurostimulator device is noted in the anterior abdominal wall with its lead extending into the spinal canal Vasculature: There are atherosclerotic changes. No abdominal aortic aneurysm. Lymph nodes: No enlarged lymph nodes. IMPRESSION: Hepatomegaly. See discussion above Electronically signed by: Manuel Cantor MD 01/06/25 23:[address] 01/06/25 23:04 Exam(s): CT CHEST Without Contrast EXAM: CT Chest Without Intravenous Contrast CLINICAL HISTORY: Reason for exam: pain, fausto. TECHNIQUE: Axial computed tomography images of the chest without intravenous contrast. CTDI is 19.97 mGy and DLP is 944.41 mGy-cm. Automated exposure control was utilized for the study. A dose lowering technique was utilized adhering to the principles of ALARA. COMPARISON: 06/20/2023. FINDINGS: Lungs: No mass. No consolidation. There are small bullae noted at the lung apices. Pleural space: No significant effusion. No pneumothorax. Heart: The heart is not enlarged but contains coronary artery calcifications Bones/joints: There is a kyphoscoliosis of the spine with degenerative changes.. Soft tissues: Unremarkable. Vasculature: There are atherosclerotic changes.. No thoracic aortic aneurysm. Lymph nodes: No enlarged mediastinal lymph nodes. IMPRESSION: The heart is not enlarged but contains coronary artery calcifications Electronically signed by: Manuel Cantor MD 01/06/25 23:46 PM [facility] Narrative Prior records/ancillary studies reviewed. Triage Nursing notes reviewed. Additional history obtained from family. The patient's history was concerning for chest pain. Differential diagnosis: Etiologies such as cardiac ischemia, aortic dissection, pulmonary embolism, pneumonia, pneumothorax, musculoskeletal, infections, pericarditis, myocarditis, esophageal rupture, gastrointestinal, as well as others were entertained. Physical examination: As above. ER treatment provided: An order was placed for continuous cardiac monitoring. The monitor shows a rate of 60-100 with a sinus rhythm per my interpretation. Zofran, nss, ASA, nitro, pepcid, pacer pads Solu-Cortef was ordered immediately as patient has secondary adrenal insufficiency Patient became bradycardic and symptomatic so pacer pads were placed in case he need to be paced. On reassessment the patient felt better. Diagnostic interpretation by me: #1 the electrocardiogram was ordered for chest pain EKG: Normal sinus, hyperacute T waves in the lateral leads, incomplete right bundle, Q waves in inferior leads, rate of 65. Impression normal sinus rhythm with hyperacute T waves in the lateral leads independently interpreted by myself. EKG ordered for ongoing chest pain #2 normal sinus, incomplete right bundle, Q waves in inferior leads, unchanged T waves, rate 62. Impression normal sinus rhythm incomplete right bundle Q waves in inferior leads independently interpreted by myself #3 EKG ordered for chest pain EKG: Normal sinus, no acute ST-T wave changes, incomplete right bundle, rate of 47. Impression sinus bradycardia incomplete right bundle independently interpreted by myself The labs Independently Interpreted by myself revealed negative troponin. Normal magnesium. Slightly low TSH with normal T4. Mild hyperglycemia that DKA Negative Lyme's. Imaging studies: Imaging was reviewed and read by radiology HEART SCORE: Hx: high/mod/low suspicion: 2 ECG: ST depression/nonspecific changes/normal: 1 Age: Greater than 65/45-64/less than 45: 1 Risk factors: (Hypertension, hyperlipidemia, diabetes, coronary disease, tobacco use, cocaine use): 2 Troponin: Greater than 2 times normal limits/1-2 times normal limits/normal: 0 Total: 6 Consultation: A consultation was placed with the hospitalist. The case was discussed and diagnostics were reviewed. The patient was evaluated in the ER for further treatment. Exam and history seem consistent with chest pain with concerns for cardiac in etiology. Patient's heart rate did drop down to the 30s and became more weak and lightheaded. Pacer pads were placed in case he needed to be paced. Repeat EKG just shows sinus bradycardia no obvious signs of heart block. Patient had multiple EKGs with no signs of ST elevation. He was reassessed multiple times. No change in nitroglycerin. Imaging was reviewed. Medicine was consulted case was discussed. He will be evaluated for admission. By the evaluation outlined above emergent etiologies such as aortic dissection, pulmonary embolism, pneumonia, pneumothorax, infections, pericarditis, myocarditis, gastrointestinal, as well as others were deemed relatively unlikely. The pt informed about the findings as listed above. All questions were answered and pleased with the treatment. The chart was completed utilizing Xi3 voice recognition software. Grammatical errors, random word insertions, pronoun errors, and incomplete sentences are an occassional consequence of this system due to software limitations, ambient noise, and hardware issues. Any formal questions or concerns about the content, text, or information contained within the body of this dictation should be directly addressed to the physician ophthalmology assistant for clarification. Impression & Plan Atypical chest pain, Bradycardia Discharge Plan Visit Data Chief Complaint: Cardiac Assessment Stated Complaint: CHEST PRESSURE, TIRED, WEAKNESS ED Provider: Mare Yip ED Midlevel Provider: Yumiko Lee Discharge Problem: Atypical chest pain, Bradycardia Patient Disposition: Admitted As Inpatient Condition: Fair Forms Stand Alone Forms: [facility] Prescriptions Prescriptions: No Action diazepam [Valium] 5 mg tablet 5 mg PO BID PRN (Reason: anxiety) Qty: 14 0RF ondansetron 4 mg tablet,disintegrating 4 mg PO Q8H PRN (Reason: nausea and vomiting) Qty: 30 0RF duloxetine [Cymbalta] 60 mg capsule,delayed release(DR/EC) 60 mg PO QAM Qty: 30 0RF lisinopril 40 mg tablet 40 mg PO QAM Qty: 90 3RF Rx Instructions: Last filled 06/23/24 90 day supply Baqsimi 3 mg/actuation spray,non-aerosol 3 mg intranasal ONCE Qty: 1 2RF Rx Instructions: use for severe hypoglycemia testosterone cypionate 100 mg/mL oil 100 mg IM WK Qty: 10 1RF Patient Comments: EVERY SATURDAY (DME) Dexcom G7 Sensor Device See Rx Instructions .ROUTE .MEDSUPPLY Qty: 1 0RF Rx Instructions: change sensor every 10 days metformin 500 mg tablet extended release 24 hr 500 mg PO BID Qty: 180 3RF prednisone 10 mg tablet 10 mg PO DAILY Qty: 135 1RF Rx Instructions: Double in times of stress albuterol sulfate 90 mcg/actuation HFA aerosol inhaler 2 puff INH UD PRN (Reason: Shortness Of Breath Or Wheezing) Qty: 17 3RF Rx Instructions: last filled 10/10/23 17 day supply atorvastatin [Lipitor] 40 mg tablet 40 mg PO HS Qty: 90 3RF Rx Instructions: last filled 06/02/24 90 day supply levothyroxine [Synthroid] 100 mcg tablet 100 mcg PO QAM 90 Days Qty: 90 3RF Rx Instructions: last filled 06/19 90 day insulin aspart U-100 [Novolog FlexPen U-100 Insulin] 100 unit/mL (3 mL) insulin pen See Rx Instructions subcut BID Qty: 15 0RF Rx Instructions: To be used by pre meal sliding scale only. Target 150 correction factor of 35 (DME) lancets [OneTouch Delica Plus Lancet] 33 gauge misc See Rx Instructions .Route Qty: 300 3RF Rx Instructions: test blood sugar 3 x daily (DME) pen needle, diabetic 32 gauge x 5/32" needle See Rx Instructions miscellaneous .MEDSUPPLY Qty: 400 3RF Rx Instructions: To be used up to 4x a day mecobalamin (vitamin B12) 1,000 mcg tablet,disintegrating 1,000 mcg sublingual DAILY Qty: 30 0RF Rx Instructions: otc unable to verify place tablet under tongue and allow to dissolve for at least30 secs before swallowing (DME) blood-glucose meter [PeeriusTouch Verio Flex Start] Kit See Rx Instructions .Route Qty: 1 0RF Rx Instructions: Test three times a day (DME) OneTouch Verio test strips Strip See Rx Instructions .Route Qty: 300 3RF Rx Instructions: test blood sugar 3 x daily Dilaudid Pain Pump 1.5mg/Ml 0.0172 mg intrathecal UD Rx Instructions: 0.0172mg/hr intrathecally via pump implanted in patient. Unable to verify w/ pharmacy at this date/time. Original Directions: Original Directions 0.0172mg as directed amlodipine 5 mg tablet 5 mg PO UD Rx Instructions: 5 mg po daily. filled 07/04 90 day supply propranolol 60 mg capsule,extended release 24 hr 60 mg PO UD Rx Instructions: 60 mg po daily. last filled 06/24 30 day supply Actemra 162 mg/0.9 mL syringe 162 mg subcut UD Rx Instructions: 162 mg subcut q14d. no fill history unable to verify diclofenac sodium [Voltaren Arthritis Pain] 1 % Gel 4 g EXT QID Qty: 100 0RF Rx Instructions: Apply to the left buttocks 4 times per day trazodone 150 mg tablet 75 mg PO HS bupropion HCl 300 mg tablet extended release 24 hr 300 mg PO QAM clonazepam [Klonopin] 0.5 mg tablet 0.5 mg PO BID PRN (Reason: Anxiety) naloxone [Narcan] 4 mg/actuation spray,non-aerosol 1 spray intranasal ONCE PRN (Reason: opioid overdose) Qty: 2 1RF diazepam 5 mg Tablet 5 mg PO BID PRN (Reason: Anxiety) clonazepam 0.5 mg Tablet 0.5 mg PO BID PRN (Reason: Anxiety) bupropion HCl 300 mg Tablet Extended Release 24 Hr 300 mg PO QAM levothyroxine 100 mcg Tablet 100 mcg PO DAILYBB trazodone 150 mg tablet 150 mg PO HS duloxetine 60 mg Capsule,Delayed Release(Dr/Ec) 60 mg PO QAM Referrals Referrals: Pro,Lucian Espinoza MD [Primary Care Provider] -
[2025-01-06 22:47] LABS: Alanine Aminotransferase 19.0 U/L (7-52); Albumin Globulin Ratio 1.6 (0.9-2); Alkaline Phosphatase 75.0 U/L (34-104); Anion Gap 11.0 (3-11); Bilirubin,Total 0.9 mg/dl (0.2-1.0); Blood Urea Nitrogen 22.0 mg/dl (6-23); Calcium 9.5 mg/dl (8.6-10.3); Carbon Dioxide 24.0 mmol/L (21-32); Creatinine Clr Calc Pharmacy 68.0 ml/min; Globulin 2.8 gm/dl (2.5-4.0); Glucose 146.0 mg/dl (70-99(Fasting)); Lipase 97.0 U/L (11-82); Magnesium 2.0 mg/dl (1.7-2.4); Total Protein 7.3 gm/dl (6.0-8.3)
[2025-01-06 22:51] LABS: Chloride 104.0 mmol/L (98-107); Potassium 4.3 mmol/L (3.5-5.1); Sodium 139.0 mmol/L (136-145)
[2025-01-06] MEDS: SODIUM CHLORIDE 0.9% 1,000 ML IV ONE (22:54)
[2025-01-06] MEDS: diphenhydrAMINE 50 MG/ML VIAL IV STA (22:55)
[2025-01-06] MEDS: FAMOTIDINE 20MG IV PUSH 20 MG/5 ML SYR IV STA (23:09)
[2025-01-06] MEDS: METOCLOPRAMIDE HCL INJ 5 MG/ML 2 ML VIAL IV STA (23:09)
[2025-01-06 23:40] LABS: Thyroid Stimulating Hormone 0.19 uIu/ml (0.300-4.500)
--- NOTE | 2025-01-06 23:47 | CT Scan Report ---
Exam(s): CT CHEST Without Contrast EXAM: CT Chest Without Intravenous Contrast CLINICAL HISTORY: Reason for exam: pain, fausto. TECHNIQUE: Axial computed tomography images of the chest without intravenous contrast. CTDI is 19.97 mGy and DLP is 944.41 mGy-cm. Automated exposure control was utilized for the study. A dose lowering technique was utilized adhering to the principles of ALARA. COMPARISON: 06/20/2023. FINDINGS: Lungs: No mass. No consolidation. There are small bullae noted at the lung apices. Pleural space: No significant effusion. No pneumothorax. Heart: The heart is not enlarged but contains coronary artery calcifications Bones/joints: There is a kyphoscoliosis of the spine with degenerative changes.. Soft tissues: Unremarkable. Vasculature: There are atherosclerotic changes.. No thoracic aortic aneurysm. Lymph nodes: No enlarged mediastinal lymph nodes. IMPRESSION: The heart is not enlarged but contains coronary artery calcifications Electronically signed by: Manuel Cantor MD 01/06/25 23:46 PM
--- NOTE | 2025-01-06 23:51 | CT Scan Report ---
Exam(s): CT ABDOMEN + PELVIS Without Contrast EXAM: CT Abdomen and Pelvis Without Intravenous Contrast CLINICAL HISTORY: Reason for exam: fausto, pain. TECHNIQUE: Axial computed tomography images of the abdomen and pelvis without intravenous contrast. CTDI is 22.1 mGy and DLP is 779.98 mGy-cm. Automated exposure control was utilized for the study. A dose lowering technique was utilized adhering to the principles of ALARA. COMPARISON: 10/04/2023. FINDINGS: The exam is limited due to lack of contrast. Lung bases: No consolidation. ABDOMEN: Liver: The heart is enlarged. Gallbladder and bile ducts: No calcified stones. No ductal dilation. Pancreas: The visualized portions of the pancreas, on this noncontrast study, are grossly unremarkable.. Spleen: No splenomegaly. Adrenals: No mass. Kidneys and ureters: No obstructing stones. No hydronephrosis. Stomach and bowel: The stomach is relatively decompressed. There is air and stool noted in the colon.. PELVIS: Appendix: Unremarkable CT scan appearance noted the appendix.. Bladder: No calculi are noted within the bladder.. Reproductive: There are calcifications within the prostate gland.. ABDOMEN and PELVIS: Intraperitoneal space: No free air. No significant fluid collection. Bones/joints: The patient is status post right total hip replacement. There are degenerative changes in the spine. Soft tissues: A spinal neurostimulator device is noted in the anterior abdominal wall with its lead extending into the spinal canal Vasculature: There are atherosclerotic changes. No abdominal aortic aneurysm. Lymph nodes: No enlarged lymph nodes. IMPRESSION: Hepatomegaly. See discussion above Electronically signed by: Manuel Cantor MD 01/06/25 23:50 PM
--- NOTE | 2025-01-07 00:14 | XRay Report ---
Exam(s): XR CXR 1 VIEW EXAM: XR Chest, 1 View CLINICAL HISTORY: Reason for exam: Chest pain, nonspecific. TECHNIQUE: Frontal views of the chest. COMPARISON: No relevant prior studies available. FINDINGS: Lungs: No consolidation. Pleural space: No pleural effusion is seen. No pneumothorax. Heart: The heart is normal in size.. Mediastinum: Unremarkable. Bones/joints: There are degenerative changes in the spine.. IMPRESSION: No acute pulmonary disease. Electronically signed by: Manuel Cantor MD 01/07/25 00:14 AM
[2025-01-07 00:36] LABS: Chlamydia pneumoniae PCR Not Detected (NotDetected); Coronavirus 229E PCR Not Detected (NotDetected); Coronavirus CoV-2 (COVID19)PCR Not Detected (NotDetected); Coronavirus HKU1 PCR Not Detected (NotDetected); Coronavirus NL63 PCR Not Detected (NotDetected); Coronavirus OC43PCR Not Detected (NotDetected); Human Metapneumovirus PCR Not Detected (NotDetected); Parainfluenza Virus 1 PCR Not Detected (NotDetected); Parainfluenza Virus 2 PCR Not Detected (NotDetected); Parainfluenza Virus 3 PCR Not Detected (NotDetected); Parainfluenza Virus 4 PCR Not Detected (NotDetected); Respiratory Syncytial VirusPCR Not Detected (NotDetected); Rhinovirus/Enterovirus PCR Not Detected (NotDetected)
[2025-01-07] MEDS: PANTOprazole 40 MG/10 ML SYR IV ONE (01:26)
--- NOTE | 2025-01-07 01:50 | History & Physical Report ---
Date of Service January 07, 2025 Assessment & Plan (1) Panhypopituitarism: (2) Bradycardia: (3) Myofascial pain syndrome of lumbar spine: (4) Atypical chest pain: Plan The patient is a 59-year-old male with a past medical history including lumbar spine myofascial pain syndrome, urinary incontinence, anxiety, tobacco use, pituitary microadenoma, secondary adrenal insufficiency, ACTH deficiency, COPD with emphysema, diabetes mellitus, dyslipidemia, growth hormone deficiency, pi tuitary hypogonadism and hypothyroidism, presence of intrathecal Dilaudid pump, and hypertension. The patient presents to the emergency department with multiple complaints, including urinary frequency, worsening generalized weakness and fatigue, decreased oral intake, discomfort from restless legs, and intermittent chest pressure. He is known history of panhypopituitarism associated with pituitary microadenoma, and concerns on ED with of associated issues with secondary adrenal insufficiency. From the ED the patient received the following: Aspirin 324 mg, Zofran 4 mg IV, hydrocortisone 100 mg IV, NSS 1 L bolus, metoclopramide 10 mg IV, diphenhydramine 25 mg IV, famotidine 20 mg IV, and Zofran 4 mg IV second time. The patient was noted to be bradycardic in the emergency department, with sinus bradycardic heart rate in the 40s to low 60s, and occasionally going up to 100. Patient is not on any negative inotropes, but is on a Dilaudid and physical pain pump, which she reports was changed [address] Parra. The patient was referred to the hospitalist service for further evaluation and treatment. Bradycardia/atypical chest pain, burning/hypertension- The patient will be admitted to telemetry for serial cardiac enzymes, serial EKG's, cardiac rhythm monitoring and a 2-D echocardiogram with Dopplers. Unclear etiology of bradycardia at this time. Patient had been on propranolol in the past but has not taken it for several months. He was given aspirin 324 mg by the ED He reports that his intrathecal Dilaudid pain pump had been changed 2 months ago, and felt that it was functioning normally. Potassium is 4.3, magnesium of 2.0, and calcium was 9.5 Initial troponin is 6.9, with follow-up pending Tick panel: Anaplasmosis and babesiosis smears negative with antibodies pending, Lyme disease negative Respiratory BioFire testing was negative. Patient was having intermittent issues with retching, nausea and vomiting, and it was felt that his chest burning was more secondary to this epigastric discomfort. Concern for possible endocarditis Continue amlodipine Hydralazine 10 mg IV every 4 hours as needed for systolic blood pressure greater than 160 Consult cardiology Intermittent nausea/vomiting- CT abdomen pelvis primarily shows an enlarged liver May be secondary to generalized septic picture, secondary adrenal insufficiency, dehydration, severe reflux, others Zofran 4 mg IV every 6 hours as needed Compazine 10 mg IV every 6 hours as needed Pantoprazole 40 mg IV now, then IV twice daily LR at 80 mL/h x 2 L Panhypopituitarism- Associated with pituitary microadenoma Pituitary hypogonadism, growth hormone deficiency, pituitary hypothyroidism, ACTH deficiency, and secondary adrenal insufficiency. Given hydrocortisone 100 mg IV in ED, will continue 50 mg IV every 8 hours, would do this for 2 days, then return to usual dosing of prednisone 10 mg daily Takes testosterone IM weekly in the outpatient setting Continue levothyroxine Diabetes mellitus type 2- Hold home sliding scale and metformin. Placed on Accu-Cheks with NovoLog SSI Lumbar spine myofascial pain syndrome- Continue intrathecal Dilaudid pump If concern that this is contributing to bradycardia, may need to consult [facility] pain management Depression/anxiety- Continue bupropion, diazepam, clonazepam, duloxetine and trazodone Hyperlipidemia- Continue atorvastatin COPD- History of Present Illness Chief Complaint: The patient presents to the emergency department with multiple complaints, including urinary frequency, worsening generalized weakness and fatigue, decreased oral intake, discomfort from restless legs, and intermittent chest pressure. He is known history of panhypopituitarism associated with pituitary microadenoma, and concerns on ED with of associated issues with secondary adrenal insufficiency. From the ED the patient received the following: Aspirin 324 mg, Zofran 4 mg IV, hydrocortisone 100 mg IV, NSS 1 L bolus, metoclopramide 10 mg IV, diphenhydramine 25 mg IV, famotidine 20 mg IV, and Zofran 4 mg IV second time. The patient was noted to be bradycardic in the emergency de partment, with sinus bradycardic heart rate in the 40s to low 60s, and occasionally going up to 100. Patient is not on any negative inotropes, but is on a Dilaudid and physical pain pump, which she reports was changed [address] Parra. Primary Care Provider: Lucian Mccann MD The patient is a 59-year-old male with a past medical history including lumbar spine myofascial pain syndrome, urinary incontinence, anxiety, tobacco use, pituitary microadenoma, secondary adrenal insufficiency, ACTH deficiency, COPD with emphysema, diabetes mellitus, dyslipidemia, growth hormone deficiency, pituitary hypogonadism and hypothyroidism, presence of intrathecal Dilaudid pump, and hypertension. The patient presents to the emergency department with multiple complaints, including urinary frequency, worsening generalized weakness and fatigue, decreased oral intake, discomfort from restless legs, and intermittent chest pressure. He is known history of panhypopituitarism associated with pituitary microadenoma, and concerns on ED with of associated issues with secondary adrenal insufficiency. From the ED the patient received the following: Aspirin 324 mg, Zofran 4 mg IV, hydrocortisone 100 mg IV, NSS 1 L bolus, metoclopramide 10 mg IV, diphenhydramine 25 mg IV, famotidine 20 mg IV, and Zofran 4 mg IV second time. The patient was noted to be bradycardic in the emergency department, with sinus bradycardic heart rate in the 40s to low 60s, and occasionally going up to 100. Patient is not on any negative inotropes, but is on a Dilaudid and physical pain pump, which she reports was changed [address] Parra. The patient was referred to the hospitalist service for further evaluation and treatment. Allergies Allergy/AdvReac Type Severity Reaction Status Date / Time Iodinated Contrast Media Allergy Severe Difficulty Verified 01/07/25 00:51 Breathing gabapentin [From Neurontin] Allergy Mild Swelling Verified 01/07/25 00:51 Home Medications Medication Instructions Recorded Confirmed Type Dilaudid Pain Pump 1.5mg/Ml 0.0172 mg intrathecal UD 05/09/21 01/07/25 History blood sugar diagnostic (OneTouch #300 ea 09/25/23 12/24/24 Rx Verio test strips) blood-glucose meter (OneTouch #1 ea 09/25/23 12/24/24 Rx Verio Flex Start kit) clonazepam 0.5 mg tablet (Klonopin) 0.5 mg PO BID PRN Anxiety 01/04/24 01/07/25 History trazodone 150 mg tablet 75 mg PO HS 01/04/24 01/07/25 History mecobalamin (vitamin B12) 1,000 1,000 mcg sublingual DAILY #30 tabs 04/14/24 01/07/25 Rx mcg disintegrating tablet,sublingual glucagon 3 mg/actuation nasal 3 mg intranasal ONCE #1 ea 08/06/24 01/07/25 Rx spray (Baqsimi) amlodipine 5 mg tablet 5 mg PO UD 09/02/24 01/07/25 History insulin aspart U-100 100 unit/mL See Rx Instructions subcut BID #15 09/08/24 01/07/25 Rx (3 mL) subcutaneous pen (Novolog mL FlexPen U-100 Insulin aspart) naloxone 4 mg/actuation nasal 1 spray intranasal ONCE PRN opioid 09/11/24 01/07/25 Rx spray (Narcan) overdose #2 ea lancets 33 gauge (OneTouch Delica #300 ea 09/29/24 12/24/24 Rx Plus Lancet) pen needle, diabetic 32 gauge x #400 ea 09/29/24 12/24/24 Rx " testosterone cypionate 100 mg/mL 100 mg IM WK #10 mL 09/30/24 01/07/25 Rx intramuscular oil blood-glucose sensor (Dexcom G7 #1 ea 10/07/24 12/24/24 Rx Sensor device) ondansetron 4 mg disintegrating 4 mg PO Q8H PRN nausea and 11/12/24 01/07/25 Rx tablet vomiting #30 tabs metformin 500 mg tablet,extended 500 mg PO BID #180 tabs 11/25/24 01/07/25 Rx release 24 hr prednisone 10 mg tablet 10 mg PO DAILY #135 tabs 11/26/24 01/07/25 Rx albuterol sulfate 90 mcg/actuation 2 puff inhalation UD PRN Shortness 12/08/24 01/07/25 Rx aerosol inhaler Of Breath Or Wheezing #17 grams atorvastatin 40 mg tablet 40 mg PO DAILY 01/07/25 01/07/25 History bupropion HCl 300 mg 24 hr tablet, 300 mg PO QAM 01/07/25 01/07/25 History extended release diazepam 5 mg tablet 5 mg PO BID PRN Anxiety 01/07/25 01/07/25 History duloxetine 60 mg capsule,delayed 60 mg PO QAM 01/07/25 01/07/25 History release levothyroxine 100 mcg tablet 100 mcg PO DAILYBB 01/07/25 01/07/25 History trazodone 150 mg tablet 150 mg PO HS 01/07/25 01/07/25 History Past Med/Surg History Problem List (Updated 01/07/25 @ 04:10 by Mark Sifuentes MD) Panhypopituitarism Bradycardia (Acute) Atypical chest pain (Acute) Myofascial pain syndrome of lumbar spine Urinary incontinence Anxiety as acute reaction to gross stress Tobacco use (Acute) History of temporal artery biopsy (06/12/24) Bilateral Temporal Artery Biopsy(Bilateral) - David Rebolledo, Pituitary microadenoma Secondary adrenal insufficiency ACTH deficiency subtle deficiency per endo records - on chronic steroids Lumbosacral radiculopathy (Acute) Vitamin D deficiency Vitamin B 12 deficiency COPD with emphysema Follows with [facility] pulmonology Chronic cough Controlled type 2 diabetes mellitus Dyslipidemia History of colon polyps Chronic SI joint pain Piriformis syndrome Adjustment disorder with anxiety Current smoker Growth hormone deficiency Pituitary hypogonadism Pituitary hypothyroidism (~12/03/23) Hypothyroidism (Chronic) Presence of intrathecal pump (Chronic) HTN (hypertension) Cervical post-laminectomy syndrome Headache (Acute) Medical History [facility] (current) use of systemic steroids prednisone qam Pituitary abnormality Follows with endo (since 2014) (HYACINTH [facility]man) Diffuse pituitary dysfunction (growth hormone deficiency, pituitary hypothyroidism and hypogonadism) 6 mm pituitary lesion may represent a microadenoma per 05/2024 pituitary MRI GCA (giant cell arteritis) Follows with rheum- biopsy negative but continues with headaches - currently trying to transition patient off prednisone and on to only hydrocortisone Lumbar facet joint syndrome Sacroiliitis Intractable low back pain Secondary adrenal insufficiency On hydrocortisone and prednisone daily (currently rheum/endo trying to wean patient off prednisone) Hypothyroidism Dyslipidemia Adjustment disorder with anxiety Controlled type 2 diabetes mellitus Hypertension COPD with emphysema Last seen [facility] 03/2023 Left hamstring muscle strain Greater trochanteric bursitis of right hip Exertional shortness of breath Allergic rhinitis with postnasal drip Left-sided temporomandibular joint pain-dysfunction syndrome Erectile dysfunction Chronic SI joint pain Cervical post-laminectomy syndrome limited ROM- 75-80% up and down; 85% side to side AVN of femur Osteoarthritis Family history of reaction to anesthesia "30 years ago a cousin of mine at [facility] during wisdom teeth surgery" he denies any mention of a genetic condition, denies other family members with anesthesia issues Benign prostate hyperplasia Presence of intrathecal pump hydromorphone Sensorineural hearing loss (SNHL) of both ears Dysphagia occasional since cervical spine surgery, denies choking Chronic cough "smoker's cough" Myofascial pain Globus sensation "there's a ledge and sometimes food gets stuck" Cervical radiculopathy limited ROM- 75-80% up and down; 85% side to side Sleep apnea pt denies, no cpap Insomnia with fatigue Pain disorder associated with psychological factors and medical condition Surgical History Hx of colonoscopy (2021) History of temporal artery biopsy bilateral, 05/2024 Status post right hip replacement (~01/2024) History of right hip replacement (01/2024) History of left shoulder replacement (08/2023) August 2023 S/P insertion of intrathecal pump S/P epidural steroid injection cervical H/O arthroscopy of shoulder bilateral H/O arthroscopic knee surgery both knees History of esophagogastroduodenoscopy (EGD) (2021) With dilation History of fusion of cervical spine x 8 total neck and back ACDF (multiple) limited ROM- 75-80% up and down; 85% side to side H/O cataract extraction bilateral History of inguinal hernia repair right - as a child Family History Brother Lymphoma Mother Coronary heart disease Myocardial infarction Father Coronary heart disease Myocardial infarction Grandmother Coronary heart disease Other Cancer Denies family history of Ovarian cancer Prostate cancer Breast cancer Colorectal cancer Social History Smoking Status: Current every day smoker Tobacco Type: Cigarettes Age Started Using Tobacco: 13; packs per day: 1; Cigarettes Per Day: 1.5 packs per day; Second Hand Exposure: Yes; Do You Dip or Chew Tobacco: No; Hx Alcohol Use: No Hx Substance Use: No Preferred Language: Citizen Of [place] Communication Ability: Effective Visual Impairment: Limited Hearing Ability: Normal Glaz[employer] Furniture Required: No Beliefs That Will Affect Care: None marital status: Current Living Situation: Spouse Current Living Situation Comment: and daughter 2 story home current occupational status: disabled How many Children do You have: 2 Other Information That Helps Us Care for You: No Feels Safe at Home: Yes Safety Concerns: Feels Safe At This Time Diet: diabetic during the past year weight has: decreased > 10 lbs Seatbelt Use: always Assistive Devices: Denture - Upper, Glasses and Walker Review of Systems Review of Systems: The patient denies palpitations, cough, lower extremity swelling, sore throat, fevers, chills, sweats, weight change, diarrhea , constipation, blood in urine or stool, dysuria, urinary frequency or urgency, lightheadedness, dizziness, headache, memory loss, loss of consciousness, rash, abnormal bruising or bleeding, imbalance, focal weakness, numbness or tingling in arms or legs, back or neck pain, or night sweats. The review of systems is otherwise negative other than for that already noted above, and at least 10 systems have been reviewed. Physical Exam Physical Exam: The patient is awake, alert and oriented 3, well developed and well nourished, normocephalic and atraumatic, lying in bed and in no acute distress. HEENT--PERRL, EOMI, mucous membranes and oropharynx mildly dry. Neck--supple. No JVD. No bruits. Thyroid normal, trachea midline, no adenopathy. Heart--normal S1 and S2. No murmurs, rubs or gallops. Lungs--clear bilaterally, no respiratory distress, no accessory muscle use. Abdomen--normal bowel sounds and soft. Nontender. Nondistended Extremities--no cyanosis or clubbing. No edema. There are good distal pulses b/l. Dermatologic--normal skin turgor, normal color, no abnormal lymph nodes, no rash. Neurologic--cranial nerves II through XII grossly intact. Rheumatologic--normal range of motion. Psychiatric--normal affect. Results & Data Results & Data Vital Signs (Past 12 Hours) Vital Signs Temp Pulse Pulse Resp BP BP Pulse Ox 01/07/25 00:00 42 L 14 189/74 H 97 01/06/25 22:58 37 L 01/06/25 22:51 44 L 20 185/75 H 94 01/06/25 22:30 36.8 C 48 L 98 01/06/25 22:16 59 L 01/06/25 22:16 49 L 16 180/86 H 98 01/06/25 22:15 98 01/06/25 21:37 36.8 C 64 18 226/98 H 94 O2 Del Method 01/07/25 00:00 Room Air 01/06/25 22:58 01/06/25 22:51 Room Air 01/06/25 22:30 Room Air 01/06/25 22:16 01/06/25 22:16 Room Air 01/06/25 22:15 Room Air 01/06/25 21:37 Room Air Laboratory Results Laboratory Results WBC 8.45 K/ul (4.8-10.8) 01/06/25 21:53 RBC 4.59 M/uL (4.70-6.10) L 01/06/25 21:53 Hgb 15.0 g/dl (14.0-18.0) 01/06/25 21:53 POC Hgb 15.6 g/dl (14.0-18.0) 01/06/25 22:00 Hct 43.5 % (42.0-52.0) 01/06/25 21:53 POC Hct 46 % (42-52) 01/06/25 22:00 MCV 94.8 fL (80.0-100.0) 01/06/25 21:53 MCH 32.7 pg (25.0-34.0) 01/06/25 21:53 MCHC 34.5 g/dL (32.0-36.0) 01/06/25 21:53 RDW Std Deviation 42.5 fL (36.4-46.3) 01/06/25 21:53 RDW Coeff of Salome 12.2 % (11.5-14.5) 01/06/25 21:53 Plt Count 196 K/uL (130-400) 01/06/25 21:53 MPV 10.4 fL (9.4-12.4) 01/06/25 21:53 Immature Gran % (Auto) 0.2 % 01/06/25 21:53 Neut % (Auto) 62.1 % 01/06/25 21:53 Lymph % (Auto) 26.6 % 01/06/25 21:53 [place] % (Auto) 8.2 % 01/06/25 21:53 Eos % (Auto) 2.0 % 01/06/25 21:53 Baso % (Auto) 0.9 % 01/06/25 21:53 Neut # (Auto) 5.24 K/uL (1.40-6.50) 01/06/25 21:53 Lymph # (Auto) 2.25 K/uL (1.20-3.40) 01/06/25 21:53 [place] # (Auto) 0.69 K/uL (0.11-0.59) H 01/06/25 21:53 Eos # (Auto) 0.17 K/uL (0.00-0.50) 01/06/25 21:53 Baso # (Auto) 0.08 K/uL (0.00-0.20) 01/06/25 21:53 Immature Gran # (Auto) 0.02 K/uL (0.01-0.20) 01/06/25 21:53 POC Sodium 140 mmol/L (135-144) 01/06/25 22:00 Sodium 139 mmol/L (136-145) 01/06/25 21:53 POC Potassium 4.4 mmol/L (3.3-5.0) 01/06/25 22:00 Potassium 4.3 mmol/L (3.5-5.1) 01/06/25 21:53 POC Chloride 105 mmol/L (101-112) 01/06/25 22:00 Chloride 104 mmol/L (98-107) 01/06/25 21:53 Carbon Dioxide 24 mmol/L (21-32) 01/06/25 21:53 POC Total CO2 23 mmol/L (24-31) L 01/06/25 22:00 Anion Gap 11 (3-11) 01/06/25 21:53 POC Anion Gap 18.0 mmol/L (16-25) 01/06/25 22:00 POC BUN 22 mg/dl (7-18) H 01/06/25 22:00 BUN 22 mg/dl (6-23) 01/06/25 21:53 Creatinine 1.23 mg/dl (0.6-1.4) 01/06/25 21:53 POC Creatinine 1.4 mg/dl (0.6-1.3) H 01/06/25 22:00 Est Cr Clr Drug Dosing 68.0 ml/min 01/06/25 21:53 eGFR 67.21 01/06/25 21:53 BUN/Creatinine Ratio 17.9 (10-20) 01/06/25 21:53 Glucose 146 mg/dl (70-99(Fasting)) H 01/06/25 21:53 POC Glucose (other) 146 mg/dl (70-99) H 01/06/25 22:00 Calcium 9.5 mg/dl (8.6-10.3) 01/06/25 21:53 POC Ioniz Calcium Altaf 1.16 mmol/l (1.12-1.32) 01/06/25 22:00 Magnesium 2.0 mg/dl (1.7-2.4) 01/06/25:53 Total Bilirubin 0.9 mg/dl (0.2-1.0) 01/06/25 21:53 AST 18 U/L (13-39) 01/06/25 21:53 ALT 19 U/L (7-52) 01/06/25 21:53 Alkaline Phosphatase 75 U/L (34-104) 01/06/25 21:53 Troponin I High Sens 6.9 pg/ml (0-20) 01/06/25 21:53 Total Protein 7.3 gm/dl (6.0-8.3) 01/06/25 21:53 Albumin 4.5 gm/dl (3.4-5.0) 01/06/25 21:53 Globulin 2.8 gm/dl (2.5-4.0) 01/06/25 21:53 Albumin/Globulin Ratio 1.6 (0.9-2) 01/06/25 21:53 Lipase 97 U/L (11-82) H 01/06/25 21:53 TSH 0.190 uIu/ml (0.300-4.500) L 01/06/25 21:53 Free T4 1.05 ng/dl (0.61-1.60) 01/06/25 21:53 Adenovirus (PCR) Not Detected (NotDetected) 01/06/25 23:30 Anaplasma Smear See Comment 01/06/25 23:08 Babesia Smear See Comment 01/06/25 23:08 B. pertussis DNA (PCR) Not Detected (NotDetected) 01/06/25 23:30 B.parapertussis DNA PCR Not Detected (NotDetected) 01/06/25 23:30 Lyme Disease Screen Negative (Negative) 01/06/25 23:08 C. pneumoniae DNA (PCR) Not Detected (NotDetected) 01/06/25 23:30 Coronavirus OC43 (PCR) Not Detected (NotDetected) 01/06/25 23:30 Coronavirus HKU1 (PCR) Not Detected (NotDetected) 01/06/25 23:30 Coronavirus 229E (PCR) Not Detected (NotDetected) 01/06/25 23:30 SARS-CoV-2 (PCR) Not Detected (NotDetected) 01/06/25 23:30 Coronavirus NL63 (PCR) Not Detected (NotDetected) 01/06/25 23:30 Human Metapneumovir PCR Not Detected (NotDetected) 01/06/25 23:30 Influenza Type A (PCR) Not Detected (NotDetected) 01/06/25 23:30 Influenza Type B (PCR) Not Detected (NotDetected) 01/06/25 23:30 M. pneumoniae (PCR) Not Detected (NotDetected) 01/06/25 23:30 Parainfluenza 1 (PCR) Not Detected (NotDetected) 01/06/25 23:30 Parainfluenza 2 (PCR) Not Detected (NotDetected) 01/06/25 23:30 Parainfluenza 3 (PCR) Not Detected (NotDetected) 01/06/25 23:30 Parainfluenza 4 (PCR) Not Detected (NotDetected) 01/06/25 23:30 RSV (PCR) Not Detected (NotDetected) 01/06/25 23:30 Entero/Rhino (PCR) Not Detected (NotDetected) 01/06/25 23:30 Impressions Chest X-Ray 01/06/25 21:50 Exam(s): XR CXR 1 VIEW EXAM: XR Chest, 1 View CLINICAL HISTORY: Reason for exam: Chest pain, nonspecific. TECHNIQUE: Frontal views of the chest. COMPARISON: No relevant prior studies available. FINDINGS: Lungs: No consolidation. Pleural space: No pleural effusion is seen. No pneumothorax. Heart: The heart is normal in size.. Mediastinum: Unremarkable. Bones/joints: There are degenerative changes in the spine.. IMPRESSION: No acute pulmonary disease. Electronically signed by: Manuel Cantor MD 01/07/25 00:14 AM Abdomen/Pelvis CT 01/06/25 23:04 Exam(s): CT ABDOMEN + PELVIS Without Contrast EXAM: CT Abdomen and Pelvis Without Intravenous Contrast CLINICAL HISTORY: Reason for exam: fausto, pain. TECHNIQUE: Axial computed tomography images of the abdomen and pelvis without intravenous contrast. CTDI is 22.1 mGy and DLP is 779.98 mGy-cm. Automated exposure control was utilized for the study. A dose lowering technique was utilized adhering to the principles of ALARA. COMPARISON: 10/04/2023. FINDINGS: The exam is limited due to lack of contrast. Lung bases: No consolidation. ABDOMEN: Liver: The heart is enlarged. Gallbladder and bile ducts: No calcified stones. No ductal dilation. Pancreas: The visualized portions of the pancreas, on this noncontrast study, are grossly unremarkable.. Spleen: No splenomegaly. Adrenals: No mass. Kidneys and ureters: No obstructing stones. No hydronephrosis. Stomach and bowel: The stomach is relatively decompressed. There is air and stool noted in the colon.. PELVIS: Appendix: Unremarkable CT scan appearance noted the appendix.. Bladder: No calculi are noted within the bladder.. Reproductive: There are calcifications within the prostate gland.. ABDOMEN and PELVIS: Intraperitoneal space: No free air. No significant fluid collection. Bones/joints: The patient is status post right total hip replacement. There are degenerative changes in the spine. Soft tissues: A spinal neurostimulator device is noted in the anterior abdominal wall with its lead extending into the spinal canal Vasculature: There are atherosclerotic changes. No abdominal aortic aneurysm. Lymph nodes: No enlarged lymph nodes. IMPRESSION: Hepatomegaly. See discussion above Electronically signed by: Manuel Cantor MD 01/06/25 23:[address] 01/06/25 23:04 Exam(s): CT CHEST Without Contrast EXAM: CT Chest Without Intravenous Contrast CLINICAL HISTORY: Reason for exam: pain, fausto. TECHNIQUE: Axial computed tomography images of the chest without intravenous contrast. CTDI is 19.97 mGy and DLP is 944.41 mGy-cm. Automated exposure control was utilized for the study. A dose lowering technique was utilized adhering to the principles of ALARA. COMPARISON: 06/20/2023. FINDINGS: Lungs: No mass. No consolidation. There are small bullae noted at the lung apices. Pleural space: No significant effusion. No pneumothorax. Heart: The heart is not enlarged but contains coronary artery calcifications Bones/joints: There is a kyphoscoliosis of the spine with degenerative changes.. Soft tissues: Unremarkable. Vasculature: There are atherosclerotic changes.. No thoracic aortic aneurysm. Lymph nodes: No enlarged mediastinal lymph nodes. IMPRESSION: The heart is not enlarged but contains coronary artery calcifications Electronically signed by: Manuel Cantor MD 01/06/25 23:46 PM Code Status & VTE Plan Code Status Full code VTE Prophylaxis Plan VTE Prophylaxis will be ordered: Yes PG Care Time/CCT Total # of Minutes Spent Total Time Spent with Patient: Total time spent is greater than 50% in coordination of care (as documented) at patient's floor/unit and/or counseling patient: Coding Level of Care Code 11300 INT INP/OBS CARE 3/75MIN Diagnoses Panhypopituitarism E23.0 Bradycardia R00.1 Myofascial pain syndrome of lumbar spine M79.18 Atypical chest pain R07.89
[2025-01-07] MEDS: LACTATED RINGER'S 1,000 ML IV SCH (01:57)
[2025-01-07] MEDS ORDERED: ONDANSETRON INJ 2 MG/ML 2 ML VIAL IV PRN (02:55)
[2025-01-07] MEDS ORDERED: DEXTROSE 50% 50 ML SYRINGE IV PRN (02:55)
[2025-01-07] MEDS ORDERED: GLUCOSE 10 TAB/TUBE PO PRN (02:55)
[2025-01-07] MEDS ORDERED: CARBOHYDRATES FOR HYPOGLYCEMIA PO PRN (02:55)
[2025-01-07] MEDS ORDERED: GLUCOSE 40% GEL 15 GM TUBE PO PRN (02:55)
[2025-01-07] MEDS ORDERED: GLUCAGON FOR INJ 1 MG VIAL SQ PRN (02:55)
[2025-01-07] MEDS ORDERED: ACETAMINOPHEN 1000 MG/100 ML IV IV PRN (02:55)
[2025-01-07] MEDS ORDERED: ACETAMINOPHEN 500 MG TAB PO PRN (03:16)
[2025-01-07] MEDS: PROCHLORPERAZINE 10 MG in SYRINGE 8 ML IV PRN (03:37)
[2025-01-07] MEDS ORDERED: clonazePAM 0.5 MG TAB PO PRN (03:56)
[2025-01-07] MEDS ORDERED: ALBUTEROL HFA 8 GM INHALER INH PRN (03:56)
[2025-01-07 04:15] LABS: Appearance Urine Clear (Clear); Bacteria Urine Automated None Seen (None Seen); Cast Urine Automated 0-2 /lpf (0-2); Epithelial Cell Urine Auto 0-2 /hpf (0-2); Glucose Urine UA Trace (Negative); RBC Urine Automated 0-2 /hpf (0-2); WBC Urine Automated 0-5 /hpf (0-5)
[2025-01-07] MEDS ORDERED: HYDROmorphone PAIN PUMP IT SCH (04:45)
[2025-01-07 06:00] LABS: Hematocrit (blood only) 38.8 % (42.0-52.0); Hemoglobin 14.0 g/dl (14.0-18.0); Immature Granulocytes # (auto) 0.03 K/uL (0.01-0.20); Immature Granulocytes % (auto) 0.4 %; Mean Corpuscular Hemoglobin 33.9 pg (25.0-34.0); Mean Corpuscular Volume 93.9 fL (80.0-100.0); Platelet Count 173 K/uL (130-400); RDW Standard Deviation 41.5 fL (36.4-46.3); Red Blood Count 4.13 M/uL (4.70-6.10); White Blood Count 7.52 K/ul (4.8-10.8)
[2025-01-07] MEDS: HYDROCORTISONE SOD 50 MG in SYRINGE 0 ML IV SCH (06:00)
[2025-01-07] MEDS: CEFEPIME 2000MG 2,000 MG/20 ML SYR IV SCH (06:00)
[2025-01-07] MEDS: LEVOTHYROXINE SODIUM 100 MCG TABLET PO SCH (06:01)
[2025-01-07 06:18] LABS: Anion Gap 10.0 (3-11); Blood Urea Nitrogen 25.0 mg/dl (6-23); Calcium 8.6 mg/dl (8.6-10.3); Carbon Dioxide 22.0 mmol/L (21-32); Chloride 107.0 mmol/L (98-107); Creatinine Clr Calc Pharmacy 60.6 ml/min; Glucose 162.0 mg/dl (70-99(Fasting)); Potassium 4.8 mmol/L (3.5-5.1); Sodium 139.0 mmol/L (136-145)
[2025-01-07 07:35] LABS: Hemoglobin A1C 7.3 % (4.5-5.6)
[2025-01-07 07:39] VITALS: RESP 18
[2025-01-07] MEDS: INSULIN ASPART PER UNIT CHARGE SC SCH (09:02)
[2025-01-07] MEDS: PANTOprazole 40 MG/10 ML SYR IV SCH (09:03)
[2025-01-07] MEDS: ATORVASTATIN 40 MG TAB PO SCH (09:05)
[2025-01-07] MEDS: CYANOCOBALAMIN (B-12) 500 MCG TABLET PO SCH (09:05)
[2025-01-07 11:59] VITALS: O2SAT 95
--- NOTE | 2025-01-07 12:46 | Hospitalist Progress Note ---
Date of Service January 07, 2025 Assessment & Plan (1) Bradycardia: Plan: Heart rate is currently in the 50s. No significant bradycardia associated with hypotension since admission. Continue telemetry. External pacemaker pads are in place if necessary. He is not on any rate suppressing medication at this time (2) Atypical chest pain: Plan: No evidence of acute coronary syndrome. Troponin #1 and #2 are within normal limits. No acute EKG changes. Chest discomfort has resolved (3) Panhypopituitarism: Plan: Stable. Parenteral steroid therapy switch back to his usual oral prednisone dosing (4) Myofascial pain syndrome of lumbar spine: Plan: Intrathecal Dilaudid pump used for pain control measures. (5) Type 2 diabetes mellitus: Plan: ADA diet. Sliding scale coverage as needed (6) Hyperlipidemia: Plan: Stable. Continue current medical management Plan Hopeful discharge to home within the next day or 2 Admission and Anticipated Discharge Date Admission Date: January 07, 2025 Subjective Alert and oriented. No distress. He denies any active chest pain at this time. Troponin negative x 2. Heart rate is in the 50s. He has not had any significant bradycardia since admission. Temporary pacemaker pads are in place however if needed. Parenteral steroid therapy has been switched back to oral dosing. His chronic pain problem is treated with a Dilaudid pump. Cardiology consultation requested on admission remains pending. Cardiac echo remains pending. Review of Systems 2 Review of Systems: Constitutionalno fever or chills ENTno blurred vision, no double vision, no epistaxis, no sore throat Respiratoryno cough, no wheezing, no shortness of breath Cardiacno palpitations, no syncope. Chest discomfort has resolved Nigle nausea, vomiting, diarrhea, melena, hematochezia GUno urinary retention, no urinary incontinence, no dysuria, no hematuria Musculoskeletalno joint pain, no muscle tenderness Skinno bruising, no rashes, no pruritus Neurono isolated weakness, no paresthesia, no weakness Psychno depression, no anxiety Physical Exam 2 Physical Exam: General-alert and oriented x3, no fever, no chills HEENT-head atraumatic and normocephalic, pupils equal and reactive to light, extraocular muscles intact Neck-no lymphadenopathy or thyromegaly, trachea midline Chest-clear to auscultation. No rales, wheezing or rhonchi Cardiac-mildly bradycardic rate with regular rhythm. Normal S1 and S2 Abdomen-normal bowel sounds, no hepatosplenomegaly Extremities-no cyanosis, clubbing, or edema Neuro-cranial nerves II through XII intact, motor and sensory function within normal limits, strength symmetrical, no focal deficits Psych-normal affect, normal mood Results & Data Results & Data Vital Signs (Past 12 Hours) Vital Signs Temp Pulse Pulse Resp BP BP Pulse Ox 01/07/25 11:58 37.2 C 65 18 122/67 95 01/07/25 09:00 01/07/25 07:49 44 L 01/07/25 07:38 37.9 C H 55 L 18 160/67 H 97 01/07/25 04:13 01/07/25 03:21 01/07/25 03:02 01/07/25 03:00 37.6 C H 68 20 173/69 H 93 01/07/25 02:39 74 20 184/65 H 97 01/07/25 02:00 50 L 15 156/82 H 100 O2 Del Method 01/07/25 11:58 Room Air 01/07/25 09:00 Room Air 01/07/25 07:49 01/07/25 07:38 Room Air 01/07/25 04:13 Room Air 01/07/25 03:21 Room Air 01/07/25 03:02 Room Air 01/07/25 03:00 Room Air 01/07/25 02:39 Room Air 01/07/25 02:00 Room Air Laboratory Results 01/07/25 05:32 01/07/25 05:32 PG Care Time/CCT Total # of Minutes Spent Total Time Spent with Patient: Total time spent is greater than 50% in coordination of care (as documented) at patient's floor/unit and/or counseling patient: Coding Level of Care Code 13075 SUB INP/OBS CARE 3/50MIN Diagnoses Bradycardia R00.1 Atypical chest pain R07.89 Panhypopituitarism E23.0 Myofascial pain syndrome of lumbar spine M79.18 Type 2 diabetes mellitus E11.9 Hyperlipidemia E78.5
[2025-01-07 15:08] VITALS: BP 139/54; PULSE 52; TEMP 98.2
--- NOTE | 2025-01-07 16:23 | Discharge Summary ---
Discharge Summary Date of Service January 07, 2025 Principal Dx & Hospital Course #1 = Principal Diagnosis (1) Bradycardia: Heart rate is currently in the 50s. No significant bradycardia associated with hypotension since admission. Continue telemetry. External pacemaker pads are in place if necessary. He is not on any rate suppressing medication at this time (2) Atypical chest pain: No evidence of acute coronary syndrome. Troponin #1 and #2 are within normal limits. No acute EKG changes. Chest discomfort has resolved. He has been seen by cardiology and cleared for discharge. He will follow-up with his primary care provider soon as possible for scheduling of outpatient stress testing (3) Panhypopituitarism: Stable. Parenteral steroid therapy switch back to his usual oral prednisone dos ing (4) Myofascial pain syndrome of lumbar spine: Intrathecal Dilaudid pump used for pain control measures. (5) Type 2 diabetes mellitus: ADA diet. Sliding scale coverage as needed. Resume usual diabetic management at discharge (6) Hyperlipidemia: Stable. Continue current medical management Plan Home today, January 07. Final cardiac echo report remains pending. Admission HPI Per Admitting Provider The patient is a 59-year-old male with a past medical history including lumbar spine myofascial pain syndrome, urinary incontinence, anxiety, tobacco use, pituitary microadenoma, secondary adrenal insufficiency, ACTH deficiency, COPD with emphysema, diabetes mellitus, dyslipidemia, growth hormone deficiency, pituitary hypogonadism and hypothyroidism, presence of intrathecal Dilaudid p ump, and hypertension. The patient presents to the emergency department with multiple complaints, including urinary frequency, worsening generalized weakness and fatigue, decreased oral intake, discomfort from restless legs, and intermittent chest pressure. He is known history of panhypopituitarism associated with pituitary microadenoma, and concerns on ED with of associated issues with secondary adrenal insufficiency. From the ED the patient received the following: Aspirin 324 mg, Zofran 4 mg IV, hydrocortisone 100 mg IV, NSS 1 L bolus, metoclopramide 10 mg IV, diphenhydramine 25 mg IV, famotidine 20 mg IV, and Zofran 4 mg IV second time. The patient was noted to be bradycardic in the emergency department, with sinus bradycardic heart rate in the 40s to low 60s, and occasionally going up to 100. Patient is not on any negative inotropes, but is on a Dilaudid and physical pain pump, which she reports was changed [address] Parra. The patient was referred to the hospitalist service for further evaluation and treatment. Discharge Exam General-alert and oriented x3, no fever, no chills HEENT-head atraumatic and normocephalic, pupils equal and reactive to light, extraocular muscles intact Neck-no lymphadenopathy or thyromegaly, trachea midline Chest-clear to auscultation. No rales, wheezing or rhonchi Cardiac-mildly bradycardic rate with regular rhythm. Normal S1 and S2 Abdomen-normal bowel sounds, no hepatosplenomegaly Extremities-no cyanosis, clubbing, or edema Neuro-cranial nerves II through XII intact, motor and sensory function within normal limits, strength symmetrical, no focal deficits Psych-normal affect, normal mood Discharge Plan Discharge Items Patient Disposition: Home - Self-Care Reason For Visit: BRADYCARDIA, CHEST PAIN, PANHYPOPIT Discharge Diagnosis: Atypical chest pain without acute coronary syndrome, sinus bradycardia Condition on Discharge: Good Activity: Resume your previous activity Non-emergency contact: Primary Care Provider Call non-emergency contact if: your symptoms worsen Follow-up/Referrals: Pro,Lucian Espinoza MD [Primary Care Provider] - Diet: Carb Consistent or DM2 and Heart Healthy Addtl Attending Provider Instructions: All medications remain the same. See primary care provider soon as possible for consideration of outpatient stress testing Pending Studies at Discharge: Yes Studies:: Cardiac echo report Stand-Alone Forms: My [facility] [employer], Smoking Cessation Medications and DC Order Prescriptions: Continued ondansetron 4 mg tablet,disintegrating 4 mg PO Q8H PRN (Reason: nausea and vomiting) Qty: 30 0RF Baqsimi 3 mg/actuation spray,non-aerosol 3 mg intranasal ONCE Qty: 1 2RF Rx Instructions: use for severe hypoglycemia testosterone cypionate 100 mg/mL oil 100 mg IM WK Qty: 10 1RF Patient Comments: EVERY SATURDAY (DME) Dexcom G7 Sensor Device See Rx Instructions .ROUTE .MEDSUPPLY Qty: 1 0RF Rx Instructions: change sensor every 10 days metformin 500 mg tablet extended release 24 hr 500 mg PO BID Qty: 180 3RF prednisone 10 mg tablet 10 mg PO DAILY Qty: 135 1RF Rx Instructions: Double in times of stress albuterol sulfate 90 mcg/actuation HFA aerosol inhaler 2 puff INH UD PRN (Reason: Shortness Of Breath Or Wheezing) Qty: 17 3RF insulin aspart U-100 [Novolog FlexPen U-100 Insulin] 100 unit/mL (3 mL) insulin pen See Rx Instructions subcut BID Qty: 15 0RF Rx Instructions: To be used by pre meal sliding scale only. Target 150 correction factor of 35 (DME) lancets [OneTouch Delica Plus Lancet] 33 gauge misc See Rx Instructions .Route Qty: 300 3RF Rx Instructions: test blood sugar 3 x daily (DME) pen needle, diabetic 32 gauge x 5/32" needle See Rx Instructions miscellaneous .MEDSUPPLY Qty: 400 3RF Rx Instructions: To be used up to 4x a day mecobalamin (vitamin B12) 1,000 mcg tablet,disintegrating 1,000 mcg sublingual DAILY Qty: 30 0RF Rx Instructions: otc unable to verify place tablet under tongue and allow to dissolve for at least30 secs before swallowing (DME) blood-glucose meter [OneTouch Verio Flex Start] Kit See Rx Instructions .Route Qty: 1 0RF Rx Instructions: Test three times a day (DME) OneTouch Verio test strips Strip See Rx Instructions .Route Qty: 300 3RF Rx Instructions: test blood sugar 3 x daily Dilaudid Pain Pump 1.5mg/Ml 0.0172 mg intrathecal UD Rx Instructions: 0.0172mg/hr intrathecally via pump implanted in patient. Unable to verify w/ pharmacy at this date/time. Original Directions: Original Directions 0.0172mg as directed amlodipine 5 mg tablet 5 mg PO UD trazodone 150 mg tablet 75 mg PO HS clonazepam [Klonopin] 0.5 mg tablet 0.5 mg PO BID PRN (Reason: Anxiety) naloxone [Narcan] 4 mg/actuation spray,non-aerosol 1 spray intranasal ONCE PRN (Reason: opioid overdose) Qty: 2 1RF diazepam 5 mg Tablet 5 mg PO BID PRN (Reason: Anxiety) bupropion HCl 300 mg Tablet Extended Release 24 Hr 300 mg PO QAM levothyroxine 100 mcg Tablet 100 mcg PO DAILYBB trazodone 150 mg tablet 150 mg PO HS duloxetine 60 mg Capsule,Delayed Release(Dr/Ec) 60 mg PO QAM atorvastatin 40 mg tablet 40 mg PO DAILY Discharge Orders: Discharge Order (Routine); Ordered 01/07/25 Ordered By: Francisco Pearl/Other Patient Handouts: Managing Type 2 Diabetes Admission Data Admit Date/Time: 01/07/25 01:49 Attending Provider: Francisco Kenney Admit Provider: Mark Sifuentes Primary Care Provider: Lucian Mccann Other Providers: Mark Sifuentes; Joe Lomeli Hospital Stay Data Consultations 01/07/25 00:17 ED Decision to Admit Stat 01/07/25 02:55 Consult Cardiology Routine Diagnostic Imagining Performed 01/06/25 23:04 CT abd pelvis wo con Stat CT chest diagnostic wo con Stat Pending Results Patient Have Any Pending Studies at Discharge: Yes Discharge Instructions Given to Patient (Per Discharging Provider) All medications remain the same. See primary care provider soon as possible for consideration of outpatient stress testing Total Time Total Time Spent Total Time Spent (In Minutes): 45 minutes Coding Level of Care Code 76917 INP/OBS DISCH >30 MIN Diagnoses Bradycardia R00.1 Atypical chest pain R07.89 Panhypopituitarism E23.0 Myofascial pain syndrome of lumbar spine M79.18 Type 2 diabetes mellitus E11.9 Hyperlipidemia E78.5
--- NOTE | 2025-01-07 17:27 | XCELERA ---
[id number]
--- NOTE | 2025-01-07 17:28 | Cardiology Consultation ---
Date of Consultation January 07, 2025 Assessment & Plan (1) Bradycardia: (2) Atypical chest pain: (3) Tobacco use: (4) Dyslipidemia: (5) HTN (hypertension): (6) Coronary artery calcification: Plan ASSESSMENT/PLAN: 1. Bradycardia: He seems asymptomatic from his bradycardia. While in bed, he was asked to move his arms and legs and his chronotropic response was appropriate. There was a bedside monitor and heart rate quickly grabiel from the mid upper 50s to the low 70s within several seconds of movement. No indication for pacemaker based on presentation and findings. 2. Chest pain: He had several hours of chest pain and high-sensitivity troponin that was greater than 6 hours apart remained nonelevated. We discussed the fact that given his risk factors, he may have coronary artery disease but this current presentation was not consistent with acute coronary syndrome or angina. Continue risk factor modification with high intensity statin therapy. If no contraindication, consider low-dose aspirin given coronary artery calcifications. Optimize glucose management. 3. Nausea: As per primary hospitalist service. 4. Weakness episode: Does not appear to be cardiac in nature. Defer to primary hospitalist service. 5. Tobacco abuse: Recommended that he stop smoking. 6. Dyslipidemia: Most recent LDL was well-controlled. Continue high intensity statin therapy. 7. Coronary artery calcifications: Has multiple risk factors for CAD. Continue high intensity statin therapy. Consider aspirin 81 mg daily if no contraindication. Risk factor modification as noted. 8. Hypertension: Blood pressure was significantly elevated on presentation which may have contributed to his atypical chest discomfort. Blood pressure has since significantly improved. Optimize blood pressure management as an outpatient as needed. 9. Disposition: No further cardiac testing recommended at this time. Patient care communicated with Dr. Kenney of the primary hospitalist service. Thank you for allowing me to participate in the care of your patient. Please call for any other questions or concerns. Sincerely, Rosalio Aponte M.D. History of Present Illness Reason for Consultation: bradycardia Requesting Physician: Dr. Sifuentes Attending Physician: Francisco Kenney MD History of Present Illness Mr. Finn is a pleasant 59-year-old gentleman with a history significant for type 2 diabetes, hypertension, dyslipidemia, COPD with emphysema, pituitary microadenoma, secondary adrenal insufficiency, growth hormone deficiency, pituitary hypogonadism and hypothyroidism, and lumbar spine myofascial pain syndrome with intrathecal Dilaudid pump in place. He was admitted on 01/07/2025 after presenting with significant weakness. On 01/06/2025, he presented to the emergency department after he woke up earlier that day from a post work nap at 4:05 PM and was not able to "function." He was too weak to get out of bed and felt very drowsy. There was no reported confusion however. By 8 PM, he was able to walk down the stairs but remained very weak. Initially, he went to [facility] ER but it was very busy so his drove him to [facility]. He felt nauseated. He developed a substernal chest tightness with nausea and eventually started dry heaving and vomited and route to this hospital. He recalls that the sense of smell significantly bothered him. He was unable to eat dinner on 01/06/2025 but also unable to eat breakfast this morning on 01/07/2025. He was nauseated throughout the entire evening of 01/06/2025 and through the night. He estimates that the chest discomfort lasted for 2 hours constantly before resolving. He has chronic palpitations described on occasion lasting a few seconds. He denies syncope, near syncope, edema, melena, hematochezia, or hematuria. By the time he was seen on 01/07/2025 in the early afternoon, he felt back to baseline and felt ready for discharge. He was noted to be bradycardic with heart rates in the 40s throughout the night. He has a history of chest discomfort intermittently and underwent a stress test in 2022 at [facility] and was seen by [facility] cardiology at that time on 06/29/2022 he underwent a stress test which was reportedly negative and it was felt as though the chest discomfort was not cardiac in nature. Review of systems: As above. Family history: Mother at 62 with VT. Father in his 70s with VT. Social history: Smokes 1.5 packs/day of cigarettes and has smoked up to 2 packs/day in the past. He started smoking at the age of 12. He quit consuming alcohol many years ago. Snorted cocaine 30+ years ago. He denies any recent drug use. He is and lives at home with his . He has 2 adult children (son in [place] and daughter lives at home with he and his ). He has a part-time job but states he is on disability. His was present at the bedside. Allergies Allergy/AdvReac Type Severity Reaction Status Date / Time Iodinated Contrast Media Allergy Severe Difficulty Verified 01/07/25 00:51 Breathing gabapentin [From Neurontin] Allergy Mild Swelling Verified 01/07/25 00:51 Home Medications Medication Instructions Recorded Confirmed Type Dilaudid Pain Pump 1.5mg/Ml 0.0172 mg intrathecal UD 05/09/21 01/07/25 History blood sugar diagnostic (APT TherapeuticsTouch #300 ea 09/25/23 12/24/24 Rx Verio test strips) blood-glucose meter (APT TherapeuticsTouch #1 ea 09/25/23 12/24/24 Rx Verio Flex Start kit) clonazepam 0.5 mg tablet (Klonopin) 0.5 mg PO BID PRN Anxiety 01/04/24 01/07/25 History trazodone 150 mg tablet 75 mg PO HS 01/04/24 01/07/25 History mecobalamin (vitamin B12) 1,000 1,000 mcg sublingual DAILY #30 tabs 04/14/24 01/07/25 Rx mcg disintegrating tablet,sublingual glucagon 3 mg/actuation nasal 3 mg intranasal ONCE #1 ea 08/06/24 01/07/25 Rx spray (Baqsimi) amlodipine 5 mg tablet 5 mg PO UD 09/02/24 01/07/25 History insulin aspart U-100 100 unit/mL See Rx Instructions subcut BID #15 09/08/24 01/07/25 Rx (3 mL) subcutaneous pen (Novolog mL FlexPen U-100 Insulin aspart) naloxone 4 mg/actuation nasal 1 spray intranasal ONCE PRN opioid 09/11/24 01/07/25 Rx spray (Narcan) overdose #2 ea lancets 33 gauge (OneTouch Delica #300 ea 09/29/24 12/24/24 Rx Plus Lancet) pen needle, diabetic 32 gauge x #400 ea 09/29/24 12/24/24 Rx " testosterone cypionate 100 mg/mL 100 mg IM WK #10 mL 09/30/24 01/07/25 Rx intramuscular oil blood-glucose sensor (Dexcom G7 #1 ea 10/07/24 12/24/24 Rx Sensor device) ondansetron 4 mg disintegrating 4 mg PO Q8H PRN nausea and 11/12/24 01/07/25 Rx tablet vomiting #30 tabs metformin 500 mg tablet,extended 500 mg PO BID #180 tabs 11/25/24 01/07/25 Rx release 24 hr prednisone 10 mg tablet 10 mg PO DAILY #135 tabs 11/26/24 01/07/25 Rx albuterol sulfate 90 mcg/actuation 2 puff inhalation UD PRN Shortness 12/08/24 01/07/25 Rx aerosol inhaler Of Breath Or Wheezing #17 grams atorvastatin 40 mg tablet 40 mg PO DAILY 01/07/25 01/07/25 History bupropion HCl 300 mg 24 hr tablet, 300 mg PO QAM 01/07/25 01/07/25 History extended release diazepam 5 mg tablet 5 mg PO BID PRN Anxiety 01/07/25 01/07/25 History duloxetine 60 mg capsule,delayed 60 mg PO QAM 01/07/25 01/07/25 History release levothyroxine 100 mcg tablet 100 mcg PO DAILYBB 01/07/25 01/07/25 History trazodone 150 mg tablet 150 mg PO HS 01/07/25 01/07/25 History Patient History Medical History [facility] (current) use of systemic steroids prednisone qam Pituitary abnormality Follows with endo (since 2014) ([facility]) Diffuse pituitary dysfunction (growth hormone deficiency, pituitary hypothyroidism and hypogonadism) 6 mm pituitary lesion may represent a microadenoma per 05/2024 pituitary MRI GCA (giant cell arteritis) Follows with rheum- biopsy negative but continues with headaches - currently trying to transition patient off prednisone and on to only hydrocortisone Lumbar facet joint syndrome Sacroiliitis Intractable low back pain Secondary adrenal insufficiency On hydrocortisone and prednisone daily (currently rheum/endo trying to wean patient off prednisone) Hypothyroidism Dyslipidemia Adjustment disorder with anxiety Controlled type 2 diabetes mellitus Hypertension COPD with emphysema Last seen [facility] 03/2023 Left hamstring muscle strain Greater trochanteric bursitis of right hip Exertional shortness of breath Allergic rhinitis with postnasal drip Left-sided temporomandibular joint pain-dysfunction syndrome Erectile dysfunction Chronic SI joint pain Cervical post-laminectomy syndrome limited ROM- 75-80% up and down; 85% side to side AVN of femur Osteoarthritis Family history of reaction to anesthesia "30 years ago a cousin of mine at [facility] during wisdom teeth surgery" he denies any mention of a genetic condition, denies other family members with anesthesia issues Benign prostate hyperplasia Presence of intrathecal pump hydromorphone Sensorineural hearing loss (SNHL) of both ears Dysphagia occasional since cervical spine surgery, denies choking Chronic cough "smoker's cough" Myofascial pain Globus sensation "there's a ledge and sometimes food gets stuck" Cervical radiculopathy limited ROM- 75-80% up and down; 85% side to side Sleep apnea pt denies, no cpap Insomnia with fatigue Pain disorder associated with psychological factors and medical condition Surgical History Hx of colonoscopy (2021) History of temporal artery biopsy bilateral, 05/2024 Status post right hip replacement (~01/2024) History of right hip replacement (01/2024) History of left shoulder replacement (08/2023) August 2023 S/P insertion of intrathecal pump S/P epidural steroid injection cervical H/O arthroscopy of shoulder bilateral H/O arthroscopic knee surgery both knees History of esophagogastroduodenoscopy (EGD) (2021) With dilation History of fusion of cervical spine x 8 total neck and back ACDF (multiple) limited ROM- 75-80% up and down; 85% side to side H/O cataract extraction bilateral History of inguinal hernia repair right - as a child Family History Brother Lymphoma Mother Coronary heart disease Myocardial infarction Father Coronary heart disease Myocardial infarction Grandmother Coronary heart disease Other Cancer Denies family history of Ovarian cancer Prostate cancer Breast cancer Colorectal cancer Social History Smoking Status: Current every day smoker Tobacco Type: Cigarettes Age Started Using Tobacco: 13; packs per day: 1; Cigarettes Per Day: 1.5 packs per day; Second Hand Exposure: Yes; Do You Dip or Chew Tobacco: No; Hx Alcohol Use: No Hx Substance Use: No Preferred Language: Venezuelan Communication Ability: Effective Visual Impairment: Limited Hearing Ability: Normal [employer] Distribution [employer] Required: No Beliefs That Will Affect Care: None marital status: Current Living Situation: Spouse Current Living Situation Comment: and daughter 2 story home current occupational status: disabled How many Children do You have: 2 Feels Safe at Home: Yes Diet: diabetic during the past year weight has: decreased > 10 lbs Seatbelt Use: always Assistive Devices: None Physical Exam Physical Exam: Gen.: No acute distress. Alert and oriented. HEENT: Anicteric sclera. Neck: No JVD. Bilateral carotid bruit. Normal carotid upstrokes bilaterally. Cardiac: Regular. Normal S1-S2. No murmurs, rubs, or gallops. Pulmonary: Clear to auscultation bilaterally without wheezes, rales, or rhonchi. Abdomen: Soft, nontender, nondistended, with normoactive bowel sounds. No bruits noted. Extremities: 2+ radial pulses bilaterally. 2+ posterior tibialis pulses bilaterally. No edema or cyanosis. Results & Data Vital Signs (Past 12 Hours) Vital Signs Temp Pulse Pulse Resp BP Pulse Ox O2 Del Method 01/07/25 15:05 36.8 C 52 L 18 139/54 L 95 Room Air 01/07/25 13:50 50 L 01/07/25 11:58 37.2 C 65 18 122/67 95 Room Air 01/07/25 09:00 Room Air 01/07/25 07:49 44 L 01/07/25 07:38 37.9 C H 55 L 18 160/67 H 97 Room Air Laboratory Results Laboratory Results - last 24 hr 01/06/25 01/06/25 01/06/25 21:53 22:00 23:08 WBC 8.45 RBC 4.59 L Hgb 15.0 POC Hgb 15.6 Hct 43.5 POC Hct 46 MCV 94.8 MCH 32.7 MCHC 34.5 RDW Std Deviation 42.5 RDW Coeff of Salome 12.2 Plt Count 196 MPV 10.4 Immature Gran % (Auto) 0.2 Neut % (Auto) 62.1 Lymph % (Auto) 26.6 [place] % (Auto) 8.2 Eos % (Auto) 2.0 Baso % (Auto) 0.9 Neut # (Auto) 5.24 Lymph # (Auto) 2.25 [place] # (Auto) 0.69 H Eos # (Auto) 0.17 Baso # (Auto) 0.08 Immature Gran # (Auto) 0.02 POC Sodium 140 Sodium 139 POC Potassium 4.4 Potassium 4.3 POC Chloride 105 Chloride 104 Carbon Dioxide 24 POC Total CO2 23 L Anion Gap 11 POC Anion Gap 18.0 POC BUN 22 H BUN 22 Creatinine 1.23 POC Creatinine 1.4 H Est Cr Clr Drug Dosing 68.0 eGFR 67.21 BUN/Creatinine Ratio 17.9 Glucose 146 H POC Glucose POC Glucose (other) 146 H Estimat Average Glucose Hemoglobin A1c Calcium 9.5 POC Ioniz Calcium Altaf 1.16 Phosphorus Magnesium 2.0 Total Bilirubin 0.9 AST 18 ALT 19 Alkaline Phosphatase 75 Troponin I High Sens 6.9 Total Protein 7.3 Albumin 4.5 Globulin 2.8 Albumin/Globulin Ratio 1.6 Lipase 97 H TSH 0.190 L Free T4 1.05 Free T3 3.60 Urine Color Urine Appearance Urine pH Ur Specific [place] Urine Protein Urine Glucose (UA) Urine Ketones Urine Blood Urine Nitrite Urine Bilirubin Urine Urobilinogen Ur Leukocyte Esterase Urine WBC (Auto) Urine RBC (Auto) U Hyaline Cast (Auto) U Epithel Cells (Auto) Urine Bacteria (Auto) Urine Comment Adenovirus (PCR) Anaplasma Smear See Comment A. phagocytophilum DNA Pending Babesia Smear See Comment Babesia microti DNA PCR Pending B. pertussis DNA (PCR) B.parapertussis DNA PCR Lyme Disease Screen Negative C. pneumoniae DNA (PCR) Coronavirus OC43 (PCR) Coronavirus HKU1 (PCR) Coronavirus 229E (PCR) SARS-CoV-2 (PCR) Coronavirus NL63 (PCR) Ehrlichia DNA (PCR) Pending Human Metapneumovir PCR Influenza Type A (PCR) Influenza Type B (PCR) M. pneumoniae (PCR) Parainfluenza 1 (PCR) Parainfluenza 2 (PCR) Parainfluenza 3 (PCR) Parainfluenza 4 (PCR) RSV (PCR) Entero/Rhino (PCR) 01/06/25 01/07/25 01/07/25 23:30 04:01 05:32 WBC 7.52 RBC 4.13 L Hgb 14.0 POC Hgb Hct 38.8 L POC Hct MCV 93.9 MCH 33.9 MCHC 36.1 H RDW Std Deviation 41.5 RDW Coeff of Salome 11.9 Plt Count 173 MPV 10.4 Immature Gran % (Auto) 0.4 Neut % (Auto) 77.1 Lymph % (Auto) 17.4 [place] % (Auto) 4.7 Eos % (Auto) 0.0 Baso % (Auto) 0.4 Neut # (Auto) 5.80 Lymph # (Auto) 1.31 [place] # (Auto) 0.35 Eos # (Auto) 0.00 Baso # (Auto) 0.03 Immature Gran # (Auto) 0.03 POC Sodium Sodium 139 POC Potassium Potassium 4.8 POC Chloride Chloride 107 Carbon Dioxide 22 POC Total CO2 Anion Gap 10 POC Anion Gap POC BUN BUN 25 H Creatinine 1.38 POC Creatinine Est Cr Clr Drug Dosing 60.6 eGFR 58.54 BUN/Creatinine Ratio 18.1 Glucose 162 H POC Glucose POC Glucose (other) Estimat Average Glucose 163 Hemoglobin A1c 7.3 H Calcium 8.6 POC Ioniz Calcium Altaf Phosphorus 3.4 Magnesium Total Bilirubin AST ALT Alkaline Phosphatase Troponin I High Sens 12.5 D Total Protein Albumin 4.1 Globulin Albumin/Globulin Ratio Lipase TSH Free T4 Free T3 Urine Color Yellow Urine Appearance Clear Urine pH 5.5 Ur Specific [place] 1.024 Urine Protein Trace H Urine Glucose (UA) Trace H Urine Ketones 1+ H Urine Blood Negative Urine Nitrite Negative Urine Bilirubin Negative Urine Urobilinogen Negative Ur Leukocyte Esterase Trace H Urine WBC (Auto) 0-5 Urine RBC (Auto) 0-2 U Hyaline Cast (Auto) 0-2 U Epithel Cells (Auto) 0-2 Urine Bacteria (Auto) None Seen Urine Comment Adenovirus (PCR) Not Detected Anaplasma Smear A. phagocytophilum DNA Babesia Smear Babesia microti DNA PCR B. pertussis DNA (PCR) Not Detected B.parapertussis DNA PCR Not Detected Lyme Disease Screen C. pneumoniae DNA (PCR) Not Detected Coronavirus OC43 (PCR) Not Detected Coronavirus HKU1 (PCR) Not Detected Coronavirus 229E (PCR) Not Detected SARS-CoV-2 (PCR) Not Detected Coronavirus NL63 (PCR) Not Detected Ehrlichia DNA (PCR) Human Metapneumovir PCR Not Detected Influenza Type A (PCR) Not Detected Influenza Type B (PCR) Not Detected M. pneumoniae (PCR) Not Detected Parainfluenza 1 (PCR) Not Detected Parainfluenza 2 (PCR) Not Detected Parainfluenza 3 (PCR) Not Detected Parainfluenza 4 (PCR) Not Detected RSV (PCR) Not Detected Entero/Rhino (PCR) Not Detected 01/07/25 01/07/25 01/07/25 07:34 11:34 16:44 WBC RBC Hgb POC Hgb Hct POC Hct MCV MCH MCHC RDW Std Deviation RDW Coeff of Salome Plt Count MPV Immature Gran % (Auto) Neut % (Auto) Lymph % (Auto) [place] % (Auto) Eos % (Auto) Baso % (Auto) Neut # (Auto) Lymph # (Auto) [place] # (Auto) Eos # (Auto) Baso # (Auto) Immature Gran # (Auto) POC Sodium Sodium POC Potassium Potassium POC Chloride Chloride Carbon Dioxide POC Total CO2 Anion Gap POC Anion Gap POC BUN BUN Creatinine POC Creatinine Est Cr Clr Drug Dosing eGFR BUN/Creatinine Ratio Glucose POC Glucose 151 H 116 H 126 H POC Glucose (other) Estimat Average Glucose Hemoglobin A1c Calcium POC Ioniz Calcium Altaf Phosphorus Magnesium Total Bilirubin AST ALT Alkaline Phosphatase Troponin I High Sens Total Protein Albumin Globulin Albumin/Globulin Ratio Lipase TSH Free T4 Free T3 Urine Color Urine Appearance Urine pH Ur Specific [place] Urine Protein Urine Glucose (UA) Urine Ketones Urine Blood Urine Nitrite Urine Bilirubin Urine Urobilinogen Ur Leukocyte Esterase Urine WBC (Auto) Urine RBC (Auto) U Hyaline Cast (Auto) U Epithel Cells (Auto) Urine Bacteria (Auto) Urine Comment Adenovirus (PCR) Anaplasma Smear A. phagocytophilum DNA Babesia Smear Babesia microti DNA PCR B. pertussis DNA (PCR) B.parapertussis DNA PCR Lyme Disease Screen C. pneumoniae DNA (PCR) Coronavirus OC43 (PCR) Coronavirus HKU1 (PCR) Coronavirus 229E (PCR) SARS-CoV-2 (PCR) Coronavirus NL63 (PCR) Ehrlichia DNA (PCR) Human Metapneumovir PCR Influenza Type A (PCR) Influenza Type B (PCR) M. pneumoniae (PCR) Parainfluenza 1 (PCR) Parainfluenza 2 (PCR) Parainfluenza 3 (PCR) Parainfluenza 4 (PCR) RSV (PCR) Entero/Rhino (PCR) Diagnostic Findings ECHO 01/07/25: 1. Normal left ventricular size and systolic function. EF 60-65%. No regional wall motion abnormalities. Mild concentric left ventricular hypertrophy. 2. Mildly dilated right ventricle with normal systolic function. 3. Mild biatrial dilation. 4. No significant valvular abnormalities. 5. Normal estimated right ventricular systolic pressure. On 01/08/2025, chart reviewed. [facility] cardiology note reviewed from 06/29/2022. Echo report reviewed. History and physical report reviewed. ECGs personally reviewed: ECG 01/06/2025 2145: Sinus rhythm 65 bpm. Incomplete RBBB. Possible inferior infarct. ECG 01/06/2025 at 2151: Sinus rhythm 62 bpm. Incomplete RBBB. Possible inferior infarct. Telemetry personally reviewed: Sinus rhythm. At the time of the consultation on 01/07/2025, sinus rhythm in the 60s. Overnight heart rate was in the 40s but remained sinus bradycardia. No significant arrhythmia and no significant pause noted. History and physical report reviewed. Labs reviewed and notable for normal blood counts, normal potassium, stable renal function, elevated A1c, normal magnesium, normal transaminase levels, nonelevated high-sensitivity troponin, normal albumin, low TSH. CT chest report 01/06/2025: Coronary artery calcifications report. No thoracic aortic aneurysm per radiology. CT abdomen/pelvis 01/06/2025: Hepatomegaly. Medications Administered Discontinued Medications Amlodipine Besylate (Amlodipine Besylate 5 Mg Tab) 5 mg PO [facility] Stop: 02/06/25 08:59 Last Admin: 01/07/25 09:05 Dose: 5 mg Documented By: LUIS ANTONIO Aspirin (Aspirin Chew 324 Mg) Confirm Administered Dose 324 mg .ROUTE .[facility] ONE Stop: 01/06/25 21:51 Last Admin: 01/06/25 22:20 Dose: Not Given Documented By: RHODA Aspirin (Aspirin Chew 324 Mg) 324 mg PO NOW [facility] Stop: 01/06/25 21:51 Last Admin: 01/06/25 22:00 Dose: 324 mg Documented By: RHODA Atorvastatin Calcium (Atorvastatin 40 Mg Tab) 40 mg PO DAILY [facility] Stop: 02/06/25 08:59 Last Admin: 01/07/25 09:05 Dose: 40 mg Documented By: LUIS ANTONIO Bupropion HCl (Bupropion Xl 300 Mg Tabcr) [facility] Stop: 02/06/25 08:59 Last Admin: 01/07/25 09:05 Dose: 300 mg Documented By: LUIS ANTONIO Cyanocobalamin (Cyanocobalamin (B-12) 500 Mcg Tablet) 1,000 mcg PO DAILY [facility] Stop: 02/06/25 08:59 Last Admin: 01/07/25 09:05 Dose: 1,000 mcg Documented By: LUIS ANTONIO Diphenhydramine HCl (Diphenhydramine 50 Mg/Ml Vial) 25 mg IV NOW STA Stop: 01/06/25 22:49 Last Admin: 01/06/25 22:55 Dose: 25 mg Documented By: RHODA Duloxetine HCl (Duloxetine Hcl 60 Mg Cap) 60 mg PO M ZENY Stop: 02/06/25 08:59 Last Admin: 01/07/25 09:05 Dose: 60 mg Documented By: LUIS ANTONIO Hydrocortisone Sodium Succinate (Hydrocortisone Sod Succinate 100 Mg/2 Ml Vial) 100 mg IV NOW STA Stop: 01/06/25 21:51 Last Admin: 01/06/25 22:00 Dose: 100 mg Documented By: RHODA Sodium Chloride (Nss) 1,000 mls @ 999 mls/hr IV .Q1H1M ONE Stop: 01/06/25 23:34 Last Infusion: 01/07/25 00:23 Dose: Infused Documented By: Admin: 01/06/25 22:54 Dose: 999 mls/hr Documented By: RHODA Famotidine (Pepcid 20mg Iv Push) 20 mg in 5 mls @ 2.5 mls/min IV NOW STA Stop: 01/06/25 22:49 Last Admin: 01/06/25 23:09 Dose: 2.5 mls/min Documented By: RHODA Pantoprazole Sodium (Protonix) 40 mg in 10 mls @ 5 mls/min IV NOW ONE Stop: 01/07/25 01:17 Last Admin: 01/07/25 01:26 Dose: 5 mls/min Documented By: WHITNEY Lactated Ringer's (Lr) 1,000 mls @ 80 mls/hr IV .[id number] ZENY Stop: 01/08/25 02:29 Last Admin: 01/07/25 13:33 Dose: 80 mls/hr Documented By: LUIS ANTONIO Infusion: 01/07/25 13:33 Dose: Infused Documented By: LUIS ANTONIO Admin: 01/07/25 01:57 Dose: 80 mls/hr Documented By: WHITNEY Prochlorperazine 10 mg/ (Syringe) 10 mls @ 5 mls/min IV Q6H PRN PRN Reason: Nausea And Vomiting Stop: 02/06/25 01:25 Last Admin: 01/07/25 03:37 Dose: 5 mls/min Documented By: MOHAMUD Hydrocortisone Sodium (Succinate 50 mg/ Syringe) 1 mls @ 4 mls/min IV Q8H [facility] Stop: 02/06/25 02:54 Last Admin: 01/07/25 06:00 Dose: 4 mls/min Documented By: MOHAMUD Pantoprazole Sodium (Protonix) 40 mg in 10 mls @ 5 mls/min IV BID [facility] Stop: 02/06/25 08:59 Last Admin: 01/07/25 09:03 Dose: 5 mls/min Documented By: LUIS ANTONIO Cefepime HCl (Maxipime 2000mg) 2,000 mg in 20 mls @ 5 mls/min IV Q8H [facility]; Protocol Stop: 01/12/25 04:29 Last Admin: 01/07/25 12:30 Dose: 5 mls/min Documented By: LUIS ANTONIO Admin: 01/07/25 06:00 Dose: 5 mls/min Documented By: MOHAMUD Insulin Aspart (Insulin Aspart Per Unit Charge) 0 units SC ACHS [facility] Stop: 02/06/25 07:29 Last Admin: 01/07/25 12:30 Dose: Not Given Documented By: LUIS ANTONIO Admin: 01/07/25 09:02 Dose: 3 units Documented By: LUIS ANTONIO Co-signed By: DARRYL Levothyroxine Sodium (Levothyroxine Sodium 100 Mcg Tablet) 100 mcg PO DAILYBB [facility] Stop: 02/06/25 06:29 Last Admin: 01/07/25 06:01 Dose: 100 mcg Documented By: MOHAMUD Metoclopramide HCl (Metoclopramide Hcl Inj 5 Mg/Ml 2 Ml Vial) 10 mg IV NOW STA Stop: 01/06/25 22:49 Last Admin: 01/06/25 23:09 Dose: 10 mg Documented By: RHODA Nitroglycerin (Nitroglycerin Sl 0.4 Mg/Tab Tab) Confirm Administered Dose 0.4 mg .ROUTE .[facility]-MED ONE Stop: 01/06/25 21:53 Last Admin: 01/06/25 22:19 Dose: Not Given Documented By: RHODA Nitroglycerin (Nitroglycerin Sl 0.4 Mg/Tab Tab) 0.4 mg SL Q5M PRN PRN Reason: Chest Pain Stop: 02/05/25 21:49 Last Admin: 01/06/25 22:39 Dose: 0.4 mg Documented By: Admin: 01/06/25 22:11 Dose: 0.4 mg Documented By: RHODA Ondansetron HCl (Ondansetron Inj 2 Mg/Ml 2 Ml Vial) 4 mg IV NOW STA Stop: 01/06/25 21:51 Last Admin: 01/06/25 22:13 Dose: 4 mg Documented By: RHODA Ondansetron HCl (Ondansetron Inj 2 Mg/Ml 2 Ml Vial) 4 mg IV NOW STA Stop: 01/06/25 23:24 Last Admin: 01/06/25 23:26 Dose: 4 mg Documented By: WHITNEY PG Care Time/CCT Total # of Minutes Spent Total Time Spent with Patient: Total time spent is greater than 50% in coordination of care (as documented) at patient's floor/unit and/or counseling patient: Coding Level of Care Code 17279 INT INP/OBS CARE 3/75MIN Diagnoses Bradycardia R00.1 Atypical chest pain R07.89 Tobacco use Z72.0 Dyslipidemia E78.5 HTN (hypertension) I10 Coronary artery calcification I25.10
--- NOTE | 2025-01-09 05:50 | Electrocardiogram Report ---
Test Reason : Blood Pressure : */* mmHG Vent. Rate : 65 BPM Atrial Rate : 65 BPM P-R Int : 156 ms QRS Dur : 104 ms QT Int : 398 ms P-R-T Axes : -25 -11 -20 degrees QTcB Int : 413 ms Normal sinus rhythm Incomplete right bundle branch block Inferior infarct , age undetermined Abnormal ECG When compared with ECG of 06-Nov-2024 09:47, Questionable change in QRS axis Non-specific change in ST segment in Inferior leads T wave inversion now evident in Inferior leads Confirmed by Gustavo Aponte ([id number]) on 01/09/2025 5:50:01 AM Referred By: REFERRED SELF Confirmed By: Gustavo Aponte
--- NOTE | 2025-01-09 05:51 | Electrocardiogram Report ---
Test Reason : Blood Pressure : */* mmHG Vent. Rate : 62 BPM Atrial Rate : 62 BPM P-R Int : 160 ms QRS Dur : 104 ms QT Int : 404 ms P-R-T Axes : -25 -17 -26 degrees QTcB Int : 410 ms Normal sinus rhythm Incomplete right bundle branch block Inferior infarct (cited on or before 06-Jan-2025) Abnormal ECG When compared with ECG of 06-Jan-2025 21:45, No significant change was found Confirmed by Gustavo Aponte ([id number]) on 01/09/2025 5:50:26 AM Referred By: REFERRED SELF Confirmed By: Gustavo Aponte
== END 2025-01-07 17:11 | disposition home or self-care (01) | DRG 644 ==
LOC: ED 21:35 → SUATTDRO 01-07 01:49 → 4W 01-07 01:49